=== PATIENT | female | born 1955 | race Caucasian/White ===

== ENCOUNTER → 2018-01-17 10:33 | Outpatient (POV) | payer MEDICARE, OTHER, SELFPAY | PROVIDERS: Visit Provider Dermatology | DX: Z00.00 Encounter for general adult medical examination without abnormal findings (principal) ==

== ENCOUNTER → 2018-05-02 11:05 | Outpatient (POV) | payer MEDICARE, SELFPAY | PROVIDERS: Visit Provider Dermatology | DX: Z00.00 Encounter for general adult medical examination without abnormal findings (principal) ==

== ENCOUNTER → 2018-09-05 10:43 | Outpatient (POV) | payer MEDICARE, OTHER, SELFPAY ==
[2018-09-05 12:13] LABS: Microscopic, Urine URINE MICROSCOPIC (MICROSCOPIC)
[2018-09-05 12:27] LABS: Appearance,Urine CLEAR (Clear); Bilirubin,Urine Negative (Negative); Blood, Urine 1+ (Negative); Color,Urine YELLOW (Yellow); Glucose,Urine (UA) Negative (Negative); Ketones,Urine Negative (Negative); Leukocyte Esterase,Urine Negative (Negative); Nitrate,Urine Negative (Negative); PH,Urine 6.5 (5.0-8.5); Protein,Urine 3+ (Negative); Specific Gravity, Urine 1.025 (1.005-1.030); Urobilinogen,Urine 0.2 EU/dl (0.2)
[2018-09-05 13:16] LABS: Bacteria,Urine Trace /lpf; RBC,Urine Occasional #/hpf (0-3); Squamous Epithelial Cell,Urine Occasional #/hpf (0-5); WBC,Urine Occasional #/hpf (0-3)
[2018-09-05 14:24] LABS: Alanine Aminotransferase 23 U/L (12-78); Albumin Level 3.1 gm/dL (3.4-5.0); Albumin/Globulin Ratio 0.9 (1.1-1.8); Alkaline Phosphatase 98 U/L (46-116); Anion Gap 15.2 mEq/L (5-15); Aspartate Amino Transferase 29 U/L (15-37); Bilirubin,Total 0.4 mg/dL (0.2-1.0); Blood Urea Nitrogen 17 mg/dL (7-18); Calcium 9.1 mg/dL (8.5-10.1); Carbon Dioxide 27 mmol/L (21.0-32.0); Chloride 103 mmol/L (98-107); Estimated Glomerular Filt Rate 63 ml/min (>60); GFR (African American) 76 ML/MIN (>60); Globulin 3.5 gm/dl (1.3-3.2); Glucose 89 mg/dL (74-106); Potassium 4.2 mmoL/L (3.5-5.1); Sodium 141 mmol/L (136-145); Total Protein,Serum 6.6 gm/dL (6.4-8.2)
== END ==
PROVIDERS: Nurse Practitioner Family; Visit Provider Internal Medicine
DX: J43.9 Emphysema, unspecified (principal); I10 Essential (primary) hypertension
CPT/HCPCS: 36415; 80053; 81001

== ENCOUNTER → 2018-09-05 12:47 | Outpatient (POV) | payer MEDICARE, SELFPAY | PROVIDERS: Visit Provider Dermatology | DX: Z00.00 Encounter for general adult medical examination without abnormal findings (principal) ==

== ENCOUNTER → 2018-09-08 10:45 | Outpatient (CLI) | payer MEDICARE, OTHER, SELFPAY ==
--- NOTE | 2018-09-08 10:59 | US_ITS ---
US Kidney COMPARISON: None HISTORY: Hypertension TECHNIQUE: Targeted ultrasound of each kidney FINDINGS: The right kidney measures 9.4 x 3.7 x 3.4 cm. The cortical width is 1.1 cm. There is no hydronephrosis and is no cystic or solid mass. There is normal vascularity. There are graft the spleen appears normal. The left kidney measures 9.6 x 4.8 x 4.4 cm. The cortical thickness is 1.67 m. There are subtle hypoechoic lesions in the calyceal distribution suggesting mild generalized calyectasis. There is normal vascularity. IMPRESSION: Grossly normal-appearing right kidney, possible mild generalized calyectasis in the left kidney
== END ==
PROVIDERS: PCP Internal Medicine; Visit Provider Internal Medicine
DX: I10 Essential (primary) hypertension (principal)
CPT/HCPCS: 76770

== ENCOUNTER → 2018-11-14 10:40 | Outpatient (POV) | payer MEDICARE, OTHER, SELFPAY | PROVIDERS: Visit Provider Dermatology | DX: Z00.00 Encounter for general adult medical examination without abnormal findings (principal) ==

== ENCOUNTER → 2019-01-19 10:23 | Outpatient (CLI) | payer MEDICARE, OTHER, SELFPAY ==
--- NOTE | 2019-01-19 10:27 | MM_ITS ---
PROCEDURE: MM DIG SCREENING MAMM BI W/CAD Patient Age:63Y CLINICAL INDICATION: SCREENING 63-year-old. No hormones. No new complaints. Noncontributory family history Patient has reports of melanoma on her arm 1 year ago COMPARISON: The prior films have finally become available. These are from [facility] including studies from 2015, 2010, 2009, along with and is spot views of right breast from June 2015 DIG MAMMO BILAT SCREENING from 06/26/2009 DIG MAMMO BILAT SCREENING from 12/29/2010 DIG MAMMO BILAT SCREENING from 06/25/2015 DIG MAMMO DIAG UNI RIGHT from 07/04/2015 US BREAST LTD RT from 07/04/2015 TECHNIQUE: Standard CC and MLO images were obtained. R2 CAD reviewed. FINDINGS: The prior films have finally become available. These are from [facility] including studies from 2015, 2010, 2009, along with and is spot views of right breast from June 2015 a moderately dense breast bilaterally. Per today's study seemed extension right the fibroglandular elements and I suspect the patient may have lost some weight when compared back to studies from 2009 Left mammogram: CC view is most helpful in supporting that the area of density immediate the left retroareolar region is stable. On today's CC image this area appears unchanged since 2016. It may be slightly enhance due to overlapping shadows on the MLO view but appears overall similar since 2016 on this view as well. Right breast but today's studies accentuate fibroglandular elements but overall similar pattern in distribution but again note stable appearing slight generous density immediate right retroareolar region. A similar to since 2016 as well IMPRESSION: No new findings of significant concern. No definitive change since prior studies from prior studies which have finally arrive from [facility] Overall reasonably stable mammogram Left breast. Generous density near left retroareolar region appears similar to studies when differences in positioning and technique considered. Right breast: Stable fibroglandular pattern and stable density immediate retroareolar region . Bilateral follow-up in 1 year would be recommended-and should be emphasized/encouraged BI-RAD Category: 2 Benign Finding(s) FOLLOW-UP: 1YR 1 Year Follow-up (A letter has been sent to the patient regarding results of the study.) Dictated by: Khoa Tavarez MD 02/02/2019 15:44 Electronically signed by Khoa Tavarez MD in [place] 02/02/2019 15:44
== END ==
PROVIDERS: PCP Internal Medicine; Visit Provider Internal Medicine
DX: Z12.31 Encounter for screening mammogram for malignant neoplasm of breast (principal)
CPT/HCPCS: 77067

== ENCOUNTER 2019-02-02 08:03 | Observation (INO) ==
--- NOTE | 2019-02-02 08:34 | Emergency Department Note ---
ED Disposition Clinical Impression: Atrial fibrillation Qualifiers: Atrial fibrillation type: paroxysmal Qualified Code(s): I48.0 - Paroxysmal atrial fibrillation Atrial flutter Qualifiers: Atrial flutter type: typical Qualified Code(s): I48.3 - Typical atrial flutter COPD (chronic obstructive pulmonary disease) Qualifiers: COPD type: unspecified COPD Qualified Code(s): J44.9 - Chronic obstructive pulmonary disease, unspecified Disposition: Admitted As Inpatient Condition on Discharge: Fair Time of Disposition: 20:02 - Critical Care Critical Care Time: No Attestation: On 02/02/19, the high probability of a clinically significant, sudden or life threatening deterioration of the following system(s) required my full and direct attention, intervention and personal management. The time I documented below is in addition to time spent performing reported procedures but includes the following listed in this critical care notation. Total Critical Care Time: 35 Vital system(s) involved:: Circulatory Failure Medical Decision Making - Medical Records Medical records reviewed: Yes: I reviewed the patient's medical records. - Isidoro Inquiry Pt receiving controlled substance: No Isidoro was queried for this patient: No Vital Signs: 02/02/19 08:16 02/02/19 09:55 02/02/19 09:57 Temperature 98.5 F Temperature Source Oral Pulse Rate [Left Radial] 140 H 99 H 94 H Respiratory Rate 18 Blood Pressure [Right Arm] 138/100 H 148/85 H 129/90 Blood Pressure Mean [Right Arm] 112 106 103 Blood Pressure Position [Right Arm] Sitting Sitting 02 Sat by Pulse Oximetry 98 97 Oxygen Delivery Method Room Air 02/02/19 10:15 02/02/19 10:25 02/02/19 10:30 Temperature Temperature Source Pulse Rate [Left Radial] 90 85 70 Respiratory Rate Blood Pressure [Right Arm] 134/90 129/92 H 159/94 H Blood Pressure Mean [Right Arm] 104 104 115 Blood Pressure Position [Right Arm] Sitting 02 Sat by Pulse Oximetry Oxygen Delivery Method 02/02/19 13:00 Temperature Temperature Source Pulse Rate [Left Radial] 68 Respiratory Rate Blood Pressure [Right Arm] 164/88 H Blood Pressure Mean [Right Arm] 113 Blood Pressure Position [Right Arm] 02 Sat by Pulse Oximetry 96 Oxygen Delivery Method - Lab Data Lab results reviewed: Yes: I reviewed the patient's lab results. Lab Results 02/02/19 08:25: WBC 6.4, RBC 4.26, Hgb 13.1, Hct 40.4, MCV 94.8, MCH 30.8, MCHC 32.5, RDW 14.0, Plt Count 192, MPV 8.4, Neut % (Auto) 61.8, Lymph % (Auto) 25.2, [place] % (Auto) 6.9, Eos % (Auto) 5.6, Baso % (Auto) 0.6, Neut # (Auto) 4.0, Lymph # (Auto) 1.6, [place] # (Auto) 0.4, Eos # (Auto) 0.4, Baso # (Auto) 0.0 02/02/19 08:25: Sodium 137, Potassium 3.7, Chloride 101, Carbon Dioxide 28, Anion Gap 11.7, BUN 11, Creatinine 1.05 H, Estimated Creat Clear 43, Estimated GFR 53 L, Est GFR ( Amer) 64, Glucose 112 H, Calcium 8.3 L, Troponin I < 0.02 02/02/19 08:25: PT 10.8, INR 1.04, APTT 33.1 02/02/19 11:30: Troponin I < 0.02 Result diagrams: 02/02/19 08:25 02/02/19 08:25 Orders (Tests/Meds): ED MEDICATIONS Generic Name Dose Route Start Last Admin Trade Name Freq PRN Reason Stop Dose Admin Acetaminophen 650 mg 02/02/19 18:05 Acetaminophen 325mg Tab PO 03/04/19 18:04 Q4HP PRN Mild Pain Albuterol/Ipratropium 3 ml 02/02/19 13:55 02/02/19 19:16 Duoneb 3ml Neb IH 03/04/19 13:54 3 ml Q6HP PRN Administration Wheezing Apixaban 5 mg 02/02/19 21:00 Eliquis 5mg Tablet PO 03/04/19 20:59 BID MELISSA Diltiazem HCl 60 mg 02/03/19 00:00 Cardizem 30mg Tablet PO 02/03/19 00:01 ONCE ONE Famotidine 20 mg 02/02/19 21:00 Pepcid 20mg Tablet PO 03/04/19 20:59 HS MELISSA Fluticasone Propionate 2 spr 02/03/19 09:00 Flonase 50mcg Nasal [place] 16gm NS 03/05/19 08:59 DAILY [facility] Lisinopril 10 mg 02/03/19 09:00 Zestril 20mg Tab PO 03/05/19 08:59 DAILY MELISSA Nitroglycerin 0.4 mg 02/02/19 13:55 Nitrostat 0.4mg Sl Tablet SL 03/04/19 12:13 NEEDED PRN chest pain Non-Formulary Medication 1 puff 02/02/19 13:55 Fluticasone/Umeclidin/Vilanter [Trelegy Ellipta 100-62.5-25] IN NEEDED PRN asthma Non-Formulary Medication 600 mg 02/02/19 21:00 Guaifenesin [Mucinex 600mg Tablet] PO 03/04/19 20:59 BID MELISSA Non-Formulary Medication 15 ml 02/03/19 09:00 Mineral Oil, Light/Mineral Oil [Soothe Xp Eye Drops] OP 03/05/19 08:59 DAILY MELISSA Non-Formulary Medication 10 mg pe 02/03/19 09:00 Rosuvastatin Calcium PO 03/05/19 08:59 DAILY MELISSA Non-Formulary Medication 500 mg 02/03/19 09:00 Valacyclovir Hcl [Valacyclovir] PO 03/05/19 08:59 DAILY [facility] Ondansetron HCl 4 mg 02/02/19 19:46 Zofran 4mg/2ml Vial IV 03/04/19 19:45 Q8HP PRN Nausea Sodium Chloride 3 ml 02/02/19 13:55 Sodium Chloride 3% 15ml [facility] 03/04/19 10:38 ONCE PRN INDUCE SPUTUM COLLECTION Discontinued Medications Generic Name Dose Route Start Last Admin Trade Name Freq PRN Reason Stop Dose Admin Albuterol/Ipratropium 3 ml 02/02/19 12:14 Duoneb 3ml [facility] 03/04/19 12:13 Q6HP PRN asthma Apixaban 5 mg 02/02/19 21:00 Eliquis 5mg Tablet PO 03/04/19 20:59 BID [facility] Diltiazem HCl 20 mg 02/02/19 08:35 02/02/19 08:44 Cardizem 25mg/5ml Vial IV 02/02/19 08:36 20 mg ONCE ONE Administration Diltiazem HCl 60 mg 02/02/19 12:10 02/02/19 12:18 Cardizem 60mg Tablet PO 02/02/19 12:11 60 mg ONCE ONE Administration Diltiazem HCl 60 mg 02/02/19 18:30 02/02/19 18:40 Cardizem 30mg Tablet PO 02/02/19 18:31 60 mg ONCE ONE Administration Diltiazem HCl 100 mg/ Sodium 100 mls @ 5 mls/hr 02/02/19 10:15 02/02/19 10:15 Chloride IV 03/04/19 10:14 5 mls/hr .Q20H MELISSA Administration Protocol Diltiazem HCl 100 mg/ Sodium 100 mls @ 5 mls/hr 02/02/19 13:55 02/02/19 16:52 Chloride IV 03/04/19 10:14 Not Given .Q20H MELISSA Protocol Lisinopril 10 mg 02/03/19 09:00 Zestril 20mg Tab PO 03/05/19 08:59 DAILY MELISSA Nitroglycerin 0.4 mg 02/02/19 12:14 Nitrostat 0.4mg Sl Tablet SL 03/04/19 12:13 NEEDED PRN chest pain Non-Formulary Medication 600 mg 02/02/19 21:00 Guaifenesin [Mucinex 600mg Tablet] PO 03/04/19 20:59 BID MELISSA Non-Formulary Medication 15 ml 02/03/19 09:00 Mineral Oil, Light/Mineral Oil [Soothe Xp Eye Drops] OP 03/05/19 08:59 DAILY MELISSA Non-Formulary Medication 10 mg pe 02/03/19 09:00 Rosuvastatin Calcium PO 03/05/19 08:59 DAILY MELISSA Non-Formulary Medication 1 puff 02/02/19 12:14 Fluticasone/Umeclidin/Vilanter [Trelegy Ellipta 100-62.5-25] IN NEEDED PRN asthma Non-Formulary Medication 500 mg 02/03/19 09:00 Valacyclovir Hcl [Valacyclovir] PO 03/05/19 08:59 DAILY MELISSA Rivaroxaban 20 mg 02/02/19 17:30 Xarelto 15mg Tablet PO 03/04/19 17:29 QPMWM MELISSA Sodium Chloride 3 ml 02/02/19 10:39 Sodium Chloride 3% 15ml Neb IH 03/04/19 10:38 ONCE PRN INDUCE SPUTUM COLLECTION ORDERS Category Date Time Status Consult to Cardiology [CONS] Routine Cons 02/02/19 12:11 Active Sputum Culture & Gram Stain Stat Micro 02/02/19 10:44 Ordered - Radiology Data #1 Image(s): Chest Image Reviewed: Yes I reviewed the patient's radiology results, Yes I reviewed the patient's radiology image Preliminary Findings: Normal/NAD Changes of COPD but no acute infiltrates are seen #2 Image(s): Other (Sinuses) Image Reviewed: Yes I reviewed the patient's radiology results, Yes I reviewed the patient's radiology image, Yes I have reviewed radiologist's interpretation Preliminary Findings: Normal/NAD - ECG Data Tracing #1 I reviewed this ECG and interpreted as documented below: Atrial fibrillation with rapid ventricular atrial fibrillation with rapid ventricular response ECG initial impression date: 02/02/19 ECG initial impression time: 08:15 Arrhythmias present: afib Tracing #2 I reviewed this ECG and interpreted as documented below: Atrial flutter with variable AV block nonspecific ST-T changes ECG initial impression date: 02/02/19 ECG initial impression time: 08:55 Normal Sinus Rhythm: No Tracing #3 I reviewed this ECG and interpreted as documented below: Normal sinus rhythm with premature atrial complexes otherwise normal EKG ECG initial impression date: 02/02/19 ECG initial impression time: 09:00 Normal Sinus Rhythm: Yes General Adult HPI - General Chief complaint: Arrhythmia/Palpitations Stated complaint: heart rate out of rymthem Time Seen by Provider: 02/02/19 08:23 Mode of Arrival: Ambulatory Limitations: No Limitations Description of Symptoms (Recalled from ER Triage Doc. by RN): to ed per pvt car with c/o "heart fluttering" pt states she has had a sinus infection x several days today felt like her heart was fluttering. pt denies any chest pain, sob, nausea, vomiting, fever, chills. denies any new otc medications. pt states she has had episodes of irreg HR in past but it resolves and has never seen a doctor for it. 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 [place] she noticed today that her heart started fluttering about 630 this morning she took a 325 mg aspirin but she denies any chest pain associated with this Onset (ago): hour(s) Location: head, chest - Related Data Home Medications Medication Instructions Recorded Confirmed Aspirin [Aspir 81] 81 mg PO DAILY 12/24/18 02/02/19 Etanercept [Enbrel] 50 mg SQ WEEKLY 12/24/18 02/02/19 Fluticasone/Umeclidin/Vilanter 1 puff IN NEEDED PRN 12/24/18 02/02/19 [Trelegy Ellipta 100-62.5-25] Ipratropium/Albuterol Sulfate 0.5 mg IN NEEDED PRN 12/24/18 02/02/19 [Iprat-Albut 0.5-3(2.5) mg/3 ml] Nitroglycerin [Nitrostat 0.4mg SL 0.4 mg SL NEEDED PRN 12/24/18 02/02/19 Tablet] Rosuvastatin Calcium 10 mg pe PO DAILY 12/24/18 02/02/19 Valacyclovir HCl [Valacyclovir] 500 mg PO DAILY 12/24/18 02/02/19 lisinopriL [Lisinopril 20mg Tab] 10 mg PO DAILY 12/24/18 02/02/19 Allergies Allergy/AdvReac Type Severity Reaction Status Date / Time amlodipine Allergy Verified 12/24/18 07:08 amoxicillin Allergy Verified 12/24/18 07:08 budesonide Allergy Verified 12/24/18 07:08 ciprofloxacin [From Cipro] Allergy Verified 12/24/18 07:08 clindamycin Allergy Verified 12/24/18 07:08 linezolid [From Zyvox] Allergy Verified 12/24/18 07:08 metoprolol Allergy Verified 12/24/18 07:08 morphine Allergy Verified 12/24/18 07:08 Penicillins Allergy Verified 12/24/18 07:08 sulfamethoxazole Allergy Verified 12/24/18 07:08 [From Bactrim] tobramycin Allergy Verified 12/24/18 07:08 trimethoprim [From Bactrim] Allergy Verified 12/24/18 07:08 [facility] History - Hepatitis A Screen Drug use history?: No High risk sexual behaviors?: No History of sexually transmitted infection?: No Currently employed?: No Childcare worker?: No Do you have indoor plumbing?: Yes Do you have electricity?: Yes Attestation statement:: This patient has been screened for Hepatitis A risk factors. I have reviewed the patient's past medical history: Yes Medical History: Reports:: Coronary Artery Disease (Has had 1 stent placed in the heart) - Social History Educational Level: Completed High School Alcohol Intake: never Occupational Status: retired ROS Obtained: Yes All systems reviewed & no additional complaints - Constitutional Constitutional: Reports system reviewed and no additional complaints, except as docu, Reports as per HPI - Eyes Eyes: Reports system reviewed and no additional complaints, except as docu, Reports as per HPI - ENT Ears, Nose, Mouth, and Throat: Reports system reviewed and no additional complaints, except as docu, Reports as per HPI, Reports sinus pressure - Cardiovascular Cardiovascular: Reports system reviewed and no additional complaints, except as docu, Reports as per HPI, Reports other (Rapid irregular heartbeat) - Respiratory Respiratory: Yes system reviewed and no additional complaints, except as docu, Yes as per HPI, Yes chest congestion, Yes cough - Gastrointestinal Gastrointestingal: Reports: system reviewed and no additional complaints, except as docu, as per HPI - Neurologic Neurologic: Reports system reviewed and no additional complaints, except as docu, Reports as per HPI Physical Exam - General General appearance: alert, in no apparent distress - Head Head exam: atraumatic - Eye Eye exam: Present: normal appearance - ENT ENT exam: Present: other (Nose red with some purulent postnasal drainage) - Neck Neck exam: Present: normal inspection - Chest Chest inspection: Present: normal inspection - Respiratory Respiratory exam: Present: normal lung sounds bilaterally, other (Rhonchi bilaterally) - Cardiovascular Cardiovascular exam: Present: tachycardia, irregular rhythm - Abdominal Exam Abdominal exam: Present: soft - Neurological Exam Neurological exam: Present: alert, oriented X3 - Psychiatric Psychiatric exam: Present: normal affect, normal mood
[2019-02-02 08:54] LABS: Basophils % 0.6 % (0.1-2.0); Eosinophils # 0.4 K/mm3 (0.0-0.4); Eosinophils % 5.6 % (0.1-12.0); Hematocrit 40.4 % (37.0-47.0); Hemoglobin 13.1 g/dL (12.2-16.2); Lymphocytes # 1.6 K/mm3 (0.7-4.5); Lymphocytes % 25.2 % (10-50); Mean Corpuscular HGB Conc 32.5 g/dL (31.8-35.4); Mean Corpuscular Volume 94.8 fl (81-99); Mean Platelet Volume 8.4 fl (7.4-10.4); Monocytes # 0.4 K/mm3 (0.1-1.0); Monocytes % 6.9 % (1.7-9.3); Neutrophils % 61.8 % (37.0-80.0); Platelet Count 192 K/mm3 (142-424); Red Blood Count 4.26 M/mm3 (4.20-5.40); White Blood Count 6.4 K/mm3 (4.8-10.8)
[2019-02-02 08:59] LABS: Activated Partial Thrombo Time 33.1 seconds (23.6-34.0); INR 1.04 (0.9-1.1); Prothrombin Time 10.8 seconds (9.4-11.8)
[2019-02-02 09:04] LABS: Anion Gap 11.7 mEq/L (5-15); Blood Urea Nitrogen 11 mg/dL (7-18); Calcium 8.3 mg/dL (8.5-10.1); Carbon Dioxide 28 mmol/L (21.0-32.0); Chloride 101 mmol/L (98-107); Glucose 112 mg/dL (74-106); Sodium 137 mmol/L (136-145)
--- NOTE | 2019-02-02 13:42 | Consult Report ---
History of Present Illness Consult date: 02/02/19 Requesting physician: Nehemiah Manning Consult reason: atrial fibrillation Chief complaint: palpitations Additional Medical History:: 1. CAD s/p stent in 2014 2. HLD 3. COPD History of present illness: This is a 63-year-old white female who presented to the emergency department this morning with complaints of her heart fluttering. The patient states that she has had a sinus infection for about a week and has not felt well. She states she woke up around 630 this morning with her heart racing. She has had episodes of her heart racing in the past but it only lasted for a few seconds and then resolved. This morning it was more severe, more intense and persisted. She states that her heart just felt like it was taking off. She denies any chest pain or pressure. She denies any nausea or vomiting. She states that she has been somewhat short of breath at times with her sinus infection and she does have a productive cough. She states that she had a cardiac stent placed in 2014 and had repeat left cardiac catheterization last year and needed no further stenting. She does see Dr. Page at [facility] in [place]. Upon arrival to the emergency department, the patient was found to be in atrial fibrillation with RVR. Her initial troponin was negative. The patient was started on a diltiazem drip and has since converted to sinus rhythm. She has been started on oral diltiazem and she states that the racing sensation has resolved. Her only complaint now is her sinus infection and her cough. She denies any fever, chills, nausea, vomiting, diarrhea, PND or orthopnea. [facility] History I have reviewed the patient's past medical history: Yes Medical History: Reports:: Coronary Artery Disease (Has had 1 stent placed in the heart), Hyperlipidemia *Have you ever received a pneumonia vaccine?: Yes *Have you received a flu vaccine this season?: Yes - *Social History Educational Level: Completed High School Alcohol Intake: never *Occupational Status:: retired *Travel in the last 8 weeks: None Family Hx:: Hypertension Meds Home Medications Medication Instructions Recorded Confirmed Type Aspirin [Aspir 81] 81 mg PO DAILY 12/24/18 02/02/19 History Etanercept [Enbrel] 50 mg SQ WEEKLY 12/24/18 02/02/19 History Fluticasone/Umeclidin/Vilanter 1 puff IN NEEDED PRN 12/24/18 02/02/19 History [Trelegy Ellipta 100-62.5-25] Ipratropium/Albuterol Sulfate 0.5 mg IN NEEDED PRN 12/24/18 02/02/19 History [Iprat-Albut 0.5-3(2.5) mg/3 ml] Mineral Oil, Light/Mineral Oil 15 ml OP DAILY 12/24/18 02/02/19 History [Soothe Xp Eye Drops] Nitroglycerin [Nitrostat 0.4mg SL 0.4 mg SL NEEDED PRN 12/24/18 02/02/19 Hist ory Tablet] Rosuvastatin Calcium 10 mg pe PO DAILY 12/24/18 02/02/19 History Valacyclovir HCl [Valacyclovir] 500 mg PO DAILY 12/24/18 02/02/19 History lisinopriL [Lisinopril 20mg Tab] 10 mg PO DAILY 12/24/18 02/02/19 History guaiFENesin [Mucinex 600mg tablet] 600 mg PO BID 02/02/19 02/02/19 History Allergies Allergy/AdvReac Type Severity Reaction Status Date / Time amlodipine Allergy Verified 12/24/18 07:08 amoxicillin Allergy Verified 12/24/18 07:08 budesonide Allergy Verified 12/24/18 07:08 ciprofloxacin [From Cipro] Allergy Verified 12/24/18 07:08 clindamycin Allergy Verified 12/24/18 07:08 linezolid [From Zyvox] Allergy Verified 12/24/18 07:08 metoprolol Allergy Verified 12/24/18 07:08 morphine Allergy Verified 12/24/18 07:08 Penicillins Allergy Verified 12/24/18 07:08 sulfamethoxazole Allergy Verified 12/24/18 07:08 [From Bactrim] tobramycin Allergy Verified 12/24/18 07:08 trimethoprim [From Bactrim] Allergy Verified 12/24/18 07:08 Review of Systems - Review of Systems Review of systems:: pertinent systems reviewed and negative unless documented below - *Cardiovascular Reports shortness of breath, Reports shortness of breath with activity, Reports rapid, pounding, or irregular heartbeat, Reports fast heart rate - *Respiratory Reports cough, Reports shortness of breath, Reports shortness of breath with activity, Reports excessive phlegm production Exam Vital signs and Labs for Last 24 Hours: Temp Pulse Resp BP Pulse Ox 98.5 F 68 18 164/88 H 96 02/02/19 08:16 02/02/19 13:00 02/02/19 08:16 02/02/19 13:00 02/02/19 13:00 Laboratory Results - last 24 hr 02/02/19 08:25: WBC 6.4, RBC 4.26, Hgb 13.1, Hct 40.4, MCV 94.8, MCH 30.8, MCHC 32.5, RDW 14.0, Plt Count 192, MPV 8.4, Neut % (Auto) 61.8, Lymph % (Auto) 25.2, [place] % (Auto) 6.9, Eos % (Auto) 5.6, Baso % (Auto) 0.6, Neut # (Auto) 4.0, Lymph # (Auto) 1.6, [place] # (Auto) 0.4, Eos # (Auto) 0.4, Baso # (Auto) 0.0 02/02/19 08:25: Sodium 137, Potassium 3.7, Chloride 101, Carbon Dioxide 28, Anion Gap 11.7, BUN 11, Creatinine 1.05 H, Estimated Creat Clear 43, Estimated GFR 53 L, Est GFR ( Amer) 64, Glucose 112 H, Calcium 8.3 L, Troponin I < 0.02 02/02/19 08:25: PT 10.8, INR 1.04, APTT 33.1 02/02/19 11:30: Troponin I < 0.02 I & O for Last 24 hours: Intake & Output 01/30/19 01/31/19 02/01/19 02/02/19 23:59 23:59 23:59 23:59 Weight 110 lb Narrative: EKG is atrial fibrillation with RVR. Rate is [address] and T wave abnormalities. Most recent EKG shows atrial flutter with a rate of 73 and nonspecific T wave abnormalities. - Constitutional no acute distress, average body habitus - *Routine HEENT Exam Head: Present: normocephalic, atraumatic Eye: Present: EOMI, PERRL ENT: Present: mucous membranes moist - *Routine Neck Exam Present: supple, full ROM, normal carotid upstroke. Absent: JVD, carotid bruit, lymphadenopathy - *Routine Respiratory Exam Present: decreased breath sounds, wheezes (Expiratory wheezing) - *Routine Cardiovascular Exam Present: RRR, Normal S1, Normal S2. Absent: murmur - *Routine Abdominal Exam Present: soft, normoactive bowel sounds. Absent: tenderness, distended - *Routine Extremities Exam Present: full ROM, pulses intact, normal capillary refill. Absent: cyanosis, clubbing, edema - *Routine Skin Exam Present: intact, warm. Absent: erythema, rash - *Routine Neurological Exam Present: alert, oriented X3, CN II-XII intact. Absent: sensory deficit, motor deficit - Routine Psychiatric Exam Present: normal affect, normal thought process - Detailed Eye Exam Eyelids: Left normal inspection Assessment and Plan (1) Atrial fibrillation Current visit: Yes Status: Acute Qualifiers: Atrial fibrillation type: paroxysmal Qualified Code(s): I48.0 - Paroxysmal atrial fibrillation Category: Medical Code(s): I48.91 - Unspecified atrial fibrillation (2) Cough Current visit: Yes Status: Acute Category: Medical Code(s): R05 - Cough (3) Atrial flutter Current visit: Yes Status: Acute Qualifiers: Atrial flutter type: typical Qualified Code(s): I48.3 - Typical atrial flutter Category: Medical Code(s): I48.92 - Unspecified atrial flutter (4) Hyperlipidemia Current visit: Yes Status: Chronic Category: Medical Code(s): E78.5 - Hyperlipidemia, unspecified (5) COPD (chronic obstructive pulmonary disease) Current visit: Yes Status: Chronic Qualifiers: COPD type: unspecified COPD Qualified Code(s): J44.9 - Chronic obstructive pulmonary disease, unspecified Category: Medical Code(s): J44.9 - Chronic obstructive pulmonary disease, uns pecified (6) Coronary artery disease Current visit: Yes Status: Chronic Category: Medical Code(s): I25.10 - Atherosclerotic heart disease of [place] coronary artery without angina pectoris - Assessment and plan all Dx Assessment and Plan for all problems:: Plan: 1. The patient was admitted to the hospital after being found to be in atrial fibrillation with RVR. The patient was started on a diltiazem drip and did rate control. Her most recent EKG shows atrial flutter with a rate in the 70s. While in her room the patient appears to be in sinus rhythm with a rate in the 60s. Her diltiazem drip has been stopped and she has been converted to oral diltiazem. She is tolerated this well. 2. Recommend Cardizem CD 240 mg p.o. daily for rate control. 3. Recommend Xarelto 20 mg p.o. with supper. Have had a long discussion with the patient about oral anticoagulation. The risks and benefits. The patient is verbalized understanding is agreeable in taking the medication. 4. The patient does have a history of coronary artery disease with stenting in 2014. She had a recent heart cath last year that required no stenting. Her troponin is negative. She denies any chest pain or pressure. No plans for invasive cardiac testing at this time. 5 her blood pressure is elevated. The oral Cardizem should help to improve her blood pressure. 6. Her LDL goal is less than 55. 7. The patient does have COPD. This will be managed by her primary care provider. 8. The patient does complain of a sinus infection with a productive cough. She is coughing a lot while I am in the room. Her lungs do not sound wet. Will defer management of this to her primary care provider as well. 9. Preliminary EF on echocardiogram is 50 to 55% with no significant valvular disease. Awaiting official read. 10. Further recommendations were made pending the patient's response to treatment. Thank you for the opportunity to help dissipate in the care of this patient.
--- NOTE | 2019-02-02 14:08 | Pharmacy Consult Notes ---
[facility] Pharmacy VTE Monitoring - Patient Demographics Admission date: 02/02/19 Report Date: 02/02/19 Time: 14:08 Allergies/Adverse Reactions: Patient Allergies amlodipine Allergy (Verified 12/24/18 07:08) amoxicillin Allergy (Verified 12/24/18 07:08) budesonide Allergy (Verified 12/24/18 07:08) ciprofloxacin [From Cipro] Allergy (Verified 12/24/18 07:08) clindamycin Allergy (Verified 12/24/18 07:08) linezolid [From Zyvox] Allergy (Verified 12/24/18 07:08) metoprolol Allergy (Verified 12/24/18 07:08) morphine Allergy (Verified 12/24/18 07:08) Penicillins Allergy (Verified 12/24/18 07:08) sulfamethoxazole [From Bactrim] Allergy (Verified 12/24/18 07:08) tobramycin Allergy (Verified 12/24/18 07:08) trimethoprim [From Bactrim] Allergy (Verified 12/24/18 07:08) Height: 1.63 m Weight: 49.895 kg Patient Problems: Current Active Problems Atrial fibrillation (Acute) Atrial flutter (Acute) COPD (chronic obstructive pulmonary disease) (Chronic) Hyperlipidemia (Chronic) Cough (Acute) Coronary artery disease (Chronic) - VTE Risk Labs: VTE Related Lab Results Hgb 13.1 g/dL (12.2-16.2) 02/02/19 08:25 Hct 40.4 % (37.0-47.0) 02/02/19 08:25 Plt Count 192 K/mm3 (142-424) 02/02/19 08:25 PT 10.8 seconds (9.4-11.8) 02/02/19 08:25 INR 1.04 (0.9-1.1) 02/02/19 08:25 APTT 33.1 seconds (23.6-34.0) 02/02/19 08:25 BUN 11 mg/dL (7-18) 02/02/19 08:25 Creatinine 1.05 mg/dL (0.55-1.02) H 02/02/19 08:25 Estimated Creat Clear 43 mL/min (50-200) 02/02/19 08:25 - Prophylaxis VTE Prophylaxis Ordered?: Yes Types of VTE Prophylaxis: Pharmacological Pharmacologic Type: Other (ELIQUIS) - VTE Diagnosis Confirmed Treatment or plan recommended: Continue Current Treatment
--- NOTE | 2019-02-02 18:23 | Electrocardiograph Report ---
APPROVED REPORT Exam: Resting ECG HR:64 bpm ECG Measurements Heart Rate 64 AXES NM 150 P 76 QRSd 78 QRS 72 QT 404 T83 QTc 416 <Conclusion> Sinus rhythm with premature atrial complexes Otherwise normal ECG Electronically signed by : Domingo Robert, 02/02/2019 18:22:54
--- NOTE | 2019-02-02 18:24 | Electrocardiograph Report ---
APPROVED REPORT Exam: Resting ECG HR:73 bpm ECG Measurements Heart Rate 73 AXES [place] P 85 QRSd 86 QRS 73 QT 404 T81 QTc 445 <Conclusion> Atrial flutter with variable AV block Nonspecific ST abnormality Abnormal ECG Electronically signed by : Domingo Robert, 02/02/2019 18:23:40
--- NOTE | 2019-02-02 18:28 | History & Physical Report ---
*Admission Date: 02/02/19 *Chief complaint: Heart palpitations *History of present illness: History of present illness: This is a 63-year-old white female who presented to the emergency department this morning with complaints of her heart fluttering. The patient states that she has had a sinus infection for about a week and has not felt well. She states she woke up around 630 this morning with her heart racing. She has had episodes of her heart racing in the past but it only lasted for a few seconds and then resolved. This morning it was more severe, more intense and persisted. She states that her heart just felt like it was taking off. She denies any chest pain or pressure. She denies any nausea or vomiting. She states that she has been somewhat short of breath at times with her sinus infection and she does have a productive cough. She states that she had a cardiac stent placed in 2014 and had repeat left cardiac catheterization last year and needed no further stenting. She does see Dr. Tello at [facility] in [place]. Upon arrival to the emergency department, the patient was found to be in atrial fibrillation with RVR. Her initial troponin was negative. The patient was started on a diltiazem drip and has since converted to sinus rhythm. She has been started on oral diltiazem and she states that the racing sensation has resolved. Her only complaint now is her sinus infection and her cough. She denies any fever, chills, nausea, vomiting, diarrhea, PND or orthopnea. Above note per cardiology. On examination of the floor patient feels much better. Of note patient has palpitations almost nightly but they go away with deep br eathing. [facility] History I have reviewed the patient's past medical history: Yes Medical History: Reports:: Cancer, Coronary Artery Disease (Has had 1 stent placed in the heart), Hyperlipidemia, MRSA Denies:: Diabetes Mellitus Type 1, Diabetes Mellitus Type 2 *Have you ever received a pneumonia vaccine?: Yes *Have you received a flu vaccine this season?: Yes Other Medical History: Reports: Anemia, Arthritis, Cataracts, Glaucoma, Sinus Problems Other Surgeries: Yes: Hysterectomy-Total Amputation: No - *Social History Educational Level: Attended College Smoking Status: Never smoker Alcohol Intake: never *Occupational Status:: retired Housing: house *Travel in the last 8 weeks: None Family Hx:: Cancer, Coronary Artery Disease, Heart Attack, Hyperlipidemia, Hypertension Review of Systems - Review of Systems Review of systems:: pertinent systems reviewed and negative unless documented below See HPI for review of systems. Meds Home Medications Medication Instructions Recorded Confirmed Type Aspirin [Aspir 81] 81 mg PO DAILY 12/24/18 02/02/19 History Etanercept [Enbrel] 50 mg SQ WEEKLY 12/24/18 02/02/19 History Fluticasone/Umeclidin/Vilanter 1 puff IN NEEDED PRN 12/24/18 02/02/19 History [Trelegy Ellipta 100-62.5-25] Ipratropium/Albuterol Sulfate 0.5 mg IN NEEDED PRN 12/24/18 02/02/19 History [Iprat-Albut 0.5-3(2.5) mg/3 ml] Nitroglycerin [Nitrostat 0.4mg SL 0.4 mg SL NEEDED PRN 12/24/18 02/02/19 History Tablet] Rosuvastatin Calcium 10 mg pe PO DAILY 12/24/18 02/02/19 History Valacyclovir HCl [Valacyclovir] 500 mg PO DAILY 12/24/18 02/02/19 History lisinopriL [Lisinopril 20mg Tab] 10 mg PO DAILY 12/24/18 02/02/19 History Allergies Allergy/AdvReac Type Severity Reaction Status Date / Time amlodipine Allergy Verified 12/24/18 07:08 amoxicillin Allergy Verified 12/24/18 07:08 budesonide Allergy Verified 12/24/18 07:08 ciprofloxacin [From Cipro] Allergy Verified 12/24/18 07:08 clindamycin Allergy Verified 12/24/18 07:08 linezolid [From Zyvox] Allergy Verified 12/24/18 07:08 metoprolol Allergy Verified 12/24/18 07:08 morphine Allergy Verified 12/24/18 07:08 Penicillins Allergy Verified 12/24/18 07:08 sulfamethoxazole Allergy Verified 12/24/18 07:08 [From Bactrim] tobramycin Allergy Verified 12/24/18 07:08 trimethoprim [From Bactrim] Allergy Verified 12/24/18 07:08 Exam Vital signs and Labs for Last 24 Hours: Temp Pulse Resp BP Pulse Ox 97.7 F 73 20 157/80 H 93 L 02/02/19 16:00 02/02/19 16:00 02/02/19 16:00 02/02/19 16:00 02/02/19 16:52 Laboratory Results - last 24 hr 02/02/19 08:25: WBC 6.4, RBC 4.26, Hgb 13.1, Hct 40.4, MCV 94.8, MCH 30.8, MCHC 32.5, RDW 14.0, Plt Count 192, MPV 8.4, Neut % (Auto) 61.8, Lymph % (Auto) 25.2, [place] % (Auto) 6.9, Eos % (Auto) 5.6, Baso % (Auto) 0.6, Neut # (Auto) 4.0, Lymph # (Auto) 1.6, [place] # (Auto) 0.4, Eos # (Auto) 0.4, Baso # (Auto) 0.0 02/02/19 08:25: Sodium 137, Potassium 3.7, Chloride 101, Carbon Dioxide 28, Anion Gap 11.7, BUN 11, Creatinine 1.05 H, Estimated Creat Clear 43, Estimated GFR 53 L, Est GFR ( Amer) 64, Glucose 112 H, Calcium 8.3 L, Troponin I < 0.02 02/02/19 08:25: PT 10.8, INR 1.04, APTT 33.1 02/02/19 11:30: Troponin I < 0.02 02/02/19 15:00: Troponin I < 0.02 I & O for Last 24 hours: Intake & Output 01/31/19 02/01/19 02/02/19 02/03/19 11:59 11:59 11:59 11:59 Weight 110 lb 110 lb 5 oz Narrative: Alert, oriented x3. Pleasant. Talkative. Lungs have rhonchi bilaterally. Oropharynx clear. No JVD. Heart rate regular. Abdomen soft and nontender. No edema or clubbing. Neurologic exam intact. ENT exam clear. Assessment and Plan (1) Atrial fibrillation Current visit: Yes Status: Acute Qualifiers: Atrial fibrillation type: paroxysmal Qualified Code(s): I48.0 - Paroxysmal atrial fibrillation Category: Medical Code(s): I48.91 - Unspecified atrial fibrillation (2) Cough Current visit: Yes Status: Acute Category: Medical Code(s): R05 - Cough (3) Atrial flutter Current visit: Yes Status: Acute Qualifiers: Atrial flutter type: typical Qualified Code(s): I48.3 - Typical atrial flutter Category: Medical Code(s): I48.92 - Unspecified atrial flutter (4) Hyperlipidemia Current visit: Yes Status: Chronic Category: Medical Code(s): E78.5 - Hyperlipidemia, unspecified (5) COPD (chronic obstructive pulmonary disease) Current visit: Yes Status: Chronic Qualifiers: COPD type: unspecified COPD Qualified Code(s): J44.9 - Chronic obstructive pulmonary disease, unspecified Category: Medical Code(s): J44.9 - Chronic obstructive pulmonary disease, unspecified (6) Coronary artery disease Current visit: Yes Status: Chronic Category: Medical Code(s): I25.10 - Atherosclerotic heart disease of [place] coronary artery without angina pectoris - Assessment and plan all Dx Assessment and Plan for all problems:: I initiated oral Cardizem therapy on admission as well as Eliquis therapy. Appreciate cardiology consult. Agree with recommendations. Plan will be to discharge tomorrow on Cardizem and Eliquis if stays in sinus rhythm through the night.
--- NOTE | 2019-02-02 18:30 | Electrocardiograph Report ---
APPROVED REPORT Exam: Resting ECG HR:119 bpm ECG Measurements Heart Rate 119 AXES QRSd 84 QRS 74 QT 336 T80 QTc 472 <Conclusion> Atrial fibrillation with rapid ventricular response Nonspecific ST abnormality, probably digitalis effect Abnormal ECG Electronically signed by : Domingo Robert, 02/02/2019 18:29:35
--- NOTE | 2019-02-03 08:15 | Progress Note ---
Internal Medicine - PN: Subj *Date: 02/03/19 *Time: 08:14 Interval history: Patient tolerated p.o. Cardizem overnight, blood pressure has remained stable. Remains in normal sinus rhythm. Unfortunately patient's lung disease has gotten worse overnight with coughing and congestion, this was present on admission. Chest x-ray showed evidence of COPD exacerbation, sputum culture has been obtained in the ER. Exam Vital signs and Labs for Last 24 Hours: Temp Pulse Resp BP Pulse Ox 99.5 F 75 18 147/71 H 94 L 02/03/19 08:00 02/03/19 08:00 02/03/19 08:00 02/03/19 08:00 02/03/19 08:00 Laboratory Results - last 24 hr 02/02/19 08:25: WBC 6.4, RBC 4.26, Hgb 13.1, Hct 40.4, MCV 94.8, MCH 30.8, MCHC 32.5, RDW 14.0, Plt Count 192, MPV 8.4, Neut % (Auto) 61.8, Lymph % (Auto) 25.2, [place] % (Auto) 6.9, Eos % (Auto) 5.6, Baso % (Auto) 0.6, Neut # (Auto) 4.0, Lymph # (Auto) 1.6, [place] # (Auto) 0.4, Eos # (Auto) 0.4, Baso # (Auto) 0.0 02/02/19 08:25: Sodium 137, Potassium 3.7, Chloride 101, Carbon Dioxide 28, Anion Gap 11.7, BUN 11, Creatinine 1.05 H, Estimated Creat Clear 43, Estimated GFR 53 L, Est GFR ( Amer) 64, Glucose 112 H, Calcium 8.3 L, Troponin I < 0.02 02/02/19 08:25: PT 10.8, INR 1.04, APTT 33.1 02/02/19 11:30: Troponin I < 0.02 02/02/19 15:00: Troponin I < 0.02 I & O for Last 24 hours: Intake & Output 01/31/19 02/01/19 02/02/19 02/03/19 11:59 11:59 11:59 11:59 Intake Total 360 / 360 Balance 360 / 360 Weight 110 lb 111 lb 4 oz Narrative: Heart rate regular. No murmurs. Abdomen soft. Lungs have rhonchi and crackles bilaterally in her lower lung banks. Coughing up yellow sputum. Oropharynx clear. Neurologically intact. Skin clear. ENT exam otherwise clear. Assessment and Plan (1) Atrial fibrillation Current visit: Yes Status: Acute Qualifiers: Atrial fibrillation type: paroxysmal Qualified Code(s): I48.0 - Paroxysmal atrial fibrillation Category: Medical Code(s): I48.91 - Unspecified atrial fibrillation (2) Cough Current visit: Yes Status: Acute Category: Medical Code(s): R05 - Cough (3) Atrial flutter Current visit: Yes Status: Acute Qualifiers: Atrial flutter type: typical Qualified Code(s): I48.3 - Typical atrial flutter Category: Medical Code(s): I48.92 - Unspecified atrial flutter (4) Hyperlipidemia Current visit: Yes Status: Chronic Category: Medical Code(s): E78.5 - Hyperlipidemia, unspecified (5) COPD (chronic obstructive pulmonary disease) Current visit: Yes Status: Chronic Qualifiers: COPD type: unspecified COPD Qualified Code(s): J44.9 - Chronic obstructive pulmonary disease, unspecified Category: Medical Code(s): J44.9 - Chronic obstructive pulmonary disease, unspecified (6) Coronary artery disease Current visit: Yes Status: Chronic Category: Medical Code(s): I25.10 - Atherosclerotic heart disease of [place] coronary artery without angina pectoris - Assessment and plan all Dx Assessment and Plan for all problems:: Atrial fibrillation currently in sinus rhythm. Continue anticoagulation therapy, changed to long-acting Cardizem. COPD with exacerbation. Begin IV antibiotic and steroid therapy. Probable transition to p.o. tomorrow on discharge.
[2019-02-04 06:23] LABS: Basophils % 0.3 % (0.1-2.0); Eosinophils % 0.4 % (0.1-12.0); Hematocrit 35.7 % (37.0-47.0); Lymphocytes # 0.8 K/mm3 (0.7-4.5); Lymphocytes % 14.5 % (10-50); Mean Corpuscular HGB Conc 33.7 g/dL (31.8-35.4); Mean Corpuscular Volume 91.6 fl (81-99); Mean Platelet Volume 8.6 fl (7.4-10.4); Monocytes # 0.1 K/mm3 (0.1-1.0); Monocytes % 1.5 % (1.7-9.3); Neutrophils # 4.4 K/mm3 (1.8-7.8); Neutrophils % 83.4 % (37.0-80.0); Platelet Count 164 K/mm3 (142-424); Red Blood Count 3.89 M/mm3 (4.20-5.40); Red Cell Distribution Width 13.7 % (11.5-17.5); White Blood Count 5.3 K/mm3 (4.8-10.8)
[2019-02-04 06:59] LABS: Anion Gap 12.7 mEq/L (5-15); Calcium 7.5 mg/dL (8.5-10.1)
--- NOTE | 2019-02-04 08:59 | Discharge Summary ---
General - General Admission date:: 02/02/19 Discharge date: 02/04/19 HPI HPI: History of present illness: This is a 63-year-old white female who presented to the emergency department this morning with complaints of her heart fluttering. The patient states that she has had a sinus infection for about a week and has not felt well. She states she woke up around 630 this morning with her heart racing. She has had episodes of her heart racing in the past but it only lasted for a few seconds and then resolved. This morning it was more severe, more intense and persisted. She states that her heart just felt like it was taking off. She denies any chest pain or pressure. She denies any nausea or vomiting. She states that she has been somewhat short of breath at times with her sinus infection and she does have a productive cough. She states that she had a cardiac stent placed in 2014 and had repeat left cardiac catheterization last year and needed no further stenting. She does see Dr. Tello at [facility] in [place]. Upon arrival to the emergency department, the patient was found to be in atrial fibrillation with RVR. Her initial troponin was negative. The patient was started on a diltiazem drip and has since converted to sinus rhythm. She has been started on oral diltiazem and she states that the racing sensation has resolved. Her only complaint now is her sinus infection and her cough. She denies any fever, chills, nausea, vomiting, diarrhea, PND or orthopnea. Above note per cardiology. On examination of the floor patient feels much better. Of note patient has palpitations almost nightly but they go away with deep breathing. Hospital Course Hospital Course: Patient was admitted, atrial fibrillation was converted with Cardizem, and she was changed over to p.o. Cardizem. She also suffered a COPD exacerbation, treated with ceftriaxone, Solu-Medrol and azithromycin and overnight is felt much better. She is been maintained in sinus rhythm over the last 36 hours with p.o. Cardizem. Plan will be to discharge her home today with p.o. Cardizem, treatment for COPD exacerbation-which certainly could have contributed to MAT/A. fib, and I will see her in my office on Tuesday morning with an EKG at that time. Objective Vital signs: Temp Pulse Resp BP Pulse Ox 97.6 F 72 17 165/84 H 91 L 02/04/19 08:00 02/04/19 08:00 02/04/19 08:00 02/04/19 08:00 02/04/19 08:00 Narrative: Pleasant, talkative, alert, oriented x3. Lungs have much better air movement than yesterday. Sinus rhythm noted on monitor. Heart rate regular without murmurs. No edema or clubbing or cyanosis. Results Labs on day of discharge: Labs from last 24 hours 02/04/19 02/04/19 05:45 05:45 WBC 5.3 RBC 3.89 L Hgb 12.0 L Hct 35.7 L MCV 91.6 MCH 30.9 MCHC 33.7 RDW 13.7 Plt Count 164 MPV 8.6 Neut % (Auto) 83.4 H Lymph % (Auto) 14.5 [place] % (Auto) 1.5 L Eos % (Auto) 0.4 Baso % (Auto) 0.3 Neut # (Auto) 4.4 Lymph # (Auto) 0.8 [place] # (Auto) 0.1 Eos # (Auto) 0.0 Baso # (Auto) 0.0 Sodium 131 L Potassium 3.7 Chloride 95 L Carbon Dioxide 27 Anion Gap 12.7 BUN 14 D Creatinine 0.92 Estimated Creat Clear 45 Estimated GFR 61 Est GFR ( Amer) 74 Glucose 171 H Calcium 7.5 L Preliminary micro results at discharge 02/02/19 11:45 Sputum Culture - Preliminary Sputum - Expectorated Sputum DS: Diagnosis - Discharge Diagnosis (1) Atrial fibrillation Status: Resolved (2) Cough Status: Chronic (3) Atrial flutter Status: Resolved (4) Hyperlipidemia Status: Chronic (5) COPD (chronic obstructive pulmonary disease) Status: Chronic (6) Coronary artery disease Status: Chronic Discharge Plan - Patient Discharge Instructions ACTIVITY: Continue current activity DIET: continue same diet - Follow up Plan Follow up with: Nehemiah Manning MD [Staff Physician] - 02/09/19 8:00 am Disposition: Home, Self-Nursing Home Medications: Home Medications Medication Instructions Recorded Confirmed Type Aspirin [Aspir 81] 81 mg PO DAILY 12/24/18 02/02/19 History Etanercept [Enbrel] 50 mg SQ WEEKLY 12/24/18 02/02/19 History Fluticasone/Umeclidin/Vilanter 1 puff IN NEEDED PRN 12/24/18 02/02/19 History [Trelegy Ellipta 100-62.5-25] Ipratropium/Albuterol Sulfate 0.5 mg IN NEEDED PRN 12/24/18 02/02/19 History [Iprat-Albut 0.5-3(2.5) mg/3 ml] Nitroglycerin [Nitrostat 0.4mg SL 0.4 mg SL NEEDED PRN 12/24/18 02/02/19 History Tablet] Rosuvastatin Calcium 10 mg PO HS 12/24/18 02/03/19 History Valacyclovir HCl [Valacyclovir] 500 mg PO DAILY 12/24/18 02/02/19 History lisinopriL [Lisinopril 20mg Tab] 10 mg PO DAILY 12/24/18 02/02/19 History Dorzolamide HCl/Timolol Maleat 1 drp EYE-BOTH BID 02/03/19 02/03/19 History [Cosopt Ophth Soln 10mL Bottle] Latanoprost [Xalatan 0.005% Ophth 1 drp EYE-BOTH HS 02/03/19 02/03/19 History Soln 2.5mL] carvediloL [Carvedilol 3.125mg Tab] 3.125 mg PO BID 02/03/19 02/03/19 History Apixaban [Eliquis 5mg tab] 5 mg PO BID #60 tab 02/04/19 Rx Azithromycin [Zithromax 250mg 250 mg PO DIRECTED #6 tab 02/04/19 Rx tab] Cefdinir [Omnicef 300mg Capsule] 300 mg PO BID #14 cap 02/04/19 Rx dilTIAZem HCL [Cardizem ER 240mg 240 mg PO DAILY #30 cap.er.24h 02/04/19 Rx Capsule] predniSONE [Deltasone 20mg 20 mg PO BID 7 Days #14 tab 02/04/19 Rx tablet] Prescriptions/Medication Reconciliation: New predniSONE [Deltasone 20mg tablet] 20 mg PO BID 7 Days #14 tab Apixaban [Eliquis 5mg tab] 5 mg PO BID #60 tab Cefdinir [Omnicef 300mg Capsule] 300 mg PO BID #14 cap dilTIAZem HCL [Cardizem ER 240mg Capsule] 240 mg PO DAILY #30 cap.er.24h Azithromycin [Zithromax 250mg tab] 250 mg PO DIRECTED #6 tab Continued Rosuvastatin Calcium 10 mg PO HS Nitroglycerin [Nitrostat 0.4mg SL Tablet] 0.4 mg SL NEEDED PRN PRN Reason: chest pain lisinopriL [Lisinopril 20mg Tab] 10 mg PO DAILY Ipratropium/Albuterol Sulfate [Iprat-Albut 0.5-3(2.5) mg/3 ml] 0.5 mg IN NEEDED PRN PRN Reason: asthma Fluticasone/Umeclidin/Vilanter [Trelegy Ellipta 100-62.5-25] 1 puff IN NEEDED PRN PRN Reason: asthma Etanercept [Enbrel] 50 mg SQ WEEKLY Aspirin [Aspir 81] 81 mg PO DAILY carvediloL [Carvedilol 3.125mg Tab] 3.125 mg PO BID Dorzolamide HCl/Timolol Maleat [Cosopt Ophth Soln 10mL Bottle] 1 drp EYE-BOTH BID Latanoprost [Xalatan 0.005% Ophth Soln 2.5mL] 1 drp EYE-BOTH HS Valacyclovir HCl [Valacyclovir] 500 mg PO DAILY - Problem Reconciliation Problems Reviewed?: Yes
--- NOTE | 2019-02-05 06:26 | Cardiology Report ---
APPROVED REPORT EXAM: Comprehensive 2D, Doppler, and color-flow Echocardiogram Silver Steward: Nenita Alejandra RT(R) Ht: 5 ft 4 in Wt: 110lbs BSA: 1.52 BP: 129/90 mmHg Indications: COPD, Palpitations, HTN, SOB, hyperlipidemia, stent 2D Dimensions Aortic Root 2.20 cm F: 2.7 - 3.3 Left Atrium 2.90 cm F: 2.7 - 3.8 LVOT 1.71 cm (M/F) 1.5-2.5 M-Mode Dimensions RVDd 2.01 cm (0.9-2.6)LVDd 4.10 cm (3.5-5.7) LVDs 3.23 cm (3.5-5.7)IVSd 0.96 cm (0.6-1.1) PWd 0.90 cm (0.6-1.1)EF (Teich) 43.50% FS 21.20% EDV (Teich) 74.20 mL ESV (Teich) 41.90 mL LV Diastology E/A Ratio 0.97 Mitral Valve MV A Velocity 54.00 (40-130 cm/s) Left Ventricle Left atrium is mildly enlarged, left ventricle is normal size, mild concentric left ventricular hypertrophy, visually estimated ejection fraction approximately 45%, there is marked hypokinesis involving the inferior basal and posterior lateral wall. Grade 1 diastolic dysfunction seen without tissue Doppler evidence of raise left atrial pressure. Right Ventricle Right atrium and right ventricular normal size and contractility. Aortic Valve Aortic valve is thickened and calcified leaflet continue to display good mobility, there is no aortic stenosis or aortic insufficiency. Mitral Valve Mitral valve is grossly normal, there is mild mitral regurgitation. Tricuspid Valve Tricuspid valve is grossly normal, there is mild tricuspid regurgitation. Pulmonic Valve Pulmonic valve is poorly visualized. Great Vessels Aortic root is normal size. Pericardium No significant pericardial effusion noted. Conclusion 1. Mildly enlarged left atrium, normal left ventricular size, mild concentric left ventricular hypertrophy, visually estimated ejection fraction 45% with segmental wall motion abnormality described above, grade 1 diastolic dysfunction seen without tissue Doppler evidence of raise left atrial pressure. 2. Thickened and calcified aortic valve without aortic stenosis or aortic insufficiency. 3. Mild mitral and tricuspid regurgitation. 4. No significant pericardial effusion noted. Electronically signed by : Abhinav Weber, 02/05/2019 05:48:35
== END 2019-02-04 10:15 | disposition home or self-care (01) ==
LOC: 2ND 08:03 → ER 08:03 → 2ND 14:00
PROVIDERS: ADMIT Internal Medicine Adolescent Medicine; ATTEND Internal Medicine Adolescent Medicine
CPT/HCPCS: 36415; 70220; 71020; 71046; 80048; 84484; 85025; 85610; 85730; 87070; 87077; 87186; 87205; 93005; 93306; 94640; 94761; 96365; 96375; 99283; G0378; J0456; J2405

== ENCOUNTER → 2019-02-09 15:32 | Outpatient (CLI) | payer MEDICARE, OTHER, SELFPAY ==
--- NOTE | 2019-02-09 | ECG_ITS ---
APPROVED REPORT Exam: Resting ECG HR:57 bpm ECG Measurements Heart Rate 57 AXES ND 152 P 78 QRSd 84 QRS 84 QT 420 T 71 QTc 408 <Conclusion> Sinus bradycardia Minimal voltage criteria for LVH, may be normal variant ST abnormality, possible digitalis effect Abnormal ECG Electronically signed by : Nehemiah Manning, 02/10/2019 11:15:37
== END ==
PROVIDERS: PCP Internal Medicine Adolescent Medicine; Visit Provider Internal Medicine Adolescent Medicine
DX: I48.91 Unspecified atrial fibrillation (principal)
CPT/HCPCS: 93005

== ENCOUNTER → 2019-11-06 10:29 | Outpatient (POV) | payer MEDICARE, OTHER, SELFPAY | PROVIDERS: Visit Provider Dermatology | DX: Z00.00 Encounter for general adult medical examination without abnormal findings (principal) ==

== ENCOUNTER → 2019-12-31 12:06 | Outpatient (CLI) | payer MEDICARE, SELFPAY ==
[2019-12-31 13:25] LABS: Alanine Aminotransferase 13 U/L (12-78); Albumin Level 3.6 g/dl (3.5-5.0); Albumin/Globulin Ratio 1.2 (1.1-1.8); Alkaline Phosphatase 90 U/L (38-126); Anion Gap 10.4 mEq/L (5-15); Aspartate Amino Transferase 35 U/L (14-36); Bilirubin,Total 0.5 mg/dl (0.2-1.3); Blood Urea Nitrogen 19 mg/dl (7-17); Calcium 9.2 mg/dl (8.4-10.2); Carbon Dioxide 30 mmol/L (22.0-30.0); Chloride 104 mmol/L (98-107); Chol/HDL Ratio 3.1 (1-3.5); Cholesterol 138 mg/dl (140-200); Estimated Glomerular Filt Rate 56 ml/min (>60); GFR (African American) 67 ML/MIN (>60); Globulin 3.1 g/dL (1.3-3.2); Glucose 90 mg/dl (74-100); HDL Cholesterol 44 mg/dl (40-60); Potassium 4.4 mmoL/L (3.5-5.1); Sodium 140 mmol/L (136-145); Total Protein,Serum 6.7 g/dl (6.3-8.2); Triglycerides 98 mg/dl (30-150); VLDL Cholesterol 20 mg/dL (0-40)
[2019-12-31 13:43] LABS: Basophils % 0.3 % (0.1-2.0); Eosinophils % 0.1 % (0.1-12.0); Hematocrit 40.4 % (37.0-47.0); Lymphocytes # 1.6 K/mm3 (0.7-4.5); Lymphocytes % 21.9 % (10-50); Mean Corpuscular HGB Conc 32.2 g/dL (31.8-35.4); Mean Corpuscular Hemoglobin 31.2 pg (27.0-31.2); Mean Corpuscular Volume 96.7 fl (81-99); Mean Platelet Volume 8.2 fl (7.4-10.4); Monocytes # 0.4 K/mm3 (0.1-1.0); Monocytes % 4.7 % (1.7-9.3); Neutrophils # 5.3 K/mm3 (1.8-7.8); Platelet Count 220 K/mm3 (142-424); Red Blood Count 4.18 M/mm3 (4.20-5.40); White Blood Count 7.3 K/mm3 (4.8-10.8)
[2019-12-31 13:57] LABS: Thyroid Stimulating Hormone 3.08 uIU/mL (0.465-4.68)
== END ==
PROVIDERS: Visit Provider Internal Medicine Adolescent Medicine
DX: E78.00 Pure hypercholesterolemia, unspecified (principal); I48.91 Unspecified atrial fibrillation
CPT/HCPCS: 36415; 80053; 80061; 84443; 85025

== ENCOUNTER → 2020-04-23 12:47 | Outpatient (CLI) | payer MEDICARE, SELFPAY ==
[2020-04-23 13:40] VITALS: PULSE 63; PULSE 66
--- NOTE | 2020-04-23 14:34 | CT_ITS ---
PROCEDURE: CT CHEST WO CON CLINICAL INDICATION: ILD Copd Bronchiectasis COMPARISON: No exams were available for comparison TECHNIQUE: Axial images obtained with sagittal and coronal reformats. All CT scans at the facility use one or more dose reduction, viz: automated exposure control, ma/kV adjustment per patient size (including targeted exams where dose is matched to indication, i.e. head), or iterative reconstruction technique. FINDINGS: No mediastinal or hilar mass or adenopathy. There are coronary artery calcifications and/or stents noted. COPD changes with mild bronchial thickening. There is a 5 mm noncalcified nodule in the right upper lobe posteriorly. Calcified granuloma is present in the central aspect of the left upper lobe. There are atelectatic changes in the left lung base and a 3 mm noncalcified nodule in the left lower lobe medially and posteriorly. No effusions or infiltrates. High-resolution images are obtained in inspiration and expiration and prone. No interlobular septal thickening. No bronchiectasis. No acute bony findings. IMPRESSION: COPD with mild bronchial thickening and minimal left basilar atelectasis. 5 mm noncalcified nodule right upper lobe. Consider 6-12 month follow-up. No evidence of interstitial lung disease Dictated by: Phillip William MD 04/28/2020 09:33 Phillip William MD in [place] 04/28/2020 09:33
== END ==
PROVIDERS: PCP Internal Medicine Adolescent Medicine; Visit Provider Internal Medicine Pulmonary Disease
DX: R91.8 Other nonspecific abnormal finding of lung field; R06.00 Dyspnea, unspecified
CPT/HCPCS: 71250; 94060; 94618; 94640; 94727; 94729

== ENCOUNTER → 2020-12-22 11:13 | Outpatient (CLI) | payer MEDICARE, SELFPAY ==
[2020-12-22 12:11] LABS: Basophils % 0.5 % (0.1-2.0); Hematocrit 35.8 % (37.0-47.0); Hemoglobin 11.5 g/dL (12.2-16.2); Lymphocytes # 1.3 K/mm3 (0.7-4.5); Lymphocytes % 24.7 % (10-50); Mean Corpuscular Hemoglobin 32.1 pg (27.0-31.2); Mean Corpuscular Volume 100.2 fl (81-99); Mean Platelet Volume 8.8 fl (7.4-10.4); Monocytes # 0.2 K/mm3 (0.1-1.0); Monocytes % 4.7 % (1.7-9.3); Neutrophils # 3.6 K/mm3 (1.8-7.8); Platelet Count 265 K/mm3 (142-424); Red Blood Count 3.58 M/mm3 (4.20-5.40); Red Cell Distribution Width 14.3 % (11.5-17.5); White Blood Count 5.1 K/mm3 (4.8-10.8)
[2020-12-22 12:33] LABS: Hemoglobin A1C 5.5 % (4.0-6.0)
[2020-12-22 12:56] LABS: Alanine Aminotransferase 19 U/L (12-78); Albumin Level 3.2 g/dl (3.5-5.0); Albumin/Globulin Ratio 0.9 (1.1-1.8); Alkaline Phosphatase 85 U/L (38-126); Anion Gap 9.3 mEq/L (5-15); Aspartate Amino Transferase 45 U/L (14-36); Bilirubin,Total 0.4 mg/dl (0.2-1.3); Blood Urea Nitrogen 15 mg/dl (7-17); Carbon Dioxide 30 mmol/L (22.0-30.0); Chloride 101 mmol/L (98-107); Chol/HDL Ratio 3.4 (1-3.5); Cholesterol 130 mg/dl (140-200); Estimated Glomerular Filt Rate 63 ml/min (>60); GFR (African American) 76 ML/MIN (>60); Globulin 3.5 g/dL (1.3-3.2); Glucose 96 mg/dl (74-100); HDL Cholesterol 38 mg/dl (40-60); Potassium 4.3 mmoL/L (3.5-5.1); Sodium 136 mmol/L (136-145); Total Protein,Serum 6.7 g/dl (6.3-8.2); Triglycerides 123 mg/dl (30-150); VLDL Cholesterol 25 mg/dL (0-40)
== END ==
PROVIDERS: PCP Internal Medicine Adolescent Medicine; Visit Provider Internal Medicine Adolescent Medicine
DX: I25.10 Atherosclerotic heart disease of native coronary artery without angina pectoris (principal); Z79.899 Other long term (current) drug therapy
CPT/HCPCS: 36415; 80053; 80061; 83036; 85025

== ENCOUNTER → 2021-01-02 09:23 | Outpatient (CLI) | payer MEDICARE, SELFPAY ==
--- NOTE | 2021-01-02 09:27 | XR_ITS ---
PROCEDURE: XR DEXA AXIAL SKELETON CLINICAL HISTORY: POST MENOPAUSAL COMPARISON: No exams were available for comparison FINDINGS: The right hip BMD is 0.527 with a T-score of -2.9. The left hip BMD is 0.562 with a T-score of -2.6. The lumbar spine BMD is 0.777 with a T-score of -2.5. IMPRESSION: This patient is considered osteoporotic according to the World Health Organization criteria. Fracture risk is high. Treatment is advised. Based on these results a follow-up exam is recommended in 1 year. Dictated by: Phillip William MD 01/03/2021 07:45 Phillip William MD in [place] 01/03/2021 07:45
--- NOTE | 2021-01-02 09:27 | MM_ITS ---
PROCEDURE INFORMATION: Exam: MG Bilateral Screening 3D Mammography Exam date and time: 01/02/2021 9:27 AM Age: 65 years old Clinical indication: Screening exam; No personal or family HX of malignancy TECHNIQUE: Imaging protocol: Bilateral screening tomosynthesis and 2D mammography including computer-aided detection (CAD) when performed. COMPARISON: 1. MG MM DIG SCREENING MAMM BI W/CAD 01/19/2019 10:48 AM 2. MG DIG MAMMO DIAG UNI RIGHT 07/04/2015 9:33 AM FINDINGS: MAMMOGRAPHY: Breast composition: The breasts are heterogeneously dense, which may obscure small masses. Mass: No suspicious masses. Architectural distortion: No suspicious distortion. Calcifications: No suspicious calcifications. Asymmetric density: None. Skin thickening: None. Axillary adenopathy: None. IMPRESSION: No mammographic evidence of malignancy. Annual screening is recommended unless otherwise clinically indicated. ASSESSMENT: BI-RADS Category 1: Negative
== END ==
PROVIDERS: PCP Internal Medicine Adolescent Medicine; Visit Provider Internal Medicine Adolescent Medicine
DX: Z12.31 Encounter for screening mammogram for malignant neoplasm of breast (principal); Z13.820 Encounter for screening for osteoporosis; Z78.0 Asymptomatic menopausal state
CPT/HCPCS: 77063; 77067; 77080

== ENCOUNTER 2021-02-14 11:15 | Emergency (ER) | payer MEDICARE, SELFPAY ==
[2021-02-14] VITALS (7 sets, daily range): BP systolic 140–181; BP diastolic 86–95; PULSE 72–83; RESP 16–18; TEMP 37.1–37.2; O2SAT 93–98; BMI 20.2
--- NOTE | 2021-02-14 11:27 | ECG_ITS ---
APPROVED REPORT Exam: Resting ECG HR:106 bpm ECG Measurements Heart Rate 106 AXES QRSd 74 QRS 71 QT 322 T 73 QTc 427 Conclusion Atrial fibrillation with rapid ventricular response Nonspecific ST abnormality, probably digitalis effect Abnormal ECG Electronically signed by : Nehemiah Manning MD 02/15/2021 09:07:21
--- NOTE | 2021-02-14 11:47 | XR_ITS ---
PROCEDURE INFORMATION: Exam: XR Chest Exam date and time: 02/14/2021 11:47 AM Age: 66 years old Clinical indication: Other: Rapid heart beat TECHNIQUE: Imaging protocol: XR of the chest. Views: 1 view. Upright AP portable exam 12:18 p.m. COMPARISON: CT CHEST WO CON 04/23/2020 2:47 PM FINDINGS: Lungs: Pulmonary hyperinflation, no consolidation. Calcified left apical pulmonary granuloma. A 5 mm noncalcified nodule reported in the right upper lobe on previous CT is not well visualized on this portable x-ray. Pulmonary vessels do not appear congested. Pleural spaces: Unremarkable. No significant pleural effusion. No pneumothorax. Heart/Mediastinum: The cardiac silhouette is normal size. Coronary calcifications. Tiny calcified left hilar and mediastinal lymph nodes. Overlying cafeteria monitor electrodes. Vasculature: Calcified plaques in the aortic arch. Bones/joints: Osteopenia.No acute findings. IMPRESSION: 1. No acute findings. 2. Coronary artery disease. 3. Chronic granulomatous changes. 4. Chronic pulmonary hyperinflation, correlate for history of obstructive lung disease. No consolidation. 5. No significant pulmonary vascular congestion.
[2021-02-14 11:57] LABS: Basophils % 0.8 % (0.1-2.0); Eosinophils % 0.6 % (0.1-12.0); Hematocrit 39.6 % (37.0-47.0); Hemoglobin 12.5 g/dL (12.2-16.2); Lymphocytes # 1.4 K/mm3 (0.7-4.5); Lymphocytes % 31.1 % (10-50); Mean Corpuscular HGB Conc 31.5 g/dL (31.8-35.4); Mean Corpuscular Hemoglobin 32.9 pg (27.0-31.2); Mean Corpuscular Volume 104.4 fl (81-99); Mean Platelet Volume 8.5 fl (7.4-10.4); Monocytes # 0.3 K/mm3 (0.1-1.0); Monocytes % 7.7 % (1.7-9.3); Neutrophils # 2.6 K/mm3 (1.8-7.8); Neutrophils % 59.7 % (37.0-80.0); Platelet Count 238 K/mm3 (142-424); Red Blood Count 3.79 M/mm3 (4.20-5.40); Red Cell Distribution Width 14.6 % (11.5-17.5); White Blood Count 4.4 K/mm3 (4.8-10.8)
[2021-02-14 12:03] LABS: Chloride 101 mmol/L (98-107); Potassium 3.8 mmoL/L (3.5-5.1); Sodium 136 mmol/L (136-145)
[2021-02-14 12:06] LABS: Blood Urea Nitrogen 15 mg/dl (7-17); Creatinine Clearance Estimated 46 mL/min (50-200); Estimated Glomerular Filt Rate 62 ml/min (>60); GFR (African American) 76 ML/MIN (>60)
[2021-02-14 12:07] LABS: Anion Gap 10.8 mEq/L (5-15); Calcium 8.8 mg/dl (8.4-10.2); Carbon Dioxide 28 mmol/L (22.0-30.0); Glucose 158 mg/dl (74-100)
[2021-02-14 12:20] LABS: Troponin I < 0.01 ng/ml (0.00-0.034)
[2021-02-14 13:10] LABS: Thyroid Stimulating Hormone 2.79 uIU/mL (0.465-4.68)
--- NOTE | 2021-02-14 14:37 | HMH.EDGENADL ---
ED Disposition Clinical Impression: Paroxysmal atrial fibrillation Disposition: Home, Self-Care Condition on Discharge: Good Instructions: DI for Atrial Fibrillation Additional Instructions: Follow-up with your financial investigator for paroxysmal atrial fibrillation. Call Tuesday to make appointment. Return to the emergency department if prolonged atrial fibrillation returns. Referrals: Nehemiah Manning MD [Primary Care Provider] - - Critical Care Critical Care Time: No Attestation: On 02/14/21, the high probability of a clinically significant, sudden or life threatening deterioration of the following system(s) required my full and direct attention, intervention and personal management. The time I documented below is in addition to time spent performing reported procedures but includes the following listed in this critical care notation. Medical Decision Making - Isidoro Inquiry Pt receiving controlled substance: No Vital Signs: 02/14/21 11:15 Temperature 99 F Temperature Source Oral Pulse Rate [Radial] 78 Respiratory Rate 16 Blood Pressure [Right Arm] 166/89 H Blood Pressure Mean [Right Arm] 114 Blood Pressure Position [Right Arm] Sitting 02 Sat by Pulse Oximetry 98 Oxygen Delivery Method Room Air - Lab Data Lab Results 02/14/21 11:35: WBC 4.4 L, RBC 3.79 L, Hgb 12.5, Hct 39.6, MCV 104.4 H, MCH 32.9 H, MCHC 31.5 L, RDW 14.6, Plt Count 238, MPV 8.5, Neut % (Auto) 59.7, Lymph % (Auto) 31.1, [place] % (Auto) 7.7, Eos % (Auto) 0.6, Baso % (Auto) 0.8, Neut # (Auto) 2.6, Lymph # (Auto) 1.4, [place] # (Auto) 0.3, Eos # (Auto) 0.0, Baso # (Auto) 0.0 02/14/21 11:35: Sodium 136, Potassium 3.8, Chloride 101, Carbon Dioxide 28, Anion Gap 10.8, BUN 15, Creatinine 0.90, Estimated Creat Clear 46, Estimated GFR 62, Est GFR ( Amer) 76, Glucose 158 H, Calcium 8.8, Troponin I < 0.01 02/14/21 11:35: TSH 2.79 Result diagrams: 02/14/21 11:35 02/14/21 11:35 Orders (Tests/Meds): ORDERS Category Date Time Status Troponin I Q3H Lab 02/14/21 14:30 Received Troponin I Q3H Lab 02/14/21 18:00 Ordered - Radiology Data #1 Image(s): Chest Image Reviewed: Yes I have reviewed radiologist's interpretation PROCEDURE INFORMATION: Exam: XR Chest Exam date and time: 02/14/2021 11:47 AM Age: 66 years old Clinical indication: Other: Rapid heart beat TECHNIQUE: Imaging protocol: XR of the chest. Views: 1 view. Upright AP portable exam 12:18 p.m. COMPARISON: CT CHEST WO CON 04/23/2020 2:47 PM FINDINGS: Lungs: Pulmonary hyperinflation, no consolidation. Calcified left apical pulmonary granuloma. A 5 mm noncalcified nodule reported in the right upper lobe on previous CT is not well visualized on this portable x-ray. Pulmonary vessels do not appear congested. Pleural spaces: Unremarkable. No significant pleural effusion. No pneumothorax. Heart/Mediastinum: The cardiac silhouette is normal size. Coronary calcifications. Tiny calcified left hilar and mediastinal lymph nodes. Overlying quality assurance monitor electrodes. Vasculature: Calcified plaques in the aortic arch. Bones/joints: Osteopenia.No acute findings. IMPRESSION: 1. No acute findings. 2. Coronary artery disease. 3. Chronic granulomatous changes. 4. Chronic pulmonary hyperinflation, correlate for history of obstructive lung disease. No consolidation. 5. No significant pulmonary vascular congestion. - ECG Data Tracing #1 EKG interpreted by Gavin Way MD: Rhythm: sinus Rate: 106 [place]: normal Ectopy: There is a 10 beat run of what appears to be atrial fibrillation with rapid response which resolves to normal sinus rhythm Conduction: normal ST Segment Changes: none T Wave Changes: none Q Waves: none No evidence of acute ischemia or injury Medical Decision Narrative: monitor and storage bin tender events reviewed, no other episodes of atrial fibrillation seen.
[2021-02-14 15:02] LABS: Troponin I < 0.01 ng/ml (0.00-0.034)
== END 2021-02-14 15:07 | disposition home or self-care (01) ==
PROVIDERS: Emergency Provider Emergency Medicine; PCP Internal Medicine Adolescent Medicine
DX: I25.2 Old myocardial infarction; I10 Essential (primary) hypertension; I25.10 Atherosclerotic heart disease of native coronary artery without angina pectoris; E78.5 Hyperlipidemia, unspecified; Z79.899 Other long term (current) drug therapy; Z88.0 Allergy status to penicillin; Z88.2 Allergy status to sulfonamides; Z88.5 Allergy status to narcotic agent; Z88.8 Allergy status to other drugs, medicaments and biological substances
CPT/HCPCS: 71045; 80048; 84443; 84484; 85025; 93005; 99283

== ENCOUNTER 2021-04-13 08:46 | Emergency (ER) | payer MEDICARE, SELFPAY ==
--- NOTE | 2021-04-13 08:42 | ECG_ITS ---
APPROVED REPORT Exam: Resting ECG HR:80 bpm ECG Measurements Heart Rate 80 AXES AL 157 P 78 QRSd 86 QRS 79 QT 351 T 81 QTc 387 Conclusion SINUS RHYTHM NORMAL ECG UNCONFIRMED REPORT Electronically signed by : Nehemiah Manning MD 04/14/2021 13:50:54
[2021-04-13 08:46] VITALS: BP 184/110; PULSE 92; RESP 22; TEMP 36.9; O2SAT 93; BMI 19.5
--- NOTE | 2021-04-13 08:51 | XR_ITS ---
FINAL REPORT CLINICAL HISTORY: Chronic cough COMPARISON: February 14, 2021 FINDINGS: The heart size is normal. The mediastinum is normal. There are chronic changes in both lungs. There is new, mild increased density in left perihilar region that is ill-defined and favors atelectasis or an inflammatory reaction. There are no pleural effusions. There is no pneumothorax. There is no osseous abnormality. IMPRESSION: New left perihilar density. Recommend follow-up PA and lateral chest x-ray in 1 week. Reviewed, Interpreted and Dictated by Jameel Jay MD Transcribed by Kadeem Woodward Authenticated by Jameel Jay MD on 04/13/2021 09:55:59 AM [facility]
--- NOTE | 2021-04-13 08:51 | HMH.EDGENADL ---
ED Disposition Clinical Impression: Uncontrolled hypertension Atrial fibrillation Qualifiers: Atrial fibrillation type: longstanding persistent Qualified Code(s): I48.11 - Longstanding persistent atrial fibrillation Disposition: Home, Self-Care Condition on Discharge: Good Instructions: Treatments for High Blood Pressure: More Than Just Taking a Pill Prescriptions: lisinopriL [Lisinopril] 20 mg PO BID #16 tab Transmission Status: Pending to [facility] Referrals: Nehemiah Manning MD [Primary Care Provider] - - Critical Care Critical Care Time: No Attestation: On , the high probability of a clinically significant, sudden or life threatening deterioration of the following system(s) required my full and direct attention, intervention and personal management. The time I documented below is in addition to time spent performing reported procedures but includes the following listed in this critical care notation. Medical Decision Making - Medical Records Medical records reviewed: Yes: I reviewed the patient's medical records. - Isidoro Inquiry Pt receiving controlled substance: No Vital Signs: 04/13/21 08:46 04/13/21 09:00 04/13/21 09:30 Temperature 98.5 F Temperature Source Oral Pulse Rate 83 78 Pulse Rate [Radial] 92 H Respiratory Rate 22 18 18 Blood Pressure 192/109 H 207/106 H Blood Pressure [Right Arm] 184/110 H Blood Pressure Mean 136 139 Blood Pressure Mean [Right Arm] 134 Blood Pressure Position [Right Arm] Sitting 02 Sat by Pulse Oximetry 93 L 93 L 94 L Oxygen Delivery Method Room Air 04/13/21 10:00 Temperature Temperature Source Pulse Rate 87 Pulse Rate [Radial] Respiratory Rate 22 Blood Pressure 200/108 H Blood Pressure [Right Arm] Blood Pressure Mean 135 Blood Pressure Mean [Right Arm] Blood Pressure Position [Right Arm] 02 Sat by Pulse Oximetry 95 Oxygen Delivery Method - Lab Data Lab Results 04/13/21 08:45: WBC 4.2 L, RBC 3.96 L, Hgb 12.7, Hct 38.7, MCV 97.9, MCH 32.0 H, MCHC 32.7, RDW 14.4, Plt Count 283, MPV 7.4, Neut % (Auto) 45.2, Lymph % (Auto) 45.0, [place] % (Auto) 7.9, Eos % (Auto) 1.5, Baso % (Auto) 0.3, Neut # (Auto) 1.9, Lymph # (Auto) 1.9, [place] # (Auto) 0.3, Eos # (Auto) 0.1, Baso # (Auto) 0.0 04/13/21 08:45: Sodium 130 L, Potassium 3.4 L, Chloride 96 L, Carbon Dioxide 31 H, Anion Gap 6.4, BUN 14, Creatinine 0.80, Estimated Creat Clear 45, Estimated GFR 72, Est GFR ( Amer) 87, Glucose 95, Calcium 8.3 L, Total Bilirubin 0.3, AST 40 H, ALT 23, Alkaline Phosphatase 90, Troponin I < 0.01, Total Protein 6.7, Albumin 3.6, Globulin 3.1, Albumin/Globulin Ratio 1.2, TSH 5.61 H 04/13/21 08:45: NT-Pro-B Natriuret Pep 303 H 04/13/21 09:55: Urine Color Yellow, Urine Appearance Clear, Urine pH 7.5, Ur Specific [place] 1.020, Urine Protein 3+, Urine Glucose (UA) Negative, Urine Ketones Negative, Urine Blood 1+, Urine Nitrate Negative, Urine Bilirubin Negative, Urine Urobilinogen 0.2, Ur Leukocyte Esterase Negative, Urine RBC 3-5, Urine WBC Occasional, Ur Squamous Epith Cells 3-5, Urine Bacteria 1+ Result diagrams: 04/13/21 08:45 04/13/21 08:45 Orders (Tests/Meds): ED MEDICATIONS Generic Name Dose Route Start Last Admin Trade Name Freq PRN Reason Stop Dose Admin Lisinopril 10 mg 04/13/21 09:45 04/13/21 09:47 Lisinopril 10mg Tablet PO 05/13/21 09:44 10 mg DAILY MELISSA Administration Discontinued Medications Generic Name Dose Route Start Last Admin Trade Name Freq PRN Reason Stop Dose Admin Carvedilol 3.125 mg 04/13/21 09:41 04/13/21 09:47 Carvedilol 3.125mg Tablet PO 04/13/21 09:42 3.125 mg ONCE ONE Administration Potassium Chloride 40 meq 04/13/21 11:25 Potassium Chloride 20meq Tab PO 04/13/21 11:26 ONCE ONE ORDERS Category Date Time Status Troponin I Q3H Lab 04/13/21 12:00 Ordered Troponin I Q3H Lab 04/13/21 15:00 Ordered - Radiology Data #1 Image(s): Chest Image Reviewed: Yes I
[2021-04-13 09:00] VITALS: BP 192/109; PULSE 83; RESP 18; O2SAT 93
[2021-04-13 09:07] LABS: Basophils % 0.3 % (0.1-2.0); Chloride 96 mmol/L (98-107); Eosinophils # 0.1 K/mm3 (0.0-0.4); Eosinophils % 1.5 % (0.1-12.0); Hematocrit 38.7 % (37.0-47.0); Hemoglobin 12.7 g/dL (12.2-16.2); Lymphocytes # 1.9 K/mm3 (0.7-4.5); Mean Corpuscular HGB Conc 32.7 g/dL (31.8-35.4); Mean Corpuscular Volume 97.9 fl (81-99); Mean Platelet Volume 7.4 fl (7.4-10.4); Monocytes # 0.3 K/mm3 (0.1-1.0); Monocytes % 7.9 % (1.7-9.3); Neutrophils # 1.9 K/mm3 (1.8-7.8); Neutrophils % 45.2 % (37.0-80.0); Platelet Count 283 K/mm3 (142-424); Potassium 3.4 mmoL/L (3.5-5.1); Red Blood Count 3.96 M/mm3 (4.20-5.40); Red Cell Distribution Width 14.4 % (11.5-17.5); Sodium 130 mmol/L (136-145); White Blood Count 4.2 K/mm3 (4.8-10.8)
[2021-04-13 09:10] LABS: Alanine Aminotransferase 23 U/L (12-78); Alkaline Phosphatase 90 U/L (38-126); Anion Gap 6.4 mEq/L (5-15); Aspartate Amino Transferase 40 U/L (14-36); Bilirubin,Total 0.3 mg/dl (0.2-1.3); Blood Urea Nitrogen 14 mg/dl (7-17); Calcium 8.3 mg/dl (8.4-10.2); Carbon Dioxide 31 mmol/L (22.0-30.0); Creatinine Clearance Estimated 45 mL/min (50-200); Estimated Glomerular Filt Rate 72 ml/min (>60); GFR (African American) 87 ML/MIN (>60); Glucose 95 mg/dl (74-100)
[2021-04-13 09:11] LABS: Albumin Level 3.6 g/dl (3.5-5.0); Albumin/Globulin Ratio 1.2 (1.1-1.8); Globulin 3.1 g/dL (1.3-3.2); Total Protein,Serum 6.7 g/dl (6.3-8.2)
[2021-04-13 09:19] LABS: NT Pro Brain Natriuretic Pep. 303 pg/mL (0-125)
[2021-04-13 09:22] LABS: Troponin I < 0.01 ng/ml (0.00-0.034)
[2021-04-13 09:30] VITALS: BP 207/106; PULSE 78; RESP 18; O2SAT 94
[2021-04-13 09:40] LABS: Thyroid Stimulating Hormone 5.61 uIU/mL (0.465-4.68)
[2021-04-13 10:00] VITALS: BP 200/108; PULSE 87; RESP 22; O2SAT 95
--- NOTE | 2021-04-13 10:01 | CA_ITS ---
APPROVED REPORT EXAM: Comprehensive 2D, Doppler, and color-flow Echocardiogram Italian Lecturer: Era Arredondo RVT Ht: 5 ft 4 in Wt: 115lbs BSA: 1.55 BP: 166/89 mmHg Indications: CHF,A-FIB,CAD,PALPS,SOA,COPD,HTN,HLD,DIZZINESS 2D Dimensions LVOT 2.17 cm (M/F) 1.5-2.5 LA Volume 17.40 mL LA Volume Index 11.29 mL/m2 (M/F) 16-34 M-Mode Dimensions RVDd 1.28 cm (0.9-2.6) LA Diam 2.85 cm (1.9-4.0) LVDd 4.92 cm (3.5-5.7) Ao Diam 2.80 cm (2.0-3.7) LVDs 3.60 cm (3.5-5.7) IVSd 0.68 cm (0.6-1.1) PWd 0.43 cm (0.6-1.1) EF (Teich) 52.20% FS 26.80% EDV (Teich) 113.90 mL TAPSE 2.01 (<1.7) ESV (Teich) 54.40 mL LV Diastology E Decel Time 207.00 (160-240 msec) E/A Ratio 1.3 MED E' 7.60 (< 7 cm/sec) E'/MED E' Ratio 9.03 (>14) LAT E' 8.40 (<10 cm/sec) E/LAT E' Ratio 8.17 (>14) Aortic Valve AI PHT 736.00 ms AO Peak GR. 5.50 mmHg Mitral Valve MV E Max Javan. 69.00 (40-130 cm/s) MV A Velocity 52.00 (40-130 cm/s) E/A Ratio 1.31 MV Decel. Time 207.00 (160-240 ms) MV PHT 61.00 ms Pulmonary Valve PV Peak Velocity 81.00 (50-150 cm/s) Tricuspid Valve TR P. Velocity 306.00 cm/s RAP Estimate 10.00 mmHg RVSP 47.50 mmHg Left Ventricle Left atrium is mildly enlarged, left ventricle is normal size, mild concentric left ventricular hypertrophy, visually estimated ejection fraction 55%, there is abnormal septal motion, grade 1 diastolic dysfunction seen without tissue Doppler evidence of raise left atrial pressure. Right Ventricle Right atrium and right ventricle are mildly enlarged with normal contractility. Aortic Valve Aortic valve is minimally thickened and fibrosed, there is no aortic stenosis, there is trace aortic insufficiency. Mitral Valve Mitral valve grossly normal, there is trace mitral regurgitation. Tricuspid Valve Tricuspid valve grossly normal, there is trace tricuspid regurgitation, calculated right ventricular systolic pressure is 48 mmHg. Pulmonic Valve Pulmonic valve is grossly normal. Great Vessels Aortic root is normal size. Inferior vena cava normal size with normal inspiratory collapse. Pericardium No significant pericardial effusion. Conclusion 1. Mild biatrial enlargement, normal left ventricular size, mild concentric left ventricular hypertrophy, visually estimated ejection fraction 55%, there is abnormal septal motion. Grade 1 diastolic dysfunction seen without tissue Doppler evidence of raise left atrial pressure. 2. Mildly enlarged right ventricle with normal contractility. 3. Trace mitral and tricuspid regurgitation. Calculated right ventricular systolic pressure is 48 mmHg. 4. No significant pericardial effusion noted. 5. Inferior vena cava is normal size with normal inspiratory collapse. Electronically signed by : Abhinav Weber MD 04/13/2021 13:08:16
[2021-04-13 10:08] LABS: Microscopic, Urine URINE MICROSCOPIC (MICROSCOPIC)
[2021-04-13 10:10] LABS: Appearance,Urine CLEAR (Clear); Bilirubin,Urine Negative (Negative); Blood, Urine 1+ (Negative); Color,Urine YELLOW (Yellow); Glucose,Urine (UA) Negative (Negative); Ketones,Urine Negative (Negative); Leukocyte Esterase,Urine Negative (Negative); Nitrate,Urine Negative (Negative); PH,Urine 7.5 (5.0-8.5); Protein,Urine 3+ (Negative); Urobilinogen,Urine 0.2 EU/dl (0.2)
[2021-04-13 10:23] LABS: Bacteria,Urine 1+ /lpf; WBC,Urine Occasional #/hpf (0-3)
[2021-04-13 12:22] VITALS: BP 181/106; PULSE 78; RESP 18; TEMP 36.6; O2SAT 98
== END 2021-04-13 12:23 | disposition home or self-care (01) ==
PROVIDERS: Emergency Provider Emergency Medicine; PCP Internal Medicine Adolescent Medicine
DX: I48.11 Longstanding persistent atrial fibrillation (principal); R42 Dizziness and giddiness; I10 Essential (primary) hypertension; I25.10 Atherosclerotic heart disease of native coronary artery without angina pectoris; E78.5 Hyperlipidemia, unspecified; Z88.0 Allergy status to penicillin; Z88.2 Allergy status to sulfonamides; Z88.8 Allergy status to other drugs, medicaments and biological substances; R06.02 Shortness of breath
CPT/HCPCS: 71045; 80053; 81001; 83880; 84443; 84484; 85025; 93005; 93306; 99284

== ENCOUNTER → 2021-05-18 11:51 | Outpatient (CLI) | payer MEDICARE, SELFPAY ==
[2021-05-18 13:59] LABS: Chloride 103 mmol/L (98-107); Sodium 133 mmol/L (136-145)
[2021-05-18 14:00] LABS: Potassium 4.5 mmoL/L (3.5-5.1)
[2021-05-18 14:02] LABS: Blood Urea Nitrogen 14 mg/dl (7-17); Estimated Glomerular Filt Rate 55 ml/min (>60); GFR (African American) 67 ML/MIN (>60)
[2021-05-18 14:03] LABS: Anion Gap 6.5 mEq/L (5-15); Calcium 8.1 mg/dl (8.4-10.2); Carbon Dioxide 28 mmol/L (22.0-30.0); Glucose 117 mg/dl (74-100)
== END ==
PROVIDERS: Visit Provider Internal Medicine Pulmonary Disease
DX: R06.00 Dyspnea, unspecified (principal)
CPT/HCPCS: 36415; 80048

== ENCOUNTER → 2021-05-29 11:16 | Outpatient (CLI) | payer MEDICARE, SELFPAY ==
--- NOTE | 2021-05-29 11:21 | XR_ITS ---
FINAL REPORT CLINICAL HISTORY: Pneumonia COMPARISON: 04/13/2021 FINDINGS: 2 views of the chest were obtained . The heart is normal in size. The mediastinum is within normal limits. The lungs are hyperexpanded consistent with COPD but otherwise clear. There is no pneumothorax. Osseous structures are unremarkable. IMPRESSION: COPD without acute cardiopulmonary process. Reviewed, Interpreted and Dictated by Gabriele Simmons III, MD Transcribed by Summer Layne Authenticated by Gabriele Simmons III, MD on 05/29/2021 12:24:19 PM [facility]
== END ==
PROVIDERS: PCP Internal Medicine Adolescent Medicine; Visit Provider Internal Medicine Pulmonary Disease
DX: R06.02 Shortness of breath (principal)
CPT/HCPCS: 71046

== ENCOUNTER → 2021-06-02 11:21 | Outpatient (POV) | payer MEDICARE, SELFPAY | PROVIDERS: Visit Provider Dermatology | DX: Z00.00 Encounter for general adult medical examination without abnormal findings (principal) ==

== ENCOUNTER → 2021-07-06 13:35 | Outpatient (CLI) | payer MEDICARE, SELFPAY ==
[2021-07-06 14:05] LABS: Basophils # 0.1 K/mm3 (0-0.2); Basophils % 1.1 % (0.1-2.0); Eosinophils # 0.1 K/mm3 (0.0-0.4); Eosinophils % 0.9 % (0.1-12.0); Hematocrit 35.9 % (37.0-47.0); Hemoglobin 11.5 g/dL (12.2-16.2); Lymphocytes # 1.5 K/mm3 (0.7-4.5); Mean Corpuscular HGB Conc 31.9 g/dL (31.8-35.4); Mean Corpuscular Hemoglobin 30.8 pg (27.0-31.2); Mean Corpuscular Volume 96.6 fl (81-99); Mean Platelet Volume 7.8 fl (7.4-10.4); Monocytes # 0.2 K/mm3 (0.1-1.0); Monocytes % 3.7 % (1.7-9.3); Neutrophils # 3.2 K/mm3 (1.8-7.8); Neutrophils % 64.2 % (37.0-80.0); Platelet Count 342 K/mm3 (142-424); Red Blood Count 3.72 M/mm3 (4.20-5.40); Red Cell Distribution Width 15.6 % (11.5-17.5)
[2021-07-06 14:49] LABS: Erythrocyte Sedimentation Rate 108 mm/hr (0-30)
[2021-07-06 14:50] LABS: Alanine Aminotransferase 28 U/L (12-78); Albumin Level 3.2 g/dl (3.5-5.0); Alkaline Phosphatase 79 U/L (38-126); Anion Gap 7.9 mEq/L (5-15); Aspartate Amino Transferase 51 U/L (14-36); Bilirubin,Total < 0.1 mg/dl (0.2-1.3); Blood Urea Nitrogen 19 mg/dl (7-17); Calcium 9.1 mg/dl (8.4-10.2); Carbon Dioxide 30 mmol/L (22.0-30.0); Chloride 100 mmol/L (98-107); Estimated Glomerular Filt Rate 62 ml/min (>60); GFR (African American) 76 ML/MIN (>60); Globulin 3.2 g/dL (1.3-3.2); Glucose 107 mg/dl (74-100); Potassium 3.9 mmoL/L (3.5-5.1); Sodium 134 mmol/L (136-145); Total Protein,Serum 6.4 g/dl (6.3-8.2)
[2021-07-06 14:54] LABS: C-Reactive Protein 59.5 mg/L (0-4)
[2021-07-06 14:57] LABS: NT Pro Brain Natriuretic Pep. 831 pg/mL (0-125)
[2021-07-06 15:19] LABS: Thyroid Stimulating Hormone 4.15 uIU/mL (0.465-4.68)
== END ==
PROVIDERS: Visit Provider Nurse Practitioner Family
DX: R06.02 Shortness of breath (principal); M25.50 Pain in unspecified joint; M25.40 Effusion, unspecified joint; Z79.899 Other long term (current) drug therapy
CPT/HCPCS: 36415; 80053; 83880; 84443; 84550; 85025; 85651; 86140

== ENCOUNTER → 2021-08-17 09:45 | Outpatient (CLI) | payer MEDICARE, SELFPAY ==
[2021-08-17 10:35] VITALS: PULSE 58; PULSE 59
== END ==
PROVIDERS: PCP Internal Medicine Adolescent Medicine; Visit Provider Internal Medicine Pulmonary Disease
DX: R06.02 Shortness of breath (principal)
CPT/HCPCS: 94060; 94640; 94727; 94729

== ENCOUNTER → 2021-12-09 13:00 | Outpatient (CLI) | payer MEDICARE, SELFPAY ==
[2021-12-09 15:19] LABS: Blood Urea Nitrogen 20 mg/dl (7-17); Estimated Glomerular Filt Rate 55 ml/min (>60); GFR (African American) 67 ML/MIN (>60)
== END ==
PROVIDERS: PCP Internal Medicine Adolescent Medicine; Visit Provider Internal Medicine Pulmonary Disease
DX: Z01.812 Encounter for preprocedural laboratory examination (principal)
CPT/HCPCS: 36415; 82565; 84520

== ENCOUNTER → 2021-12-11 13:46 | Outpatient (CLI) | payer MEDICARE, SELFPAY ==
--- NOTE | 2021-12-11 13:47 | CT_ITS ---
FINAL REPORT TECHNIQUE: Pre and postcontrast axial imaging of the sinuses was obtained. Low-dose technique was utilized. CLINICAL HISTORY: Chronic recurrent sinusitis COMPARISON: 12/24/2018 FINDINGS: There is mucosal thickening in the sphenoid sinuses, left maxillary sinus and several ethmoid air cells, slightly worse from prior exam. No air-fluid levels are identified. There is a retention cyst or polyp in the floor the left maxillary sinus. The ostiomeatal units are patent. There is mild rightward nasal septal deviation. IMPRESSION: Slight worsening mucosal thickening of the sphenoid sinuses, left maxillary sinus and several ethmoid air cells. No air-fluid levels identified. Reviewed, Interpreted and Dictated by Gabriele Simmons III, MD Transcribed by Summer Layne Authenticated and [facility]
== END ==
PROVIDERS: PCP Internal Medicine Adolescent Medicine; Visit Provider Internal Medicine Pulmonary Disease
DX: J32.9 Chronic sinusitis, unspecified (principal); J34.2 Deviated nasal septum
CPT/HCPCS: 70488; Q9967

== ENCOUNTER 2022-01-11 16:08 | Emergency (ER) | payer MEDICARE, SELFPAY ==
[2022-01-11] VITALS (8 sets, daily range): BP systolic 191–236; BP diastolic 104–118; PULSE 65–77; RESP 20; TEMP 36.7; O2SAT 93–97; BMI 20.2
--- NOTE | 2022-01-11 16:33 | ECG_ITS ---
APPROVED REPORT Exam: Resting ECG HR:77 bpm ECG Measurements Heart Rate 77 AXES MN 144 P 80 QRSd 85 QRS 69 QT 375 T 62 QTc 407 Conclusion SINUS RHYTHM LEFT VENTRICULAR HYPERTROPHY AND ST-T CHANGE [VOLTAGE CRITERIA PLUS ST/T ABNORMALITY] ABNORMAL ECG UNCONFIRMED REPORT Electronically signed by : Nehemiah Manning MD 01/11/2022 19:42:23
--- NOTE | 2022-01-11 16:35 | CT_ITS ---
PROCEDURE INFORMATION: Exam: CT Head Without Contrast Exam date and time: 01/11/2022 4:47 PM Age: 66 years old Clinical indication: Pain; Headache; Additional info: Headache, ich suspected TECHNIQUE: Imaging protocol: Computed tomography of the head without contrast. Radiation optimization: All CT scans at this facility use at least one of these dose optimization techniques: automated exposure control; mA and/or kV adjustment per patient size (includes targeted exams where dose is matched to clinical indication); or iterative reconstruction. COMPARISON: CT HEAD/BRAIN WO CON 12/24/2018 7:35 AM FINDINGS: Brain: There is no evidence of acute intracranial hemorrhage, extra-axial collection or locoregional mass effect. There are scattered hypodensities in the periventricular and subcortical white matter. The appearance is nonspecific, but most likely represents chronic small vessel disease in a person of this age Cerebral ventricles: The ventricles, sulci and cisterns are normal in size and configuration for patient's age. No hydrocephalus or midline structure shift Pituitary gland and sella: Sellar/parasellar structures, craniocervical junction and orbits are unremarkable Paranasal sinuses: Visualized sinuses are unremarkable. No fluid levels. Mastoid air cells: Visualized mastoid air cells are well aerated. Orbital cavities: Bilateral lens implants Bones/joints: No calvarial fracture Soft tissues: Unremarkable. IMPRESSION: No acute intracranial abnormality. No calvarial fracture.
--- NOTE | 2022-01-11 16:35 | HMH.EDGENADL ---
Discharge Plan Disposition Patient Disposition: Home, Self-Care Condition: Fair Prescriptions Prescriptions: No Action cetirizine [Zyrtec] 10 mg tablet 10 mg PO DAILY PRN (Reason: allergy symptoms) Qty: 30 2RF sulfamethoxazole-trimethoprim [Bactrim DS] 800-160 mg tablet 1 tab PO BID 14 Days Qty: 28 0RF Rx Instructions: Stop taking Lisonopril while taking this drug albuterol sulfate 90 mcg/actuation HFA aerosol inhaler 1 inh INHALATION QID PRN (Reason: shortness of breath or wheezing) 90 Days Qty: 8.5 1RF Trelegy Ellipta 100-62.5-25 mcg blister with device 1 inh INHALATION DAILY 90 Days Qty: 90 3RF ipratropium-albuterol 0.5 mg-3 mg(2.5 mg base)/3 mL solution for nebulization 3 ml INHALATION Q6H PRN (Reason: shortness of breath or wheezing) Qty: 180 3RF Humira(CF) Pen 40 mg/0.4 mL pen injector kit See Rx Instructions SQ .COMPLEX Rx Instructions: inject one - 40 mg/0.4 mL pen every 2 weeks SQ Hyper-Jersey 3.5 % solution for nebulization 4 ml IH BID 90 Days Qty: 270 3RF Rx Instructions: 4 mL of 3% hypertonic saline nebulization every 12 hours every day to use with chest percussion therapy. This nebulization should be preceded by albuterol nebulization to avoid any bronchospasm. azelastine 205.5 mcg (0.15 %) spray,non-aerosol 2 spray INTRANASAL BID 90 Days Qty: 30 2RF Rx Instructions: administer into each nostril doxycycline hyclate 100 mg capsule 100 mg PO BID 7 Days Qty: 14 0RF lisinopril 20 MG tablet 20 mg PO BID Qty: 16 0RF lisinopril 20 MG tablet 10 mg PO DAILY valacyclovir 500 MG tablet 500 mg PO DAILY aspirin 81 MG tablet,delayed release (DR/EC) 81 mg PO DAILY nitroglycerin 0.4 MG tablet, sublingual 0.4 mg SL NEEDED PRN (Reason: chest pain ) rosuvastatin 10 MG tablet 10 mg PO HS latanoprost 0.005 % bottle 1 drp Eye-Both HS carvedilol 3.125 M tablet 3.125 mg PO BID dorzolamide-timolol 22.3-6. bottle 1 drp Eye-Both BID diltiazem HCl 240 MG capsule,extended release 24hr 240 mg PO DAILY Qty: 30 2RF apixaban 5 MG tablets,dose pack 5 mg PO BID Qty: 60 2RF Referrals Follow up/Referrals: Nehemiah Manning MD [Primary Care Provider] - See instructions Activity Restrictions/Add. Instructions Additional Instructions/Restrictions: You have been evaluated for elevated blood pressure. It is very important that you take medications as prescribed. Take a double dose, 20 mg, of your lisinopril tonight. Take nitroglycerin as needed. Follow-up with your primary care doctor tomorrow. You will need repeat blood pressure check as well as repeat laboratory results. Return to the emergency department at once for any new or worsening symptoms, headache, chest pain, other concerns. Clinical Impressions Clinical Impression: Elevated blood pressure reading, Uncontrolled hypertension, GIULIANA (acute kidney injury) Instructions Patient Instructions: DI for High Blood Pressure Discharge ED Provider: Nano Calvert Adult HPI General Chief complaint: Headache Stated complaint: elevated bp Time Seen by Provider: 01/11/22 16:10 History of Present Illness HPI narrative: 66-year-old female presenting to the emergency department with elevated blood pressure and headache. Her blood pressure has been elevated for the last 3 to 4 days, greater than 200 systolic. Normal for her is about 170. She also has had a sinus infection. Now has a headache that is described as throbbing, located on both of her temples. Her blood pressure being up makes it worse. Nothing seems to make it better. She does not suffer from migraines or tension headache. Completed doxycycline for sinus infection. Denies vision changes, spots or blurred vision. No chest pain, shortness of breath, leg swelling. She takes lisinopril and carvedilol. Denies any changes in her medications. Related Data Home Medications Medi
[2022-01-11 16:54] LABS: Basophils # 0.1 K/mm3 (0-0.2); Basophils % 0.8 % (0.1-2.0); Eosinophils # 0.4 K/mm3 (0.0-0.4); Eosinophils % 3.3 % (0.1-12.0); Hemoglobin 12.1 g/dL (12.2-16.2); Lymphocytes # 2.4 K/mm3 (0.7-4.5); Lymphocytes % 22.6 % (10-50); Mean Corpuscular HGB Conc 32.6 g/dL (31.8-35.4); Mean Corpuscular Hemoglobin 31.7 pg (27.0-31.2); Mean Corpuscular Volume 97.3 fl (81-99); Mean Platelet Volume 8.8 fl (7.4-10.4); Monocytes # 0.6 K/mm3 (0.1-1.0); Monocytes % 5.4 % (1.7-9.3); Neutrophils # 7.2 K/mm3 (1.8-7.8); Neutrophils % 67.9 % (37.0-80.0); Platelet Count 248 K/mm3 (142-424); Red Cell Distribution Width 14.5 % (11.5-17.5); White Blood Count 10.6 K/mm3 (4.8-10.8)
[2022-01-11 16:57] LABS: Chloride 100 mmol/L (98-107); Potassium 3.9 mmoL/L (3.5-5.1); Sodium 133 mmol/L (136-145)
[2022-01-11 17:00] LABS: Alanine Aminotransferase 16 U/L (12-78); Albumin/Globulin Ratio 0.9 (1.1-1.8); Alkaline Phosphatase 70 U/L (38-126); Anion Gap 6.9 mEq/L (5-15); Aspartate Amino Transferase 40 U/L (14-36); Bilirubin,Total 0.2 mg/dl (0.2-1.3); Blood Urea Nitrogen 26 mg/dl (7-17); Carbon Dioxide 30 mmol/L (22.0-30.0); Creatinine Clearance Estimated 29 mL/min (50-200); Estimated Glomerular Filt Rate 32 ml/min (>60); GFR (African American) 39 ML/MIN (>60); Globulin 3.2 g/dL (1.3-3.2); Total Protein,Serum 6.2 g/dl (6.3-8.2)
[2022-01-11 17:01] LABS: Calcium 8.9 mg/dl (8.4-10.2); Glucose 100 mg/dl (74-100)
[2022-01-11 17:10] LABS: NT Pro Brain Natriuretic Pep. 1960 pg/mL (0-125)
[2022-01-11 17:18] LABS: Troponin I < 0.01 ng/ml (0.00-0.034)
--- NOTE | 2022-01-11 20:04 | XR_ITS ---
PROCEDURE INFORMATION: Exam: XR Chest Exam date and time: 01/11/2022 8:29 PM Age: 66 years old Clinical indication: Other: Elevated blood pressure TECHNIQUE: Imaging protocol: Radiologic exam of the chest. Views: 1 view. COMPARISON: CR XR CHEST 2V 05/29/2021 11:23 AM FINDINGS: Lungs: No evidence of pneumonia or interstitial edema. Unchanged left upper lobe granuloma Pleural spaces: Unremarkable. No pleural effusion. No pneumothorax. Heart/Mediastinum: Unremarkable. No cardiomegaly. Bones/joints: Unremarkable. IMPRESSION: No evidence of pneumonia or interstitial edema.
[2022-01-11 20:26] LABS: Troponin I < 0.01 ng/ml (0.00-0.034)
--- NOTE | 2022-01-11 21:29 | PC.NURSE ---
WENT IN TO D/C PT , B/P STILL VERY ELEVATED PT HAVING CONCERNS ABOUT B/P AND HER H/A , WENT AND SPOKE WITH DR COVARRUBIAS NEW MED ORDERS GIVEN
== END 2022-01-11 22:31 | disposition home or self-care (01) ==
PROVIDERS: Emergency Provider Emergency Medicine; PCP Internal Medicine Adolescent Medicine
DX: N17.9 Acute kidney failure, unspecified (principal); I10 Essential (primary) hypertension; Z79.82 Long term (current) use of aspirin; Z79.899 Other long term (current) drug therapy; H40.9 Unspecified glaucoma; Z88.0 Allergy status to penicillin; Z88.1 Allergy status to other antibiotic agents; Z88.5 Allergy status to narcotic agent; Z88.8 Allergy status to other drugs, medicaments and biological substances; I48.91 Unspecified atrial fibrillation; I25.10 Atherosclerotic heart disease of native coronary artery without angina pectoris; E78.5 Hyperlipidemia, unspecified
CPT/HCPCS: 36415; 70450; 71045; 80053; 83880; 84484; 85025; 93005; 96374; 99285

== ENCOUNTER → 2022-01-16 11:19 | Outpatient (CLI) | payer MEDICARE, SELFPAY ==
[2022-01-16 13:47] LABS: Chloride 104 mmol/L (98-107); Potassium 4.6 mmoL/L (3.5-5.1); Sodium 134 mmol/L (136-145)
[2022-01-16 13:50] LABS: Blood Urea Nitrogen 31 mg/dl (7-17); Estimated Glomerular Filt Rate 32 ml/min (>60); GFR (African American) 39 ML/MIN (>60)
[2022-01-16 13:51] LABS: Anion Gap 8.6 mEq/L (5-15); Calcium 8.6 mg/dl (8.4-10.2); Carbon Dioxide 26 mmol/L (22.0-30.0); Glucose 73 mg/dl (74-100)
== END ==
PROVIDERS: PCP Internal Medicine Adolescent Medicine; Visit Provider Nurse Practitioner Family
DX: I10 Essential (primary) hypertension (principal)
CPT/HCPCS: 36415; 80048

== ENCOUNTER → 2022-01-28 10:44 | Outpatient (CLI) | payer MEDICARE, SELFPAY ==
[2022-01-28 12:21] LABS: Anion Gap 9.5 mEq/L (5-15); Blood Urea Nitrogen 34 mg/dl (7-17); Calcium 9.2 mg/dl (8.4-10.2); Carbon Dioxide 28 mmol/L (22.0-30.0); Chloride 103 mmol/L (98-107); Estimated Glomerular Filt Rate 26 ml/min (>60); GFR (African American) 32 ML/MIN (>60); Glucose 102 mg/dl (74-100); Potassium 4.5 mmoL/L (3.5-5.1); Sodium 136 mmol/L (136-145)
== END ==
PROVIDERS: PCP Internal Medicine Adolescent Medicine; Visit Provider Nurse Practitioner
DX: E78.5 Hyperlipidemia, unspecified (principal); I25.10 Atherosclerotic heart disease of native coronary artery without angina pectoris; I48.0 Paroxysmal atrial fibrillation; J44.9 Chronic obstructive pulmonary disease, unspecified; N17.9 Acute kidney failure, unspecified; R06.09 Other forms of dyspnea; R60.9 Edema, unspecified
CPT/HCPCS: 36415; 80048

== ENCOUNTER 2022-02-22 10:57 | Inpatient (IN) | payer MEDICARE, SELFPAY ==
[2022-02-22] VITALS (14 sets, daily range): BP systolic 128–221; BP diastolic 77–110; PULSE 69–85; RESP 16–22; TEMP 36.6–36.9; O2SAT 93–98; BMI 21.1; BMI 21.2
--- NOTE | 2022-02-22 11:00 | CA_ITS ---
FINAL REPORT CLINICAL HISTORY: HTN, GIULIANA severe FINDINGS: Aorta velocity: 132 cm/sec Right kidney: 10.0 cm. No evidence of hydronephrosis or mass. Right intrarenal RI: 0.67 Right renal artery velocity: 171 cm/sec. Right RAR (Renal artery-Aortic Ratio): 1.29 Left Kidney: 9.5 cm. No evidence of hydronephrosis or mass. Left intrarenal RI: 0.57 Left renal artery velocity: 202 cm/sec. Left RAR (Renal Artery-Aortic Ratio): 1.52 IMPRESSION: No evidence of significant right renal artery stenosis. Less than 60% left renal artery stenosis. CT angiogram or postcontrast MR angiogram would be more sensitive for evaluation of possible renal artery stenosis. Reviewed, Interpreted and Dictated by Bernardo Dutton MD Transcribed by Kadeem Woodward Authenticated and [facility]
--- NOTE | 2022-02-22 11:01 | XR_ITS ---
PROCEDURE INFORMATION: Exam: XR Chest Exam date and time: 02/22/2022 12:01 PM Age: 67 years old Clinical indication: Other: Hypertensive; Additional info: Hypertensive emergency workup TECHNIQUE: Imaging protocol: Radiologic exam of the chest. Views: 1 view. COMPARISON: CR XR CHEST PORTABLE 01/11/2022 8:29 PM FINDINGS: Lungs: COPD, chronic granulomatous disease, and interstitial prominence. Pleural spaces: No pleural effusion. Heart/Mediastinum: No cardiomegaly. Bones/joints: Mild degenerative change. Other findings: When correlating with the previous study, no significant interval changes are present. IMPRESSION: COPD, chronic granulomatous disease, and interstitial prominence.
--- NOTE | 2022-02-22 11:02 | CT_ITS ---
PROCEDURE INFORMATION: Exam: CT Head Without Contrast Exam date and time: 02/22/2022 12:04 PM Age: 67 years old Clinical indication: Pain; Patient HX: Severe headache, hypertensive; Additional info: Headache, hypertensive workup TECHNIQUE: Imaging protocol: Computed tomography of the head without contrast. Radiation optimization: All CT scans at this facility use at least one of these dose optimization techniques: automated exposure control; mA and/or kV adjustment per patient size (includes targeted exams where dose is matched to clinical indication); or iterative reconstruction. COMPARISON: CT HEAD/BRAIN WO CON 01/11/2022 4:47 PM FINDINGS: Brain: Symmetric prominence of the cortical sulci. Mild small vessel ischemic change. No acute cortical infarct, mass effect, or intracranial hemorrhage. Cerebral ventricles: Normal configuration of the ventricles. Paranasal sinuses: Incompletely visualized 1.2 cm polypoid lesion in the left maxillary sinus and trace left sphenoid sinus fluid. Mastoid air cells: Partial opacification of the right mastoid air cells. Bones/joints: No acute calvarial pathology. Soft tissues: Unremarkable. Vasculature: Vascular calcification. When correlating with the previous study, no significant interval changes are present. IMPRESSION: Stable appearance of the brain, not significantly changed from 01/11/22.
--- NOTE | 2022-02-22 11:03 | PC.NURSE ---
LAUREN BUENROSTRO AT BEDSIDE.
--- NOTE | 2022-02-22 11:06 | HMH.EDGENADL ---
Discharge Plan Disposition Patient Disposition: Admitted As Inpatient Condition: Good Clinical Impressions Clinical Impression: Hypertensive emergency, GIULIANA (acute kidney injury) Discharge ED Provider: Vanda Badillo Adult HPI General Chief complaint: Headache Stated complaint: hypertensive emergency Time Seen by Provider: 02/22/22 11:06 Mode of Arrival: Ambulatory Source of Information: Patient Limitations: No Limitations History of Present Illness HPI narrative: Miss Pan is a 67 yo female w/ PMH for HTN, COPD, CAD, Afib presenting ot the ED from Dr. Delgado office for uncontrolled HTN, headache and GIULIANA. Patient reports she was recently taken off Lisinopril and placed on HCTZ. When at Dr. Damon office patient was found to have BP of 220 systolic, severe headache and Cr 4, baseline 1.08. Patient reports no focal neurological deficits on exam. No visual changes. No speech abnormalities. Patient denies any chest pain, dyspnea, abdominal pain, N/V, fevers or other concerns at this time. MD complaint: HTN, headache, GIULIANA Related Data Home Medications Medication Instructions Recorded Confirmed aspirin 81 mg tablet,delayed 81 mg PO DAILY HEART HEALTH 12/24/18 02/22/22 release rosuvastatin 10 mg tablet 10 mg PO HS Cholesterol 12/24/18 02/22/22 valacyclovir 500 mg tablet 500 mg PO DAILY ANTIVIRAL 12/24/18 02/22/22 latanoprost 0.005 % eye drops 1 drp Eye-Both HS Glaucoma 02/03/19 02/22/22 nifedipine 30 mg tablet,extended 30 mg PO DAILY Hypertension 01/28/22 02/22/22 release albuterol sulfate 90 mcg/actuation 1 inh inhalation QIDP PRN 02/22/22 02/22/22 aerosol inhaler shortness of breath or wheezing carvedilol 25 mg tablet 25 mg PO BID Hypertension 02/22/22 02/22/22 cetirizine 10 mg tablet (Zyrtec) 10 mg PO DAILY Allergy symptoms 02/22/22 02/22/22 fluticasone fur. 100 mcg-umeclid 1 inh inhalation DAILY COPD 02/22/22 02/22/22 62.5 mcg-vilant 25 mcg inhalat.powder (Trelegy Ellipta) hydralazine 50 mg tablet 50 mg PO BID Hypertension 02/22/22 02/22/22 ipratropium 0.5 mg-albuterol 3 mg 3 ml inhalation Q6HP PRN shortness 02/22/22 02/22/22 (2.5 mg base)/3 mL nebulization of breath or wheezing soln sodium chloride 3.5 % for 4 ml inhalation BID CHEST 02/22/22 02/22/22 nebulization (Hyper-Jersey) PERCUSSION Allergies Allergy/AdvReac Type Severity Reaction Status Date / Time amlodipine Allergy Verified 02/22/22 11:41 amoxicillin Allergy Verified 02/22/22 11:41 budesonide Allergy Verified 02/22/22 11:41 ciprofloxacin [From Cipro] Allergy Verified 02/22/22 11:41 clindamycin Allergy Verified 02/22/22 11:41 linezolid [From Zyvox] Allergy Verified 02/22/22 11:41 metoprolol Allergy Verified 02/22/22 11:41 morphine Allergy Verified 02/22/22 11:41 Penicillins Allergy Verified 02/22/22 11:41 sulfamethoxazole Allergy Verified 02/22/22 11:41 [From Bactrim] tobramycin Allergy Verified 02/22/22 11:41 trimethoprim [From Bactrim] Allergy Verified 02/22/22 11:41 PFSH PFSH Disclaimer: The information contained in this section may have been updated after the patient was seen, as this information can be updated by other users. Medical History Acute bacterial sinusitis Allergic rhinitis, unspecified Bronchiectasis Bronchiolitis obliterans Chronic recurrent sinusitis DNS (deviated nasal septum) Dyspnea on exertion Rheumatoid arthritis Sicca syndrome Surgical History History of hysterectomy Family History Other Cancer Coronary artery disease Heart attack Hyperlipidemia Hypertension Social History Smoking Status: Never smoker alcohol intake: never current occupational status: retired Travel in the last 8 weeks: None housing: house caffeine: Yes ROS Obtain
--- NOTE | 2022-02-22 11:09 | PC.NURSE ---
Dr. Damon brought pt over from his office and advised pt had abnormal lab work showing GIULIANA and was having hypertensive emergency. Dr. Damon advised he wanted a renal duplex US and pt started on nitroprusside drip. Called pharmacy and spoke with Travis about drip.
[2022-02-22 11:26] LABS: Troponin I < 0.01 ng/ml (0.00-0.034)
--- NOTE | 2022-02-22 12:27 | PC.NURSE ---
rounded on pt at this time, updated pt and daughter on POC and that pt will be admitted. Called dietary for lunch tray
--- NOTE | 2022-02-22 13:06 | PC.NURSE ---
Called report to Beena Ramirez Updated daughter and pt
--- NOTE | 2022-02-22 13:16 | HMH.PHAINT1 ---
Pharmacy Intervention Comments: MEDICATION RECONCILIATION COMPLETED ON PATIENT USING EXTERNAL FILL HISTORY FROM PHARMACY AND LIST FROM CARDIOLOGY/PULMONOLOGY OFFICES. -BIBI PANCHAL, LISYD
[2022-02-22 13:29] LABS: Coronavirus 19, PCR Not Detected (NotDetected); Influenza A, PCR Not Detected (NotDetected); Influenza B, PCR Not Detected (NotDetected)
[2022-02-22 13:41] LABS: Troponin I < 0.01 ng/ml (0.00-0.034)
--- NOTE | 2022-02-22 14:32 | EXP.HP ---
History of Present Illness *Admission Date: 02/22/22 *Reason for visit:: Headache, nosebleed *History of present illness: Ms. Pan is a pleasant 67-year-old female with longstanding hypertension that is poorly controlled. States she feels tired and fatigued if her blood pressure is controlled less than 130. History obtained from patient and daughter. Daughter states patient does not feel good and less her blood pressure is greater than 160 systolic. She has a past medical history of rheumatoid arthritis, chronic bronchiectasis, paroxysmal A. fib, hyperlipidemia, COPD, and coronary artery disease. She presented to the ER after being referred from cardiology office because of persistent headache and nosebleeds. Blood pressure severely elevated with systolic greater than 200. Patient recently admitted 1 month ago at [facility] in [place] with the same complaints. Was found to have an GIULIANA during that hospitalization and severely elevated blood pressure. Her lisinopril was discontinued. She was started on nifedipine and her carvedilol was increased. They achieved good blood pressure control however she did not feel like she had much energy and was very tired. She stopped the nifedipine on her own and started taking her lisinopril again approximately 2 weeks ago. Followed with cardiology last at which point the lisinopril was stopped and hydralazine was initiated. Presented today to cardiology because of persistent headache but given severity of blood pressure was sent to the ER. On evaluation, found to have worsening GIULIANA. Creatinine of 4. Does report that she is having urine output a few times a day. Was initiated on nitroprusside drip and medicine was contacted for admission. My interview after she arrived to the floor, patient needed to pee again. Urine is light yellow and clear. She reports taking her hydralazine and her carvedilol. Denies any chest pain, nausea, vomiting. Does complain of headache. No shortness of breath. No confusion at this time. Denies any change in vision. Of note, review of records from [facility] shows: Echocardiogram from 01/18/2022 showed an EF of 66, grade 1 diastolic dysfunction and moderate aortic valve regurg.? A limited renal ultrasound 01/21/2022 showed mildly echogenic renal parenchyma bilaterally, consistent with medical renal disease.? No hydronephrosis or other acute findings. Renal artery duplex 01/19/2022 showed normal right and left renal arteries CT of head and [facility] ER was negative for acute findings, Chest xray shows COPD, no acute findings. [facility] Disclaimer: The information contained in this section may have been updated after the patient was seen, as this information can be updated by other users. Medical History Acute bacterial sinusitis Allergic rhinitis, unspecified Bronchiectasis Bronchiolitis obliterans Chronic recurrent sinusitis DNS (deviated nasal septum) Dyspnea on exertion Rheumatoid arthritis Sicca syndrome Surgical History History of hysterectomy Family History Coronary artery disease Hyperlipidemia Heart attack Cancer Hypertension Social History Smoking Status: Never smoker alcohol intake: never current occupational status: retired Travel in the last 8 weeks: None housing: house caffeine: Yes Review of Systems Review of Systems Review of systems (narrative): 14 point review of systems performed, pertinent positives and negatives as per HPI Meds Home Medications and Allergies Home Medications Medication Instructions Recorded Confirmed Type aspirin 81 mg tablet,delayed 81 mg PO DAILY HEART HEALTH 12/24/18 02/22/22 History release rosuvastatin 10 mg tablet 10 mg PO HS Cholesterol 12/24/18 02/22/22 History v
--- NOTE | 2022-02-22 14:49 | CA_ITS ---
APPROVED REPORT EXAM: Comprehensive 2D, Doppler, and color-flow Echocardiogram Orbitread Operator: Richa Perkins, CHRIS, RVS Ht: 5 ft 4 in Wt: 123lbs BSA: 1.59 BP: 159/96 mmHg Indications: Hypertensive emergency, CAD, COPD, Afib, HTN, Hx-CHF 2D Dimensions IVSd 1.03 cm LVEF (Visual) 78.50 % PWd 0.90 cm LA Volume 48.50 mL LVDd 4.30 cm LA Volume Index 30.230677 mL/m2 (M/F) 16-34 LVDs 2.29 cm Aortic Root 2.18 cm Left Atrium 2.41 cm LVOT 1.80 cm (M/F) 1.5-2.5 M-Mode Dimensions LA Diam 1.61 cm (1.9-4.0) Ao Diam 2.91 cm (2.0-3.7) EPSs 1.43 cm LV Diastology E Decel Time 177.00 (160-240 msec) E/A Ratio 0.81 MED E' 5.60 (< 7 cm/sec) MED A' 11.80 cm/s E'/MED E' Ratio 10.32 (>14) LAT E' 4.70 (<10 cm/sec) LAT A' 10.50 cm/s E/LAT E' Ratio 12.30 (>14) Aortic Valve LVOT Max 95.00 (70-110 cm/s) LVOT VTI 20.84 cm AoV Peak Javan. 154.00 (50-130 cm/s) AI PHT 412.00 ms AO Peak GR. 9.50 mmHg AO Mean GR. 4.70 (<5 mmHg) AO VTI 31.01 (18-25 cm) KAMARI (VTI) 1.71 (2.5-4.5 cm2) Mitral Valve MV A Velocity 72.00 (40-130 cm/s) E/A Ratio 0.81 MV Decel. Time 177.00 (160-240 ms) MV PHT 53.00 ms Pulmonary Valve PV Peak Velocity 66.00 (50-150 cm/s) Tricuspid Valve TR P. Velocity 290.00 cm/s RAP Estimate 10.00 mmHg RVSP 43.60 mmHg Left Ventricle Left atrium is mildly enlarged, left ventricle is normal size mild concentric left ventricular hypertrophy, estimated ejection fraction 55% with no regional wall motion abnormality, grade 1 diastolic dysfunction seen without tissue Doppler evidence of raise left atrial pressure. Right Ventricle Right atrium and right ventricle are normal size and contractility. Aortic Valve Aortic valve is minimally thickened and calcified without aortic stenosis, there is mild aortic insufficiency. Mitral Valve Mitral valve is grossly normal, there is mild mitral regurgitation. Tricuspid Valve Tricuspid valve grossly normal, there is mild tricuspid regurgitation, calculated right ventricular systolic pressure is 42 mmHg. Pulmonic Valve Pulmonic valve is poorly visualized. Great Vessels Aortic root is normal size. Inferior vena cava is poorly visualized. Pericardium No significant pericardial effusion noted. Conclusion 1. Mildly enlarged left atrium, normal left ventricular size, mild concentric left ventricular hypertrophy, estimated ejection fraction 55% with no regional wall motion abnormality, grade 1 diastolic dysfunction seen without tissue Doppler evidence of raise left atrial pressure. 2. Mild aortic, mild mitral and tricuspid regurgitation, calculated right ventricular systolic pressure is 42 mmHg. 3. No significant pericardial effusion noted. 4. Inferior vena cava is poorly visualized. Electronically signed by : Abhinav Weber MD 02/23/2022 06:36:40
--- NOTE | 2022-02-22 14:52 | EXP.CARD.CON ---
History of Present Illness History of Present Illness Consult date: 02/22/22 Requesting physician: Shakeel Berry Chief complaint: Hypertension, headache, GIULIANA Additional Medical History:: Significant past medical history Coronary artery disease Hypertension GIULIANA Proximal A. fib Moderate aortic valve regurgitation History of present illness: 67-year-old white female with above past medical history presented to emergency department from cardiology office with complaints of elevated blood pressure readings and headache. Patient was recently inpatient at [facility] with same complaints. Patient was found to have an GIULIANA during that admission. Patient's lisinopril was DC'd and patient was started on nifedipine for hypertension. Patient reports that the nifedipine made her lower extremity swell so she had stopped taking it and started herself back on her lisinopril. At cardiology office visit last patient was advised to stop taking lisinopril and was started on hydralazine. Patient has scheduled follow-up with nephrology later this month. An echo from [facility] on 01/18/2022 showed an EF of 66, grade 1 diastolic dysfunction and moderate aortic valve regurg. A limited renal ultrasound from [facility] on 01/21/2022 showed mildly echogenic renal parenchyma bilaterally, consistent with medical renal disease. No hydronephrosis or other acute findings. Renal artery duplex from [facility] 02/18/2022 showed normal right and left renal arteries. Patient reports has had no lisinopril since last . Reports ongoing headache and elevated BP. ER findings as follows: CT of head was negative for acute findings, Chest xray shows COPD, no acute findings. Labs as follow; hemoglobin 11.4, hematocrit 35.5, MCV 99.2, sodium 129, BUN 42, creatinine 4. EKG was negative for acute ischemic changes, patient was started on Nipride drip and admitted. Renal artery ultrasound is pending. [facility] Disclaimer: The information contained in this section may have been updated after the patient was seen, as this information can be updated by other users. Medical History Acute bacterial sinusitis Allergic rhinitis, unspecified Bronchiectasis Bronchiolitis obliterans Chronic recurrent sinusitis DNS (deviated nasal septum) Dyspnea on exertion Rheumatoid arthritis Sicca syndrome Surgical History History of hysterectomy Family History Coronary artery disease Hyperlipidemia Heart attack Cancer Hypertension Social History Smoking Status: Never smoker alcohol intake: never current occupational status: retired Travel in the last 8 weeks: None housing: house caffeine: Yes Review of Systems Review of Systems Review of systems:: pertinent systems reviewed and negative unless documented below Constitutional Comments: Headache Exam Data for Last 24 hours Vital signs and Labs for Last 24 Hours: Temp Pulse Resp BP Pulse Ox 97.9 F 85 16 180/88 H 97 02/22/22 13:35 02/22/22 13:35 02/22/22 13:35 02/22/22 13:35 02/22/22 13:02 Laboratory Results - last 24 hr 02/22/22 09:36: Troponin I < 0.01 02/22/22 12:52: Troponin I < 0.01 I & O for Last 24 hours: Intake & Output 02/19/22 02/20/22 02/21/22 02/22/22 23:59 23:59 23:59 23:59 Output Total 0 / 0 Balance 0 / 0 Weight 123 lb 7.342 oz Constitutional Constitutional: no acute distress *Routine Respiratory Exam Respiratory: Present CTA bilaterally and symmetric chest movement *Routine Cardiovascular Exam Cardiovascular: Present RRR, Normal S1 and Normal S2 *Routine Abdominal Exam Abdominal: Present soft and normoactive bowel sounds; Absent tenderness *Routine Extremities Exam Extremities: Present full ROM and normal capillary refill; Absent edema *Routine Skin Exam Ski
--- NOTE | 2022-02-22 16:07 | PC.NURSE ---
[address] Berry that pt is requesting her duonebs be reordered.
[2022-02-22 16:17] LABS: Troponin I < 0.01 ng/ml (0.00-0.034)
--- NOTE | 2022-02-22 17:06 | PC.NURSE ---
late entry: upon arrival to floor pt nitroprusside drip infusing at 0.3mcg increased to 0.5mcg at 1345
[2022-02-22 18:36] LABS: Chloride 100 mmol/L (98-107); Potassium 3.6 mmoL/L (3.5-5.1); Sodium 127 mmol/L (136-145)
[2022-02-22 18:39] LABS: Anion Gap 9.6 mEq/L (5-15); Blood Urea Nitrogen 45 mg/dl (7-17); Carbon Dioxide 21 mmol/L (22.0-30.0); Creatinine Clearance Estimated 12 mL/min (50-200); Estimated Glomerular Filt Rate 11 ml/min (>60); GFR (African American) 13 ML/MIN (>60)
[2022-02-22 18:40] LABS: Calcium 7.6 mg/dl (8.4-10.2); Glucose 138 mg/dl (74-100)
--- NOTE | 2022-02-22 18:42 | PC.NURSE ---
critical lab value received from lat at 184. cre 4.0 value verified and repeated back. verified pt and name. dr ferreira notified of lab value at 1841. nno
[2022-02-22 21:17] LABS: Microscopic, Urine URINE MICROSCOPIC (MICROSCOPIC)
[2022-02-22 21:35] LABS: Appearance,Urine CLEAR (Clear); Bilirubin,Urine Negative (Negative); Blood, Urine 2+ (Negative); Color,Urine YELLOW (Yellow); Glucose,Urine (UA) Negative (Negative); Ketones,Urine Negative (Negative); Leukocyte Esterase,Urine Negative (Negative); Nitrate,Urine Negative (Negative); Protein,Urine 3+ (Negative); Urobilinogen,Urine 0.2 EU/dl (0.2)
--- NOTE | 2022-02-22 21:41 | PC.NURSE ---
She is A&Ox4. She reports having a headache and rates it 3/10; states it is improving. She reports her last BM was on 02/20/22. She ambulates to the bathroom independently with steady gait. She continues on RA and on nipride gtt.
[2022-02-22 21:49] LABS: WBC,Urine Occasional #/hpf (0-3)
[2022-02-23] VITALS (19 sets, daily range): BP systolic 130–189; BP diastolic 70–99; PULSE 59–74; RESP 16–20; TEMP 36.4–36.7; O2SAT 90–96; BMI 20.9
--- NOTE | 2022-02-23 05:23 | PC.NURSE ---
Pt A&O x3. Has denied any discomfort. C/O of nausea x1 this shift. Has ambulated to BR with assist x1. Nipride currently is infusing @ 0.3 mcg/kg/min. VS currently stable at this time. Pt is NSR on telemetry. Call light within reach.
[2022-02-23 06:38] LABS: Basophils % 0.5 % (0.1-2.0); Eosinophils # 0.2 K/mm3 (0.0-0.4); Eosinophils % 3.2 % (0.1-12.0); Hematocrit 27.7 % (37.0-47.0); Lymphocytes % 25.7 % (10-50); Mean Corpuscular HGB Conc 34.3 g/dL (31.8-35.4); Mean Corpuscular Hemoglobin 32.6 pg (27.0-31.2); Mean Corpuscular Volume 94.9 fl (81-99); Mean Platelet Volume 8.3 fl (7.4-10.4); Monocytes # 0.5 K/mm3 (0.1-1.0); Neutrophils % 64.7 % (37.0-80.0); Platelet Count 227 K/mm3 (142-424); Red Blood Count 2.91 M/mm3 (4.20-5.40); Red Cell Distribution Width 15.9 % (11.5-17.5); White Blood Count 7.7 K/mm3 (4.8-10.8)
[2022-02-23 06:40] LABS: Hemoglobin 9.5 g/dL (12.2-16.2)
[2022-02-23 06:44] LABS: Alanine Aminotransferase 9 U/L (12-78); Albumin Level 2.2 g/dl (3.5-5.0); Albumin/Globulin Ratio 0.8 (1.1-1.8); Alkaline Phosphatase 61 U/L (38-126); Aspartate Amino Transferase 23 U/L (14-36); Bilirubin,Total 0.2 mg/dl (0.2-1.3); Blood Urea Nitrogen 47 mg/dl (7-17); Calcium 7.5 mg/dl (8.4-10.2); Carbon Dioxide 22 mmol/L (22.0-30.0); Chloride 100 mmol/L (98-107); Creatinine Clearance Estimated 12 mL/min (50-200); Estimated Glomerular Filt Rate 11 ml/min (>60); GFR (African American) 14 ML/MIN (>60); Globulin 2.6 g/dL (1.3-3.2); Glucose 87 mg/dl (74-100); Magnesium 1.7 mg/dl (1.6-2.3); Sodium 125 mmol/L (136-145); Total Protein,Serum 4.8 g/dl (6.3-8.2)
[2022-02-23 06:59] LABS: Anion Gap 6.6 mEq/L (5-15); Potassium 3.6 mmoL/L (3.5-5.1)
[2022-02-23 08:52] LABS: Iron 62 ug/dL (37-170)
[2022-02-23 09:02] LABS: Total Iron Binding Capacity 202 ug/dL (265-497)
[2022-02-23 09:28] LABS: Ferritin 20.4 ng/ml (11.1-264)
--- NOTE | 2022-02-23 10:02 | PC.NURSE ---
Addendum entered by Beena Brothers RN 02/23/22 17:08: 1630 drip had to be increased to 0.5mcg r/t bp 200/92 Addendum entered by Beena Brothers RN 02/23/22 12:05: drip decreased to 0.3mcg Original Note: at start of shift pt nitroprusside drip was infusing at 0.3mcg drip increased to 0.5mcg 0830 (bp 185/97)
--- NOTE | 2022-02-23 10:55 | EXP.CARD.PN ---
Subjective Subjective Date: 02/23/22 Time: 08:00 Principal diagnosis: Hypertensive emergency Interval history: Patient remains on Nipride drip at low dose, BP stable. A.m. labs reviewed: Sodium 125, BUN 47, creatinine 3.9 improved from 4.0, hemoglobin 9.5, TIBC 202. Exam Data for Last 24 hours Vital signs and Labs for Last 24 Hours: Temp Pulse Resp BP Pulse Ox 97.7 F 59 L 20 135/75 94 L 02/23/22 08:00 02/23/22 10:00 02/23/22 10:00 02/23/22 10:00 02/23/22 10:00 Laboratory Results - last 24 hr 02/22/22 09:36: Troponin I < 0.01 02/22/22 11:00: SARS-CoV-2 (PCR) Not detected, Influenza A Untype (PCR) Not detected, Influenza Type B (PCR) Not detected 02/22/22 12:52: Troponin I < 0.01 02/22/22 15:40: Troponin I < 0.01 02/22/22 18:04: Sodium 127 L, Potassium 3.6, Chloride 100, Carbon Dioxide 21 L, Anion Gap 9.6, BUN 45 H, Creatinine 4.00 H, Estimated Creat Clear 12, Estimated GFR 11 L*, Est GFR ( Amer) 13 L*, Glucose 138 H D, Calcium 7.6 L 02/22/22 21:15: Urine Color Yellow, Urine Appearance Clear, Urine pH 6.0, Ur Specific [place] 1.020, Urine Protein 3+, Urine Glucose (UA) Negative, Urine Ketones Negative, Urine Blood 2+, Urine Nitrate Negative, Urine Bilirubin Negative, Urine Urobilinogen 0.2, Ur Leukocyte Esterase Negative, Urine RBC 5-10, Urine WBC Occasional, Ur Squamous Epith Cells 3-5, Urine Bacteria None 02/23/22 06:03: WBC 7.7, RBC 2.91 L, Hgb 9.5 L D, Hct 27.7 L, MCV 94.9, MCH 32.6 H, MCHC 34.3, RDW 15.9, Plt Count 227, MPV 8.3, Neut % (Auto) 64.7, Lymph % (Auto) 25.7, [place] % (Auto) 6.0, Eos % (Auto) 3.2, Baso % (Auto) 0.5, Neut # (Auto) 5.0, Lymph # (Auto) 2.0, [place] # (Auto) 0.5, Eos # (Auto) 0.2, Baso # (Auto) 0.0 02/23/22 06:03: Sodium 125 L, Potassium 3.6, Chloride 100, Carbon Dioxide 22, Anion Gap 6.6, BUN 47 H, Creatinine 3.90 H, Estimated Creat Clear 12, Estimated GFR 11 L*, Est GFR ( Amer) 14 L*, Glucose 87 D, Calcium 7.5 L, Magnesium 1.7, Total Bilirubin 0.2, AST 23 D, ALT 9 L D, Alkaline Phosphatase 61, Total Protein 4.8 L, Albumin 2.2 L D, Globulin 2.6, Albumin/Globulin Ratio 0.8 L 02/23/22 06:05: Iron 62, TIBC 202 L, Iron Saturation 30.49871, Ferritin 20.4 I & O for Last 24 hours: Intake & Output 02/20/22 02/21/22 02/22/22 02/23/22 23:59 23:59 23:59 23:59 Intake Total 417 / 417 0 / 0 Output Total 400 / 400 600 / 600 Balance -600 / -600 Weight 123 lb 7.342 oz 123 lb 0.287 oz Microbiology Reports for the Last 24 Hours: Microbiology 02/22/22 21:17 Sputum - Expectorated Sputum Gram Stain - Final Constitutional Constitutional: no acute distress *Routine Respiratory Exam Respiratory: Present CTA bilaterally and symmetric chest movement *Routine Cardiovascular Exam Cardiovascular: Present RRR, Normal S1 and Normal S2 *Routine Abdominal Exam Abdominal: Present soft and normoactive bowel sounds; Absent tenderness *Routine Extremities Exam Extremities: Present full ROM and normal capillary refill; Absent edema *Routine Skin Exam Skin: Present intact, dry and warm Detailed Neck Exam: Thyroids Thyroid: Absent bruit Progress Note: A&P Assessment and plan (1) Hypertensive emergency: Status: Acute (2) GIULIANA (acute kidney injury): Status: Acute (3) Headache: Status: Acute (4) Edema: Status: Acute (5) Rheumatoid arthritis: Status: Chronic (6) COPD (chronic obstructive pulmonary disease): Status: Chronic (7) Hyperlipidemia: Status: Chronic (8) Coronary artery disease: Status: Chronic (9) Paroxysmal atrial fibrillation: Status: Acute Assessment and Plan Assessment and Plan for All Diagnoses:: Hypertensive emergency -Continue nipride drip and carvedilol 25 mg p.o. twice daily -Echo pending.? Renal artery ultrasound pending.? Normal renal arteries noted on ultrasound from [facility] 12/2021. 02/23/2022?remains on low-dose Nipride drip. BP stable. Echo shows an estimated ejection fraction 55% with no regional wal
--- NOTE | 2022-02-23 11:18 | PC.NURSE ---
1020 notified pt of medication ordered, acyclovir bid. pt was previously ordered her home valtrex daily, pt/family was asked to bring in home medication. pt was informed of the change at this time, pt requests to take her own home medication instead r/t home med being once a day. called and spoke with jace in pharmacy.
--- NOTE | 2022-02-23 12:37 | PC.NURSE ---
[address] Cici Damon that pt is c/o nausea/vomiting and has a head ache still. bp is 139/74. new orders. ubrelvy 100mg po now, may repeat in 2 hrs. also give 1 times dose of iv zofran now
--- NOTE | 2022-02-23 18:43 | EXP.ACUTE.PN ---
Subjective *Date: 02/23/22 *Time: 18:43 Interval history: Remains on night pride drip. Having a headache states its been there for weeks. Also having nausea. No other complaints at this time Medical Exam Vital signs and Labs for Last 24 Hours: Vital Signs Temp Pulse Pulse Pulse Resp BP Pulse Ox 02/23/22 16:00 72 94 L 02/23/22 16:00 72 20 189/99 H 95 02/23/22 16:00 65 02/23/22 12:00 60 02/23/22 08:00 70 02/23/22 15:34 97.5 F L 02/23/22 14:00 66 20 155/79 H 93 L 02/23/22 12:00 67 20 139/71 95 02/23/22 12:35 69 02/23/22 12:35 66 02/23/22 11:54 97.6 F 02/23/22 07:40 61 94 L 02/23/22 10:00 59 L 20 135/75 94 L 02/23/22 08:00 61 20 186/88 H 93 L 02/23/22 08:00 97.7 F 02/23/22 07:43 70 02/23/22 06:00 68 20 149/74 H 90 L 02/23/22 06:16 95 02/23/22 04:00 97.7 F 73 20 144/90 H 92 L 02/23/22 02:00 68 18 144/70 H 92 L 02/23/22 00:00 98.1 F 73 17 130/71 94 L 02/23/22 00:00 65 02/22/22 20:00 98.4 F 75 22 128/90 93 L 02/22/22 20:00 80 02/22/22 21:54 69 139/77 94 L 02/22/22 21:37 94 L Intake and Output 02/23/22 02/23/22 02/23/22 07:59 15:59 23:59 Intake Total 125.235 / 501.235 376 / 501.235 Output Total 600 / 1100 500 / 1100 0 / 1100 Balance -600 / -598.765 -374.765 / -598.765 376 / -598.765 Intake: Intake, Oral Amount 0 / 240 240 / 240 Intake, Total IV Amount 125.235 / 261.235 136 / 261.235 Nitroprusside Sodium 50 mg In 136 / 136 Dextrose 5 % in Water 250 ml @ 0.3 MCG/KG/MIN 5.061 mls/hr IV .Q24H [facility] Rx#:[id number] Output: Output, Urine Amount 600 / 1100 500 / 1100 0 / 1100 Other: Number of Unmeasured Voids 1 0 5 Weight 55.8 kg 55.8 kg Patient Weight 02/23/22 23:59 Weight 55.8 kg Laboratory Results - last 24 hr 02/22/22 21:15: Urine Color Yellow, Urine Appearance Clear, Urine pH 6.0, Ur Specific [place] 1.020, Urine Protein 3+, Urine Glucose (UA) Negative, Urine Ketones Negative, Urine Blood 2+, Urine Nitrate Negative, Urine Bilirubin Negative, Urine Urobilinogen 0.2, Ur Leukocyte Esterase Negative, Urine RBC 5-10, Urine WBC Occasional, Ur Squamous Epith Cells 3-5, Urine Bacteria None 02/23/22 06:03: WBC 7.7, RBC 2.91 L, Hgb 9.5 L D, Hct 27.7 L, MCV 94.9, MCH 32.6 H, MCHC 34.3, RDW 15.9, Plt Count 227, MPV 8.3, Neut % (Auto) 64.7, Lymph % (Auto) 25.7, [place] % (Auto) 6.0, Eos % (Auto) 3.2, Baso % (Auto) 0.5, Neut # (Auto) 5.0, Lymph # (Auto) 2.0, [place] # (Auto) 0.5, Eos # (Auto) 0.2, Baso # (Auto) 0.0 02/23/22 06:03: Sodium 125 L, Potassium 3.6, Chloride 100, Carbon Dioxide 22, Anion Gap 6.6, BUN 47 H, Creatinine 3.90 H, Estimated Creat Clear 12, Estimated GFR 11 L*, Est GFR ( Amer) 14 L*, Glucose 87 D, Calcium 7.5 L, Magnesium 1.7, Total Bilirubin 0.2, AST 23 D, ALT 9 L D, Alkaline Phosphatase 61, Total Protein 4.8 L, Albumin 2.2 L D, Globulin 2.6, Albumin/Globulin Ratio 0.8 L 02/23/22 06:05: Iron 62, TIBC 202 L, Iron Saturation 30.41293, Ferritin 20.4 I & O for Labs for Last 24 Hours: Intake & Output 02/20/22 02/21/22 02/22/22 02/23/22 23:59 23:59 23:59 23:59 Intake Total 417 / 417 501.235 / 501.235 Output Total 400 / 400 1100 / 1100 Balance -598.765 / -598.765 Weight 56 kg 55.8 kg Microbiology Reports for the Last 24 Hours: Microbiology 02/22/22 21:17 Sputum - Expectorated Sputum Gram Stain - Final Constitutional: Present no acute distress Head: Present atraumatic and normocephalic Respiratory: Present normal respiratory effort Cardiac: Present Reg Rate and Rhythm GI: Present normal bowel sounds; Absent tenderness Extremities: Present normal inspection and full ROM Skin: Present intact; Absent erythema Neuro: Present Grossly Intact and moves all extremities Assessment and Plan *Assessment and plan (1) Hypertensive emergency:
[2022-02-23 19:59] LABS: Blood Urea Nitrogen 48 mg/dl (7-17); Calcium 7.6 mg/dl (8.4-10.2); Carbon Dioxide 22 mmol/L (22.0-30.0); Chloride 96 mmol/L (98-107); Creatinine Clearance Estimated 13 mL/min (50-200); Estimated Glomerular Filt Rate 12 ml/min (>60); GFR (African American) 15 ML/MIN (>60); Glucose 105 mg/dl (74-100); Potassium 3.9 mmoL/L (3.5-5.1)
[2022-02-23 20:09] LABS: Anion Gap 8.9 mEq/L (5-15); Sodium 123 mmol/L (136-145)
--- NOTE | 2022-02-23 20:39 | PC.NURSE ---
bp 192/93 (126), increased nipride drip to 0.8mcg/kg/min
[2022-02-24] VITALS (13 sets, daily range): BP systolic 120–159; BP diastolic 59–78; PULSE 58–110; RESP 13–20; TEMP 36.6–37.1; O2SAT 92–97; BMI 20.5
[2022-02-24 01:37] LABS: Chloride 98 mmol/L (98-107); Potassium 3.7 mmoL/L (3.5-5.1); Sodium 124 mmol/L (136-145)
[2022-02-24 01:40] LABS: Anion Gap 9.7 mEq/L (5-15); Blood Urea Nitrogen 39 mg/dl (7-17); Calcium 7.2 mg/dl (8.4-10.2); Carbon Dioxide 20 mmol/L (22.0-30.0); Creatinine Clearance Estimated 13 mL/min (50-200); Estimated Glomerular Filt Rate 13 ml/min (>60); GFR (African American) 15 ML/MIN (>60); Glucose 90 mg/dl (74-100)
[2022-02-24 06:53] LABS: Chloride 99 mmol/L (98-107); Potassium 3.7 mmoL/L (3.5-5.1); Sodium 123 mmol/L (136-145)
[2022-02-24 06:56] LABS: Anion Gap 7.7 mEq/L (5-15); Blood Urea Nitrogen 40 mg/dl (7-17); Carbon Dioxide 20 mmol/L (22.0-30.0); Creatinine Clearance Estimated 14 mL/min (50-200); Estimated Glomerular Filt Rate 13 ml/min (>60); GFR (African American) 16 ML/MIN (>60)
[2022-02-24 06:57] LABS: Calcium 6.9 mg/dl (8.4-10.2); Glucose 92 mg/dl (74-100)
--- NOTE | 2022-02-24 08:56 | DIET.NUTRFU ---
Provider ordered fluid restriction secondary to low sodium of 123L. IVF was discontinued. Provider spoke to patient about her water intake, she reports she has been increasing her fluid intake over past couple weeks since last hospital stay for GIULIANA. She c/o dry mouth, secondary to PMH. He educated her about drinking less. Urine output 1/3 was noted at 1300ml. She reported some improvement with oral intake at dinner, consumed small salad, mashed potatoes and peas, did not like the chicken. She is now receiving ensure with breakfast. Will continue to monitor labs and po intake
--- NOTE | 2022-02-24 09:46 | EXP.ACUTE.PN ---
Subjective *Date: 02/24/22 *Time: 09:46 Interval history: No acute events overnight. Patient still having a headache. Still requiring high drip. States that she is drinking continuously due to dry mouth and thirst, also trying to flush her kidneys out Medical Exam Vital signs and Labs for Last 24 Hours: Vital Signs Temp Pulse Pulse Pulse Resp BP Pulse Ox 02/24/22 08:00 98.1 F 02/24/22 08:00 66 16 120/59 L 93 L 02/24/22 06:00 70 19 129/69 93 L 02/24/22 06:08 70 02/24/22 06:08 71 02/24/22 04:00 70 02/24/22 00:00 79 02/23/22 20:00 64 02/24/22 04:00 69 14 128/68 94 L 02/24/22 02:00 72 18 149/71 H 92 L 02/24/22 00:00 73 16 133/72 93 L 02/24/22 02:29 72 02/24/22 02:29 74 02/24/22 00:00 98.2 F 02/23/22 22:00 67 17 164/84 H 92 L 02/23/22 21:45 74 16 140/72 93 L 02/23/22 20:00 67 16 161/89 H 94 L 02/23/22 20:00 97.6 F 02/23/22 18:30 68 20 169/85 H 96 02/23/22 16:00 72 94 L 02/23/22 16:00 72 20 189/99 H 95 02/23/22 16:00 65 02/23/22 12:00 60 02/23/22 15:34 97.5 F L 02/23/22 14:00 66 20 155/79 H 93 L 02/23/22 12:00 67 20 139/71 95 02/23/22 12:35 69 02/23/22 12:35 66 02/23/22 11:54 97.6 F 02/23/22 10:00 59 L 20 135/75 94 L Intake and Output 02/23/22 02/24/22 02/24/22 23:59 07:59 15:59 Intake Total 376 / 621.235 212.008 / 572.008 360 / 572.008 Output Total 250 / 1350 600 / 800 200 / 800 Balance 126 / -728.765 -387.992 / -227.992 160 / -227.992 Intake: Intake, Oral Amount 240 / 360 120 / 480 360 / 480 Intake, Total IV Amount 136 / 261.235 92.008 / 92.008 Nitroprusside Sodium 50 mg In 136 / 136 Dextrose 5 % in Water 250 ml @ 0.3 MCG/KG/MIN 5.061 mls/hr IV .Q24H [facility] Rx#:[id number] Output: Output, Urine Amount 250 / 1350 600 / 800 200 / 800 Other: Number of Unmeasured Voids 1 0 Weight 54.7 kg Patient Weight 02/24/22 23:59 Weight 54.7 kg Laboratory Results - last 24 hr 02/23/22 19:34: Sodium 123 L, Potassium 3.9, Chloride 96 L, Carbon Dioxide 22, Anion Gap 8.9, BUN 48 H, Creatinine 3.70 H, Estimated Creat Clear 13, Estimated GFR 12 L*, Est GFR ( Amer) 15 L*, Glucose 105 H D, Calcium 7.6 L 02/24/22 01:15: Sodium 124 L, Potassium 3.7, Chloride 98, Carbon Dioxide 20 L, Anion Gap 9.7, BUN 39 H, Creatinine 3.60 H, Estimated Creat Clear 13, Estimated GFR 13 L*, Est GFR ( Amer) 15 L*, Glucose 90, Calcium 7.2 L 02/24/22 05:48: Sodium 123 L, Potassium 3.7, Chloride 99, Carbon Dioxide 20 L, Anion Gap 7.7, BUN 40 H, Creatinine 3.40 H, Estimated Creat Clear 14, Estimated GFR 13 L*, Est GFR ( Amer) 16 L*, Glucose 92, Calcium 6.9 L I & O for Labs for Last 24 Hours: Intake & Output 02/21/22 02/22/22 02/23/22 02/24/22 23:59 23:59 23:59 23:59 Intake Total 417 / 417 501.235 / 621.235 572.008 / 572.008 Output Total 400 / 400 1350 / 1350 800 / 800 Balance -848.765 / -728.765 -227.992 / -227.992 Weight 56 kg 55.8 kg 54.7 kg Microbiology Reports for the Last 24 Hours: Microbiology 02/22/22 21:17 Sputum - Expectorated Sputum Gram Stain - Final 02/22/22 21:17 Sputum - Expectorated Sputum Sputum Culture - Preliminary Constitutional: Present no acute distress Head: Present atraumatic and normocephalic ENT: Present mucous membranes dry Neck: Present normal inspection and full ROM Respiratory: Present CTA bilaterally; Absent accessory muscle use Cardiac: Present Reg Rate and Rhythm GI: Present soft; Absent tenderness Rectal (female): Present deferred (female): Present deferred Extremities: Present normal inspection; Absent edema Skin: Present intact, dry and warm Neuro: Present Cranial Nerve 2-12 Intact, alert, awake and oriented x 3; Absent Numbness Assessment and Plan *Assessment and plan (1) Hypertensi
--- NOTE | 2022-02-24 09:47 | EXP.CARD.PN ---
Subjective Subjective Date: 02/24/22 Time: 08:00 Principal diagnosis: Hypertensive emergency Interval history: Patient remains on Nipride drip. BP elevates when drip decreased. Labs as follow: Sodium 123, potassium 3.7, creatinine 3.4. Patient denies chest pain or shortness of breath complaining of ongoing headache. Exam Data for Last 24 hours Vital signs and Labs for Last 24 Hours: Temp Pulse Resp BP Pulse Ox 98.1 F 66 16 120/59 L 93 L 02/24/22 08:00 02/24/22 08:00 02/24/22 08:00 02/24/22 08:00 02/24/22 08:00 Laboratory Results - last 24 hr 02/23/22 19:34: Sodium 123 L, Potassium 3.9, Chloride 96 L, Carbon Dioxide 22, Anion Gap 8.9, BUN 48 H, Creatinine 3.70 H, Estimated Creat Clear 13, Estimated GFR 12 L*, Est GFR ( Amer) 15 L*, Glucose 105 H D, Calcium 7.6 L 02/24/22 01:15: Sodium 124 L, Potassium 3.7, Chloride 98, Carbon Dioxide 20 L, Anion Gap 9.7, BUN 39 H, Creatinine 3.60 H, Estimated Creat Clear 13, Estimated GFR 13 L*, Est GFR ( Amer) 15 L*, Glucose 90, Calcium 7.2 L 02/24/22 05:48: Sodium 123 L, Potassium 3.7, Chloride 99, Carbon Dioxide 20 L, Anion Gap 7.7, BUN 40 H, Creatinine 3.40 H, Estimated Creat Clear 14, Estimated GFR 13 L*, Est GFR ( Amer) 16 L*, Glucose 92, Calcium 6.9 L I & O for Last 24 hours: Intake & Output 02/21/22 02/22/22 02/23/22 02/24/22 23:59 23:59 23:59 23:59 Intake Total 417 / 417 501.235 / 621.235 572.008 / 572.008 Output Total 400 / 400 1350 / 1350 800 / 800 Balance -848.765 / -728.765 -227.992 / -227.992 Weight 123 lb 7.342 oz 123 lb 0.287 oz 120 lb 9.486 oz Microbiology Reports for the Last 24 Hours: Microbiology 02/22/22 21:17 Sputum - Expectorated Sputum Gram Stain - Final 02/22/22 21:17 Sputum - Expectorated Sputum Sputum Culture - Preliminary Constitutional Constitutional: no acute distress *Routine Respiratory Exam Respiratory: Present CTA bilaterally and symmetric chest movement *Routine Cardiovascular Exam Cardiovascular: Present RRR, Normal S1 and Normal S2 *Routine Abdominal Exam Abdominal: Present soft and normoactive bowel sounds; Absent tenderness *Routine Extremities Exam Extremities: Present full ROM and normal capillary refill; Absent edema *Routine Skin Exam Skin: Present intact, dry and warm Detailed Neck Exam: Thyroids Thyroid: Absent bruit Progress Note: A&P Assessment and plan (1) Hypertensive emergency: Status: Acute (2) GIULIANA (acute kidney injury): Status: Acute (3) Headache: Status: Acute (4) Edema: Status: Acute (5) Rheumatoid arthritis: Status: Chronic (6) COPD (chronic obstructive pulmonary disease): Status: Chronic (7) Hyperlipidemia: Status: Chronic (8) Coronary artery disease: Status: Chronic (9) Paroxysmal atrial fibrillation: Status: Acute Assessment and Plan Assessment and Plan for All Diagnoses:: Hypertensive emergency -Continue nipride drip and carvedilol 25 mg p.o. twice daily -Echo pending.? Renal artery ultrasound pending.? Normal renal arteries noted on ultrasound from [facility] 12/2021. 02/23/2022?remains on low-dose Nipride drip. BP stable.? Echo shows an estimated ejection fraction 55% with no regional wall motion abnormality, grade 1 diastolic dysfunction, mild aortic mitral and tricuspid regurg, RVSP 42 mmHg.? Goal is to wean from Nipride drip continue carvedilol 25 mg p.o. twice daily. 02/24/2022-remains on Nipride drip. Continue carvedilol 25 mg p.o. twice daily, add hydralazine 50 mg every 6 hours, wean from drip Acute kidney injury -Creatinine 4 -Avoid nephrotoxic agents -limited renal ultrasound from [facility] on 01/21/2022 showed mildly echogenic renal parenchyma bilaterally, consistent with medical renal disease.? No hydronephrosis or other acute findings. 02/23/2022-creatinine improving today 3.9.? Renal artery ultrasound from 02/22/2022-no evidence of significant right renal artery stenosis less than 60% left renal
--- NOTE | 2022-02-24 09:51 | EXP.PULM.CON ---
History of Present Illness History of present illness: Ms. Pan is a 67-year-old female history of rheumatoid arthritis, bronchiolitis obliterans, bronchiectasis, MSSA colonization presented to the hospital with uncontrolled blood pressure headache and nasal bleeds and pulmonary was called for further evaluation. Patient denies any worsening cough or any productive phlegm. Admits respiratory status at baseline [facility] Disclaimer: The information contained in this section may have been updated after the patient was seen, as this information can be updated by other users. Medical History (Updated 02/24/22 @ 09:55 by Jt Sapp MD) Acute bacterial sinusitis Allergic rhinitis, unspecified Bronchiectasis Bronchiectasis without complication Bronchiolitis obliterans Chronic recurrent sinusitis Cornea transplant recipient Cornea transplant recipient DNS (deviated nasal septum) Dyspnea on exertion Emphysema lung MRSA (methicillin resistant Staphylococcus aureus) Myocardial infarct Rheumatoid arthritis Sicca syndrome Surgical History H/O heart artery stent History of hysterectomy Hx of cardiac cath Family History Coronary artery disease Hyperlipidemia Heart attack Cancer Hypertension Social History (Updated 02/22/22 @ 20:06 by Beena Brothers, YOSVANY) Smoking Status: Never smoker alcohol intake: never current occupational status: retired Travel in the last 8 weeks: None housing: house service: No longterm: No caffeine: Yes Review of Systems Constitutional Constitutional: Reports fatigue Eyes Eyes: Denies eye discharge, Denies dry eyes, Denies irritation and Denies itchy eyes ENT Ears, Nose, Mouth, and Throat: Denies epistaxis, Denies facial pain, Denies lip swelling, Reports nasal discharge, Reports nasal obstruction and Denies throat swelling *Cardiovascular Cardiovascular: Reports dyspnea, Reports dyspnea on exertion and Reports leg edema *Respiratory Respiratory: Reports chest congestion, Reports cough, Reports dyspnea, Reports dyspnea on exertion, Denies excessive phlegm production, Denies hemoptysis and Denies wheezing *Gastrointestinal Gastrointestinal: Denies abdominal pain, Denies belching and Denies cramping *Musculoskeletal Musculoskeletal: Reports back pain, Reports myalgias and Reports other (No small joint swelling or Pain) *Neurologic Comments: Headaches Psychiatric Psychiatric: Denies homicidal ideation and Denies suicidal ideation Endocrine Endocrine: Reports fatigue and Denies heat intolerance Hematologic/Lymphatic Hematologic/Lymphatic: Denies easy bleeding and Denies lymphadenopathy Allergic/Immunologic Allergic/Immunologic: Denies itchy eyes, Denies lip swelling, Denies throat swelling and Denies wheezing Pulmonology Exam Inpatient Vital signs and Labs for Last 24 Hours: Temp Pulse Resp BP Pulse Ox 98.1 F 66 16 120/59 L 93 L 02/24/22 08:00 02/24/22 08:00 02/24/22 08:00 02/24/22 08:00 02/24/22 08:00 Laboratory Results - last 24 hr 02/23/22 19:34: Sodium 123 L, Potassium 3.9, Chloride 96 L, Carbon Dioxide 22, Anion Gap 8.9, BUN 48 H, Creatinine 3.70 H, Estimated Creat Clear 13, Estimated GFR 12 L*, Est GFR ( Amer) 15 L*, Glucose 105 H D, Calcium 7.6 L 02/24/22 01:15: Sodium 124 L, Potassium 3.7, Chloride 98, Carbon Dioxide 20 L, Anion Gap 9.7, BUN 39 H, Creatinine 3.60 H, Estimated Creat Clear 13, Estimated GFR 13 L*, Est GFR ( Amer) 15 L*, Glucose 90, Calcium 7.2 L 02/24/22 05:48: Sodium 123 L, Potassium 3.7, Chloride 99, Carbon Dioxide 20 L, Anion Gap 7.7, BUN 40 H, Creatinine 3.40 H, Estimated Creat Clear 14, Estimated GFR 13 L*, Est GFR ( Amer) 16 L*, Glucose 92, Calcium 6.9 L I & O for Labs for Last 24 Hours: Intake & Output 02/21/22 02/22/22 02/23/22 02/24/22 23:59 23:59 23:59 23:59 Intake Total 417 / 417 501
[2022-02-24 10:29] LABS: Erythrocyte Sedimentation Rate 125 mm/hr (0-30); NT Pro Brain Natriuretic Pep. 2520 pg/mL (0-125)
[2022-02-24 10:29] LABS: Folate > 20.00 ng/mL
[2022-02-24 11:29] LABS: Vitamin B12 > 1000 pg/mL (239-931)
--- NOTE | 2022-02-24 13:38 | ECG_ITS ---
APPROVED REPORT Exam: Resting ECG HR:122 bpm ECG Measurements Heart Rate 122 AXES QRSd 86 QRS 72 QT 299 T 31 QTc 372 Conclusion ATRIAL FIBRILLATION WITH RAPID VENTRICULAR RESPONSE NONSPECIFIC ST & T-WAVE ABNORMALITY ABNORMAL RHYTHM ECG UNCONFIRMED REPORT Electronically signed by : Nehemiah Manning MD 02/25/2022 08:11:21
--- NOTE | 2022-02-24 18:06 | PC.NURSE ---
narendra called form [facility] no bed for patient. she will call back before seven tomorrow to update again
--- NOTE | 2022-02-24 18:48 | PC.NURSE ---
pt taken off nipride drip this morning, SBP 120-159 t/o shift, pt did complain of headache at 1320, PRN imitrex given, shortly after medication was given pt's HR increased to 130-140, EKG obtained and pt was in afib with RVR, Dr. Primo Damon came to bedside and gave new orders, new orders carried out, pt returned to a SR at 1630, pt has complained of tightness in legs which she attributes to fluid, has also complained of nausea and was treated per APR, did refuse her 1700 dose of hydralazine due to nausea, educated pt on when next PRN nausea medication was due
[2022-02-24 20:22] LABS: Chloride 98 mmol/L (98-107); Potassium 3.9 mmoL/L (3.5-5.1); Sodium 122 mmol/L (136-145)
[2022-02-24 20:25] LABS: Blood Urea Nitrogen 37 mg/dl (7-17); Creatinine Clearance Estimated 14 mL/min (50-200); Estimated Glomerular Filt Rate 13 ml/min (>60); GFR (African American) 16 ML/MIN (>60)
[2022-02-24 20:26] LABS: Anion Gap 10.9 mEq/L (5-15); Calcium 7.5 mg/dl (8.4-10.2); Carbon Dioxide 17 mmol/L (22.0-30.0); Glucose 116 mg/dl (74-100)
[2022-02-25] VITALS (9 sets, daily range): BP systolic 102–130; BP diastolic 49–93; PULSE 53–75; RESP 14–18; TEMP 36.3–36.9; O2SAT 93–98; BMI 21.5
--- NOTE | 2022-02-25 09:44 | EXP.PULM.PN ---
Subjective *Date: 02/25/22 *Time: 12:57 Interval history: No acute respiratory events overnight. Continues to remain on room air. Pulmonology Exam Inpatient Vital signs and Labs for Last 24 Hours: Temp Pulse Resp BP Pulse Ox 98.4 F 64 16 129/93 H 94 L 02/25/22 08:00 02/25/22 08:00 02/25/22 08:00 02/25/22 08:00 02/25/22 08:00 Laboratory Results - last 24 hr 02/24/22 05:48: Vitamin B12 > 1000 H, Folate > 20.00 02/24/22 09:46: NT-Pro-B Natriuret Pep 2520 H 02/24/22 09:46: ESR 125 H 02/24/22 19:30: Sodium 122 L, Potassium 3.9, Chloride 98, Carbon Dioxide 17 L, Anion Gap 10.9, BUN 37 H, Creatinine 3.40 H, Estimated Creat Clear 14, Estimated GFR 13 L*, Est GFR ( Amer) 16 L*, Glucose 116 H D, Calcium 7.5 L I & O for Labs for Last 24 Hours: Intake & Output 02/22/22 02/23/22 02/24/22 02/25/22 23:59 23:59 23:59 23:59 Intake Total 417 / 417 501.235 / 621.235 812.008 / 932.008 120 / 120 Output Total 400 / 400 1350 / 1350 1900 / 1900 300 / 300 Balance -848.765 / -728.765 -1087.992 / -967.992 -180 / -180 Weight 123 lb 7.342 oz 123 lb 0.287 oz 120 lb 9.486 oz 126 lb 3 oz Microbiology Reports for the Last 24 Hours: Microbiology 02/22/22 21:17 Sputum - Expectorated Sputum Gram Stain - Final 02/22/22 21:17 Sputum - Expectorated Sputum Sputum Culture - Preliminary Constitutional: Present mild distress Head: Present normocephalic and atraumatic ENT: Present normal exam, normal oropharynx and mucous membranes moist Neck: Present normal inspection and full ROM Respiratory: Present rhonchi, diminished air movement and able to speak in complete sentences; Absent respiratory distress, wheezes or crackles Cardiac: Present S1/S2, Tachycardia and radial pulses present GI: Present soft and distention; Absent tenderness or guarding Rectal (female): Present deferred (female): Present deferred Skin: Present intact; Absent cyanosis or jaundice Neuro: Present alert, awake and oriented x 3 Extremities: Present normal inspection and edema; Absent clubbing or cyanosis Psychiatric: Present normal affect and cooperative Assessment and Plan *Assessment and plan (1) COPD (chronic obstructive pulmonary disease): Status: Chronic Qualifiers: COPD type: unspecified COPD Qualified Code(s): J44.9 - Chronic obstructive pulmonary disease, unspecified Category: Medical Code(s): J44.9 - Chronic obstructive pulmonary disease, unspecified (2) Bronchiectasis without complication: Status: Acute Category: Medical Code(s): J47.9 - Bronchiectasis, uncomplicated Plan Ms. Pan is a 67-year-old female history of rheumatoid arthritis and bronchiolitis obliterans, interstitial lung disease, bronchiectasis, MRSA colonization on Daily CPT. She also had a longstanding history of uncontrolled blood pressure, presented to the cardiology clinic with headache nosebleeds on uncontrolled hypertension eventually needing hospital admission. No evidence of leukocytosis. Chest x-ray admission hyperinflated lungs stable with no dense consolidation. Patient denies any worsening respiratory distress but denies any cough or productive phlegm. Chest no wheezing. Physical examination on consultation bilateral 3+ lower extremity edema, GIULIANA along with hyponatremia. Echo showed diastolic dysfunction. Interval update: Afebrile. Continued to remain on room air. Denies any new respiratory complaints. Requesting early nephrology appointment post discharge. Plan: -Continue home inhaler therapy include Trelegy 100 inhaler -DuoNebs Q 12 scheduled along with hypertonic saline and flutter valve -Monitor clinically Rest of he medical management as per primary team #Thank you for involving pulmonary in this patient care. We will follow the patient in pulmonary clinic as previously scheduled.
[2022-02-25 12:23] LABS: Chloride 98 mmol/L (98-107); Sodium 122 mmol/L (136-145)
[2022-02-25 12:24] LABS: Potassium 4.2 mmoL/L (3.5-5.1)
[2022-02-25 12:27] LABS: Anion Gap 9.2 mEq/L (5-15); Blood Urea Nitrogen 40 mg/dl (7-17); Calcium 7.5 mg/dl (8.4-10.2); Carbon Dioxide 19 mmol/L (22.0-30.0); Creatinine Clearance Estimated 13 mL/min (50-200); Estimated Glomerular Filt Rate 12 ml/min (>60); GFR (African American) 14 ML/MIN (>60); Glucose 115 mg/dl (74-100)
--- NOTE | 2022-02-25 15:16 | EXP.CARD.PN ---
Subjective Subjective Date: 02/25/22 Time: 08:00 Principal diagnosis: Hypertensive emergency Interval history: Patient doing well, off of all drips, systolic blood pressure 102. Labs as follow: Sodium 122, potassium 4.2, creatinine 3.8. Exam Data for Last 24 hours Vital signs and Labs for Last 24 Hours: Temp Pulse Resp BP Pulse Ox 97.4 F L 58 L 16 102/52 L 96 02/25/22 12:00 02/25/22 12:00 02/25/22 12:00 02/25/22 12:00 02/25/22 12:00 Laboratory Results - last 24 hr 02/24/22 19:30: Sodium 122 L, Potassium 3.9, Chloride 98, Carbon Dioxide 17 L, Anion Gap 10.9, BUN 37 H, Creatinine 3.40 H, Estimated Creat Clear 14, Estimated GFR 13 L*, Est GFR ( Amer) 16 L*, Glucose 116 H D, Calcium 7.5 L 02/25/22 12:10: Sodium 122 L, Potassium 4.2, Chloride 98, Carbon Dioxide 19 L, Anion Gap 9.2, BUN 40 H, Creatinine 3.80 H, Estimated Creat Clear 13, Estimated GFR 12 L*, Est GFR ( Amer) 14 L*, Glucose 115 H, Calcium 7.5 L I & O for Last 24 hours: Intake & Output 02/22/22 02/23/22 02/24/22 02/25/22 23:59 23:59 23:59 23:59 Intake Total 417 / 417 501.235 / 621.235 812.008 / 109.563 3471 / 1080 Output Total 400 / 400 1350 / 1350 1900 / 1900 500 / 500 Balance -848.765 / -728.765 -1087.992 / -967.992 580 / 580 Weight 123 lb 7.342 oz 123 lb 0.287 oz 120 lb 9.486 oz 126 lb 3 oz Microbiology Reports for the Last 24 Hours: Microbiology 02/22/22 21:17 Sputum - Expectorated Sputum Gram Stain - Final 02/22/22 21:17 Sputum - Expectorated Sputum Sputum Culture - Preliminary Constitutional Constitutional: no acute distress *Routine Respiratory Exam Respiratory: Present CTA bilaterally and symmetric chest movement *Routine Cardiovascular Exam Cardiovascular: Present RRR, Normal S1 and Normal S2 *Routine Abdominal Exam Abdominal: Present soft and normoactive bowel sounds; Absent tenderness *Routine Extremities Exam Extremities: Present full ROM and normal capillary refill; Absent edema *Routine Skin Exam Skin: Present intact, dry and warm Detailed Neck Exam: Thyroids Thyroid: Absent bruit Progress Note: A&P Assessment and plan (1) COPD (chronic obstructive pulmonary disease): Status: Chronic (2) Bronchiectasis without complication: Status: Acute Assessment and Plan Assessment and Plan for All Diagnoses:: Hypertensive emergency -Continue nipride drip and carvedilol 25 mg p.o. twice daily -Echo pending.? Renal artery ultrasound pending.? Normal renal arteries noted on ultrasound from [facility] 12/2021. 02/23/2022?remains on low-dose Nipride drip. BP stable.? Echo shows an estimated ejection fraction 55% with no regional wall motion abnormality, grade 1 diastolic dysfunction, mild aortic mitral and tricuspid regurg, RVSP 42 mmHg.? Goal is to wean from Nipride drip continue carvedilol 25 mg p.o. twice daily. 02/24/2022-remains on Nipride drip.? Continue carvedilol 25 mg p.o. twice daily, add hydralazine 50 mg every 6 hours, wean from drip 02/25/2022: Off drip. Blood pressure doing well systolic low 100s noted. Continue carvedilol 25 mg twice daily, hydralazine 50 mg every 6 hours, developed 60 every 6 hours. Acute kidney injury -Creatinine 4 -Avoid nephrotoxic agents -limited renal ultrasound from [facility] on 01/21/2022 showed mildly echogenic renal parenchyma bilaterally, consistent with medical renal disease.? No hydronephrosis or other acute findings. 02/23/2022-creatinine improving today 3.9.? Renal artery ultrasound from 02/22/2022-no evidence of significant right renal artery stenosis less than 60% left renal artery stenosis. 02/24/2022: Creatinine improved to 3.4.? Sodium 123 potassium 3.7 02/25/2022: Creatinine 3.8, sodium 131, potassium 4.5. Proximal A. fib Carlos Vasc Score 2 -Continue carvedilol 25 mg p.o. 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 fib with aspirin 81 mg p.o. daily.? Reports tried Eliquis months prior but cannot remember why it was st
--- NOTE | 2022-02-25 17:44 | PC.NURSE ---
PT IS SITTING UP IN THE BED WITH FAMILY AT BEDSIDE. ALERT AND ORIENTED X4. PT AMBULATES TO THE BATHROOM AND IN THE ROOM. PT REQUESTED MIRALAX THIS AFTERNOON FOR CONSTIPATION. EATING AND DRINKING WELL. 1000 ML FLUID RESTRICTION. WILL CONTINUE TO MONITOR.
--- NOTE | 2022-02-25 18:32 | EXP.ACUTE.PN ---
Subjective *Date: 02/25/22 *Time: 18:32 Interval history: No issues feeling. Improved Medical Exam Vital signs and Labs for Last 24 Hours: Vital Signs Temp Pulse Pulse Resp BP Pulse Ox 02/25/22 16:00 70 02/25/22 16:00 98.2 F 59 L 16 125/59 L 97 02/25/22 12:00 68 02/25/22 12:00 97.4 F L 58 L 16 102/52 L 96 02/25/22 08:00 98.4 F 64 14 129/93 H 95 02/25/22 08:00 94 L 02/25/22 08:00 98.4 F 64 16 129/93 H 94 L 02/25/22 06:00 65 02/25/22 06:00 63 02/25/22 06:00 95 02/25/22 04:00 98.5 F 59 L 17 113/59 L 95 02/25/22 03:55 53 L 02/25/22 00:00 57 L 02/24/22 20:00 68 02/25/22 00:00 98.5 F 57 L 18 102/49 L 93 L 02/24/22 20:00 98.8 F 60 17 97 02/24/22 20:00 60 13 122/62 Intake and Output 02/25/22 02/25/22 02/25/22 07:59 15:59 23:59 Intake Total 120 / 1320 960 / 1320 240 / 1320 Output Total 300 / 700 200 / 700 200 / 700 Balance -180 / 620 760 / 620 40 / 620 Intake: Intake, Oral Amount 120 / 1320 960 / 1320 240 / 1320 Output: Output, Urine Amount 300 / 700 200 / 700 200 / 700 Other: Weight 57.238 kg Patient Weight 02/25/22 23:59 Weight 57.238 kg Laboratory Results - last 24 hr 02/24/22 19:30: Sodium 122 L, Potassium 3.9, Chloride 98, Carbon Dioxide 17 L, Anion Gap 10.9, BUN 37 H, Creatinine 3.40 H, Estimated Creat Clear 14, Estimated GFR 13 L*, Est GFR ( Amer) 16 L*, Glucose 116 H D, Calcium 7.5 L 02/25/22 12:10: Sodium 122 L, Potassium 4.2, Chloride 98, Carbon Dioxide 19 L, Anion Gap 9.2, BUN 40 H, Creatinine 3.80 H, Estimated Creat Clear 13, Estimated GFR 12 L*, Est GFR ( Amer) 14 L*, Glucose 115 H, Calcium 7.5 L I & O for Labs for Last 24 Hours: Intake & Output 02/22/22 02/23/22 02/24/22 02/25/22 23:59 23:59 23:59 23:59 Intake Total 417 / 417 501.235 / 621.235 812.008 / 585.936 5263 / 1320 Output Total 400 / 400 1350 / 1350 1900 / 1900 700 / 700 Balance -848.765 / -728.765 -1087.992 / -967.992 620 / 620 Weight 56 kg 55.8 kg 54.7 kg 57.238 kg Microbiology Reports for the Last 24 Hours: Microbiology 02/22/22 21:17 Sputum - Expectorated Sputum Gram Stain - Final 02/22/22 21:17 Sputum - Expectorated Sputum Sputum Culture - Preliminary Constitutional: Present no acute distress Head: Present atraumatic and normocephalic ENT: Present mucous membranes dry Neck: Present normal inspection and full ROM Respiratory: Present CTA bilaterally; Absent accessory muscle use Cardiac: Present Reg Rate and Rhythm GI: Present soft; Absent tenderness Rectal (female): Present deferred (female): Present deferred Extremities: Present normal inspection and edema Skin: Present intact, dry and warm Neuro: Present Cranial Nerve 2-12 Intact, alert, awake and oriented x 3; Absent Numbness Assessment and Plan *Assessment and plan (1) Hypertensive emergency: Status: Acute Category: Medical Code(s): I16.1 - Hypertensive emergency (2) GIULIANA (acute kidney injury): Status: Acute Category: Medical Code(s): N17.9 - Acute kidney failure, unspecified (3) Headache: Status: Acute Category: Medical Code(s): R51.9 - Headache, unspecified (4) Edema: Status: Acute Qualifiers: Edema type: unspecified Qualified Code(s): R60.9 - Edema, unspecified Category: Medical Code(s): R60.9 - Edema, unspecified (5) Rheumatoid arthritis: Status: Chronic Category: Medical Code(s): M06.9 - Rheumatoid arthritis, unspecified (6) COPD (chronic obstructive pulmonary disease): Status: Chronic Qualifiers: COPD type: unspecified COPD Qualified Code(s): J44.9 - Chronic obstructive pulmonary disease, unspecified Category: Medical Code(s): J44.9 - Chronic obstructive pulmonary disease, unspecified (7) Hyperlipidemia: Status: Chronic Category:
[2022-02-26] VITALS (7 sets, daily range): BP systolic 95–139; BP diastolic 46–65; PULSE 60–80; RESP 14–18; TEMP 36.6–36.8; O2SAT 93–98; BMI 23.0
[2022-02-26 00:06] LABS: Osmolality, Urine 183 mOsmol/kg (.)
[2022-02-26 01:23] LABS: Chloride 97 mmol/L (98-107); Sodium 123 mmol/L (136-145)
[2022-02-26 01:24] LABS: Potassium 4.2 mmoL/L (3.5-5.1)
[2022-02-26 01:26] LABS: Blood Urea Nitrogen 43 mg/dl (7-17); Creatinine Clearance Estimated 13 mL/min (50-200); Estimated Glomerular Filt Rate 12 ml/min (>60); GFR (African American) 14 ML/MIN (>60)
[2022-02-26 01:27] LABS: Anion Gap 10.2 mEq/L (5-15); Calcium 7.6 mg/dl (8.4-10.2); Carbon Dioxide 20 mmol/L (22.0-30.0); Glucose 106 mg/dl (74-100)
[2022-02-26 01:58] LABS: Uric Acid 6.9 mg/dl (2.5-6.2)
[2022-02-26 03:18] LABS: Chloride 98 mmol/L (98-107); Potassium 4.3 mmoL/L (3.5-5.1); Sodium 122 mmol/L (136-145)
[2022-02-26 03:21] LABS: Anion Gap 9.3 mEq/L (5-15); Blood Urea Nitrogen 43 mg/dl (7-17); Calcium 7.6 mg/dl (8.4-10.2); Carbon Dioxide 19 mmol/L (22.0-30.0); Creatinine Clearance Estimated 13 mL/min (50-200); Estimated Glomerular Filt Rate 12 ml/min (>60); GFR (African American) 14 ML/MIN (>60); Glucose 104 mg/dl (74-100)
--- NOTE | 2022-02-26 04:48 | PC.NURSE ---
Shanthi from [facility] called to update, no bed available at this time.
--- NOTE | 2022-02-26 05:36 | PC.NURSE ---
REPORT RECEIVED FROM ALEX MARTINEZ RN AT 0100. NO ACUTE CHANGES SINCE TAKING REPORT. PT HAS BEEN NAUSEATED SINCE TAKING REPAORT AND STATED SHE HAD SOME RELIEF AFTER IV COMPAZINE. RESTING INTERMITTENTLY. ALANA CONTACTED OVER PT REFUSING HER CARDIZEM, HEPARIN AND HER HYDRALAZINE. 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 VSS. PT IS A X1 ASSIST TO THE BATHROOM. NO OTHER COMPLAINTS AT THIS TIME. [facility] CALL FOR APT UPDATE. NO BED AVAILABLE. REMAINS ON THE WAIT LIST.
[2022-02-26 05:55] LABS: Chloride 98 mmol/L (98-107); Potassium 4.5 mmoL/L (3.5-5.1); Sodium 123 mmol/L (136-145)
[2022-02-26 05:58] LABS: Blood Urea Nitrogen 43 mg/dl (7-17); Creatinine Clearance Estimated 14 mL/min (50-200); Estimated Glomerular Filt Rate 12 ml/min (>60); GFR (African American) 15 ML/MIN (>60)
[2022-02-26 05:59] LABS: Anion Gap 10.5 mEq/L (5-15); Calcium 7.8 mg/dl (8.4-10.2); Carbon Dioxide 19 mmol/L (22.0-30.0); Glucose 101 mg/dl (74-100)
[2022-02-26 08:26] LABS: Thyroid Stimulating Hormone 5.52 uIU/mL (0.465-4.68)
--- NOTE | 2022-02-26 08:53 | EXP.CARD.PN ---
Subjective Subjective Date: 02/26/22 Time: 08:00 Principal diagnosis: Hypertensive emergency Interval history: Patient resting this a.m. reports chilling throughout the evening, remains afebrile. Off of all drips blood pressure stable. Patient reports she refused a.m. blood pressure medications due to feeling bad when blood pressure is too low. Labs reviewed and are as follow: Creatinine 3.7, potassium 4.5, sodium 123. Patient requesting transfer to any facility that will take her with nephrology coverage. Exam Data for Last 24 hours Vital signs and Labs for Last 24 Hours: Temp Pulse Resp BP Pulse Ox 97.8 F 65 18 117/58 L 95 02/26/22 04:00 02/26/22 04:00 02/26/22 04:00 02/26/22 04:00 02/26/22 04:00 Laboratory Results - last 24 hr 02/24/22 09:08: Urine Osmolality 183 02/25/22 12:10: Sodium 122 L, Potassium 4.2, Chloride 98, Carbon Dioxide 19 L, Anion Gap 9.2, BUN 40 H, Creatinine 3.80 H, Estimated Creat Clear 13, Estimated GFR 12 L*, Est GFR ( Amer) 14 L*, Glucose 115 H, Calcium 7.5 L 02/26/22 01:10: Sodium 123 L, Potassium 4.2, Chloride 97 L, Carbon Dioxide 20 L, Anion Gap 10.2, BUN 43 H, Creatinine 3.80 H, Estimated Creat Clear 13, Estimated GFR 12 L*, Est GFR ( Amer) 14 L*, Glucose 106 H, Calcium 7.6 L 02/26/22 01:10: Uric Acid 6.9 H 02/26/22 03:05: Sodium 122 L, Potassium 4.3, Chloride 98, Carbon Dioxide 19 L, Anion Gap 9.3, BUN 43 H, Creatinine 3.80 H, Estimated Creat Clear 13, Estimated GFR 12 L*, Est GFR ( Amer) 14 L*, Glucose 104 H, Calcium 7.6 L 02/26/22 05:30: Sodium 123 L, Potassium 4.5, Chloride 98, Carbon Dioxide 19 L, Anion Gap 10.5, BUN 43 H, Creatinine 3.70 H, Estimated Creat Clear 14, Estimated GFR 12 L*, Est GFR ( Amer) 15 L*, Glucose 101 H, Calcium 7.8 L 02/26/22 05:30: TSH 5.52 H I & O for Last 24 hours: Intake & Output 02/23/22 02/24/22 02/25/22 02/26/22 23:59 23:59 23:59 23:59 Intake Total 501.235 / 621.235 812.008 / 647.969 7769 / 1320 42 / 42 Output Total 1350 / 1350 1900 / 1900 700 / 1100 600 / 600 Balance -848.765 / -728.765 -1087.992 / -967.992 620 / 220 -558 / -558 Weight 123 lb 0.287 oz 120 lb 9.486 oz 126 lb 3 oz 134 lb 14.4 oz Microbiology Reports for the Last 24 Hours: Microbiology 02/22/22 21:17 Sputum - Expectorated Sputum Gram Stain - Final 02/22/22 21:17 Sputum - Expectorated Sputum Sputum Culture - Preliminary Constitutional Constitutional: no acute distress *Routine Respiratory Exam Respiratory: Present CTA bilaterally and symmetric chest movement *Routine Cardiovascular Exam Cardiovascular: Present RRR, Normal S1 and Normal S2 *Routine Abdominal Exam Abdominal: Present soft and normoactive bowel sounds; Absent tenderness *Routine Extremities Exam Extremities: Present full ROM and normal capillary refill; Absent edema *Routine Skin Exam Skin: Present intact, dry and warm Detailed Neck Exam: Thyroids Thyroid: Absent bruit Progress Note: A&P Assessment and plan (1) Hypertensive emergency: Status: Acute (2) GIULIANA (acute kidney injury): Status: Acute (3) Headache: Status: Acute (4) Edema: Status: Acute (5) Rheumatoid arthritis: Status: Chronic (6) COPD (chronic obstructive pulmonary disease): Status: Chronic (7) Hyperlipidemia: Status: Chronic (8) Coronary artery disease: Status: Chronic (9) Paroxysmal atrial fibrillation: Status: Acute Assessment and Plan Assessment and Plan for All Diagnoses:: Hypertensive emergency -Continue nipride drip and carvedilol 25 mg p.o. twice daily -Echo pending.? Renal artery ultrasound pending.? Normal renal arteries noted on ultrasound from [facility] 12/2021. 02/23/2022?remains on low-dose Nipride drip. BP stable.? Echo shows an estimated ejection fraction 55% with no regional wall motion abnormality, grade 1 diastolic dysfunction, mild aortic mitral and tricuspid regurg, RVSP 42 mmHg.? Goal is to wean from Nipride drip continue carvedilol 2
[2022-02-26 09:09] LABS: Sodium 125 mmol/L (136-145)
[2022-02-26 12:17] LABS: Sodium 126 mmol/L (136-145)
--- NOTE | 2022-02-26 12:29 | CARE MANAGER ---
Per Dr. Gregorio Damon called [phone], [email or web address] transfer portal spoke with Kira about a possible transfer to either [facility] or [facility] for dialysis. Kira took patient information and states she will call back. 10:00 am - Kira did call back and states [facility] will not accept without access, [facility] does not have an ICU bed and [facility] is in an IDT meeting so she will call me back 12:30- No [place] back from Kira thus I called [phone] back and was told it would be about 10 more minutes before they would know if they could take patient or not.
--- NOTE | 2022-02-26 13:40 | EXP.PULM.PN ---
Subjective *Date: 02/26/22 *Time: 13:40 Interval history: No acute respiratory events. Pulmonology Exam Inpatient Vital signs and Labs for Last 24 Hours: Temp Pulse Resp BP Pulse Ox 98.1 F 67 14 133/65 95 02/26/22 08:00 02/26/22 08:00 02/26/22 08:00 02/26/22 08:00 02/26/22 08:00 Laboratory Results - last 24 hr 02/24/22 09:08: Urine Osmolality 183 02/26/22 01:10: Sodium 123 L, Potassium 4.2, Chloride 97 L, Carbon Dioxide 20 L, Anion Gap 10.2, BUN 43 H, Creatinine 3.80 H, Estimated Creat Clear 13, Estimated GFR 12 L*, Est GFR ( Amer) 14 L*, Glucose 106 H, Calcium 7.6 L 02/26/22 01:10: Uric Acid 6.9 H 02/26/22 03:05: Sodium 122 L, Potassium 4.3, Chloride 98, Carbon Dioxide 19 L, Anion Gap 9.3, BUN 43 H, Creatinine 3.80 H, Estimated Creat Clear 13, Estimated GFR 12 L*, Est GFR ( Amer) 14 L*, Glucose 104 H, Calcium 7.6 L 02/26/22 05:30: Sodium 123 L, Potassium 4.5, Chloride 98, Carbon Dioxide 19 L, Anion Gap 10.5, BUN 43 H, Creatinine 3.70 H, Estimated Creat Clear 14, Estimated GFR 12 L*, Est GFR ( Amer) 15 L*, Glucose 101 H, Calcium 7.8 L 02/26/22 05:30: TSH 5.52 H 02/26/22 08:48: Sodium 125 L 02/26/22 12:00: Sodium 126 L I & O for Labs for Last 24 Hours: Intake & Output 02/23/22 02/24/22 02/25/22 02/26/22 23:59 23:59 23:59 23:59 Intake Total 501.235 / 621.235 812.008 / 903.094 5653 / 1320 42 / 42 Output Total 1350 / 1350 1900 / 1900 700 / 1100 1150 / 1150 Balance -848.765 / -728.765 -1087.992 / -967.992 620 / 220 -1108 / -1108 Weight 123 lb 0.287 oz 120 lb 9.486 oz 126 lb 3 oz 134 lb 14.4 oz Microbiology Reports for the Last 24 Hours: Microbiology 02/22/22 21:17 Sputum - Expectorated Sputum Gram Stain - Final 02/22/22 21:17 Sputum - Expectorated Sputum Sputum Culture - Preliminary Constitutional: Present moderate distress Head: Present normocephalic and atraumatic ENT: Present normal exam, normal oropharynx and mucous membranes moist Neck: Present normal inspection and full ROM Respiratory: Present rhonchi and able to speak in complete sentences; Absent respiratory distress, wheezes, crackles or diminished air movement Cardiac: Present S1/S2, Tachycardia and radial pulses present GI: Present soft and distention; Absent tenderness or guarding Rectal (female): Present deferred (female): Present deferred Skin: Present intact; Absent cyanosis or jaundice Neuro: Present alert, awake and oriented x 3 Extremities: Present normal inspection and edema; Absent clubbing or cyanosis Psychiatric: Present normal affect, cooperative and anxious Assessment and Plan *Assessment and plan (1) COPD (chronic obstructive pulmonary disease): Status: Chronic Qualifiers: COPD type: unspecified COPD Qualified Code(s): J44.9 - Chronic obstructive pulmonary disease, unspecified Category: Medical Code(s): J44.9 - Chronic obstructive pulmonary disease, unspecified (2) Bronchiectasis without complication: Status: Acute Category: Medical Code(s): J47.9 - Bronchiectasis, uncomplicated Plan Ms. Pan is a 67-year-old female history of rheumatoid arthritis and bronchiolitis obliterans, interstitial lung disease, bronchiectasis, MRSA colonization on Daily CPT. She also had a longstanding history of uncontrolled blood pressure, presented to the cardiology clinic with headache nosebleeds on uncontrolled hypertension eventually needing hospital admission. No evidence of leukocytosis. Chest x-ray admission hyperinflated lungs stable with no dense consolidation. Patient denies any worsening respiratory distress but denies any cough or productive phlegm. Chest no wheezing. Physical examination on consultation bilateral 3+ lower extremity edema, GIULIANA along with hyponatremia. Echo showed diastolic dysfunction. Interval update: Afebrile. Continued to remain on room air. Denies any new respiratory complaints. Oliguric GIULIANA. Relatively stable. Closely monitoring. Pl
--- NOTE | 2022-02-26 15:15 | DIET.NUTRFU ---
Patient's sodium is still depleted at 123L, was started on NaCL 3% 500ml bag with close monitoring. Meal intake today has been poor, she still continues on FR 1000ml/day, this includes all fluids. Verified with provider this includes Gatorade also. She has consumed some Gatorade today. Her renal labs are BUN 43/Cr 3.7, plan is to transfer to facility with HD for further treatment.
--- NOTE | 2022-02-26 16:13 | EXP.DC.SUM ---
General Admission date:: 02/22/22 HPI HPI HPI: Ms. Pan is a pleasant 67-year-old female with longstanding hypertension that is poorly controlled.? States she feels tired and fatigued if her blood pressure is controlled less than 130.? History obtained from patient and daughter.? Daughter states patient does not feel good and less her blood pressure is greater than 160 systolic.? She has a past medical history of rheumatoid arthritis, chronic bronchiectasis, paroxysmal A. fib, hyperlipidemia, COPD, and coronary artery disease.? She presented to the ER after being referred from cardiology office? because of persistent headache and nosebleeds.? Blood pressure severely elevated with systolic greater than 200.? Patient recently admitted 1 month ago at [facility] in [place] with the same complaints.? Was found to have an GIULIANA during that hospitalization and severely elevated blood pressure.? Her lisinopril was discontinued.? She was started on nifedipine and her carvedilol was increased.? They achieved good blood pressure control however she did not feel like she had much energy and was very tired.? She stopped the nifedipine on her own and started taking her lisinopril again approximately 2 weeks ago.? Followed with cardiology last at which point the lisinopril was stopped and hydralazine was initiated.? Presented today to cardiology because of persistent headache but given severity of blood pressure was sent to the ER.? On evaluation, found to have worsening GIULIANA.? Creatinine of 4.? Does report that she is having urine output a few times a day.? Was initiated on nitroprusside drip and medicine was contacted for admission. My interview after she arrived to the floor, patient needed to pee again.? Urine is light yellow and clear.? She reports taking her hydralazine and her carvedilol.? Denies any chest pain, nausea, vomiting.? Does complain of headache.? No shortness of breath.? No confusion at this time.? Denies any change in vision. Of note, review of records from [facility] shows: Echocardiogram from 01/18/2022 showed an EF of 66, grade 1 diastolic dysfunction and moderate aortic valve regurg.? A limited renal ultrasound 01/21/2022 showed mildly echogenic renal parenchyma bilaterally, consistent with medical renal disease.? No hydronephrosis or other acute findings. Renal artery duplex 01/19/2022 showed normal right and left renal arteries CT of head and [facility] ER was negative for acute findings, Chest xray shows COPD, no acute findings. Hospital Course Hospital Course Hospital Course: Patient was admitted for hypertensive emergency secondary to medication noncompliance and GIULIANA on CKD. Patient was started on nitroprusside drip which slowly reduce her blood pressure and was able to be titrated to p.o. medications. Patient had an episode of atrial fibrillation with RVR and was started on Cardizem PO. Current blood pressure regimen is carvedilol 25 mg p.o. twice daily, hydralazine 50 mg p.o. 4 times a day, diltiazem 60 mg p.o. every 6 hours. Blood pressure 139/65 on discharge. GIULIANA on CKD with creatinine of 3.8 on admission. Patient was given IV fluids given prerenal/intrarenal etiology of GIULIANA. Unfortunately patient became increasingly hyponatremic, holly of 122 without improvement of kidney function. She has complicating medical conditions such as srogrens and hypoalbuminemia (2.2) resulting in anasarca and dry mouth which complicates her fluid status assessment. Our facility does not have urine solute quantification in-house, and unfortunately to calculate serum OSMs, urine OSMs or urine solutes it is a send out study that takes 3 to 4 days. These limitations made it difficult to accurately diagnose etiology of her hyponatremia. 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 On 02/25 patient started to become confused and sluggish, she was
[2022-02-26 16:55] LABS: Sodium 128 mmol/L (136-145)
--- NOTE | 2022-02-26 17:03 | PC.NURSE ---
PT IS RESTING IN BED. ALERT AND ORIENTED X3. PT STATES SHE DOES NOT FEEL SICK HOWEVER DOES FEEL VERY TIRED. PT HAS BEEN AMBULATING TO THE BATHROOM. SODIUM HAS IMPROVED. LUNG SOUNDS DIMINISHED WITH LEFT SIDED FINE CRACKLES. ABDOMEN SOFT/NON TENDER WITH ACTIVE BOWEL SOUNDS. 3+ PITTING EDEMA NOTED TO BLE. NEW IV ACCESS NOTED TO LAC. PT REFUSED HEPARIN INJECTIONS AND MIRALAX THIS SHIFT. NOTIFIED [facility] WHERE PT WAS EXCEPTED FOR TRANSFER AND THEY STATED THEY WOULD CALL BACK FOR BED ASSIGNMENT AND NUMBER TO CALL REPORT WHEN PT'S ROOM IS READY. WILL CONTINUE TO MONITOR.
--- NOTE | 2022-02-26 17:23 | PC.NURSE ---
linus from [facility] said still no bed available
[2022-02-26 17:34] LABS: Coronavirus 19, PCR Not Detected (NotDetected); Influenza A, PCR Not Detected (NotDetected); Influenza B, PCR Not Detected (NotDetected)
--- NOTE | 2022-02-26 20:01 | PC.NURSE ---
Pt left the floor via [facility] @ 1949.
== END 2022-02-26 19:53 | disposition short-term general hospital (02) | DRG 305 ==
LOC: ER 11:57 → 2ND 12:49 → ICU 02-25 08:33 → 2ND 02-25 18:21
PROVIDERS: Internal Medicine; Nurse Practitioner Family; Student in an Organized Health Care Education/Training Program; Admitting Provider Internal Medicine Adolescent Medicine; Emergency Provider Student in an Organized Health Care Education/Training Program; PCP Internal Medicine Adolescent Medicine; Visit Provider Internal Medicine Adolescent Medicine
DX: I16.1 Hypertensive emergency (principal); N17.9 Acute kidney failure, unspecified; E22.2 Syndrome of inappropriate secretion of antidiuretic hormone; I25.10 Atherosclerotic heart disease of native coronary artery without angina pectoris; M06.9 Rheumatoid arthritis, unspecified; I34.0 Nonrheumatic mitral (valve) insufficiency; I48.0 Paroxysmal atrial fibrillation; I12.9 Hypertensive chronic kidney disease with stage 1 through stage 4 chronic kidney disease, or unspecified chronic kidney disease; N18.9 Chronic kidney disease, unspecified; J43.9 Emphysema, unspecified; I25.2 Old myocardial infarction; Z95.5 Presence of coronary angioplasty implant and graft; J47.9 Bronchiectasis, uncomplicated
CPT/HCPCS: 36415; 70450; 71045; 80048; 80053; 81001; 82607; 82728; 82746; 83540; 83550; 83735; 83880; 83935; 84295; 84443; 84484; 84550; 85025; 85651; 87070; 87205; 93005; 93306; 93976; 94640; 94668; 99291; C9803; J2405; U0003; U0005

== ENCOUNTER → 2022-02-22 11:07 | Outpatient (CLI) | payer MEDICARE, SELFPAY ==
[2022-02-22 10:02] LABS: MANUAL DIFFERENTIAL MANUAL DIFFERENTIAL (MANUAL DIFF)
[2022-02-22 10:09] LABS: Basophils # 0.1 K/mm3 (0-0.2); Basophils % 1.5 % (0.1-2.0); Eosinophils # 0.3 K/mm3 (0.0-0.4); Eosinophils % 3.5 % (0.1-12.0); Hematocrit 35.5 % (37.0-47.0); Hemoglobin 11.4 g/dL (12.2-16.2); Mean Corpuscular HGB Conc 32.2 g/dL (31.8-35.4); Mean Corpuscular Hemoglobin 31.9 pg (27.0-31.2); Mean Corpuscular Volume 99.2 fl (81-99); Mean Platelet Volume 9.1 fl (7.4-10.4); Monocytes # 0.5 K/mm3 (0.1-1.0); Neutrophils # 6.5 K/mm3 (1.8-7.8); Neutrophils % 69.1 % (37.0-80.0); Platelet Count 297 K/mm3 (142-424); Red Blood Count 3.58 M/mm3 (4.20-5.40); Red Cell Distribution Width 16.1 % (11.5-17.5); White Blood Count 9.3 K/mm3 (4.8-10.8)
[2022-02-22 10:13] LABS: Chloride 101 mmol/L (98-107)
[2022-02-22 10:14] LABS: Potassium 3.8 mmoL/L (3.5-5.1); Sodium 129 mmol/L (136-145)
[2022-02-22 10:16] LABS: Alanine Aminotransferase 14 U/L (12-78); Albumin Level 2.8 g/dl (3.5-5.0); Albumin/Globulin Ratio 0.9 (1.1-1.8); Alkaline Phosphatase 87 U/L (38-126); Aspartate Amino Transferase 31 U/L (14-36); Bilirubin,Total 0.4 mg/dl (0.2-1.3); Blood Urea Nitrogen 42 mg/dl (7-17); Estimated Glomerular Filt Rate 11 ml/min (>60); GFR (African American) 13 ML/MIN (>60); Globulin 3.1 g/dL (1.3-3.2); Total Protein,Serum 5.9 g/dl (6.3-8.2)
[2022-02-22 10:17] LABS: Anion Gap 10.8 mEq/L (5-15); Calcium 8.2 mg/dl (8.4-10.2); Carbon Dioxide 21 mmol/L (22.0-30.0); Glucose 100 mg/dl (74-100)
[2022-02-22 11:10] LABS: Anisocytosis 1+; Eosinophils % 2 % (0-3); Lymphocytes % 23 % (10-50); Macrocytosis 1+; Monocytes % 4 % (2-9); Neutrophils % 71 % (42-76); Platelet Estimate Normal; Total Cells Counted 100
== END ==
PROVIDERS: Visit Provider Internal Medicine
DX: R06.09 Other forms of dyspnea (principal)
CPT/HCPCS: 80053; 85007; 85014; 85018; 85048; 85049

== ENCOUNTER → 2022-06-29 09:08 | Outpatient (POV) | payer MEDICARE, SELFPAY | PROVIDERS: Visit Provider Dermatology | DX: Z00.00 Encounter for general adult medical examination without abnormal findings (principal) ==

== ENCOUNTER 2023-09-20 11:59 | Outpatient (POV) | payer MEDICARE, SELFPAY | END 2023-09-20 23:59 | disposition home or self-care (01) | LOC: SC 12:00 | PROVIDERS: PCP Internal Medicine Adolescent Medicine; Visit Provider Dermatology | DX: Z00.00 Encounter for general adult medical examination without abnormal findings (principal) ==

== ENCOUNTER 2024-02-07 07:21 | Emergency (ER) | payer MEDICARE, SELFPAY ==
[2024-02-07] VITALS (9 sets, daily range): BP systolic 146–178; BP diastolic 77–90; PULSE 61–85; RESP 12–24; TEMP 36.5–36.7; O2SAT 86–98; BMI 18.3
--- NOTE | 2024-02-07 07:28 | ECG_ITS ---
APPROVED REPORT Exam: Resting ECG HR:65 bpm ECG Measurements Heart Rate 65 AXES ME 158 P 89 QRSd 110 QRS 85 QT 400 T 87 QTc 412 Conclusion SINUS RHYTHM Motion artifact degrades study but no obvious acute STEMI. Electronically signed by : LEONID MYERS, 02/07/2024 15:32:18
[2024-02-07 07:47] LABS: Basophils # 0.1 K/mm3 (0-0.2); Eosinophils # 0.3 K/mm3 (0.0-0.4); Eosinophils % 2.5 % (0.1-12.0); Hematocrit 40.9 % (37.0-47.0); Hemoglobin 13.7 g/dL (12.2-16.2); Lymphocytes # 1.5 K/mm3 (0.7-4.5); Lymphocytes % 15.1 % (10-50); Mean Corpuscular HGB Conc 33.6 g/dL (31.8-35.4); Mean Corpuscular Hemoglobin 30.2 pg (27.0-31.2); Mean Corpuscular Volume 90.1 fl (81-99); Mean Platelet Volume 7.5 fl (7.4-10.4); Monocytes # 0.5 K/mm3 (0.1-1.0); Monocytes % 5.4 % (1.7-9.3); Neutrophils # 7.6 K/mm3 (1.8-7.8); Platelet Count 328 K/mm3 (142-424); Red Blood Count 4.54 M/mm3 (4.20-5.40); Red Cell Distribution Width 16.3 % (11.5-17.5)
[2024-02-07 07:50] LABS: Albumin Level 3.6 g/dl (3.5-5.0); Chloride 98 mmol/L (98-107); Potassium 3.9 mmoL/L (3.5-5.1); Sodium 125 mmol/L (136-145)
[2024-02-07] MEDS: IPRATROPIUM/ALBUTEROL 3 ML NEB 9 ML IH (07:50)
--- NOTE | 2024-02-07 07:50 | [facility].EDCP ---
Discharge Plan Disposition Patient Disposition: Home, Self-Care Condition: Good Prescriptions Prescriptions: New prednisone 20 mg tablet 40 mg PO DAILY 4 Days Qty: 8 0RF Rx Instructions: Start on 02/08/2024 doxycycline hyclate 100 mg tablet 100 mg PO BID 14 Days Qty: 28 0RF ondansetron 4 mg tablet,disintegrating 4 mg PO Q8H PRN (Reason: nausea and vomiting) 4 Days Qty: 12 0RF No Action bumetanide 2 mg tablet 2 mg PO BID amlodipine 10 mg tablet 10 mg PO DAILY Multaq 400 mg tablet 400 mg PO BID Rx Instructions: must administer with a meal/food Eliquis 2.5 mg tablet 2.5 mg PO ONCE Humira(CF) 20 mg/0.2 mL syringe kit 50 mg SQ Q14D Trelegy Ellipta 100-62.5-25 mcg blister with device 1 ea inhalation DAILY Qty: 90 3RF ipratropium-albuterol 0.5 mg-3 mg(2.5 mg base)/3 mL solution for nebulization 3 ml INHALATION Q6H PRN (Reason: shortness of breath or wheezing) Qty: 180 3RF Hyper-Jersey 3.5 % solution for nebulization 4 ml IH BID 90 Days Qty: 270 3RF Rx Instructions: 4 mL of 3% hypertonic saline nebulization every 12 hours every day to use with chest percussion therapy. This nebulization should be preceded by albuterol nebulization to avoid any bronchospasm. azelastine 205.5 mcg (0.15 %) spray,non-aerosol 2 spray INTRANASAL HS 90 Days Qty: 30 2RF Rx Instructions: administer into each nostril valacyclovir 500 MG tablet 500 mg PO DAILY carvedilol 25 mg tablet 25 mg PO BID ipratropium-albuterol 0.5 mg-3 mg(2.5 mg base)/3 mL solution for nebulization 3 ml INHALATION Q6HP PRN (Reason: shortness of breath or wheezing) Trelegy Ellipta 100-62.5-25 mcg blister with device 1 inh INHALATION DAILY albuterol sulfate 90 mcg/actuation HFA aerosol inhaler 1 inh INHALATION QIDP PRN (Reason: shortness of breath or wheezing) prednisolone acetate 1 % drops,suspension 1 drp Eye-Left BID Referrals Follow up/Referrals: Nehemiah Manning MD [Primary Care Provider] - See instructions Activity Restrictions/Add. Instructions Additional Instructions/Restrictions: You were evaluated in the emergency department today. records supervisor the prescription for medications at the pharmacy and take the full courses as prescribed. Follow-up closely with your primary care doctor as well as with your specialist field engineer. Return to the emergency department right away for new or worsening symptoms. We sent cultures which are pending, and we will call you if anything results abnormal. Clinical Impressions Clinical Impression: Chronic hyponatremia, Bronchiectasis, CKD (chronic kidney disease), Acute exacerbation of chronic obstructive pulmonary disease Instructions Patient Instructions: DI for Chronic Bronchitis, DI for Chronic Obstructive Pulmonary Disease Print Language Print Language: Italian Discharge ED Provider: Melanie Cramer HPI General Chief Complaint: Shortness of Breath/Dyspnea Stated Complaint: soa, nausea, diarrhea Time Seen by Provider: 02/07/24 07:26 Mode of Arrival: Ambulatory Source of Information: Patient Limitations: No Limitations Description of Symptoms (Recalled from ER Triage Doc. by RN): pt to ED with c/o SOA X 1 week. Pt also c/o productive cough with yellow sputum, and fatigue. History of Present Illness HPI narrative: This patient is a 68-year-old female with a history of bronchiectasis, rheumatoid arthritis on immune modulator, CKD, CAD status post stenting, atrial flutter, chronic lower extremity swelling on Bumex presenting to the emergency department for evaluation with concern for 1 week of generalized weakness, fatigue, cough with increased sputum production, shortness of breath, nausea, poor appetite, and now diarrhea. She notes that she always has cough and shortness of breath at baseline, but it seems to be little bit worse with more sputum production than normal over the last week. She does not wear home oxygen. She typically follows with [facility]. She denies any other concerns or issues. Diarrhea is nonbloody. No abdominal pain associated. She states she wonders if she has COVID or flu potentially. Related Data Home Medications ?Medication ?Instructions ?Recorded ?Confirmed valacyclovir 500 mg tablet 500 mg PO DAILY ANTIVIRAL 12/24/18 08/05/22 albuterol sulfate 90 mcg/actuation 1 inh inhalation QIDP PRN 02/22/22 08/05/22 aerosol inhaler shortness of breath or wheezing carvedilol 25 mg tablet 25 mg PO BID Hypertension 02/22/22 08/05/22 fluticasone fur. 100 mcg-umeclid 1 inh inhalation DAILY COPD 02/22/22 08/05/22 62.5 mcg-vilant 25 mcg inhalat.powder (Trelegy Ellipta) ipratropium 0.5 mg-albuterol 3 mg 3 ml inhalation Q6HP PRN shortness 02/22/22 08/05/22 (2.5 mg base)/3 mL nebulization of breath or wheezing soln prednisolone acetate 1 % eye 1 drp Eye-Left BID glaucoma 02/22/22 08/05/22 drops,suspension adalimumab 20 mg/0.2 mL 50 mg SQ Q14D 04/29/22 08/05/22 subcutaneous syringe kit (Humira(CF)) amlodipine 10 mg tablet 10 mg PO DAILY 04/29/22 08/05/22 apixaban 2.5 mg tablet (Eliquis) 2.5 mg PO ONCE 04/29/22 08/05/22 bumetanide 2 mg tablet 2 mg PO BID 04/29/22 08/05/22 dronedarone 400 mg tablet (Multaq) 400 mg PO BID 04/29/22 08/05/22 Previous Rx's ?Medication ?Instructions ?Recorded azelastine 205.5 mcg (0.15 %) 2 spray intranasal HS 90 days #30 08/05/22 nasal spray mL fluticasone fur. 100 mcg-umeclid 1 ea inhalation DAILY #90 ea 08/05/22 62.5 mcg-vilant 25 mcg inhalat.powder (Trelegy Ellipta) ipratropium 0.5 mg-albuterol 3 mg 3 ml inhalation Q6H PRN shortness 08/05/22 (2.5 mg base)/3 mL nebulization of breath or wheezing #180 mL soln sodium chloride 3.5 % for 4 ml inhalation BID 90 days #270 mL 08/05/22 nebulization (Hyper-Jersey) doxycycline hyclate 100 mg tablet 100 mg PO BID 14 days #28 tabs 02/07/24 ondansetron 4 mg disintegrating 4 mg PO Q8H PRN nausea and 02/07/24 tablet vomiting 4 days #12 tabs prednisone 20 mg tablet 40 mg (2 x 20 mg) PO DAILY 4 days 02/07/24 #8 tabs Allergies Allergy/AdvReac Type Severity Reaction Status Date / Time amlodipine Allergy Verified 08/05/22 10:18 amoxicillin Allergy Verified 08/05/22 10:18 budesonide Allergy Verified 08/05/22 10:18 ciprofloxacin (From Cipro) Allergy Verified 08/05/22 10:18 clindamycin Allergy Verified 08/05/22 10:18 linezolid (From Zyvox) Allergy Verified 08/05/22 10:18 metoprolol Allergy Verified 08/05/22 10:18 morphine Allergy Verified 08/05/22 10:18 Penicillins Allergy Verified 08/05/22 10:18 sulfamethoxazole (From Allergy Verified 08/05/22 10:18 Bactrim) tobramycin Allergy Verified 08/05/22 10:18 trimethoprim (From Bactrim) Allergy Verified 08/05/22 10:18 PFSH PFSH Disclaimer: The information contained in this section may have been updated after the patient was seen, as this information can be updated by other users. Medical History Allergic rhinitis Deviated nasal septum Bronchiectasis without complication Myocardial infarct MRSA (methicillin resistant Staphylococcus aureus) Cornea transplant recipient Cornea transplant recipient Bronchiectasis Emphysema lung Acute bacterial sinusitis DNS (deviated nasal septum) Chronic recurrent sinusitis Sicca syndrome Rheumatoid arthritis Bronchiolitis obliterans Dyspnea on exertion Allergic rhinitis, unspecified Bronchiectasis Atrial flutter COPD (chronic obstructive pulmonary disease) Sinusitis Surgical History H/O heart artery stent Hx of cardiac cath History of hysterectomy Family History Other Cancer Coronary artery disease Heart attack Hyperlipidemia Hypertension Social History Smoking Status: Never smoker alcohol intake: never current occupational status: retired Travel in the last 8 weeks: None housing: house service: No long-term: No caffeine: Yes Have you lived/traveled outside [place] in past 30 days?: No Contact w/someone who lives/traveled outside [place] past 30 days?: No Exposure to someone with infectious disease in past 14 days?: No Do you have a fever (greater than 100.4 F or 38 C)?: No Have you tested positive for COVID-19: No Exposed to someone with COVID-19 in past 14 days?: No Do you have a sore throat?: No Do you have a cough?: No Do you have any weakness?: Yes Do you have any diarrhea?: Yes Are you experiencing any unusual bleeding?: No Do you have any muscle aches/pain?: No Do you have any abdominal pain?: No Are you experiencing loss of taste or smell?: No Other Medical History Have you received the Flu Vaccine for this season: No Have you received the Pneumonia Vaccine: Yes ROS Obtained: Yes All systems reviewed & no additional complaints except as documented Physical Exam General General appearance: alert Comment: In mild respiratory distress Head Head exam: atraumatic and normocephalic Eye Eye exam: Present normal appearance, PERRL and EOMI ENT ENT exam: Present normal exam, normal oropharynx, mucous membranes moist and normal external ear exam Neck Neck exam: Present normal inspection, full ROM and trachea midline; Absent tenderness Chest Chest inspection: Present normal inspection and symmetric chest wall rise; Absent tenderness Respiratory Respiratory exam: Present respiratory distress, wheezes, accessory muscle use, prolonged expiratory phase and other (Wheezes and rhonchi noted); Absent stridor Cardiovascular Cardiovascular exam: Present regular rate and normal rhythm Abdominal Exam Abdominal exam: Present soft; Absent distention, tenderness or guarding Extremities Exam Extremities exam: Present normal inspection, full ROM and normal capillary refill; Absent tenderness or edema Back Exam Back exam: Present normal inspection and full ROM; Absent tenderness Neurological Exam Neurological exam: Present alert, oriented X3, CN II-XII intact and normal gait; Absent motor sensory deficit Psychiatric Psychiatric exam: Present normal affect and normal mood Skin Skin exam: Present warm and dry HEART Score HEART Score HEART Score assessment performed?: Yes History (anamnesis): Slightly suspicious ECG: Normal Age: >65 years Risk factors: Atherosclerosis history Troponin: </= normal limit HEART Score: 4 Critical Care Critical Care Time Critical Care Time: No Medical Decision Making Isidoro Inquiry Pt receiving controlled substance: No Vital Signs Vital Signs: 02/07/24 07:22 02/07/24 07:30 02/07/24 08:00 Temperature 97.7 F Temperature Source Oral Pulse Rate 70 61 Pulse Rate [Apical] 68 Respiratory Rate 24 20 18 Blood Pressure 178/87 H 172/90 H Blood Pressure [Left Arm] 178/87 H Blood Pressure Mean [Left Arm] 117 Blood Pressure Source Blood Pressure Source [Left Arm] Automatic Cuff 02 Sat by Pulse Oximetry 86 L 96 98 Oxygen Delivery Method Room Air Nasal Cannula Nasal Cannula 02/07/24 08:30 02/07/24 09:00 02/07/24 09:15 Temperature Temperature Source Pulse Rate 62 64 64 Pulse Rate [Apical] Respiratory Rate 12 23 24 Blood Pressure 164/87 H 146/78 H Blood Pressure [Left Arm] Blood Pressure Mean [Left Arm] Blood Pressure Source Blood Pressure Source [Left Arm] 02 Sat by Pulse Oximetry 96 97 97 Oxygen Delivery Method Nasal Cannula 02/07/24 09:30 02/07/24 10:00 02/07/24 11:46 Temperature 98.0 F Temperature Source Oral Pulse Rate 68 66 85 Pulse Rate [Apical] Respiratory Rate 18 17 22 Blood Pressure 149/77 H 152/79 H 157/83 H Blood Pressure [Left Arm] Blood Pressure Mean [Left Arm] Blood Pressure Source Automatic Cuff Blood Pressure Source [Left Arm] 02 Sat by Pulse Oximetry 95 93 L Oxygen Delivery Method Nasal Cannula Nasal Cannula Room Air Lab Data Labs: Lab Results 02/07/24 07:35: WBC 10.0, RBC 4.54, Hgb 13.7, Hct 40.9, MCV 90.1, MCH 30.2, MCHC 33.6, RDW 16.3, Plt Count 328, MPV 7.5, Neut % (Auto) 76.0, Lymph % (Auto) 15.1, [place] % (Auto) 5.4, Eos % (Auto) 2.5, Baso % (Auto) 1.0, Neut # (Auto) 7.6, Lymph # (Auto) 1.5, [place] # (Auto) 0.5, Eos # (Auto) 0.3, Baso # (Auto) 0.1, PT 10.0 L, INR 0.88 L, APTT 31.5 H, Sodium 125 L, Potassium 3.9, Chloride 98, Carbon Dioxide 26, Anion Gap 4.9 L, BUN 37 H, Creatinine 2.10 H, Estimated Creat Clear 19, Estimated GFR 23 L, Est GFR ( Amer) 28 L, Glucose 95, Calcium 8.8, Phosphorus 3.6, Magnesium 1.8, Total Bilirubin 0.7, AST 38 H, ALT 15, Alkaline Phosphatase 88, Troponin I < 0.01, C-Reactive Protein 63.3 H, NT-Pro-B Natriuret Pep 2060 H, Total Protein 7.1 D, Albumin 3.6, Globulin 3.5 H, Albumin/Globulin Ratio 1.0 L, Lipase 145, Procalcitonin 0.113, TSH 5.72 H, Thyroxine (T4) 9.0, Chlamy pneumoniae PCR Not detected, Adenovirus (PCR) Not detected, B. pertussis DNA (PCR) Not detected, Coronavirus OC43 (PCR) Detected A, Coronavirus HKU1 (PCR) Not detected, Coronavirus 229E (PCR) Not detected, SARS-CoV-2 (PCR) Not detected 02/07/24 07:35: SARS-CoV-2 (PCR) Not detected, Coronavirus NL63 (PCR) Not detected, HIV Ag/Ab Combo Qual Negative, Human Metapneumovir PCR Not detected, Influenza A (H1) PCR Not detected, Influ A (H1N1/09) PCR Not detected, Influenza A (H3) PCR Not detected, Influenza Type A (PCR) Not detected, Influenza A Untype (PCR) Not detected, Influenza Type B (PCR) Not detected 02/07/24 07:35: Influenza Type B (PCR) Not detected, M. pneumoniae (PCR) Not detected, Parainfluenza 1 (PCR) Not detected, Parainfluenza 2 (PCR) Not detected, Parainfluenza 3 (PCR) Not detected, Parainfluenza 4 (PCR) Not detected, RSV (PCR) Not detected, Entero/Rhino (PCR) Not detected 02/07/24 07:47: VBG pH 7.39, VBG pCO2 41.8, VBG pO2 54.3 H, VBG HCO3 24.8, VBG Total CO2 26.1, VBG O2 Saturation 91.5 H, VBG Base Excess -0.1, VBG Lactic Acid 1.4 02/07/24 11:12: Troponin I < 0.01 02/07/24 07:35 02/07/24 07:35 Response Orders (Tests/Meds): ED MEDICATIONS Discontinued Medications Generic Name Dose Route Start Last Admin Trade Name Freq PRN Reason Stop Dose Admin Albuterol/Ipratropium 9 ml 02/07/24 07:40 02/07/24 07:50 Ipratropium/Albuterol 3 Ml [facility] 02/07/24 07:41 9 ml ONCE ONE Administration Doxycycline Hyclate 100 mg/ 250 mls @ 166.667 mls/hr 02/07/24 09:31 02/07/24 09:52 Sodium Chloride IV 02/07/24 09:32 166.667 mls/hr ONCE ONE Administration Methylprednisolone Sodium Succinate 125 mg 02/07/24 09:31 02/07/24 09:52 Methylprednisolone Sod Succ 125mg Vial IV 02/07/24 09:32 125 mg ONCE ONE Administration Ondansetron HCl 4 mg 02/07/24 07:56 02/07/24 08:02 Ondansetron 4mg/2ml Vial IV 02/07/24 07:57 4 mg ONCE ONE Administration Sodium Chloride 3 ml 02/07/24 07:40 Sodium Chloride 3% 15ml [facility] 03/08/24 07:39 ONCE PRN INDUCE SPUTUM COLLECTION ORDERS Category Date Time Status CXR --portable [XR chest portable] Stat Exams 02/07/24 07:58 Completed BNP [NT Pro Brain Natriuretic Pep.] Stat Lab 02/07/24 07:35 Completed CRP [C-Reactive Protein] Stat Lab 02/07/24 07:35 Completed Complete Blood Count Auto Diff Stat Lab 02/07/24 07:35 Completed Comprehensive Metabolic Panel Stat Lab 02/07/24 07:35 Completed Full Resp Panel w/COVID ([facility]) Routine Lab 02/07/24 07:35 Completed HIV Combo Stat Lab 02/07/24 07:35 Completed Hep C Ab with Reflex to RNA Stat Lab 02/07/24 07:35 Received Lipase Stat Lab 02/07/24 07:35 Completed MAG [Magnesium] Stat Lab 02/07/24 07:35 Completed PHOS [Phosphorous] Stat Lab 02/07/24 07:35 Completed PT INR [Prothrombin Time INR] Stat Lab 02/07/24 07:35 Completed PTT [Activated Partial Thrombo Time] Stat Lab 02/07/24 07:35 Completed Procalcitonin Stat Lab 02/07/24 07:35 Completed Rapid PCR Covid and Flu A/B Routine Lab 02/07/24 07:35 Completed T4 (Thyroxine) Stat Lab 02/07/24 07:35 Completed TSH [Thyroid Stimulating Hormone] Stat Lab 02/07/24 07:35 Completed Trop I [Troponin I] Stat Lab 02/07/24 07:35 Completed Troponin I Q3H Lab 02/07/24 11:12 Completed Blood Culture Stat Micro 02/07/24 08:18 Received Sputum Culture & Gram Stain Stat Micro 02/07/24 08:47 Results VBG [Venous Blood Gas] Stat RT 02/07/24 07:47 Completed ECG Data Tracing #1: Attestation: I reviewed this ECG and interpreted as documented below: ECG Narrative: Normal sinus rhythm. Motion refer to grade study. No obvious STEMI. Normal intervals ECG initial impression date: 02/07/24 ECG initial impression time: 07:29 MDM Narrative Medical Decision Narrative: In summary, this patient is a 68-year-old female presenting to the Emergency Department for evaluation of 1 week of nausea, fatigue, poor appetite, cough with increased sputum production, and nonbloody diarrhea. Differential diagnoses considered include but are not limited to viral syndrome, pneumonia, dehydration, colitis, electrolyte derangements, GIULIANA, respiratory failure, COPD exacerbation. Ruling out the most morbid conditions drove assessment. It should be noted patient's history includes bronchiectasis, rheumatoid arthritis on immune modulators, CAD status post stenting which may or may not be at goal therapy. This complicates all aspects of care by increasing patient's risk for morbidity. I reviewed patient's past medical records and noted previous evaluations in our healthcare system over a year ago. Patient now follows at [facility]. On exam, the patient is sitting upright. She is in mild respiratory distress with accessory muscle use, prolonged expiratory phase, and conversational dyspnea, but she states that her breathing is always pretty bad with her bronchiectasis. She was hypoxic on room air with an O2 saturation of 86%, so she was put on 2 L nasal cannula. She does not typically wear oxygen at home. Abdominal exam is benign with no focal tenderness. No significant swelling noted. Workup included lab evaluation to evaluate for infectious, metabolic, cardiac causes as well as chest x-ray and EKG. Patient was given DuoNebs x 3 as well as IV Zofran to assess for symptomatic improvement as well as improvement in respiratory status. I independently interpreted chest x-ray prior to the radiologist read and noted emphysematous changes without acute large focal consolidation concerning for pneumonia. Please see their read for final interpretation. Labs were obtained that demonstrated no significant leukocytosis. Creatinine is around the patient's baseline. She does have chronic hyponatremia that is not acutely decompensated. BNP is mildly elevated without recent baseline for comparison. On reassessment, patient had great improvement after administration of DuoNeb's. She is breathing a lot better and was able to be weaned to room air. O2 saturation maintained greater than 92% on room air while in the emergency department. Overall, work was very reassuring. I feel she has a flareup of her COPD given her increased sputum production, cough, shortness of breath, and constitutional symptoms. I considered admission, however given that she is on room air with reassuring labs and imaging, I feel that she is appropriate for discharge home. Decision was made to treat with doxycycline given patient's multiple antibiotic allergies/intolerances and history of prior MRSA. Sputum and blood cultures were sent and are pending. Patient was discharged with very strict return precautions and instructions for close outpatient follow-up. She was given prescriptions for doxycycline, prednisone, and Zofran at time of discharge.
[2024-02-07 07:52] LABS: Lactate Venous 1.4 mmol/L (0.4-2.0); VBG Base Excess -0.1 mmol/L (-2.4-2.3); VBG HCO3 24.8 mmol/L (23-30); VBG Oxygen Saturation 91.5 % (50-70); VBG PCO2 41.8 mmol/L (35-51); VBG PH 7.39 mmol/L (7.31-7.41); VBG PO2 54.3 mmol/L (28-40); VBG Total CO2 26.1 mmol/L (23-27)
[2024-02-07 07:53] LABS: Alanine Aminotransferase 15 U/L (12-78); Alkaline Phosphatase 88 U/L (38-126); Anion Gap 4.9 mEq/L (5-15); Aspartate Amino Transferase 38 U/L (14-36); Bilirubin,Total 0.7 mg/dl (0.2-1.3); Blood Urea Nitrogen 37 mg/dl (7-17); Calcium 8.8 mg/dl (8.4-10.2); Carbon Dioxide 26 mmol/L (22.0-30.0); Creatinine Clearance Estimated 19 mL/min (50-200); Estimated Glomerular Filt Rate 23 ml/min (>60); GFR (African American) 28 ML/MIN (>60); Globulin 3.5 g/dL (1.3-3.2); Glucose 95 mg/dl (74-100); Lipase 145 U/L (23-300); Magnesium 1.8 mg/dl (1.6-2.3); Phosphorous 3.6 mg/dl (2.5-4.5); Total Protein,Serum 7.1 g/dl (6.3-8.2)
[2024-02-07 07:58] LABS: C-Reactive Protein 63.3 mg/L (0-4)
--- NOTE | 2024-02-07 07:58 | XR_ITS ---
FINAL REPORT CLINICAL HISTORY: Cough, shortness of breath COMPARISON: None FINDINGS: There are changes of emphysema. No acute pulmonary opacity is present. There is no evidence of effusion or pneumothorax. Mediastinum is unremarkable. Heart size is normal. IMPRESSION: Emphysema. Reviewed, Interpreted and Dictated by Bernardo Dutton MD Transcribed by Shae Cotton Authenticated and [facility]
[2024-02-07 07:59] LABS: Activated Partial Thrombo Time 31.5 seconds (22.8-30.6); INR 0.88 (0.9-1.1)
[2024-02-07] MEDS: ONDANSETRON 4MG/2ML VIAL 4 MG IV (08:02)
[2024-02-07 08:05] LABS: NT Pro Brain Natriuretic Pep. 2060 pg/mL (0-125)
[2024-02-07 08:19] LABS: Troponin I < 0.01 ng/ml (0.00-0.034)
[2024-02-07 08:23] LABS: Procalcitonin 0.113 ng/mL (0.0-2.0)
[2024-02-07 08:26] LABS: Thyroid Stimulating Hormone 5.72 uIU/mL (0.465-4.68)
[2024-02-07 09:19] LABS: Coronavirus 19, PCR Not Detected (NotDetected); Influenza A, PCR Not Detected (NotDetected); Influenza B, PCR Not Detected (NotDetected)
[2024-02-07] MEDS: DOXYCYCLINE HYCLATE 100 MG in 0.9 % SODIUM CHLORIDE 250 ML 166.667 MG IV (09:52)
[2024-02-07] MEDS: METHYLPREDNISOLONE SOD SUCC 125MG VIAL 125 MG IV (09:52)
[2024-02-07 10:12] LABS: Adenovirus,PCR Not Detected (NotDetected); Bordetella Pertussis Not Detected (NotDetected); Chlamydophila Pneumoniae, PCR Not Detected (NotDetected); Coronavirus 19, PCR Not Detected (NotDetected); Coronavirus 229E Not Detected (NotDetected); Coronavirus NL63 Not Detected (NotDetected); Coronovirus HKU1,PCR Not Detected (NotDetected); Human Metapneumovirus Not Detected (NotDetected); Influenza A, PCR Not Detected (NotDetected); Influenza AH1, 2009 Not Detected (NotDetected); Influenza AH1, PCR Not Detected (NotDetected); Influenza AH3,PCR Not Detected (NotDetected); Influenza B, PCR Not Detected (NotDetected); Mycoplasma Pneumoniae, PCR Not Detected (NotDetected); Parainfluenza 1, PCR Not Detected (NotDetected); Parainfluenza 2, PCR Not Detected (NotDetected); Parainfluenza 3, PCR Not Detected (NotDetected); Parainfluenza 4, PCR Not Detected (NotDetected); Respiratory Syncytial Virus Not Detected (NotDetected); Rhinovirus/Enterovirus Not Detected (NotDetected)
[2024-02-07 10:58] LABS: HIV Combo NEGATIVE (Negative)
[2024-02-07 11:42] LABS: Coronavirus OC43 Detected (NotDetected)
[2024-02-07 12:15] LABS: Troponin I < 0.01 ng/ml (0.00-0.034)
[2024-02-08 11:40] LABS: HCV Ab Non Reactive (Non Reactive)
== END 2024-02-07 11:48 | disposition home or self-care (01) ==
PROVIDERS: Emergency Provider Emergency Medicine; PCP Internal Medicine Adolescent Medicine
DX: J44.1 Chronic obstructive pulmonary disease with (acute) exacerbation (principal); J47.9 Bronchiectasis, uncomplicated; E87.1 Hypo-osmolality and hyponatremia; N18.9 Chronic kidney disease, unspecified; R06.02 Shortness of breath; R05.8 Other specified cough; R53.83 Other fatigue; R11.0 Nausea; R19.7 Diarrhea, unspecified; R63.8 Other symptoms and signs concerning food and fluid intake
CPT/HCPCS: 71045; 80053; 82803; 83690; 83735; 83880; 84100; 84145; 84436; 84443; 84484; 85025; 85610; 85730; 86140; 86803; 87040; 87070; 87205; 87389; 87633; 87636; 93005; 96374; 96375; 99284; J2405; J2919; J7620

== ENCOUNTER 2024-04-10 05:15 | Emergency (ER) | payer MEDICARE, SELFPAY ==
[2024-04-10] VITALS (12 sets, daily range): BP systolic 94–140; BP diastolic 51–82; PULSE 47–105; RESP 14–28; TEMP 36.7; O2SAT 92–95; BMI 19.3
--- NOTE | 2024-04-10 05:26 | ECG_ITS ---
APPROVED REPORT Exam: Resting ECG HR:71 bpm ECG Measurements Heart Rate 71 AXES QRSd 89 QRS 64 QT 381 T 88 QTc 403 Conclusion ATRIAL FIBRILLATION NONSPECIFIC ST & T-WAVE ABNORMALITY ABNORMAL RHYTHM ECG UNCONFIRMED REPORT Electronically signed by : RENETTA TANNER, 04/11/2024 06:53:25
[2024-04-10] MEDS: dilTIAZem 25MG/5ML VIAL 12.5 MG IV (05:44)
--- NOTE | 2024-04-10 05:47 | ED_ITS ---
Discharge Plan Disposition Patient Disposition: Home, Self-Care Condition: Good Prescriptions Prescriptions: No Action bumetanide 2 mg tablet 2 mg PO BID amlodipine 10 mg tablet 10 mg PO DAILY Multaq 400 mg tablet 400 mg PO BID Rx Instructions: must administer with a meal/food Eliquis 2.5 mg tablet 2.5 mg PO ONCE Humira(CF) 20 mg/0.2 mL syringe kit 50 mg SQ Q14D Trelegy Ellipta 100-62.5-25 mcg blister with device 1 ea inhalation DAILY Qty: 90 3RF ipratropium-albuterol 0.5 mg-3 mg(2.5 mg base)/3 mL solution for nebulization 3 ml INHALATION Q6H PRN (Reason: shortness of breath or wheezing) Qty: 180 3RF Hyper-[place] 3.5 % solution for nebulization 4 ml IH BID 90 Days Qty: 270 3RF Rx Instructions: 4 mL of 3% hypertonic saline nebulization every 12 hours every day to use with chest percussion therapy. This nebulization should be preceded by albuterol nebulization to avoid any bronchospasm. azelastine 205.5 mcg (0.15 %) spray,non-aerosol 2 spray INTRANASAL HS 90 Days Qty: 30 2RF Rx Instructions: administer into each nostril valacyclovir 500 MG tablet 500 mg PO DAILY carvedilol 25 mg tablet 25 mg PO BID ipratropium-albuterol 0.5 mg-3 mg(2.5 mg base)/3 mL solution for nebulization 3 ml INHALATION Q6HP PRN (Reason: shortness of breath or wheezing) Trelegy Ellipta 100-62.5-25 mcg blister with device 1 inh INHALATION DAILY albuterol sulfate 90 mcg/actuation HFA aerosol inhaler 1 inh INHALATION QIDP PRN (Reason: shortness of breath or wheezing) prednisolone acetate 1 % drops,suspension 1 drp Eye-Left BID prednisone 20 mg tablet 40 mg PO DAILY 4 Days Qty: 8 0RF Rx Instructions: Start on 02/08/2024 doxycycline hyclate 100 mg tablet 100 mg PO BID 14 Days Qty: 28 0RF ondansetron 4 mg tablet,disintegrating 4 mg PO Q8H PRN (Reason: nausea and vomiting) 4 Days Qty: 12 0RF Referrals Follow up/Referrals: Nehemiah Manning MD [Primary Care Provider] - See instructions Activity Restrictions/Add. Instructions Additional Instructions/Restrictions: You were evaluated in the emergency department today. Please follow-up very closely with your primary care provider as well as with your cath laboratory technician. I recommend contacting them over the next 48 hours to see if they would like to implement any medication changes. Return to the emergency department for new or worsening symptoms. Continue taking your Bumex and other medications at home as prescribed. Clinical Impressions Clinical Impression: Bilateral lower extremity edema Atrial fibrillation Qualifiers: Atrial fibrillation type: paroxysmal Qualified Code(s): I48.0 - Paroxysmal atrial fibrillation Instructions Patient Instructions: DI for Atrial Fibrillation, DI for Peripheral Edema -- Bilateral Print Language Print Language: Andorran Discharge ED Provider: dAam Arriola General Adult HPI <Adam Arriola MD - Last Filed: 04/10/24 07:00> General Chief complaint: Chest Pain Stated complaint: irregular heartbeat, swelling legs Time Seen by Provider: 04/10/24 05:20 Mode of Arrival: Ambulatory Source of Information: Patient Limitations: No Limitations Description of Symptoms (Recalled from ER Triage Doc. by RN): pt presents for eval of irregular heart rhythm that woke her up out of her sleep approx 0100 this AM. Pt reports HX of a-fib that has been controlled with medication as well as taking a blood thinner. Pt reports associated swelling to BLE as well as an increase in SOA. History of Present Illness HPI narrative: 69-year-old female with history of proximal A-fib, usually in sinus rhythm, chronic kidney disease, rheumatoid arthritis, bronchiectasis, hypertension presents for irregular heart rhythm. She reports that she noticed that 1 AM when it woke up from sleep. She also ports that she has had some increase in her bilateral lower extremity edema. She normally wears compression stockings and does have some swelling, but the swelling the last 2 to 3 days has been worse than normal. She is on dronedarone and apixaban for her A-fib. She is also on multiple medications for blood pressure. She takes 2 mg Bumex twice daily for diuresis. She denies any recent fever or illness. Reports shortness of breath but denies that it is any worse than normal. Related Data Home Medications ?Medication ?Instructions ?Recorded ?Confirmed valacyclovir 500 mg tablet 500 mg PO DAILY ANTIVIRAL 12/24/18 08/05/22 albuterol sulfate 90 mcg/actuation 1 inh inhalation QIDP PRN 02/22/22 08/05/22 aerosol inhaler shortness of breath or wheezing carvedilol 25 mg tablet 25 mg PO BID Hypertension 02/22/22 08/05/22 fluticasone fur. 100 mcg-umeclid 1 inh inhalation DAILY COPD 02/22/22 08/05/22 62.5 mcg-vilant 25 mcg inhalat.powder (Trelegy Ellipta) ipratropium 0.5 mg-albuterol 3 mg 3 ml inhalation Q6HP PRN shortness 02/22/22 08/05/22 (2.5 mg base)/3 mL nebulization of breath or wheezing soln prednisolone acetate 1 % eye 1 drp Eye-Left BID glaucoma 02/22/22 08/05/22 drops,suspension adalimumab 20 mg/0.2 mL 50 mg SQ Q14D 04/29/22 08/05/22 subcutaneous syringe kit (Marissa(CF)) amlodipine 10 mg tablet 10 mg PO DAILY 04/29/22 08/05/22 apixaban 2.5 mg tablet (Eliquis) 2.5 mg PO ONCE 04/29/22 08/05/22 bumetanide 2 mg tablet 2 mg PO BID 04/29/22 08/05/22 dronedarone 400 mg tablet (Multaq) 400 mg PO BID 04/29/22 08/05/22 Previous Rx's ?Medication ?Instructions ?Recorded azelastine 205.5 mcg (0.15 %) 2 spray intranasal HS 90 days #30 08/05/22 nasal spray mL fluticasone fur. 100 mcg-umeclid 1 ea inhalation DAILY #90 ea 08/05/22 62.5 mcg-vilant 25 mcg inhalat.powder (Trelegy Ellipta) ipratropium 0.5 mg-albuterol 3 mg 3 ml inhalation Q6H PRN shortness 08/05/22 (2.5 mg base)/3 mL nebulization of breath or wheezing #180 mL soln sodium chloride 3.5 % for 4 ml inhalation BID 90 days #270 mL 08/05/22 nebulization (Hyper-[place]) doxycycline hyclate 100 mg tablet 100 mg PO BID 14 days #28 tabs 02/07/24 ondansetron 4 mg disintegrating 4 mg PO Q8H PRN nausea and 02/07/24 tablet vomiting 4 days #12 tabs prednisone 20 mg tablet 40 mg (2 x 20 mg) PO DAILY 4 days 02/07/24 #8 tabs Allergies Allergy/AdvReac Type Severity Reaction Status Date / Time amlodipine Allergy Verified 08/05/22 10:18 amoxicillin Allergy Verified 08/05/22 10:18 budesonide Allergy Verified 08/05/22 10:18 ciprofloxacin (From Cipro) Allergy Verified 08/05/22 10:18 clindamycin Allergy Verified 08/05/22 10:18 linezolid (From Zyvox) Allergy Verified 08/05/22 10:18 metoprolol Allergy Verified 08/05/22 10:18 morphine Allergy Verified 08/05/22 10:18 Penicillins Allergy Verified 08/05/22 10:18 sulfamethoxazole (From Allergy Verified 08/05/22 10:18 Bactrim) tobramycin Allergy Verified 08/05/22 10:18 trimethoprim (From Bactrim) Allergy Verified 08/05/22 10:18 PFSH <Adam Arriola MD - Last Filed: 04/10/24 07:00> FORMERLY [facility] Disclaimer: The information contained in this section may have been updated after the patient was seen, as this information can be updated by other users. Medical History Allergic rhinitis Deviated nasal septum Bronchiectasis without complication Myocardial infarct MRSA (methicillin resistant Staphylococcus aureus) Cornea transplant recipient Cornea transplant recipient Bronchiectasis Emphysema lung Acute bacterial sinusitis DNS (deviated nasal septum) Chronic recurrent sinusitis Sicca syndrome Rheumatoid arthritis Bronchiolitis obliterans Dyspnea on exertion Allergic rhinitis, unspecified Bronchiectasis Atrial flutter COPD (chronic obstructive pulmonary disease) Sinusitis Surgical History H/O heart artery stent Hx of cardiac cath History of hysterectomy Family History Other Cancer Coronary artery disease Heart attack Hyperlipidemia Hypertension Social History Smoking Status: Never smoker alcohol intake: never current occupational status: retired Travel in the last 8 weeks: None housing: house service: No long-term: No caffeine: Yes Have you lived/traveled outside [place] in past 30 days?: No Contact w/someone who lives/traveled outside [place] past 30 days?: No Exposure to someone with infectious disease in past 14 days?: No Do you have a fever (greater than 100.4 F or 38 C)?: No Have you tested positive for COVID-19: No Exposed to someone with COVID-19 in past 14 days?: No Do you have a sore throat?: No Do you have a cough?: No Do you have any weakness?: No Do you have any diarrhea?: No Are you experiencing any unusual bleeding?: No Do you have any muscle aches/pain?: No Do you have any abdominal pain?: No Are you experiencing loss of taste or smell?: No Other Medical History Have you received the Flu Vaccine for this season: No Have you received the Pneumonia Vaccine: Yes <Adam Arriola MD - Last Filed: 04/10/24 07:00> ROS Obtained: Yes All systems reviewed & no additional complaints except as documented Physical Exam <Adam Arriola MD - Last Filed: 04/10/24 07:00> General General appearance: alert and in no apparent distress Head Head exam: atraumatic and normocephalic Eye Eye exam: Present normal appearance, PERRL and EOMI ENT ENT exam: Present normal oropharynx and normal external ear exam Neck Neck exam: Present normal inspection and full ROM Chest Chest inspection: Present normal inspection and symmetric chest wall rise; Absent tenderness Respiratory Respiratory exam: Present normal lung sounds bilaterally; Absent respiratory distress Cardiovascular Cardiovascular exam: Present normal rhythm and irregular rhythm Abdominal Exam Abdominal exam: Present soft; Absent distention, tenderness or guarding Extremities Exam Extremities exam: Present edema (Bilateral lower extremity pitting edema to the knee); Absent joint swelling Back Exam Back exam: Present normal inspection; Absent tenderness Neurological Exam Neurological exam: Present alert and oriented X3; Absent motor sensory deficit Psychiatric Psychiatric exam: Present normal affect and normal mood Skin Skin exam: Present warm, dry and normal color Lymphatic Lymphatic Findings: no adenopathy Medical Decision Making <Adam Arriola MD - Last Filed: 04/10/24 07:00> Medical Records Medical records reviewed: Yes I reviewed the patient's medical records. Screening: Per USPSTF and CDC recommendations, given the prevalence of disease in our region, it is our hospital?s policy to screen for HIV and viral Hepatitis for all patients aged 18 and over and those with ongoing risk factors. Isidoro Inquiry Pt receiving controlled substance: No Isidoro was queried for this patient: No Vital Signs: 04/10/24 05:16 04/10/24 05:22 04/10/24 05:30 Temperature 98.1 F Temperature Source Oral Pulse Rate 105 H 68 Pulse Rate [Radial] 98 H Respiratory Rate 14 15 19 Blood Pressure 128/82 130/81 Blood Pressure [Right Arm] 128/82 Blood Pressure Mean [Right Arm] 97 Blood Pressure Position Blood Pressure Position [Right Arm] Sitting 02 Sat by Pulse Oximetry 92 L 93 L 95 Oxygen Delivery Method Room Air Room Air Room Air 04/10/24 05:39 04/10/24 05:45 04/10/24 05:51 Temperature Temperature Source Pulse Rate 69 67 51 L Pulse Rate [Radial] Respiratory Rate 21 19 14 Blood Pressure 107/66 L 108/72 L 94/51 L Blood Pressure [Right Arm] Blood Pressure Mean [Right Arm] Blood Pressure Position Sitting Blood Pressure Position [Right Arm] 02 Sat by Pulse Oximetry 95 95 94 L Oxygen Delivery Method Room Air Room Air Room Air 04/10/24 06:01 04/10/24 06:15 04/10/24 06:15 Temperature Temperature Source Pulse Rate 51 L 64 Pulse Rate [Radial] Respiratory Rate 27 H 14 24 Blood Pressure 108/62 L 109/61 L 109/61 L Blood Pressure [Right Arm] Blood Pressure Mean [Right Arm] Blood Pressure Position Sitting Blood Pressure Position [Right Arm] 02 Sat by Pulse Oximetry 93 L 93 L Oxygen Delivery Method Room Air Room Air Room Air 04/10/24 06:30 04/10/24 06:45 04/10/24 07:00 Temperature Temperature Source Pulse Rate 47 L 69 62 Pulse Rate [Radial] Respiratory Rate 28 H 20 18 Blood Pressure 116/67 114/66 109/64 L Blood Pressure [Right Arm] Blood Pressure Mean [Right Arm] Blood Pressure Position Blood Pressure Position [Right Arm] 02 Sat by Pulse Oximetry 93 L 94 L 93 L Oxygen Delivery Method Room Air Room Air Room Air Lab Data Lab results reviewed: Yes I reviewed the patient's lab results. Lab Results 04/10/24 05:39: WBC 5.4, RBC 3.50 L, Hgb 10.5 L, Hct 31.6 L, MCV 90.3, MCH 30.0, MCHC 33.2, RDW 14.4, Plt Count 232, MPV 9.2, Neut % (Auto) 66.8, Lymph % (Auto) 19.5, Rice % (Auto) 8.4, Eos % (Auto) 4.3, Baso % (Auto) 0.6, Neut # (Auto) 3.6, Lymph # (Auto) 1.1, Rice # (Auto) 0.5, Eos # (Auto) 0.2, Baso # (Auto) 0.0, S odium 134 L, Potassium 4.0, Chloride 99, Carbon Dioxide 29, Anion Gap 10.0, BUN 49 H, Creatinine 2.30 H, Estimated Creat Clear 18, Estimated GFR 21 L, Est GFR ( Amer) 25 L, Glucose 115 H, Calcium 8.2 L, Phosphorus 4.1, Magnesium 1.6, Total Bilirubin 0.4, AST 27, ALT 17, Alkaline Phosphatase 79, Troponin I < 0.01, NT-Pro-B Natriuret Pep 2410 H, Total Protein 6.0 L, Albumin 3.1 L, Globulin 2.9, Albumin/Globulin Ratio 1.1 04/10/24 08:00: Troponin I < 0.01 04/10/24 05:39 04/10/24 05:39 Orders (Tests/Meds): ED MEDICATIONS Discontinued Medications Generic Name Dose Route Start Last Admin Trade Name Freq PRN Reason Stop Dose Admin Diltiazem HCl 12.5 mg 04/10/24 05:29 04/10/24 05:44 Diltiazem 25mg/5ml Vial IV 04/10/24 05:30 12.5 mg ONCE ONE Administration ORDERS Category Date Time Status BNP [NT Pro Brain Natriuretic Pep.] Stat Lab 04/10/24 05:39 Completed CBC w/Auto Diff [Complete Blood Count Auto Diff] Stat Lab 04/10/24 05:39 Completed CMP [Comprehensive Metabolic Panel] Stat Lab 04/10/24 05:39 Completed MAG [Magnesium] Stat Lab 04/10/24 05:39 Completed PHOS [Phosphorous] Stat Lab 04/10/24 05:39 Completed Trop I [Troponin I] Stat Lab 04/10/24 05:39 Completed Troponin I Q3H Lab 04/10/24 08:00 Completed Troponin I Q3H Lab 04/10/24 11:30 Ordered EKG Request [ECG Request] Stat Y 04/10/24 05:29 Ordered HEART Score History (anamnesis): Slightly suspicious ECG: Non-specific disturbance Age: >65 years Risk factors: Atherosclerosis history Troponin: </= normal limit HEART Score: 5 Medical Decision Narrative: 69-year-old female with history of proximal A-fib, usually in sinus rhythm, chronic kidney disease, rheumatoid arthritis, bronchiectasis, hypertension presents for irregular heart rhythm. History was obtained via interactive discussion with patient and family chart review. On arrival, patient is [afebrile, hemodynamically stable, satting appropriately, alert, oriented x4, GCS 15], moving all extremities spontaneously. Full physical exam performed and significant for bilateral lower extremity edema to the knee Differential includes but is not limited to recurrent A-fib, heart failure, electrolyte derangement, ACS. Patient was given 25 mg/kg of diltiazem without conversion to sinus rhythm. Workup initiated including CBC CMP mag Phos EKG troponin. On re-evaluation, patient [remains afebrile, HD stable.] Continues to be in A- fib, now with rates in the 50s and 60s. Laboratory workup independently interpreted by me and significant for stable renal function, no significant electrolyte derangement, initial troponin negative. EKG independently interpreted by me and significant for atrial fibrillation with rate of 71, no significant ST changes. Interpreted at 0527. Given patient history, exam and workup, patient's presentation most likely represents recurrence of patient's paroxysmal A-fib in conjunction with worsening lower extremity for the last few days. A-fib may be secondary to patient's increased volume status. She denies any significant worsening of shortness of breath. She is not hypoxic and is still functional at home. I discussed with patient the options including ED cardioversion, admission for heart failure evaluation and management, and possible discharge home. Patient would prefer to go home if possible. <Melanie Cramer, DO - Last Filed: 04/10/24 09:12> Vital Signs: 04/10/24 05:16 04/10/24 05:22 04/10/24 05:30 Temperature 98.1 F Temperature Source Oral Pulse Rate 105 H 68 Pulse Rate [Radial] 98 H Respiratory Rate 14 15 19 Blood Pressure 128/82 130/81 Blood Pressure [Right Arm] 128/82 Blood Pressure Mean [Right Arm] 97 Blood Pressure Position Blood Pressure Position [Right Arm] Sitting 02 Sat by Pulse Oximetry 92 L 93 L 95 Oxygen Delivery Method Room Air Room Air Room Air 04/10/24 05:39 04/10/24 05:45 04/10/24 05:51 Temperature Temperature Source Pulse Rate 69 67 51 L Pulse Rate [Radial] Respiratory Rate 21 19 14 Blood Pressure 107/66 L 108/72 L 94/51 L Blood Pressure [Right Arm] Blood Pressure Mean [Right Arm] Blood Pressure Position Sitting Blood Pressure Position [Right Arm] 02 Sat by Pulse Oximetry 95 95 94 L Oxygen Delivery Method Room Air Room Air Room Air 04/10/24 06:01 04/10/24 06:15 04/10/24 06:15 Temperature Temperature Source Pulse Rate 51 L 64 Pulse Rate [Radial] Respiratory Rate 27 H 14 24 Blood Pressure 108/62 L 109/61 L 109/61 L Blood Pressure [Right Arm] Blood Pressure Mean [Right Arm] Blood Pressure Position Sitting Blood Pressure Position [Right Arm] 02 Sat by Pulse Oximetry 93 L 93 L Oxygen Delivery Method Room Air Room Air Room Air 04/10/24 06:30 04/10/24 06:45 04/10/24 07:00 Temperature Temperature Source Pulse Rate 47 L 69 62 Pulse Rate [Radial] Respiratory Rate 28 H 20 18 Blood Pressure 116/67 114/66 109/64 L Blood Pressure [Right Arm] Blood Pressure Mean [Right Arm] Blood Pressure Position Blood Pressure Position [Right Arm] 02 Sat by Pulse Oximetry 93 L 94 L 93 L Oxygen Delivery Method Room Air Room Air Room Air Lab Data Lab Results 04/10/24 05:39: WBC 5.4, RBC 3.50 L, Hgb 10.5 L, Hct 31.6 L, MCV 90.3, MCH 30.0, MCHC 33.2, RDW 14.4, Plt Count 232, MPV 9.2, Neut % (Auto) 66.8, Lymph % (Auto) 19.5, Rice % (Auto) 8.4, Eos % (Auto) 4.3, Baso % (Auto) 0.6, Neut # (Auto) 3.6, Lymph # (Auto) 1.1, Rice # (Auto) 0.5, Eos # (Auto) 0.2, Baso # (Auto) 0.0, S odium 134 L, Potassium 4.0, Chloride 99, Carbon Dioxide 29, Anion Gap 10.0, BUN 49 H, Creatinine 2.30 H, Estimated Creat Clear 18, Estimated GFR 21 L, Est GFR ( Amer) 25 L, Glucose 115 H, Calcium 8.2 L, Phosphorus 4.1, Magnesium 1.6, Total Bilirubin 0.4, AST 27, ALT 17, Alkaline Phosphatase 79, Troponin I < 0.01, NT-Pro-B Natriuret Pep 2410 H, Total Protein 6.0 L, Albumin 3.1 L, Globulin 2.9, Albumin/Globulin Ratio 1.1 04/10/24 08:00: Troponin I < 0.01 Orders (Tests/Meds): ED MEDICATIONS Discontinued Medications Generic Name Dose Route Start Last Admin Trade Name Freq PRN Reason Stop Dose Admin Diltiazem HCl 12.5 mg 04/10/24 05:29 04/10/24 05:44 Diltiazem 25mg/5ml Vial IV 04/10/24 05:30 12.5 mg ONCE ONE Administration ORDERS Category Date Time Status BNP [NT Pro Brain Natriuretic Pep.] Stat Lab 04/10/24 05:39 Completed CBC w/Auto Diff [Complete Blood Count Auto Diff] Stat Lab 04/10/24 05:39 Completed CMP [Comprehensive Metabolic Panel] Stat Lab 04/10/24 05:39 Completed MAG [Magnesium] Stat Lab 04/10/24 05:39 Completed PHOS [Phosphorous] Stat Lab 04/10/24 05:39 Completed Trop I [Troponin I] Stat Lab 04/10/24 05:39 Completed Troponin I Q3H Lab 04/10/24 08:00 Completed Troponin I Q3H Lab 04/10/24 11:30 Ordered EKG Request [ECG Request] Stat Y 04/10/24 05:29 Ordered ECG Data Tracing #1: I reviewed this ECG and interpreted as documented below: Atrial fibrillation with a ventricular of 63 bpm. No acute STEMI. Motion artifact ECG initial impression date: 04/10/24 ECG initial impression time: 07:42 Tracing #2: I reviewed this ECG and interpreted as documented below: Sinus bradycardia ventricular to 58 bpm. Some motion artifact. No STEMI. Normal intervals ECG initial impression date: 04/10/24 ECG initial impression time: 09:07 HEART Score HEART Score: 5 Medical Decision Narrative: 69-year-old female with history of proximal A-fib, usually in sinus rhythm, chronic kidney disease, rheumatoid arthritis, bronchiectasis, hypertension presents for irregular heart rhythm. History was obtained via interactive discussion with patient and family chart review. On arrival, patient is [afebrile, hemodynamically stable, satting appropriately, alert, oriented x4, GCS 15], moving all extremities spontaneously. Full physical exam performed and significant for bilateral lower extremity edema to the knee Differential includes but is not limited to recurrent A-fib, heart failure, electrolyte derangement, ACS. Patient was given 25 mg/kg of diltiazem without conversion to sinus rhythm. Workup initiated including CBC CMP mag Phos EKG troponin. On re-evaluation, patient [remains afebrile, HD stable.] Continues to be in A- fib, now with rates in the 50s and 60s. Laboratory workup independently interpreted by me and significant for stable renal function, no significant electrolyte derangement, initial troponin negative. EKG independently interpreted by me and significant for atrial fibrillation with rate of 71, no significant ST changes. Interpreted at 0527. Given patient history, exam and workup, patient's presentation most likely represents recurrence of patient's paroxysmal A-fib in conjunction with worsening lower extremity for the last few days. A-fib may be secondary to patient's increased volume status. She denies any significant worsening of shortness of breath. She is not hypoxic and is still functional at home. I discussed with patient the options including ED cardioversion, admission for heart failure evaluation and management, and possible discharge home. Patient would prefer to go home if possible. DO Shoaib: Patient was observed on cardiac telemetry with reassuring vital signs maintained. She remains in atrial fibrillation but heart rate maintained in the 50s to 60s. Blood pressure stable. Repeat EKG obtained at 7:27 AM which was also reassuring. I reviewed prior labs which shows mild anemia, and it does look like she has a history of anemia. She has mild hyponatremia, creatinine is around her baseline. BNP is not sniffily changed from prior lab evaluation On multiple subsequent reassessments, she is resting comfortable without concern or complaint. She looks great and is feeling fine. She states she feels a lot better. She looks and she is in normal sinus on cardiac telemetry, so repeat EKG was obtained which did confirm sinus bradycardia. No acute ST changes. Second troponin resulted and is negative. Admission considered, however she has known paroxysmal atrial fibrillation and has now converted to a normal sinus rhythm. She has cath laboratory technician and primary care provider she can follow-up very closely with. At this time, I feel patient is appropriate for discharge home with plan to continue her current medication regimen unless changes are made by PCP/cardiology. She was given strict return precautions and was discharged after all questions were answered. Procedures <Adam Arriola MD - Last Filed: 04/10/24 07:00> Risk/Benefits of Procedure(s) Were Explained: Yes Critical Care <Adam Arriola MD - Last Filed: 04/10/24 07:00> Critical Care Time Critical Care Time: No <Melanie Cramer DO - Last Filed: 04/10/24 09:12> Critical Care Time Critical Care Time: Yes Attestation: On 04/10/24, the high probability of a clinically significant, sudden or life threatening deterioration of the following system(s) required my full and direct attention, intervention and personal management. The time I documented below is in addition to time spent performing reported procedures but includes the following listed in this critical care notation. Total Time Total Critical Care Time: 35
[2024-04-10 05:51] LABS: Basophils % 0.6 % (0.1-2.0); Eosinophils # 0.2 K/mm3 (0.0-0.4); Eosinophils % 4.3 % (0.1-12.0); Hematocrit 31.6 % (37.0-47.0); Hemoglobin 10.5 g/dL (12.2-16.2); Lymphocytes # 1.1 K/mm3 (0.7-4.5); Lymphocytes % 19.5 % (10-50); Mean Corpuscular HGB Conc 33.2 g/dL (31.8-35.4); Mean Corpuscular Volume 90.3 fl (81-99); Mean Platelet Volume 9.2 fl (7.4-10.4); Monocytes # 0.5 K/mm3 (0.1-1.0); Monocytes % 8.4 % (1.7-9.3); Neutrophils # 3.6 K/mm3 (1.8-7.8); Neutrophils % 66.8 % (37.0-80.0); Platelet Count 232 K/mm3 (142-424); Red Cell Distribution Width 14.4 % (11.5-17.5); White Blood Count 5.4 K/mm3 (4.8-10.8)
[2024-04-10 05:59] LABS: Albumin Level 3.1 g/dl (3.5-5.0); Chloride 99 mmol/L (98-107); Sodium 134 mmol/L (136-145)
[2024-04-10 06:01] LABS: Blood Urea Nitrogen 49 mg/dl (7-17); Creatinine Clearance Estimated 18 mL/min (50-200); Estimated Glomerular Filt Rate 21 ml/min (>60); GFR (African American) 25 ML/MIN (>60)
[2024-04-10 06:02] LABS: Alanine Aminotransferase 17 U/L (12-78); Albumin/Globulin Ratio 1.1 (1.1-1.8); Alkaline Phosphatase 79 U/L (38-126); Aspartate Amino Transferase 27 U/L (14-36); Bilirubin,Total 0.4 mg/dl (0.2-1.3); Calcium 8.2 mg/dl (8.4-10.2); Carbon Dioxide 29 mmol/L (22.0-30.0); Globulin 2.9 g/dL (1.3-3.2); Glucose 115 mg/dl (74-100); Magnesium 1.6 mg/dl (1.6-2.3); Phosphorous 4.1 mg/dl (2.5-4.5)
[2024-04-10 06:17] LABS: Troponin I < 0.01 ng/ml (0.00-0.034)
--- NOTE | 2024-04-10 06:26 | PC.NURSE ---
provider at the bedside updating pt on POC
[2024-04-10 06:27] LABS: NT Pro Brain Natriuretic Pep. 2410 pg/mL (0-125)
--- NOTE | 2024-04-10 07:27 | ECG_ITS ---
APPROVED REPORT Exam: Resting ECG HR:63 bpm ECG Measurements Heart Rate 63 AXES QRSd 81 QRS 79 QT 430 T 98 QTc 437 Conclusion ATRIAL FIBRILLATION MODERATE ST DEPRESSION [0.05+ mV ST DEPRESSION] ABNORMAL ECG UNCONFIRMED REPORT Electronically signed by : RENETTA TANNER, 04/11/2024 06:53:42
[2024-04-10 09:01] LABS: Troponin I < 0.01 ng/ml (0.00-0.034)
--- NOTE | 2024-04-10 09:06 | ECG_ITS ---
APPROVED REPORT Exam: Resting ECG HR:58 bpm ECG Measurements Heart Rate 58 AXES LA 169 P 80 QRSd 86 QRS 68 QT 443 T 96 QTc 439 Conclusion SINUS BRADYCARDIA MODERATE ST DEPRESSION [0.05+ mV ST DEPRESSION] ABNORMAL ECG UNCONFIRMED REPORT Electronically signed by : RENETTA TANNER, 04/11/2024 06:53:34
== END 2024-04-10 09:22 | disposition home or self-care (01) ==
PROVIDERS: Emergency Provider Emergency Medicine; PCP Internal Medicine Adolescent Medicine
DX: I48.0 Paroxysmal atrial fibrillation (principal); R60.0 Localized edema; R00.9 Unspecified abnormalities of heart beat; R06.02 Shortness of breath
CPT/HCPCS: 80053; 83735; 83880; 84100; 84484; 85025; 93005; 96374; 99291

== ENCOUNTER 2024-06-07 11:37 | Outpatient (CLI) | payer MEDICARE, SELFPAY ==
--- OUTSIDE RECORDS SUMMARY | 2024-06-07 11:40 | XMS_ITS | Data Portability ---
Author Organization [facility] [place] AD[place] Address [address] [place] [address] Assessment No assessment recorded. Plan of Treatment Reminders Order Date Submit Date Provider Last Modified By Organization Details Last Modified Time Details Appointments None recorded. Lab P-ANCA + C-ANCA, serum 2021 [facility] (Registration ), [address], [place], [address], 15:31:34 Referral None recorded. Procedures None recorded. Surgeries None recorded. Imaging None recorded. Medication Orders budesonide 1 mg/2 mL suspension for nebulizatio n 2021 [email or web address] [facility], [address] [place] [address], [facility], [place], [address], 09:35:03 Patient TargetsNo targets recorded. Patient Instructions Encounter Date Encounter Id Patient Instructions Last Modified By Organization Details Last Modified Time 02/08/2022 [id number] Patient's symptoms appear most consistent with LPR and reflux. I am remiss to place her on any additional medication given her sensitivities. We have reviewed lifestyle precautions including not eating for 2 hours before, sleeping with the head of bed elevated, limiting caffeine, dairy and alcohol. [email or web address] Not available 02/16/2022 14:27:22 09/06/2022 [id number] Discussed with patient that her post nasal drip is likely related to LPR and given her current kidney function, I would not recommend adding a PPI. This may be something that has to be tolerated. Advised nasal saline rinses that she has used in the past, and these will help with her nasal dryness and cursting. Also recommended Vaseline to the nasal vestibule BID. [email or web address] Not available 09/06/2022 14:48:41 Reason for Referral None Reported. Results Created Date Observation Date Name Description Value Unit Range Abnormal Flag Note LastModifiedBy Organization Detail LastModifiedTime 01/01/20 22 01/01/2022 ANCA PANEL (PANC A cytoplasmic (C-anca) <1:20 titer neg:<1 :20 Not Available [facility] ([facility]) [address], [place], [address], 01/01/2022 15:10:42 01/01/20 22 01/01/2022 ANCA PANEL (PANC A perinuclear (P-anca) <1:20 titer neg:<1 :20 The prese nce of posit sang fluor escen ce exhib iting P-ANC A or C-ANC A patte rns alone is not speci fic for the diagn osis of Wegen er's Granu lomat osis (WG) or micro scopi c polya ngiit is. Decis ions about treat ment shoul d not be based solel y on ANCA IFA resul ts. The Inter natio nal ANCA [employer] Conse nsus recom mends follo w up testi ng of posit sang sera with both VA- 3 and MPO-A NCA enzym e immun oassa ys. As many as 5% serum sampl es are posit sang only by EIA. Ref. AM J Clin Patho l 1999; 111:5 07-51 3. Not Available [facility] ([facility]) [address], [place], [address], 01/01/2022 15:10:42 01/01/20 22 01/01/2022 ANCA PANEL (PANC A atypical panca <1:20 titer neg:<1 :20 The atypi [place] pANCA patte rn has been obser panda in a signi fican t perce ntage of patie nts with ulcer ative colit is, prima ry scler osing chola ngiti s and autoi mmune hepat itis. Perfo rmed at: [facility] [address] [place] [address] 803 Lab Direc tor: David shaw PhD, Phone : [phone] Not Available [facility] ([facility]) [address], [place], [address], 01/01/2022 15:10:42 12/31/19 22 12/11/2021 CT, sinus es, w/o contr ast No observ ation record ed. [email or web address] [facility] [address], [place], [address], 12/31/2021 09:53:39 03/02/19 23 03/02/2022 trans -thor acic echoc ardio gram (TTE) (PROC ) No observ ation record ed. [email or web address] [facility] (Registration ) [address] [place] [address] [place], [address], 04/08/2022 11:16:06 Result Notes None recorded. Problems Name Problem SNOMED Code Status Onset Date Resolution Date Notes Provider Name and Address Organization Details Recorded Time Hypertensive disorder 26664371 Active Not Available [facility] 3 22:37:00 Bronchiectasi s 44984930 Active Not Available [facility] 3 22:37:00 Rheumatoid arthritis 11305165 Active Not Available [facility] 3 22:37:00 Dry eyes 747581068 Active Not Available [facility] 3 22:37:00 History of myocardial infarction 928061499 Active Not Available [facility] 3 22:37:00 Coronary arteriosclero sis 94821559 Active Not Available [facility] 3 22:37:00 Problem Notes None recorded. Procedures Surgical History Date Name Laterality Status Provider Name and Address Organization Details Recorded Time 01/01/20 22 Cerumen removal with microscope completed Anil LEVIN - [facility] - [place] [facility] [place] 12/31/2021 09:35:17 ligation of fallopian tube completed Aundrea LEVIN - [facility] - [place] [facility] [place] 12/31/2021 09:13:47 Hysterectomy completed Aundrea LEVIN - [facility] [place] 12/31/2021 09:13:56 placement of stent in cardiac conduit completed Mary Dunnp [place] - [facility] [place] 01/11/2022 09:41:15 Imaging Results Imaging Date Name Status LastModified by Organization Details LastModified Time 12/11/2021 CT, sinuses, w/o contrast completed [email or web address] [facility] [address], [place], [address], 12/31/2021 09:53:39 03/02/2022 trans-thoracic echocardiogram (TTE) (PROC) completed [address] (Registration) [address] [place] [address] [place], [address], 04/08/2022 11:16:06 Procedure Notes None recorded. Medical Equipment None Reported. Allergies Allergen ID Allergen Name Allergen Category Reaction Reaction Severity Criticality Documentation Date Start Date Code Code System Note Provider Name and Address Organization Details Recorded Time 59138 amoxicill in medicatio n Not available Not available Not available 12/31/2021 723 RxNorm Not Available [facility] 3 22:36:59 86571 morphine medicatio n Not available Not available Not available 12/31/2021 7052 RxNorm Not Available [facility] 3 22:36:59 34838 Product containin g penicilli n (product) medicatio n Not available Not available Not available 12/31/2021 59548 8001 SNOMED Aundrea Laws null, [place] - [facility] [place] 09:02:09 28330 metoprolo l Not available Not available Not available Not available 12/31/2021 6918 RxNorm Not Available [facility] 3 22:36:59 64375 clindamyc in Not available Not available Not available Not available 12/31/2021 2582 RxNorm Not Available [facility] 3 22:36:59 74338 Zyvox medicatio n Not available Not available Not available 12/31/2021 64897 0 RxNorm Not Available [facility] 3 22:36:59 58213 Cipro medicatio n Not available Not available Not available 12/31/202139404 3 RxNorm Not Available [facility] 3 22:36:59 32367 amlodipin e medicatio n Not available Not available Not available 12/31/2021 55556 RxNorm Not Available [facility] 3 22:36:59 91030 budesonid e medicatio n Not available Not available Not available 12/31/2021 35526 RxNorm Not Available [facility] 3 22:36:59 82754 tobramyci n medicatio n Not available Not available Not available 12/31/2021 48761 RxNorm Not Available [facility] 3 22:36:59 85725 dexametha sone medicatio n Not available Not available Not available 12/31/2021 3264 RxNorm Not Available [facility] 3 22:36:59 37663 levofloxa olegario medicatio n Not available Not available Not available 12/31/2021 53566 RxNorm Not Available [facility] 3 22:36:59 Medications Name Sig Start Date Stop Date Status Note LastModified by Organization Details LastModified Time nifedipine ER 30 mg tablet,exte nded release 24 hr 02/08 completed Not Available Not Available Not Available latanoprost 0.005 % eye drops ud active Not Available Not Available Not Available promethazin e-DM 6.25 mg-15 mg/5 mL oral syrup 12/31 completed Not Available Not Available Not Available carvedilol 25 mg tablet 1 po qd active Not Available Not Available Not Available prednisone 10 mg tablet active Not Available Not Available Not Available doxycycline hyclate 100 mg capsule 1 po bid 09/06 completed Not Available Not Available Not Available ipratropium 0.5 mg-albutero l 3 mg (2.5 mg base)/3 mL nebulizatio n soln INHALE CONTENTS OF 1 VIAL USING NEBUILIZE R EVERY SIX HOURS NEEDED FOR SHORTNESS OF BREATH OR WHEEZING active Not Available Not Available No t Available bumetanide 2 mg tablet 09/06 completed Not Available Not Available Not Available triamcinolo ne acetonide 0.5 % topical cream active Not Available Not Available Not Available ofloxacin 0.3 % eye drops active Not Available Not Available Not Available spironolact one 25 mg-hydrochl orothiazide 25 mg tablet active Not Available Not Available Not Available lisinopril 20 mg tablet TAKE 1 TABLET BY MOUTH TWICE DAILY 12/31 completed Not Available Not Available Not Available ondansetron HCl 4 mg tablet active Not Available Not Available Not Available prednisone 20 mg tablet active Not Available Not Available Not Available doxycycline hyclate 50 mg capsule 09/06 completed Not Available Not Available Not Available prednisone 5 mg tablet 12/31 completed Not Available Not Available Not Available hydralazine 25 mg tablet 09/06 completed Not Available Not Available Not Available terazosin 1 mg capsule 09/06 completed Not Available Not Available Not Available valacyclovi r 500 mg tablet 1 po qd active Not Available Not Available Not Available sulfamethox azole 800 mg-trimetho prim 160 mg tablet 01/11 completed Not Available Not Available Not Available carvedilol 3.125 mg tablet 1 po qd 02/08 completed Not Available Not Available Not Available prednisolon e acetate 1 % eye drops,suspe nsion as directed active Not Available Not Available No t Available amlodipine 10 mg tablet active Not Available Not Available Not Available doxycycline monohydrate 100 mg capsule 02/08 completed Not Available Not Available Not Available triamcinolo ne acetonide 0.1 % topical ointment active Not Available Not Available Not Available dexamethaso ne 4 mg tablet 12/31 completed Not Available Not Available Not Available lisinopril 10 mg tablet 40mg in the morning and 20 mg at hs active Not Available Not Available No t Available polymyxin B sulfate 10,000 unit-trimet hoprim 1 mg/mL eye drops 01/11 completed Not Available Not Available Not Available nitroglycer in 0.4 mg sublingual tablet ud active Not Available Not Available Not Available diltiazem CD 120 mg capsule,ext ended release 24 hr active Not Available Not Available Not Available hydralazine 50 mg tablet active Not Available Not Available Not Available furosemide 20 mg tablet TAKE 1 TABLET BY MOUTH ONCE DAILY 12/31 completed Not Available Not Available Not Available levofloxaci n 500 mg tablet 12/31 completed Not Available Not Available Not Available albuterol sulfate HFA 90 mcg/actuati on aerosol inhaler active Not Available Not Available Not Available timolol maleate 0.5 % eye drops active Not Available Not Available Not Available colchicine 0.6 mg tablet 12/31 completed Not Available Not Available Not Available ondansetron 4 mg disintegrat ing tablet 02/08 completed Not Available Not Available Not Available cefdinir 300 mg capsule 09/06 completed Not Available Not Available Not Available fluticasone propionate 50 mcg/actuati on nasal spray,suspe nsion 09/06 completed Not Available Not Available Not Available doxycycline hyclate 100 mg tablet 12/31 completed Not Available Not Available Not Available cyclosporin e 0.05 % eye drops in a dropperette 09/06 completed Not Available Not Available Not Available rosuvastati n 10 mg tablet 1 po qd 09/06 completed Not Available Not Available Not Available DILT-XR 240 mg capsule, extended release 12/31 completed Not Available Not Available Not Available aspirin 09/06 completed Not Available Not Available Not Available Humira 1 q 2 ks active Not Available Not Avai lable Not Available sodium chloride 1,000 mg soluble tablet active Not Available Not Available Not Available hydrochloro thiazide 12.5 mg tablet 02/08 completed Not Available Not Available Not Available budesonide 1 mg/2 mL suspension for nebulizatio n Inhale 2 mL twice a day by nebulizat ion route. 01/11 completed Not Available Not Available Not Available Multaq 400 mg tablet active Not Available Not Available No t Available azelastine 205.5 mcg (0.15 %) nasal spray active Not Available Not Available Not Available Hyper-Jersey 3.5 % solution for nebulizatio n active Not Available Not Available Not Available Eliquis 2.5 mg tablet active Not Available Not Available No t Available Trelegy Ellipta 100 mcg-62.5 mcg-25 mcg powder for inhalation 1 puff qd active Not Available Not Available Not Available Trelegy Ellipta 01/11 completed Not Available Not Available Not Available Vitals Date Recorded Body height Oxygen saturation Oxygen saturation in Arterial blood by Pulse oximetry Heart rate Systolic blood pressure Diastolic blood pressure Provider Name and Address Organization Details Last Updated DateTime 3 162.56 cm 90 % 90 % 77 /min 130 mm[Hg] 60 mm[Hg] Nimisha Escalante [facility] & [place] 3 12:07:28 Date Recorded Body height Body mass index (BMI) Body weight Body temperature Systolic blood pressure Diastolic blood pressure Provider Name and Address Organization Details Last Updated DateTime 2 162.56 cm 20.1 kg/m2 15058.3 1 g 96.7 [degF] 180 mm[Hg] 112 mm[Hg] [facility] [place] [facility] 09:39:32 Date Recorded Body height Body mass index (BMI) Body weight Body temperature Systolic blood pressure Diastolic blood pressure Provider Name and Address Organization Details Last Updated DateTime 2 162.56 cm 20.1 kg/m2 91072.3 1 g 96.1 [degF] 180 mm[Hg] 92 mm[Hg] [facility] & [place] 2 10:47:13 Social History None recorded. Functional Status None recorded. Mental Status None recorded. Family History Relationship Description Onset Age of this Age Resolved Age Notes LastModified by Organization Details LastModified Time Mother Hypertensive disorder CHART_MERGE Not available 02/23 22:36:59 Mother Heart disease CHART_MERGE Not available 02/23 22:36:59 Notes:melanoma cancer -mothe r, father kidney cancer Medical History Condition Response Heart Attack (HI) Y Cancer Y Arthritis Y Hypertension Y Gynecological HistoryNo gynecological history recorded. Obstetrics History GPAL:G 0 P 0 0 0 0 Past Encounters Encounter ID Performer Location Encounter Start Date Encounter Closed Date Diagnosis/Indication Diagnosis SNOMED-CT Code Diagnosis ICD10 Code Diagnosis Note [id number] Edie Mercado MD [facility] G -[address] [place] [address] 12/31/2021 08:53:29 12/31/2021 09:44:55 Impacted cerumen in left ear 3954872401 119818 H61.22 Nasal congestion 3486285 0 R09.81 Patient's symptoms are concerning for possible Anna Marie's granulomat osis. I will have P-ANCA and C-ANCA drawn today. I encouraged her to use vaseline in her nostrils nightly and use a humidifier . I want her to continue her doxycyclin e. I would like her to use budesonide in her nasal rinses. I will be in touch with her regarding her labs. I will see her sooner if needed. Granulomat osis with polyangiitis 390789651 M31.30 [id number] Edie Mercado MD [facility] [address] [place] [address] 01/11/2022 08:55:25 01/11/2022 10:07:11 Chronic rhinitis 23731814 J31.0 Mrs. Pan has had improvemen t in her nasal congestion and her nasal crusting was significan tly improved this exam. I have advised continued nasal saline rinses. Hypertensive disorder 38 033481 I10 Blood pressure continues to be significan tly elevated. This morning at home it was 213/110. I suspect this is a large contributo r to her feeling poorly and her headache. We have reached out to Dr. Manning's office to get her an appointmen t in the next day or two. [id number] Edie Mercado MD [facility] [address] [place] [address] 02/08/2022 10:11:05 02/08/2022 12:56:04 Feeling of lump in throat 171810901 F45.8 Laryngopha ryngeal reflux 560381535 K21.9 [id number] Edie Mercado MD [facility] [address] [place] [address] 09/06/2022 11:43:45 09/06/2022 12:31:29 Nasal mucosa dry 27426262 J34.89 Feeling of lump in throat 845429176 F45.8 Health Concerns Section Related Observation LastModified by Organization Detai ls LastModified Time None Recorded Concern Status LastModified by Organization Details LastModified Time None Recorded Advance Directives Directive None Recorded Payers Encounter Date Sequence Insurance Name Policy Number Policy Mcmullen Covered Member ID Mcmullen Member ID Guarantor Name 12/31/2021 1 [facility] (MEDICARE REPLACEMENT/A DVANTAGE - PPO) [id number] Amie Lopezdmore [id number] 01/11/2022 1 [facility] [facility] (MEDICARE REPLACEMENT/A DVANTAGE - PPO) [id number] Amie Lopezdmore [id number] 02/08/2022 1 [employer] (MEDICARE REPLACEMENT/A DVANTAGE - PPO) [id number] Amie Berry Viviane [id number] 09/06/2022 1 [employer] (MEDICARE REPLACEMENT/A DVANTAGE - PPO) Amie Lopezdmore [id number] Notes Date Note Type Note Provider Name and Address Organization Details Recorded Time 12/31/2021 text/html 66yo female retu rns to the office today with sinus trouble. States her trouble usually occurs whenever the weather changes. Her recent trouble started around the first of November. States she has a headache that she cannot get rid of. She has been having some nose bleeds a few times a week. She complains of frequent; thick post nasal drip. She will sometimes get thick; green mucous producation from her nose. She just started doxycycline on Tuesday of this week. She had a CT scan of her sinuses at [facility] the end of November. She was allergy tested a few years ago and that was negative. She has seen us in the past for cerumen removal and feels like her ears need to be cleaned today. Edie Mercado MD [address], [place], [address], [facility] & [place] 01/12/2022 15:12:24 01/11/2022 text/html Patient is here today for follow up of sinusitis- she has no improvement with the headachethe sinus drainage /congestion/pnd is better, she has been using a Neti pot daily but could not use the budesonide in the rinses as it made her ankles swell. Headache is in mosque-bilateralTylen ol for headaches- causing nausea She is still on Doxycycline-lung doctor prescribed Edie Mercado MD [address], [place], [address], [facility] 01/11/2022 12:19:31 02/08/2022 text/html patient is here for follow up of chronic sinusitis-Feels like she has a glob of mucous in her throat that she can't get rid of-mainly at nightShe uses flonasefor about 5 days last week she had hoarsenessStill having drainage off and onShe is asking if she should be allergy tested.She is still having uncontrolled HTN and is working with her PCP on this. Edie Mercado MD [address], [place], [address], [facility] - [facility] [place] 02/16/2022 14:27:42 09/06/2022 text/html Patient is here for sinus symptoms that were recently treated by her PCP with Cefdinir. She also complains of post nasal drainage and a feeling of fullness in her throat. I have seen her for the above complaints previously. Since I saw her last he BP has come under better control with the correct combo of medications. She has also been diagnosed with significant renal compromise thought to be due to hypertension as well as autoimmune disease although at this time she is not dialysis at this time. Edie Mercado MD [address], [place], [address], [facility] & [place] 09/06/2022 14:48:54 OBGyn Episode No OBEpisode recorded.
[2024-06-07 11:44] LABS: Microscopic, Urine URINE MICROSCOPIC (MICROSCOPIC)
[2024-06-07 12:05] LABS: Basophils % 0.5 % (0.1-2.0); Eosinophils # 0.3 K/mm3 (0.0-0.4); Eosinophils % 3.9 % (0.1-12.0); Hematocrit 31.1 % (37.0-47.0); Hemoglobin 10.6 g/dL (12.2-16.2); Lymphocytes # 1.3 K/mm3 (0.7-4.5); Lymphocytes % 17.7 % (10-50); Mean Corpuscular HGB Conc 34.1 g/dL (31.8-35.4); Mean Corpuscular Hemoglobin 30.3 pg (27.0-31.2); Mean Corpuscular Volume 88.9 fl (81-99); Mean Platelet Volume 9.6 fl (7.4-10.4); Monocytes # 0.7 K/mm3 (0.1-1.0); Monocytes % 9.6 % (1.7-9.3); Neutrophils % 68.2 % (37.0-80.0); Nucleated Red Blood Cells # 0 10^3/uL; Nucleated Red Blood Cells % 0 %; Platelet Count 271 K/mm3 (142-424); Red Cell Distribution Width 13.8 % (11.5-17.5); Red Cell Distribution Width-SD 44.7 fL; White Blood Count 7.4 K/mm3 (4.8-10.8)
[2024-06-07 12:09] LABS: Appearance,Urine CLEAR (Clear); Bilirubin,Urine Negative (Negative); Blood, Urine 2+ (Negative); Color,Urine YELLOW (Yellow); Glucose,Urine (UA) Negative (Negative); Ketones,Urine Negative (Negative); Leukocyte Esterase,Urine Negative (Negative); Nitrate,Urine Negative (Negative); Protein,Urine 3+ (Negative); Urobilinogen,Urine 0.2 EU/dl (0.2)
[2024-06-07 12:18] LABS: Creatinine,Urine Random 65 mg/dL (Not Estab.)
[2024-06-07 12:45] LABS: Bacteria,Urine Trace /lpf; Hyaline Casts,Urine OCC #/lpf (0); Squamous Epithelial Cell,Urine Occasional #/hpf (0-5); WBC,Urine Occasional #/hpf (0-3)
[2024-06-07 12:59] LABS: Albumin Level 3.1 g/dl (3.5-5.0); Chloride 94 mmol/L (98-107); Sodium 129 mmol/L (136-145)
[2024-06-07 13:02] LABS: Blood Urea Nitrogen 52 mg/dl (7-17); Calcium 8.1 mg/dl (8.4-10.2); Carbon Dioxide 26 mmol/L (22.0-30.0); Estimated Glomerular Filt Rate 16 ml/min (>60); GFR (African American) 19 ML/MIN (>60); Glucose 135 mg/dl (74-100); Phosphorous 4.8 mg/dl (2.5-4.5)
== END 2024-06-07 23:59 | disposition home or self-care (01) ==
LOC: LAB 11:39
PROVIDERS: PCP Internal Medicine Adolescent Medicine; Visit Provider Internal Medicine Nephrology
DX: N17.9 Acute kidney failure, unspecified (principal); N18.9 Chronic kidney disease, unspecified
CPT/HCPCS: 36415; 80069; 81001; 82570; 84156; 85025

== ENCOUNTER 2024-07-05 18:17 | Inpatient (IN) | payer MEDICARE, SELFPAY ==
[2024-07-05] VITALS (7 sets, daily range): BP systolic 155–197; BP diastolic 71–101; PULSE 72–81; RESP 16–20; TEMP 36.3–36.8; O2SAT 93–99; BMI 17.5; BMI 17.8
--- OUTSIDE RECORDS SUMMARY | 2024-07-05 18:35 | XMS_ITS | Data Portability ---
Author Organization [facility] [place] [facility] Address [address] [place] [address] Assessment No assessment recorded. Plan of Treatment Reminders Order Date Submit Date Provider Last Modified By Organization Details Last Modified Time Details Appointments None recorded. Lab P-ANCA + C-ANCA, serum 2021 [facility] (Registration ), [address], [place], [address], 15:31:34 Referral None recorded. Procedures None recorded. Surgeries None recorded. Imaging None recorded. Medication Orders budesonide 1 mg/2 mL suspension for nebulizatio n 2021 [email or web address] [facility], [address] [place] [address], [facility], [place], [address], 09:35:03 Patient TargetsNo targets recorded. Patient Instructions Encounter Date Encounter Id Patient Instructions Last Modified By Organization Details Last Modified Time 02/08/2022 [id number] Patient's symptoms appear most consistent with LPR and reflux. I am remiss to place her on any additional medication given her sensitivities. We have reviewed lifestyle precautions including not eating for 2 hours before, sleeping with the head of bed elevated, limiting caffeine, dairy and alcohol. [email or web address] Not available 02/16/2022 14:27:22 09/06/2022 [id number] Discussed with patient that her post nasal [...] (C-anca) <1:20 titer neg:<1 :20 Not Available [facility] ([facility]) [address], [place], [address], 01/01/2022 15:10:42 01/01/20 22 01/01/2022 ANCA PANEL [...] ng of posit sang sera with both IN- 3 and MPO-A NCA enzym e immun oassa ys. As many as 5% serum sampl es are posit sang only by EIA. Ref. AM J Clin Patho l 1999; 111:5 07-51 3. Not Available [facility] ([facility]) [address], [place], [address], 01/01/2022 15:10:42 01/01/20 22 01/01/2022 ANCA PANEL (PANC A atypical panca <1:20 titer neg:<1 :20 The at[facility]pi [place] pANCA patte rn has been obser panda in a signi fican t perce ntage of patie nts with ulcer ative colit is, prima ry scler osing chola ngiti s and autoi mmune hepat itis. Perfo rmed at: [facility] [address] [place] [address] Lab Direc tor: David shaw PhD, Phone : [phone] Not Available [facility] ([facility]) [address], [place], [address], 01/01/2022 15:10:42 12/31/19 22 12/11/2021 CT, sinus es, w/o contr ast No observ ation record ed. [email or web address] [facility] [address], [place], [address], 12/31/2021 09:53:39 03/02/19 23 03/02/2022 trans -thor acic echoc ardio gram (TTE) (PROC ) No observ ation record ed. [email or web address] [facility] (Registration ) [address] [place] [address] [place], [address], 04/08/2022 11:16:06 Result Notes None recorded. Problems Name Problem SNOMED Code Status Onset Date Resolution Date Notes Provider Name and Address Organization Details Recorded Time Hypertensive disorder 37686130 Active Not Available [facility] 3 22:37:00 Bronchiectasi s 75369990 Active Not Available [facility] 3 22:37:00 Rheumatoid arthritis 88320849 Active Not Available [facility] 3 22:37:00 Dry eyes 423173752 Active Not Available [facility] 3 22:37:00 History of myocardial infarction 993342473 Active Not Available [facility] 3 22:37:00 Coronary arteriosclero sis 57891242 Active Not Available [facility] 3 22:37:00 Problem Notes None recorded. Procedures Surgical History Date Name Laterality Status Provider Name and Address Organization Details Recorded Time 01/01/20 22 Cerumen removal with microscope completed Anil LEVIN - [facility] [place] [facility] [place] 12/31/2021 09:35:17 ligation of fallopian tube completed Aundrea LEVIN - [facility] [place] [facility] [place] 12/31/2021 09:13:47 Hysterectomy completed Aundrea LEVIN - [facility] [place] 12/31/2021 09:13:56 placement of stent in cardiac conduit completed Mary Dunnp [place] - [facility] [place] 01/11/2022 09:41:15 Imaging Results Imaging Date Name Status LastModified by Organization Details LastModified Time 12/11/2021 CT, sinuses, w/o contrast completed [email or web address] [facility] [address], [place], [address], 12/31/2021 09:53:39 03/02/2022 trans-thoracic echocardiogram (TTE) (PROC) completed [address] (Registration) [address] [place] [address] [place], [address], 04/08/2022 11:16:06 Procedure Notes None recorded. Medical Equipment None Reported. Allergies Allergen ID Allergen Name Allergen Category Reaction Reaction Severity Criticality Documentation Date Start Date Code Code System Note Provider Name and Address Organization Details Recorded Time 00123 amoxicill in medicatio n Not available Not available Not available 12/31/2021 723 RxNorm Not Available [facility] 3 22:36:59 84032 morphine medicatio n Not available Not available Not available 12/31/2021 7052 RxNorm Not Available [facility] 3 22:36:59 85629 Product containin g penicilli n (product) medicatio n Not available Not available Not available 12/31/2021 73646 8001 SNOMED Aundrea Laws null, [place] - [facility] [place] 2 09:02:09 98367 metoprolo l Not available Not available Not available Not available 12/31/2021 6918 RxNorm Not Available [facility] 3 22:36:59 57490 clindamyc in Not available Not available Not available Not available 12/31/2021 2582 RxNorm Not Available [facility] 3 22:36:59 88480 Zyvox medicatio n Not available Not available Not available 12/31/2021 90972 0 RxNorm Not Available [facility] 3 22:36:59 15458 Cipro medicatio n Not available Not available Not available 12/31/202153326 3 RxNorm Not Available [facility] 3 22:36:59 08890 amlodipin e medicatio n Not available Not available Not available 12/31/2021 41955 RxNorm Not Available [facility] 3 22:36:59 76187 budesonid e medicatio n Not available Not available Not available 12/31/2021 59883 RxNorm Not Available [facility] 3 22:36:59 62174 tobramyci n medicatio n Not available Not available Not available 12/31/2021 95881 RxNorm Not Available [facility] 3 22:36:59 47555 dexametha sone medicatio n Not available Not available Not available 12/31/2021 3264 RxNorm Not Available [facility] 3 22:36:59 43020 levofloxa olegario medicatio n Not available Not available Not available 12/31/2021 53540 RxNorm Not Available [facility] 3 22:36:59 Medications Name Sig Start Date [...] /min 130 mm[Hg] 60 mm[Hg] Nimisha Escalante [facility] & [place] 3 12:07:28 Date Recorded Body height Body mass index (BMI) Body weight Body temperature Systolic blood pressure Diastolic blood pressure Provider Name and Address Organization Details Last Updated DateTime 2 162.56 cm 20.1 kg/m2 88972.3 1 g 96.7 [degF] 180 mm[Hg] 112 mm[Hg] [facility] [place] [facility] 09:39:32 Date Recorded Body height Body mass index (BMI) Body weight Body temperature Systolic blood pressure Diastolic blood pressure Provider Name and Address Organization Details Last Updated DateTime 2 162.56 cm 20.1 kg/m2 80435.3 1 g 96.1 [degF] 180 mm[Hg] 92 mm[Hg] [facility] [place] 2 10:47:13 Social History None recorded. Functional Status None recorded. Mental Status None recorded. Family History Relationship Description Onset Age of this Age Resolved Age Notes LastModified by Organization Details LastModified Time Mother Hypertensive disorder CHART_MERGE Not available 02/23 22:36:59 Mother Heart disease CHART_MERGE Not available 02/23 22:36:59 Notes:melanoma cancer -mothe r, father kidney cancer Medical History Condition Response Arthritis Y Cancer Y Heart Attack ([place]) Y Hypertension Y Gynecological HistoryNo gynecological history recorded. Obstetrics History GPAL:G 0 P 0 0 0 0 Past Encounters Encounter ID Performer Location Encounter Start Date Encounter Closed Date Diagnosis/Indication Diagnosis SNOMED-CT Code Diagnosis ICD10 Code Diagnosis Note [id number] Edie Mercado MD [facility] G -[address] [place] [address] 12/31/2021 08:53:29 12/31/2021 09:44:55 Impacted cerumen in left ear 6279026415 670993 H61.22 Nasal congestion 8813731 0 R09.81 Patient's symptoms are concerning for [...] sooner if needed. Granulomat osis with polyangiitis 781450143 M31.30 [id number] Edie Mercado MD [facility] [address] [place] [address] 01/11/2022 08:55:25 01/11/2022 10:07:11 Chronic rhinitis 64196597 J31.0 Mrs. Pan has had improvemen t in her nasal congestion and her nasal crusting was significan tly improved this exam. I have advised continued nasal saline rinses. Hypertensive disorder 38 634726 I10 Blood pressure continues to be significan tly elevated. This morning at home it was 213/110. I suspect this is a large contributo r to her feeling poorly and her headache. We have reached out to Dr. Manning's office to get her an appointmen t in the next day or two. [id number] Edie Mercado MD [facility] [address] [place] [address] 02/08/2022 10:11:05 02/08/2022 12:56:04 Feeling of lump in throat 837814791 F45.8 Laryngopha ryngeal reflux 081211653 K21.9 [id number] Edie Mercado MD [facility] [address] [place] [address] 09/06/2022 11:43:45 09/06/2022 12:31:29 Nasal mucosa dry 16365235 J34.89 Feeling of lump in throat 791272623 F45.8 Health Concerns Section Related Observation LastModified by Organization Detai ls LastModified Time None Recorded Concern Status LastModified by Organization Details LastModified Time None Recorded Advance Directives Directive None Recorded Payers Insurance Date Sequence Insurance Name Policy Number Policy Mcmullen Covered Member ID Mcmullen Member ID Guarantor Name 09/10/2023 1 [employer] (MEDICARE REPLACEMENT/A DVANTAGE - PPO) Amie Pan [id number] 09/06/2022 1 [facility] (MEDICARE REPLACEMENT/A DVANTAGE - PPO) [id number] Amie Pan [id number] Notes Date Note Type Note Provider Name [...] a CT scan of her sinuses at [facility] the end of November. She was allergy tested a few years ago and that was negative. She has seen us in the past for cerumen removal and feels like her ears need to be cleaned today. Edie Mercado MD [address], [place], [address], [facility] [place] 01/12/2022 15:12:24 01/11/2022 text/html Patient is here today for follow up of sinusitis- she has no improvement with the headachethe sinus drainage /congestion/pnd is better, she has been using a Neti pot daily but could not use the budesonide in the rinses as it made her ankles swell. Headache is in roman catholic-bilateralTylen ol for headaches- causing nausea She is still on Doxycycline-lung doctor prescribed Edie Mercado MD [address], [place], [address], [facility] [place] 01/11/2022 12:19:31 02/08/2022 text/html patient is here [...] Edie Mercado MD [address], [place], [address], [facility] [place] 02/16/2022 14:27:42 09/06/2022 text/html Patient is here [...] Edie Mercado MD [address], [place], [address], [facility] [place] 09/06/2022 14:48:54 OBGyn Episode No OBEpisode recorded.
--- NOTE | 2024-07-05 18:40 | ED_ITS ---
<Statement entered by Melanie Cramer DO - 07/06/24 00:45> I was consulted by the SINTIA, and we discussed the complexity of the problems being addressed. I approved the treatment and management plan for this patient's care in the emergency department, thus performing a substantive portion of the medical decision making. Melanie Cramer DO Discharge Plan Disposition Patient Disposition: Admitted Condition: Good Clinical Impressions Clinical Impression: Bronchiectasis, GIULIANA (acute kidney injury), Electrolyte disturbance Discharge ED Provider: Melanie Cramer General Adult HPI <PEDRO Moulton - Last Filed: 07/05/24 21:54> General Chief complaint: Weakness Stated complaint: HBP,no energy Time Seen by Provider: 07/05/24 18:28 Mode of Arrival: Wheelchair Source of Information: Patient Description of Symptoms (Recalled from ER Triage Doc. by RN): Pt presents today for evaluation of high blood pressure. Pt states she took her BP 1 hour ago and it was 174/86. Pt states she has stage 4 kidney disease, and had recent admission at [facility]. Pt states had a staph infection and fluid retention History of Present Illness HPI narrative: 69-year-old female presented to the emergency department with a 1 week history of fatigue malaise, poor p.o. intake/reduced appetite, generalized weakness, bilateral lower extremity swelling, cough. Patient was recently admitted to [facility], discharged on 06/23/2024, for what sounds like acute renal failure with a creatinine of for something , low potassium and low sodium as well as fluid retention and staph in my lungs , patient has PMH consistent with bronchiectasis, rheumatoid arthritis on biologic, IgA nephropathy with stage IV CKD, hypertension, coronary artery disease status post 1 stent placement, atrial fibrillation on anticoagulation therapy with Eliquis, hyperlipidemia, COPD. Patient is a non-smoker denies any alcohol or drug use, triage vitals are unremarkable. Of note, patient was treated with IV antibiotics for pneumonia at [facility], transition to p.o. doxycycline finished prescription antibiotic as prescribed. Onset (ago): week(s) Related Data Home Medications ?Medication ?Instructions ?Recorded ?Confirmed valacyclovir 500 mg tablet 500 mg PO DAILY ANTIVIRAL 12/24/18 07/05/24 albuterol sulfate 90 mcg/actuation 1 inh inhalation QIDP PRN 02/22/22 08/05/22 aerosol inhaler shortness of breath or wheezing carvedilol 25 mg tablet 25 mg PO BID Hypertension 02/22/22 08/05/22 fluticasone fur. 100 mcg-umeclid 1 inh inhalation DAILY COPD 02/22/22 08/05/22 62.5 mcg-vilant 25 mcg inhalat.powder (Trelegy Ellipta) ipratropium 0.5 mg-albuterol 3 mg 3 ml inhalation Q6HP PRN shortness 02/22/22 08/05/22 (2.5 mg base)/3 mL nebulization of breath or wheezing soln prednisolone acetate 1 % eye 1 drp Eye-Left BID glaucoma 02/22/22 08/05/22 drops,suspension adalimumab 20 mg/0.2 mL 50 mg SQ Q14D 04/29/22 08/05/22 subcutaneous syringe kit (Humira(CF)) amlodipine 10 mg tablet 10 mg PO DAILY 04/29/22 08/05/22 apixaban 2.5 mg tablet (Eliquis) 2.5 mg PO ONCE 04/29/22 08/05/22 bumetanide 2 mg tablet 2 mg PO BID 04/29/22 08/05/22 dronedarone 400 mg tablet (Multaq) 400 mg PO BID 04/29/22 08/05/22 Previous Rx's ?Medication ?Instructions ?Recorded azelastine 205.5 mcg (0.15 %) 2 spray intranasal HS 90 days #30 08/05/22 nasal spray mL fluticasone fur. 100 mcg-umeclid 1 ea inhalation DAILY #90 ea 08/05/22 62.5 mcg-vilant 25 mcg inhalat.powder (Trelegy Ellipta) ipratropium 0.5 mg-albuterol 3 mg 3 ml inhalation Q6H PRN shortness 08/05/22 (2.5 mg base)/3 mL nebulization of breath or wheezing #180 mL soln sodium chloride 3.5 % for 4 ml inhalation BID 90 days #270 mL 08/05/22 nebulization (Hyper-[place]) doxycycline hyclate 100 mg tablet 100 mg PO BID 14 days #28 tabs 02/07/24 ondansetron 4 mg disintegrating 4 mg PO Q8H PRN nausea and 02/07/24 tablet vomiting 4 days #12 tabs prednisone 20 mg tablet 40 mg (2 x 20 mg) PO DAILY 4 days 02/07/24 #8 tabs Allergies Allergy/AdvReac Type Severity Reaction Status Date / Time amlodipine Allergy Verified 08/05/22 10:18 amoxicillin Allergy Verified 08/05/22 10:18 budesonide Allergy Verified 08/05/22 10:18 ciprofloxacin (From Cipro) Allergy Verified 08/05/22 10:18 clindamycin Allergy Verified 08/05/22 10:18 linezolid (From Zyvox) Allergy Verified 08/05/22 10:18 metoprolol Allergy Verified 08/05/22 10:18 morphine Allergy Verified 08/05/22 10:18 Penicillins Allergy Verified 08/05/22 10:18 sulfamethoxazole (From Allergy Verified 08/05/22 10:18 Bactrim) tobramycin Allergy Verified 08/05/22 10:18 trimethoprim (From Bactrim) Allergy Verified 08/05/22 10:18 [facility] <PEDRO Moulton - Last Filed: 07/05/24 21:54> [facility] Disclaimer: The information contained in this section may have been updated after the patient was seen, as this information can be updated by other users. Medical History Allergic rhinitis Deviated nasal septum Bronchiectasis without complication Myocardial infarct MRSA (methicillin resistant Staphylococcus aureus) Cornea transplant recipient Cornea transplant recipient Bronchiectasis Emphysema lung Acute bacterial sinusitis DNS (deviated nasal septum) Chronic recurrent sinusitis Sicca syndrome Rheumatoid arthritis Bronchiolitis obliterans Dyspnea on exertion Allergic rhinitis, unspecified Bronchiectasis Atrial flutter COPD (chronic obstructive pulmonary disease) Sinusitis Surgical History H/O heart artery stent Hx of cardiac cath History of hysterectomy Family History Other Cancer Coronary artery disease Heart attack Hyperlipidemia Hypertension Social History Smoking Status: Never smoker alcohol intake: never current occupational status: retired Travel in the last 8 weeks?: None housing: house service: No skilled nursing: No caffeine: Yes Have you lived/traveled outside [place] in past 30 days?: No Contact w/someone who lives/traveled outside US past 30 days?: No Exposure to someone with infectious disease in past 14 days?: No Do you have a fever (greater than 100.4 F or 38 C)?: No Have you tested positive for COVID-19?: No Exposed to someone with COVID-19 in past 14 days?: No Do you have a sore throat?: No Do you have a cough?: No Do you have any weakness?: No Do you have any diarrhea?: No Are you experiencing any unusual bleeding?: No Do you have any muscle aches/pain?: No Do you have any abdominal pain?: No Are you experiencing loss of taste or smell?: No Other Medical History Have you received the Flu Vaccine for this season: No Have you received the Pneumonia Vaccine: Yes <PEDRO Moulton - Last Filed: 07/05/24 21:54> ROS Obtained: Yes All systems reviewed & no additional complaints except as documented Physical Exam <PEDRO Moulton - Last Filed: 07/05/24 21:54> General General appearance: alert and in no apparent distress Head Head exam: atraumatic and normocephalic Eye Eye exam: Present PERRL and EOMI ENT ENT exam: Present mucous membranes moist Neck Neck exam: Present normal inspection Chest Chest inspection: Present normal inspection and symmetric chest wall rise Respiratory Respiratory exam: Present normal lung sounds bilaterally and other (Mild crackles throughout bilateral lung banks, no stridor no rhonchi no wheezing); Absent respiratory distress or wheezes Cardiovascular Cardiovascular exam: Present regular rate and normal rhythm Abdominal Exam Abdominal exam: Present soft; Absent tenderness, guarding, rebound or rigidity Extremities Exam Extremities exam: Present normal inspection, edema and other (There is +2 bilateral pitting edema of the lower extremities) Neurological Exam Neurological exam: Present alert, oriented X3 and other (Generalized weakness noted throughout, no focal neurological deficit, sensation is intact.) Psychiatric Psychiatric exam: Present normal affect Skin Skin exam: Present warm and dry Medical Decision Making <PEDRO Moulton - Last Filed: 07/05/24 21:54> Medical Records Medical records reviewed: Yes I reviewed the patient's medical records. Screening: Per USPSTF and CDC recommendations, given the prevalence of disease in our region, it is our hospital?s policy to screen for HIV and viral Hepatitis for all patients aged 18 and over and those with ongoing risk factors. Isidoro Inquiry Pt receiving controlled substance: No Isidoro was queried for this patient: No Vital Signs: 07/05/24 18:22 07/05/24 18:39 07/05/24 18:40 Temperature 97.3 F L Temperature Source Temporal Artery Scan Pulse Rate 79 81 Pulse Rate [Right] 81 Respiratory Rate 20 Blood Pressure 173/91 H 171/86 H Blood Pressure [Right Arm] 197/101 H Blood Pressure Mean [Right Arm] 133 Blood Pressure Source Blood Pressure Source [Right Arm] Automatic Cuff Blood Pressure Position Blood Pressure Position [Right Arm] Sitting 02 Sat by Pulse Oximetry 99 93 L 93 L Oxygen Delivery Method Room Air Room Air Room Air 07/05/24 20:50 Temperature 98 F Temperature Source Oral Pulse Rate 80 Pulse Rate [Right] Respiratory Rate 18 Blood Pressure 183/91 H Blood Pressure [Right Arm] Blood Pressure Mean [Right Arm] Blood Pressure Source Automatic Cuff Blood Pressure Source [Right Arm] Blood Pressure Position Sitting Blood Pressure Position [Right Arm] 02 Sat by Pulse Oximetry Oxygen Delivery Method Room Air Lab Data Lab Results 07/05/24 18:56: WBC 9.6, RBC 3.04 L, Hgb 9.4 L, Hct 26.6 L, MCV 87.5, MCH 30.9, MCHC 35.3, RDW 14.4, Plt Count 187, MPV 10.2, Neut % (Auto) 89.4 H, Lymph % (Auto) 6.6 L, [place] % (Auto) 3.4, Eos % (Auto) 0.2, Baso % (Auto) 0.2, Neut # (Auto) 8.6 H, Lymph # (Auto) 0.6 L, [place] # (Auto) 0.3, Eos # (Auto) 0.0, Baso # (Auto) 0.0, PT 10.1, INR 0.89 L, Sodium 128 L, Potassium 4.3, Chloride 96 L, Carbon Dioxide 25, Anion Gap 11.3, BUN 86 H, Creatinine 4.40 H, Estimated Creat Clear 9, Estimated GFR 10 L*, Est GFR ( Amer) 12 L*, Glucose 122 H, Lactate 0.7, Calcium 7.9 L, Phosphorus 4.8 H, Magnesium 1.6, Total Bilirubin 0.6, AST 33, ALT 12, Alkaline Phosphatase 83, Troponin I < 0.01, NT-Pro-B Natriuret Pep 98263 H, Total Protein 7.0, Albumin 3.9, Globulin 3.1, Albumin/Globulin Ratio 1.3, Lipase 186 07/05/24 18:56 07/05/24 18:56 Orders (Tests/Meds): ED MEDICATIONS Generic Name Dose Route Start Last Admin Trade Name Freq PRN Reason Stop Dose Admin Acetaminophen 650 mg 07/05/24 20:42 Acetaminophen 325mg Tab PO 08/04/24 20:41 Q4HP PRN Fever or Mild Pain (1-3) Sodium Chloride 1,000 mls @ 50 mls/hr 07/05/24 20:45 07/05/24 21:30 Sod Chlor 0.9% 1000ml Bag IV 08/04/24 20:44 50 mls/hr .Q20H MELISSA Administration Ondansetron HCl 4 mg 07/05/24 20:42 Ondansetron 4mg/2ml Vial IV 08/04/24 20:41 Q8HP PRN Nausea Sodium Chloride 10 ml 07/05/24 20:42 Sodium Chloride 0.9% 10ml Flush Syringe IV 08/04/24 20:41 NEEDED PRN Maintain IV Site ORDERS Category Date Time Status XR chest portable Stat Exams 07/05/24 18:52 Completed Basic Metabolic Panel AMLAB Lab 07/06/24 06:00 Ordered Complete Blood Count Auto Diff AMLAB Lab 07/06/24 06:00 Ordered Complete Blood Count Auto Diff Stat Lab 07/05/24 18:56 Completed Comprehensive Metabolic Panel Stat Lab 07/05/24 18:56 Completed Lactic Acid Stat Lab 07/05/24 18:56 Completed Lipase Stat Lab 07/05/24 18:56 Completed Magnesium AMLAB Lab 07/06/24 06:00 Ordered Magnesium Stat Lab 07/05/24 18:56 Completed NT Pro Brain Natriuretic Pep. Stat Lab 07/05/24 18:56 Completed PHOS [Phosphorous] Stat Lab 07/05/24 18:56 Completed PT INR [Prothrombin Time INR] Stat Lab 07/05/24 18:56 Completed Phosphorous AMLAB Lab 07/06/24 06:00 Ordered Troponin I Q3H Lab 07/05/24 22:00 Ordered Troponin I Q3H Lab 07/06/24 01:00 Ordered Troponin I Stat Lab 07/05/24 18:56 Completed Urinalysis and Microscopic Stat Lab 07/05/24 18:53 Ordered Medical Decision Narrative: 69-year-old female presents to the emergency department with multiple medical complaints, see HPI for detail past medical history differential diagnose include not limited to failure to thrive, cardiac arrhythmia, electrolyte disturbance, acute CHF exacerbation, pneumonia, acute kidney injury, hypovolemia among others. I discussed patient case with attending physician Dr. Cramer Will obtain basic laboratory studies lactic acid level lipase magnesium level phosphorus level proBNP PT/INR troponin urinalysis EKG and chest x-ray. CBC is notable for hemoglobin of 9.4, hematocrit 26.6, could be anemia of chronic disease and corresponding the patient's CKD, this does appear to be in line with patient's baseline anemia. Coags within normal limits CMP is all for hyponatremia at 128, potassium within normal limits, BUN and creatinine are significantly elevated 86/4.4, GFR is 10, no lactic acidosis, hypocalcemia 7.9, and hyperphosphatemia 4.8, magnesium within normal limits, proBNP significantly elevated at 10,700, troponin is within normal limits and lipase within normal limits. I discussed the patient's case with ELLA Reyes the hospitalist on-call in person at approximately 8 PM, she will go see and examined the patient and determined the patient will be transferred or admitted here. I discussed need for admission with the patient. The bedside patient family with current mission plan/treatment plan. Confirm with hospitalist at 8:15 PM, after talking to attending physician patient will be admitted to hospitalist service for acute renal failure, electrolyte derangements and possible undiagnosed CHF. I reviewed the patient's chest x-ray, along with corresponding radiologic report is concerning for left lower lobe infiltrate. <Melanie Cramer, DO - Last Filed: 07/05/24 19:11> Vital Signs: 07/05/24 18:22 07/05/24 18:39 07/05/24 18:40 Temperature 97.3 F L Temperature Source Temporal Artery Scan Pulse Rate 79 81 Pulse Rate [Right] 81 Respiratory Rate 20 Blood Pressure 173/91 H 171/86 H Blood Pressure [Right Arm] 197/101 H Blood Pressure Mean [Right Arm] 133 Blood Pressure Source Blood Pressure Source [Right Arm] Automatic Cuff Blood Pressure Position Blood Pressure Position [Right Arm] Sitting 02 Sat by Pulse Oximetry 99 93 L 93 L Oxygen Delivery Method Room Air Room Air Room Air 07/05/24 20:50 Temperature 98 F Temperature Source Oral Pulse Rate 80 Pulse Rate [Right] Respiratory Rate 18 Blood Pressure 183/91 H Blood Pressure [Right Arm] Blood Pressure Mean [Right Arm] Blood Pressure Source Automatic Cuff Blood Pressure Source [Right Arm] Blood Pressure Position Sitting Blood Pressure Position [Right Arm] 02 Sat by Pulse Oximetry Oxygen Delivery Method Room Air Lab Data Lab Results 07/05/24 18:56: WBC 9.6, RBC 3.04 L, Hgb 9.4 L, Hct 26.6 L, MCV 87.5, MCH 30.9, MCHC 35.3, RDW 14.4, Plt Count 187, MPV 10.2, Neut % (Auto) 89.4 H, Lymph % (Auto) 6.6 L, [place] % (Auto) 3.4, Eos % (Auto) 0.2, Baso % (Auto) 0.2, Neut # (Auto) 8.6 H, Lymph # (Auto) 0.6 L, [place] # (Auto) 0.3, Eos # (Auto) 0.0, Baso # (Auto) 0.0, PT 10.1, INR 0.89 L, Sodium 128 L, Potassium 4.3, Chloride 96 L, Carbon Dioxide 25, Anion Gap 11.3, BUN 86 H, Creatinine 4.40 H, Estimated Creat Clear 9, Estimated GFR 10 L*, Est GFR ( Amer) 12 L*, Glucose 122 H, Lactate 0.7, Calcium 7.9 L, Phosphorus 4.8 H, Magnesium 1.6, Total Bilirubin 0.6, AST 33, ALT 12, Alkaline Phosphatase 83, Troponin I < 0.01, NT-Pro-B Natriuret Pep 95864 H, Total Protein 7.0, Albumin 3.9, Globulin 3.1, Albumin/Globulin Ratio 1.3, Lipase 186 Orders (Tests/Meds): ED MEDICATIONS Generic Name Dose Route Start Last Admin Trade Name Freq PRN Reason Stop Dose Admin Acetaminophen 650 mg 07/05/24 20:42 Acetaminophen 325mg Tab PO 08/04/24 20:41 Q4HP PRN Fever or Mild Pain (1-3) Sodium Chloride 1,000 mls @ 50 mls/hr 07/05/24 20:45 07/05/24 21:30 Sod Chlor 0.9% 1000ml Bag IV 08/04/24 20:44 50 mls/hr .Q20H MELISSA Administration Ondansetron HCl 4 mg 07/05/24 20:42 Ondansetron 4mg/2ml Vial IV 08/04/24 20:41 Q8HP PRN Nausea Sodium Chloride 10 ml 07/05/24 20:42 Sodium Chloride 0.9% 10ml Flush Syringe IV 08/04/24 20:41 NEEDED PRN Maintain IV Site ORDERS Category Date Time Status XR chest portable Stat Exams 07/05/24 18:52 Completed Basic Metabolic Panel AMLAB Lab 07/06/24 06:00 Ordered Complete Blood Count Auto Diff AMLAB Lab 07/06/24 06:00 Ordered Complete Blood Count Auto Diff Stat Lab 07/05/24 18:56 Completed Comprehensive Metabolic Panel Stat Lab 07/05/24 18:56 Completed Lactic Acid Stat Lab 07/05/24 18:56 Completed Lipase Stat Lab 07/05/24 18:56 Completed Magnesium AMLAB Lab 07/06/24 06:00 Ordered Magnesium Stat Lab 07/05/24 18:56 Completed NT Pro Brain Natriuretic Pep. Stat Lab 07/05/24 18:56 Completed PHOS [Phosphorous] Stat Lab 07/05/24 18:56 Completed PT INR [Prothrombin Time INR] Stat Lab 07/05/24 18:56 Completed Phosphorous AMLAB Lab 07/06/24 06:00 Ordered Troponin I Q3H Lab 07/05/24 22:00 Ordered Troponin I Q3H Lab 07/06/24 01:00 Ordered Troponin I Stat Lab 07/05/24 18:56 Completed Urinalysis and Microscopic Stat Lab 07/05/24 18:53 Ordered ECG Data Tracing #1: I reviewed this ECG and interpreted as documented below: Normal sinus rhythm with a ventricular rate of [address] changes concerning for ischemia. Normal intervals ECG initial impression date: 07/05/24 ECG initial impression time: 19:09 Critical Care <PEDRO Moulton - Last Filed: 07/05/24 21:54> Critical Care Time Critical Care Time: No
--- NOTE | 2024-07-05 18:52 | XR_ITS ---
PROCEDURE INFORMATION: Exam: XR Chest Exam date and time: 07/05/2024 7:28 PM Age: 69 years old Clinical indication: Shortness of breath; Additional info: SOA, HX of bronchiectasis TECHNIQUE: Imaging protocol: Radiologic exam of the chest. Views: 1 view. COMPARISON: CR XR CHEST PORTABLE 02/07/2024 7:58 AM FINDINGS: Lungs: There has developed stranding opacity in the left lower chest concerning for active infiltrate. Right lung appears largely clear. A few scattered small calcified granulomas appear stable. Pleural spaces: Unremarkable. No pleural effusion. No pneumothorax. Heart/Mediastinum: Unremarkable. No cardiomegaly. Vasculature: Moderate atherosclerotic calcification of the aortic arch. Bones/joints: Unremarkable. IMPRESSION: Findings concerning for left lower lobe infiltrate
--- NOTE | 2024-07-05 19:08 | ECG_ITS ---
APPROVED REPORT Exam: Resting ECG HR:75 bpm ECG Measurements Heart Rate 75 AXES DC 120 P 81 QRSd 86 QRS 82 QT 393 T 83 QTc 422 Conclusion SINUS RHYTHM NORMAL ECG No STEMI Electronically signed by : LEONID MYERS, 07/06/2024 23:38:24
[2024-07-05 19:10] LABS: Basophils % 0.2 % (0.1-2.0); Eosinophils % 0.2 % (0.1-12.0); Hematocrit 26.6 % (37.0-47.0); Hemoglobin 9.4 g/dL (12.2-16.2); Immature Granulocytes # 0.02 10^3uL; Immature Granulocytes % 0.2 %; Lymphocytes # 0.6 K/mm3 (0.7-4.5); Lymphocytes % 6.6 % (10-50); Mean Corpuscular HGB Conc 35.3 g/dL (31.8-35.4); Mean Corpuscular Hemoglobin 30.9 pg (27.0-31.2); Mean Corpuscular Volume 87.5 fl (81-99); Mean Platelet Volume 10.2 fl (7.4-10.4); Monocytes # 0.3 K/mm3 (0.1-1.0); Monocytes % 3.4 % (1.7-9.3); Neutrophils # 8.6 K/mm3 (1.8-7.8); Neutrophils % 89.4 % (37.0-80.0); Nucleated Red Blood Cells # 0 10^3/uL; Nucleated Red Blood Cells % 0 %; Platelet Count 187 K/mm3 (142-424); Red Blood Count 3.04 M/mm3 (4.20-5.40); Red Cell Distribution Width 14.4 % (11.5-17.5); Red Cell Distribution Width-SD 45.2 fL; White Blood Count 9.6 K/mm3 (4.8-10.8)
[2024-07-05 19:18] LABS: Albumin Level 3.9 g/dl (3.5-5.0); Chloride 96 mmol/L (98-107)
[2024-07-05 19:19] LABS: Lactic Acid 0.7 mmol/L (0.7-2.1); Potassium 4.3 mmoL/L (3.5-5.1); Sodium 128 mmol/L (136-145)
[2024-07-05 19:21] LABS: Alanine Aminotransferase 12 U/L (12-78); Anion Gap 11.3 mEq/L (5-15); Aspartate Amino Transferase 33 U/L (14-36); Bilirubin,Total 0.6 mg/dl (0.2-1.3); Carbon Dioxide 25 mmol/L (22.0-30.0); Creatinine Clearance Estimated 9 mL/min (50-200); Estimated Glomerular Filt Rate 10 ml/min (>60); GFR (African American) 12 ML/MIN (>60); INR 0.89 (0.9-1.1); Prothrombin Time 10.1 seconds (10.1-12.5)
[2024-07-05 19:22] LABS: Albumin/Globulin Ratio 1.3 (1.1-1.8); Alkaline Phosphatase 83 U/L (38-126); Calcium 7.9 mg/dl (8.4-10.2); Globulin 3.1 g/dL (1.3-3.2); Glucose 122 mg/dl (74-100); Lipase 186 U/L (23-300); Magnesium 1.6 mg/dl (1.6-2.3)
[2024-07-05 19:29] LABS: NT Pro Brain Natriuretic Pep. 10700 pg/mL (0-125); Phosphorous 4.8 mg/dl (2.5-4.5)
[2024-07-05 19:42] LABS: Troponin I < 0.01 ng/ml (0.00-0.034)
[2024-07-05 19:44] LABS: Blood Urea Nitrogen 86 mg/dl (7-17)
--- NOTE | 2024-07-05 20:49 | PC.NURSE ---
Report called to Josefa for admission to the floor.
--- NOTE | 2024-07-05 20:55 | PC.NURSE ---
Patient arrived to unit with this RN via WC, patient alert and oriented X 3. Able to walk well but due to periods of dyspnea RN has encouraged patient to not ambulate alone. Patient VU, oriented to room, and call light. Patient put in gown, and nonskid socks, SCUDs applied.
[2024-07-05] MEDS: 0.9 % SODIUM CHLORIDE 1000ML 1,000 ML 50 ML IV (21:30)
--- NOTE | 2024-07-05 21:46 | PC.NURSE ---
Spoke with Amy JARAMILLO, reviewed patient wears oxygen 2l at night and recieved verbal ok to continue oxygen 2l at HS. No further orders at this time
--- NOTE | 2024-07-05 22:01 | P.HP_ITS ---
<Statement entered by Shakeel Berry MD - 07/06/24 09:39> Rounded on patient after nurse practitioner. Personally examined and interviewed patient. Agree with exam findings and care plan as documented. History of Present Illness *Admission Date: 07/05/24 *Reason for visit:: Generalized weakness *History of present illness: This is a 69-year-old female with a past medical history of paroxysmal A-fib on Eliquis, hypertension, chronic obstructive pulmonary disease, lymphedema, rheumatoid arthritis that on biologic medications who presents emergency department today with complaints of generalized weakness. Patient reports being [facility] and discharged on 06/23/2024 for similar presentation. States that she went into the hospital for generalized weakness and shortness of breath. Was found to have acute renal failure, fluid retention and bronchiectasis.. She reports when she was discharged from [facility] she was told to hold off taking her Bumex and metolazone. She reportedly had elevated creatinine levels at the outside hospital of around 4 and discharged home with a creatinine level around 2. She states that between June 29 and today she is lost 16 pounds of fluid. States she has felt weak and generally fatigued over the last several days. She reports restarting her Bumex and metolazone this week. She denies any fever or cough. Denies any diarrhea or vomiting. States that she still has lower extremity edema in her legs and is wearing compression stockings. She reports continuing to make urine. She denies COLE or orthopnea Emergency department workup notable for elevated creatinine level of 4.4, BUN of 86, chloride of 96, sodium of 129. proBNP of 10,700. Vital signs are stable she is oxygenating well on room air. She does not appear short of breath with conversation. Chest imaging notable for stranding opacity in the left lower chest concerning for active infiltrate. [facility] Disclaimer: The information contained in this section may have been updated after the patient was seen, as this information can be updated by other users. Medical History Allergic rhinitis Deviated nasal septum Bronchiectasis without complication Myocardial infarct MRSA (methicillin resistant Staphylococcus aureus) Cornea transplant recipient Cornea transplant recipient Bronchiectasis Emphysema lung Acute bacterial sinusitis DNS (deviated nasal septum) Chronic recurrent sinusitis Sicca syndrome Rheumatoid arthritis Bronchiolitis obliterans Dyspnea on exertion Allergic rhinitis, unspecified Bronchiectasis Atrial flutter COPD (chronic obstructive pulmonary disease) Sinusitis Surgical History H/O heart artery stent Hx of cardiac cath History of hysterectomy Family History Other Cancer Coronary artery disease Heart attack Hyperlipidemia Hypertension Social History (Updated 07/05/24 @ 22:10 by Josefa Paniagua) Smoking Status: Never smoker alcohol intake: never current occupational status: retired Travel in the last 8 weeks?: None housing: house service: No [place] [facility]: No caffeine: Yes Have you lived/traveled outside [place] in past 30 days?: No Contact w/someone who lives/traveled outside US past 30 days?: No Exposure to someone with infectious disease in past 14 days?: No Do you have a fever (greater than 100.4 F or 38 C)?: No Have you tested positive for COVID-19?: No Exposed to someone with COVID-19 in past 14 days?: No Do you have a sore throat?: No Do you have a cough?: No Do you have any weakness?: No Do you have any diarrhea?: No Are you experiencing any unusual bleeding?: No Do you have any muscle aches/pain?: No Do you have any abdominal pain?: No Are you experiencing loss of taste or smell?: No Other Medical History Have you received the Flu Vaccine for this season: No Have you received the Pneumonia Vaccine: Yes (2016) Review of Systems Review of Systems Review of systems:: pertinent systems reviewed and negative unless documented below Review of systems (narrative): Negative except for HPI Meds Home Medications and Allergies Home Medications ?Medication ?Instructions ?Recorded ?Confirmed ?Type valacyclovir 500 mg tablet 500 mg PO DAILY ANTIVIRAL 12/24/18 07/05/24 History albuterol sulfate 90 mcg/actuation 1 inh inhalation QIDP PRN 02/22/22 07/05/24 History aerosol inhaler shortness of breath or wheezing carvedilol 25 mg tablet 25 mg PO BID Hypertension 02/22/22 07/05/24 History fluticasone fur. 100 mcg-umeclid 1 inh inhalation DAILY COPD 02/22/22 07/05/24 History 62.5 mcg-vilant 25 mcg inhalat.powder (Trelegy Ellipta) prednisolone acetate 1 % eye 1 drp Eye-Left BID glaucoma 02/22/22 07/05/24 History drops,suspension adalimumab 20 mg/0.2 mL 50 mg SQ Q14D 04/29/22 07/05/24 History subcutaneous syringe kit (Humira(CF)) amlodipine 10 mg tablet 10 mg PO DAILY 04/29/22 07/05/24 History apixaban 2.5 mg tablet (Eliquis) 2.5 mg PO ONCE 04/29/22 07/05/24 History bumetanide 2 mg tablet 2 mg PO BID 04/29/22 07/05/24 History dronedarone 400 mg tablet (Multaq) 400 mg PO BID 04/29/22 07/05/24 History azelastine 205.5 mcg (0.15 %) 2 spray intranasal HS 90 days #30 08/05/22 07/05/24 Rx nasal spray mL fluticasone fur. 100 mcg-umeclid 1 ea inhalation DAILY #90 ea 08/05/22 07/05/24 Rx 62.5 mcg-vilant 25 mcg inhalat.powder (Trelegy Ellipta) ipratropium 0.5 mg-albuterol 3 mg 3 ml inhalation Q6H PRN shortness 08/05/22 07/05/24 Rx (2.5 mg base)/3 mL nebulization of breath or wheezing #180 mL soln sodium chloride 3.5 % for 4 ml inhalation BID 90 days #270 mL 08/05/22 07/05/24 Rx nebulization (Hyper-[place]sey) ondansetron 4 mg disintegrating 4 mg PO Q8H PRN nausea and 02/07/24 07/05/24 Rx tablet vomiting 4 days #12 tabs New Prescriptions to Start Prescriptions: Allergies Allergy/AdvReac Type Severity Reaction Status Date / Time amoxicillin Allergy Other Verified 07/05/24 22:08 budesonide Allergy Other Verified 07/05/24 22:08 ciprofloxacin (From Cipro) Allergy Other Verified 07/05/24 22:08 clindamycin Allergy Other Verified 07/05/24 22:08 linezolid (From Zyvox) Allergy Other Verified 07/05/24 22:08 metoprolol Allergy Other Verified 07/05/24 22:08 morphine Allergy Other Verified 07/05/24 22:08 Penicillins Allergy Other Verified 07/05/24 22:08 sulfamethoxazole (From Allergy Other Verified 07/05/24 22:08 Bactrim) tobramycin Allergy Other Verified 07/05/24 22:08 trimethoprim (From Bactrim) Allergy Other Verified 07/05/24 22:08 Exam Data for Last 24 hours Vital signs and Labs for Last 24 Hours: Temp Pulse Resp BP Pulse Ox O2 Del Method O2 Flow Rate 98.2 F 72 16 150/76 H 98 Nasal Cannula 2 07/05/24 23:56 07/05/24 23:56 07/05/24 23:56 07/06/24 00:00 07/05/24 23:56 07/05/24 23:56 07/05/24 23:56 Laboratory Results - last 24 hr 07/05/24 18:56: WBC 9.6, RBC 3.04 L, Hgb 9.4 L, Hct 26.6 L, MCV 87.5, MCH 30.9, MCHC 35.3, RDW 14.4, Plt Count 187, MPV 10.2, Neut % (Auto) 89.4 H, Lymph % (Auto) 6.6 L, [place] % (Auto) 3.4, Eos % (Auto) 0.2, Baso % (Auto) 0.2, Neut # (Auto) 8.6 H, Lymph # (Auto) 0.6 L, [place] # (Auto) 0.3, Eos # (Auto) 0.0, Baso # (Auto) 0.0, PT 10.1, INR 0.89 L, Sodium 128 L, Potassium 4.3, Chloride 96 L, Carbon Dioxide 25, Anion Gap 11.3, BUN 86 H, Creatinine 4.40 H, Estimated Creat Clear 9, Estimated GFR 10 L*, Est GFR ( Amer) 12 L*, Glucose 122 H, Lactate 0.7, Calcium 7.9 L, Phosphorus 4.8 H, Magnesium 1.6, Total Bilirubin 0.6, AST 33, ALT 12, Alkaline Phosphatase 83, Troponin I < 0.01, NT-Pro-B Natriuret Pep 19551 H, Total Protein 7.0, Albumin 3.9, Globulin 3.1, Albumin/Globulin Ratio 1.3, Lipase 186 07/05/24 21:00: Urine Color Yellow, Urine Appearance Clear, Urine pH 7.5, Ur Specific Albers 1.015, Urine Protein 3+ A, Urine Glucose (UA) Negative, Urine Ketones Negative, Urine Blood 1+ A, Urine Nitrate Negative, Urine Bilirubin Negative, Urine Urobilinogen 0.2, Ur Leukocyte Esterase Negative, Urine RBC 10- 20, Urine WBC 3-5, Ur Squamous Epith Cells Occasional 07/05/24 22:02: Troponin I < 0.01 I & O for Last 24 hours: Intake & Output 07/03/24 07/04/24 07/05/24 07/06/24 23:59 23:59 23:59 23:59 Output Total 200 / 200 Balance -200 / -200 Weight 47.287 kg Constitutional Constitutional: no acute distress *Routine HEENT Exam Head: Present normocephalic Eye: Present EOMI and PERRL ENT: Present mucous membranes moist *Routine Neck Exam Neck: Present supple; Absent lymphadenopathy *Routine Respiratory Exam Respiratory: Present CTA bilaterally, normal respiratory effort and symmetric chest movement *Routine Cardiovascular Exam Cardiovascular: Present RRR, Normal S1 and Normal S2 *Routine Abdominal Exam Abdominal: Present soft and normoactive bowel sounds; Absent tenderness *Routine Rectal Exam Rectal:: deferred *Routine Genitalia Exam Genitalia:: deferred *Routine Extremities Exam Extremities: Present edema (Nonpitting edema to bilateral lower extremities); Absent cyanosis or clubbing *Routine Skin Exam Skin: Present warm; Absent rash *Routine Neurological Exam Neurological: Present alert and oriented X3 Assessment and Plan *Assessment and plan (1) Acute kidney injury superimposed on stage 3b chronic kidney disease: Status: Acute Category: Medical Code(s): N17.9 - Acute kidney failure, unspecified; N18.32 - Chronic kidney disease, stage 3b (2) Bilateral lower extremity edema: Status: Acute Category: Medical Code(s): R60.0 - Localized edema (3) Pneumonia: Status: Acute Qualifiers: Pneumonia type: due to unspecified organism Category: Medical Code(s): J18.9 - Pneumonia, unspecified organism (4) Paroxysmal A-fib: Status: Acute Category: Medical Code(s): I48.0 - Paroxysmal atrial fibrillation (5) Chronic anticoagulation: Status: Acute Category: Medical Code(s): Z79.01 - penitentiary (current) use of anticoagulants (6) COPD (chronic obstructive pulmonary disease): Status: Chronic Qualifiers: COPD type: unspecified COPD Qualified Code(s): J44.9 - Chronic obstructive pulmonary disease, unspecified Category: Medical Code(s): J44.9 - Chronic obstructive pulmonary disease, unspecified (7) (HFpEF) heart failure with preserved ejection fraction: Status: Acute Qualifiers: Heart failure chronicity: chronic Qualified Code(s): I50.32 - Chronic diastolic (congestive) heart failure Category: Medical Code(s): I50.30 - Unspecified diastolic (congestive) heart failure Plan Admit to medicine #Acute kidney injury superimposed on stage IIIb CKD Sees nephrology in the outpatient setting Patient with 16 pound weight loss in 4 days. GIULIANA likely prerenal in nature. Restarted home diuretics this week. Will hold home diuretic (Bumex and metolazone) Judicious IV fluid administration Strict intake and output Follow-up BMP in a.m. #Chronic diastolic heart failure Prior echocardiogram with grade 1 diastolic dysfunction Does not appear overloaded at this time although patient does have bilateral lower extremity edema. Denies COLE or orthopnea Elevated proBNP of 10,700 although asymptomatic Will repeat echocardiogram in a.m. Diuretics on hold currently given GIULIANA Monitor respiratory status Oxygenating well on room air at this time. 2 L nasal cannula as needed at night. #Pneumonia Stranding opacity of the left lower chest concerning for active infiltrate. Has been treated recently for bronchiectasis. Completed oral antibiotics upon discharge from [facility] Will continue oral antibiotics. Procalcitonin pending. Large allergy list. Has tolerated Doxy in the outpatient setting, will continue. #COPD Not in exacerbation at this time Continue as needed bronchodilators #Atrial fibrillation, paroxysmal #Chronic anticoagulation Stable, continue Eliquis at this time #Hypertension Continue home carvedilol #Hyponatremia Chronic hypo-osmolar given diuretic usage Monitor with IV fluid administration
--- NOTE | 2024-07-05 22:20 | PC.NURSE ---
Pt comfprtable in bed, [facility] call light within reach. respirations even and unlabored
--- NOTE | 2024-07-05 22:30 | PC.NURSE ---
Hospitalist Amy aware that home meds have been verified.
[2024-07-05 22:31] LABS: Microscopic, Urine URINE MICROSCOPIC (MICROSCOPIC)
[2024-07-05 22:33] LABS: Appearance,Urine CLEAR (Clear); Bilirubin,Urine Negative (Negative); Blood, Urine 1+ (Negative); Color,Urine YELLOW (Yellow); Glucose,Urine (UA) Negative (Negative); Ketones,Urine Negative (Negative); Leukocyte Esterase,Urine Negative (Negative); Nitrate,Urine Negative (Negative); PH,Urine 7.5 (5.0-8.5); Protein,Urine 3+ (Negative); Specific Gravity, Urine 1.015 (1.005-1.030); Urobilinogen,Urine 0.2 EU/dl (0.2)
[2024-07-05 22:55] LABS: Troponin I < 0.01 ng/ml (0.00-0.034)
[2024-07-05 23:30] LABS: Squamous Epithelial Cell,Urine Occasional #/hpf (0-5)
[2024-07-06] VITALS (9 sets, daily range): BP systolic 139–176; BP diastolic 62–78; PULSE 66–78; RESP 15–18; TEMP 36.3–36.7; O2SAT 93–98; BMI 18.2
--- NOTE | 2024-07-06 01:59 | PC.NURSE ---
Pt ambulated to the bathroom to void, this RN present for assistance. Pt now back to bed and SCUDs on bilaterally. Pt has nurse call button without reach and denies any current needs.
[2024-07-06 02:25] LABS: Troponin I < 0.01 ng/ml (0.00-0.034)
--- NOTE | 2024-07-06 03:11 | PC.NURSE ---
Patient sleeping on left side, respirations even and unlabored. Nasla canula in place. Call light within reach
[2024-07-06 06:25] LABS: Basophils # 0.1 K/mm3 (0-0.2); Basophils % 0.6 % (0.1-2.0); Eosinophils # 0.1 Kmm3 (0.0-0.4); Eosinophils % 1.1 % (0.1-12.0); Hematocrit 22.4 % (37.0-47.0); Immature Granulocytes # 0.03 10^3uL; Immature Granulocytes % 0.4 %; Lymphocytes # 1.2 K/mm3 (0.7-4.5); Mean Corpuscular HGB Conc 34.4 g/dL (31.8-35.4); Mean Corpuscular Hemoglobin 30.6 pg (27.0-31.2); Mean Corpuscular Volume 88.9 fl (81-99); Mean Platelet Volume 11.1 fl (7.4-10.4); Monocytes # 0.8 K/mm3 (0.1-1.0); Neutrophils # 5.7 K/mm3 (1.8-7.8); Neutrophils % 72.9 % (37.0-80.0); Nucleated Red Blood Cells # 0 10^3/uL; Nucleated Red Blood Cells % 0 %; Platelet Count 157 K/mm3 (142-424); Red Blood Count 2.52 M/mm3 (4.20-5.40); Red Cell Distribution Width 14.5 % (11.5-17.5); Red Cell Distribution Width-SD 46.5 fL; White Blood Count 7.9 K/mm3 (4.8-10.8)
[2024-07-06 06:37] LABS: Anion Gap 5.6 mEq/L (5-15); Calcium 7.4 mg/dl (8.4-10.2); Carbon Dioxide 27 mmol/L (22.0-30.0); Chloride 100 mmol/L (98-107); Creatinine Clearance Estimated 9 mL/min (50-200); Estimated Glomerular Filt Rate 10 ml/min (>60); GFR (African American) 12 ML/MIN (>60); Glucose 75 mg/dl (74-100); Hemoglobin 7.7 g/dL (12.2-16.2); Magnesium 1.8 mg/dl (1.6-2.3); Phosphorous 4.8 mg/dl (2.5-4.5); Potassium 3.6 mmoL/L (3.5-5.1); Sodium 129 mmol/L (136-145)
[2024-07-06 06:54] LABS: Blood Urea Nitrogen 80 mg/dl (7-17)
--- NOTE | 2024-07-06 07:01 | PC.NURSE ---
ECHO being completed at this time per order
--- NOTE | 2024-07-06 07:09 | PC.NURSE ---
Report given to Amanda Wood RN
--- NOTE | 2024-07-06 08:00 | CA_ITS ---
APPROVED REPORT EXAM: Comprehensive 2D, Doppler, and color-flow Echocardiogram Sheet Heater Helper: Pricilla Chavez RDCS Ht: 5 ft 4 in Wt: 104lbs BSA: 1.48 BP: 150/76 mmHg Indications: AF,CAD M-Mode Dimensions RVDd 0.94 cm (0.9-2.6) LA Diam 3.33 cm (1.9-4.0) LVDd 5.96 cm (3.5-5.7) LVDs 4.55 cm (3.5-5.7) IVSd 0.60 cm (0.6-1.1) PWd 0.77 cm (0.6-1.1) EF (Teich) 46.50% FS 23.70% EDV (Teich) 177.30 mL ESV (Teich) 94.90 mL LV Diastology E Decel Time 213 (160-240 msec) E/A Ratio 0.6 Aortic Valve AI PHT 416.00 ms Mitral Valve MV E Max Javan. 51.0 (40-130 cm/s) MV A Velocity 79.0 (40-130 cm/s) E/A Ratio 0.64 MV PHT 62.0 ms Left Ventricle The left ventricle is normal size. The left ventricular systolic function is normal. The left ventricular ejection fraction is within the normal range. There is normal left ventricular wall thickness. There is normal LV segmental wall motion. The left ventricular diastolic function is normal. LVEF is 55%. Right Ventricle The right ventricle is normal size. The right ventricular systolic function is normal. Atria The left atrium size is normal. The right atrium size is normal. There is no Doppler evidence of interatrial shunt. Aortic Valve Aortic valve opens well. There is no aortic valvular stenosis. Mild aortic regurgitation. Mitral Valve The mitral valve is normal in structure. No evidence of mitral valve stenosis. Mild mitral regurgitation. Tricuspid Valve Tricuspid valve is grossly normal in structure and function. Trace tricuspid regurgitation. There is insufficient TR jet to estimate RVSP. Pulmonic Valve The pulmonary valve is normal in structure. Trace pulmonic regurgitation. Great Vessels The aortic root is normal in size. IVC is normal in size and collapses >50% with inspiration. Pericardium There is no pericardial effusion. Other Information Study Quality: Fair Conclusion Normal biventricular systolic function. Mild AI, mild MR. Electronically signed by : Yoko Patterson MD 07/06/2024 22:33:15
[2024-07-06] MEDS: ONDANSETRON 4MG/2ML VIAL 4 MG IV (08:27)
[2024-07-06] MEDS: AMLODIPINE 10MG TABLET 10 MG PO (08:29)
[2024-07-06] MEDS: CARVEDILOL 25MG TABLET 25 MG PO ×2 (08:29→20:34)
[2024-07-06] MEDS: APIXABAN 5MG TABLET 2.5 MG PO ×2 (08:31→20:34)
--- NOTE | 2024-07-06 09:28 | HMH.PHAINT1 ---
Pharmacy Intervention Comments: MEDICATION RECONCILIATION COMPLETED ON PATIENT USING EXTERNAL FILL HISTORY FROM PHARMACY. -BBII PANCHAL, LISYD
[2024-07-06] MEDS: IPRATROPIUM/ALBUTEROL 3 ML NEB IH (10:33)
[2024-07-06] MEDS: SODIUM CHLORIDE 3% 15ML NEB 3 ML IH (10:33)
--- NOTE | 2024-07-06 16:28 | PC.NURSE ---
Patient lung sounds are diminished throughout all lobes, bowel sounds are active. Patient denies any pain. Edema is +1 bilateral lower extremities. Patient is on room air. Patient has had no other episodes of diarrhea. Patient is alert and oriented x4. Patient has ambulated well to and from the bathroom, without assistance. Patient uses walker.
[2024-07-06 17:25] LABS: Chloride 100 mmol/L (98-107); Potassium 3.6 mmoL/L (3.5-5.1); Sodium 127 mmol/L (136-145)
[2024-07-06 17:28] LABS: Anion Gap 7.6 mEq/L (5-15); Blood Urea Nitrogen 77 mg/dl (7-17); Calcium 7.2 mg/dl (8.4-10.2); Carbon Dioxide 23 mmol/L (22.0-30.0); Creatinine Clearance Estimated 9 mL/min (50-200); Estimated Glomerular Filt Rate 10 ml/min (>60); GFR (African American) 12 ML/MIN (>60); Glucose 110 mg/dl (74-100)
--- NOTE | 2024-07-06 17:52 | PC.NURSE ---
Jay Hickey from lab called with a critical creatinine value for the patient of 4.30 Name and verified x2.
--- NOTE | 2024-07-06 19:30 | PC.NURSE ---
patient sitting in bed watching TV, daughter in room with patient. No distress noted. Call light within reach. RN to reviewed careplan and nish
[2024-07-06] MEDS: ACETAMINOPHEN 325MG TAB 650 MG PO (20:33)
--- NOTE | 2024-07-06 21:45 | PC.NURSE ---
Patient sleeping, daughter awake at bedside. Visible chest rise, no distress noted. Call light within reach
--- NOTE | 2024-07-06 22:57 | EXP.ACUTE.PN ---
Subjective *Date: 07/06/24 *Time: 23:11 Interval history: Patient feeling better this morning after gentle hydration. Denies any chest pain or shortness of breath. No nausea or vomiting. Labs show some no change in kidney function. Afebrile and hemodynamically stable. On room air Medical Exam Vital signs and Labs for Last 24 Hours: Vital Signs Temp Pulse Pulse Resp BP Pulse Ox O2 Del Method 07/06/24 22:39 Nasal Cannula 07/06/24 20:40 Room Air 07/06/24 20:05 98 Room Air 07/06/24 20:00 97.4 F L 73 18 151/69 H 93 L Room Air 07/06/24 17:00 Room Air 07/06/24 16:28 97.9 F 66 15 151/71 H 95 Room Air 07/06/24 15:14 Nasal Cannula 07/06/24 13:21 Nasal Cannula 07/06/24 12:00 97.5 F L 72 16 139/62 94 L Room Air 07/06/24 11:00 Nasal Cannula 07/06/24 10:34 68 07/06/24 10:34 68 07/06/24 09:13 Nasal Cannula 07/06/24 09:00 98 Nasal Cannula 07/06/24 08:36 97.8 F 78 15 164/78 H 98 Nasal Cannula 07/06/24 07:50 Nasal Cannula 07/06/24 06:24 Nasal Cannula 07/06/24 05:34 97 Nasal Cannula 07/06/24 05:34 98.0 F 72 16 176/76 H 97 Nasal Cannula 07/06/24 04:31 Nasal Cannula 07/06/24 00:00 150/76 H 07/05/24 23:56 98.2 F 72 16 155/71 H 98 Nasal Cannula 07/05/24 23:55 Nasal Cannula O2 Flow Rate 07/06/24 22:39 2 07/06/24 20:40 07/06/24 20:05 07/06/24 20:00 07/06/24 17:00 07/06/24 16:28 07/06/24 15:14 2 07/06/24 13:21 2 07/06/24 12:00 07/06/24 11:00 2 07/06/24 10:34 07/06/24 10:34 07/06/24 09:13 2 07/06/24 09:00 2 07/06/24 08:36 2 07/06/24 07:50 2 07/06/24 06:24 2 07/06/24 05:34 2 07/06/24 05:34 2 07/06/24 04:31 2 07/06/24 00:00 07/05/24 23:56 2 07/05/24 23:55 2 Intake and Output 07/06/24 07/06/24 07/06/24 07:59 15:59 23:59 Intake Total 350 / 470 120 / 470 Output Total 750 / 1550 400 / 1550 400 / 1550 Balance -400 / -1080 -400 / -1080 -280 / -1080 Intake: Intake, Oral Amount 350 / 470 120 / 470 Output: Output, Urine Amount 750 / 1550 400 / 1550 400 / 1550 Other: Number of Unmeasured Voids 1 1 Number of Bowel Movements 1 Laboratory Results - last 24 hr 07/05/24 21:00: Urine RBC 10-20, Urine WBC 3-5, Ur Squamous Epith Cells Occasional 07/06/24 01:44: Troponin I < 0.01 07/06/24 05:13: WBC 7.9, RBC 2.52 L, Hgb 7.7 L D, Hct 22.4 L, MCV 88.9, MCH 30.6, MCHC 34.4, RDW 14.5, Plt Count 157, MPV 11.1 H, Neut % (Auto) 72.9, Lymph % (Auto) 15.0, [place] % (Auto) 10.0 H, Eos % (Auto) 1.1, Baso % (Auto) 0.6, Neut # (Auto) 5.7, Lymph # (Auto) 1.2, [place] # (Auto) 0.8, Eos # (Auto) 0.1, Baso # (Auto) 0.1, Sodium 129 L, Potassium 3.6, Chloride 100, Carbon Dioxide 27, Anion Gap 5.6, BUN 80 H, Creatinine 4.50 H, Estimated Creat Clear 9, Estimated GFR 10 L*, Est GFR ( Amer) 12 L*, Glucose 75 D, Calcium 7.4 L, Phosphorus 4.8 H, Magnesium 1.8 D 07/06/24 17:03: Sodium 127 L, Potassium 3.6, Chloride 100, Carbon Dioxide 23, Anion Gap 7.6, BUN 77 H, Creatinine 4.30 H, Estimated Creat Clear 9, Estimated GFR 10 L*, Est GFR ( Amer) 12 L*, Glucose 110 H D, Calcium 7.2 L I & O for Labs for Last 24 Hours: Intake & Output 07/03/24 07/04/24 07/05/24 07/06/24 23:59 23:59 23:59 23:59 Intake Total 470 / 470 Output Total 200 / 200 1550 / 1550 Balance -200 / -200 -1080 / -1080 Weight 47.287 kg Microbiology Reports for the Last 24 Hours: Microbiology 07/06/24 10:45 Sputum - Expectorated Sputum Gram Stain - Final Constitutional: Present no acute distress, cachectic, chronically ill appearing and cooperative Head: Present atraumatic and normocephalic Respiratory: Present normal respiratory effort; Absent rhonchi, wheezes or crackles Cardiac: Present Reg Rate and Rhythm GI: Present soft and normal bowel sounds; Absent distention or tenderness Extremities: Present normal inspection, full ROM and edema (Trace at her ankles) Skin: Present intact; Absent erythema Neuro: Present Grossly Intact, alert, awake, oriented x 3 and moves all extremities Assessment and Plan *Assessment and plan (1) Acute kidney injury superimposed on stage 3b chronic kidney disease: Status: Acute Category: Medical Code(s): N17.9 - Acute kidney failure, unspecified; N18.32 - Chronic kidney disease, stage 3b (2) Bilateral lower extremity edema: Status: Acute Category: Medical Code(s): R60.0 - Localized edema (3) Pneumonia: Status: Acute Qualifiers: Pneumonia type: due to unspecified organism Category: Medical Code(s): J18.9 - Pneumonia, unspecified organism (4) Paroxysmal A-fib: Status: Acute Category: Medical Code(s): I48.0 - Paroxysmal atrial fibrillation (5) Chronic anticoagulation: Status: Acute Category: Medical Code(s): Z79.01 - assisted (current) use of anticoagulants (6) COPD (chronic obstructive pulmonary disease): Status: Chronic Qualifiers: COPD type: unspecified COPD Qualified Code(s): J44.9 - Chronic obstructive pulmonary disease, unspecified Category: Medical Code(s): J44.9 - Chronic obstructive pulmonary disease, unspecified (7) (HFpEF) heart failure with preserved ejection fraction: Status: Acute Qualifiers: Heart failure chronicity: chronic Qualified Code(s): I50.32 - Chronic diastolic (congestive) heart failure Category: Medical Code(s): I50.30 - Unspecified diastolic (congestive) heart failure Plan Seeing slow improvement. Continues to require patient management. Problems addressed as follows: #Acute kidney injury superimposed on stage IIIb CKD Sees nephrology in the outpatient setting Patient with 16 pound weight loss in 4 days. GIULIANA likely prerenal in nature. Restarted home diuretics this week. Holding diuretics, responding to fluid resuscitation. Discontinue IV fluids and transition to oral resuscitation. BUN stable 80, creatinine 4.5. Making urine. Potassium 3.6 with magnesium 1.8. Sodium low at 124. Repeat BMP ordered for this evening. Repeat CBC, CMP, magnesium ordered for the morning Strict monitoring of ins and outs # Suspected chronic diastolic heart failure Prior echocardiogram with grade 1 diastolic dysfunction Repeat echo obtained showing normal BiV function. Elevated proBNP of 10,700 although asymptomatic Continue to hold diuretics due to GIULIANA Oxygenating well on room air at this time. 2 L nasal cannula as needed at night. # Resolving pneumonia # COPD Stranding opacity of the left lower chest concerning for active infiltrate. Has been treated recently for bronchiectasis. Completed oral antibiotics upon discharge from [facility] Hold on further antibiotics. White count normal at 7.9. No productive cough or shortness of breath. Continue DuoNebs as needed every 6 hours #Atrial fibrillation, paroxysmal #Chronic anticoagulation Stable, continue Eliquis at this time #Hypertension: Continue home carvedilol #Hyponatremia Chronic hypo-osmolar given diuretic usage Monitor with IV fluid administration DNI
--- NOTE | 2024-07-06 23:20 | PC.NURSE ---
pt resting, no needs voiced, call light within reach, oxygen 2L in place, respiration wnl
[2024-07-07] VITALS (8 sets, daily range): BP systolic 135–165; BP diastolic 58–74; PULSE 65–74; RESP 16–20; TEMP 36.3–36.6; O2SAT 93–98; BMI 18.8
--- NOTE | 2024-07-07 01:29 | PC.NURSE ---
patient sleeping, respirations even and unlabored, Oxygen in place, call light within reach
--- NOTE | 2024-07-07 03:15 | PC.NURSE ---
Patient sleeping, no distress noted, call light within reach.
--- NOTE | 2024-07-07 04:00 | PC.NURSE ---
Pt reassessed, Patient awake, reports she is feeling some better, ambulates well, Lungs noted to be diminshed. Mild expiratory wheeze heard at times on left lower lobe, Sputum sample still pending. Patient is afrebrile. Edema improved, Trace edema noted to BLE. patient denies any further episodes of diarrhea. Vitals WNL. Call light within reach
--- NOTE | 2024-07-07 05:16 | PC.NURSE ---
Patient sleeping. No signs of discomfort or distress. Call light within reach
[2024-07-07] MEDS: ONDANSETRON 4MG/2ML VIAL 4 MG IV ×2 (07:27→22:18)
[2024-07-07 07:33] LABS: Basophils % 0.7 % (0.1-2.0); Eosinophils # 0.3 Kmm3 (0.0-0.4); Eosinophils % 5.4 % (0.1-12.0); Hematocrit 22.7 % (37.0-47.0); Hemoglobin 7.8 g/dL (12.2-16.2); Immature Granulocytes # 0.02 10^3uL; Immature Granulocytes % 0.3 %; Lymphocytes # 1.2 K/mm3 (0.7-4.5); Lymphocytes % 20.8 % (10-50); Mean Corpuscular HGB Conc 34.4 g/dL (31.8-35.4); Mean Corpuscular Hemoglobin 30.7 pg (27.0-31.2); Mean Corpuscular Volume 89.4 fl (81-99); Mean Platelet Volume 10.3 fl (7.4-10.4); Monocytes # 0.7 K/mm3 (0.1-1.0); Monocytes % 12.3 % (1.7-9.3); Neutrophils # 3.5 K/mm3 (1.8-7.8); Neutrophils % 60.5 % (37.0-80.0); Nucleated Red Blood Cells # 0 10^3/uL; Nucleated Red Blood Cells % 0 %; Platelet Count 157 K/mm3 (142-424); Red Blood Count 2.54 M/mm3 (4.20-5.40); Red Cell Distribution Width 14.3 % (11.5-17.5); Red Cell Distribution Width-SD 46.1 fL; White Blood Count 5.8 K/mm3 (4.8-10.8)
[2024-07-07 07:50] LABS: Chloride 99 mmol/L (98-107)
[2024-07-07 07:51] LABS: Albumin Level 2.6 g/dl (3.5-5.0); Potassium 3.7 mmoL/L (3.5-5.1); Sodium 128 mmol/L (136-145)
[2024-07-07 07:53] LABS: Anion Gap 6.7 mEq/L (5-15); Blood Urea Nitrogen 67 mg/dl (7-17); Carbon Dioxide 26 mmol/L (22.0-30.0); Creatinine Clearance Estimated 9 mL/min (50-200); Estimated Glomerular Filt Rate 10 ml/min (>60); GFR (African American) 12 ML/MIN (>60)
[2024-07-07 07:54] LABS: Alanine Aminotransferase 8 U/L (12-78); Albumin/Globulin Ratio 0.9 (1.1-1.8); Alkaline Phosphatase 57 U/L (38-126); Aspartate Amino Transferase 24 U/L (14-36); Bilirubin,Total 0.2 mg/dl (0.2-1.3); Calcium 7.3 mg/dl (8.4-10.2); Globulin 2.8 g/dL (1.3-3.2); Glucose 88 mg/dl (74-100); Magnesium 1.5 mg/dl (1.6-2.3); Total Protein,Serum 5.4 g/dl (6.3-8.2)
[2024-07-07 08:17] LABS: Adenovirus F 40/41, stool Not Detected (NotDetected); Astrovirus Not Detected (NotDetected); Campylobacter Not Detected (NotDetected); Clostridium Difficile A/B, PCR Not Detected (NotDetected); Cryptosporidium Not Detected (NotDetected); Cyclospora Cayetanesis Not Detected (NotDetected); Entamoeba histolytica Not Detected (NotDetected); Enteroaggregative E coli Not Detected (NotDetected); Enteropathogenic E coli Not Detected (NotDetected); Enterotoxigenic E coli Not Detected (NotDetected); Giardia lamblia Not Detected (NotDetected); Norovirus Not Detected (NotDetected); Plesimonas Shigalloides, PCR Not Detected (NotDetected); Rotavirus A Not Detected (NotDetected); Salmonella, PCR Not Detected (NotDetected); Sapovirus Not Detected (NotDetected); Shiga-like toxin E coli Not Detected (NotDetected); Shigella Enterovasive E coli Not Detected (NotDetected); Vibrio Cholerae Not Detected (NotDetected); Vibrio, PCR Not Detected (NotDetected); Yersinia Entercolitica, PCR Not Detected (NotDetected)
[2024-07-07] MEDS: AMLODIPINE 10MG TABLET 10 MG PO (08:37)
[2024-07-07] MEDS: APIXABAN 5MG TABLET 2.5 MG PO (08:37)
[2024-07-07] MEDS: CARVEDILOL 25MG TABLET 25 MG PO ×2 (08:37→22:18)
[2024-07-07] MEDS: IPRATROPIUM/ALBUTEROL 3 ML NEB IH (08:38)
[2024-07-07] MEDS: LACTATED RINGERS 1000ML 500 ML 250 ML IV (13:32)
--- NOTE | 2024-07-07 13:40 | P.PN_ITS ---
Subjective *Date: 07/07/24 *Time: 14:31 Interval history: Denies any shortness of breath or chest pain. Nonproductive intermittent cough, at baseline. Alert and oriented x 4. Family at bedside. Having good urine output. Tolerating p.o. intake. Medical Exam Vital signs and Labs for Last 24 Hours: Vital Signs Temp Pulse Resp BP Pulse Ox O2 Del Method O2 Flow Rate 07/07/24 13:23 Room Air 07/07/24 12:00 97.8 F 68 16 142/72 H 95 Room Air 07/07/24 12:00 Room Air 07/07/24 11:33 Room Air 07/07/24 10:34 Room Air 07/07/24 09:16 Room Air 07/07/24 08:40 Room Air 07/07/24 08:40 97.4 F L 71 16 153/68 H 94 L Room Air 07/07/24 08:40 94 L Room Air 07/07/24 07:35 Room Air 07/07/24 06:02 Nasal Cannula 2 07/07/24 04:00 97.9 F 68 17 152/67 H 98 Room Air 07/07/24 02:00 Nasal Cannula 2 07/07/24 00:14 97.9 F 66 18 135/58 L 97 Nasal Cannula 2 07/07/24 00:12 Nasal Cannula 2 07/06/24 22:39 Nasal Cannula 2 07/06/24 20:40 Room Air 07/06/24 20:05 98 Room Air 07/06/24 20:00 97.4 F L 73 18 151/69 H 93 L Room Air 07/06/24 17:00 Room Air 07/06/24 16:28 97.9 F 66 15 151/71 H 95 Room Air 07/06/24 15:14 Nasal Cannula 2 Intake and Output 07/06/24 07/07/24 07/07/24 23:59 07:59 15:59 Intake Total 120 / 470 355 / 355 Output Total 500 / 1650 950 / 1300 350 / 1300 Balance -380 / -1180 -595 / -945 -350 / -945 Intake: Intake, Oral Amount 120 / 470 355 / 355 Output: Output, Urine Amount 500 / 1650 950 / 1300 350 / 1300 Other: Number of Bowel Movements 1 1 Weight 48.534 kg Laboratory Results - last 24 hr 07/06/24 17:03: Sodium 127 L, Potassium 3.6, Chloride 100, Carbon Dioxide 23, Anion Gap 7.6, BUN 77 H, Creatinine 4.30 H, Estimated Creat Clear 9, Estimated GFR 10 L*, Est GFR ( Amer) 12 L*, Glucose 110 H D, Calcium 7.2 L 07/07/24 07:05: WBC 5.8 D, RBC 2.54 L, Hgb 7.8 L, Hct 22.7 L, MCV 89.4, MCH 30.7, MCHC 34.4, RDW 14.3, Plt Count 157, MPV 10.3, Neut % (Auto) 60.5, Lymph % (Auto) 20.8, [place] % (Auto) 12.3 H, Eos % (Auto) 5.4, Baso % (Auto) 0.7, Neut # (Auto) 3.5, Lymph # (Auto) 1.2, [place] # (Auto) 0.7, Eos # (Auto) 0.3, Baso # (Auto) 0.0, Sodium 128 L, Potassium 3.7, Chloride 99, Carbon Dioxide 26, Anion Gap 6.7, BUN 67 H, Creatinine 4.40 H, Estimated Creat Clear 9, Estimated GFR 10 L*, Est GFR ( Amer) 12 L*, Glucose 88, Calcium 7.3 L, Magnesium 1.5 L D, Total Bilirubin 0.2, AST 24 D, ALT 8 L D, Alkaline Phosphatase 57, Total Protein 5.4 L, Albumin 2.6 L, Globulin 2.8, Albumin/Globulin Ratio 0.9 L 07/07/24 07:35: Stl Aeromonas (PCR) Not detected, Stl C. cayetanensis PCR Not detected, Stool Rotavirus (PCR) Not detected, Stl Adenov F 40/41 PCR Not detected, Stool Astrovirus (PCR) Not detected, Stool Campylobacter PCR Not detected, Stl C.difficile Tox PCR Not detected, Stool Cryptosporidium PCR Not detected, Stl E.coli Shiga Tox PCR Not detected, Stool E coli O157 PCR Not detected, Stl Enterotoxigenic E PCR Not detected, Stool EPEC (PCR) Not detected, Stool EAEC (PCR) Not detected, Stl E. histolytica PCR Not detected, Stool Giardia Lamblia PCR Not detected, Stool Salmonella PCR Not detected, Stool Sapovirus (PCR) Not detected, Stl P. shigelloides PCR Not detected, Stl Shigella/EIEC PCR Not detected, St Y.enterocolitica PCR Not detected, Stool Vibrio (PCR) Not detected, Stl Vibrio cholerae PCR Not detected, Stl Norovirus GI/GII PCR Not detected I & O for Labs for Last 24 Hours: Intake & Output 07/04/24 07/05/24 07/06/24 07/07/24 23:59 23:59 23:59 23:59 Intake Total 470 / 470 355 / 355 Output Total 200 / 200 1650 / 1650 1300 / 1300 Balance -200 / -200 -1180 / -1180 -945 / -945 Weight 47.287 kg 48.534 kg Microbiology Reports for the Last 24 Hours: Microbiology 07/06/24 10:45 Sputum - Expectorated Sputum Gram Stain - Final Constitutional: Present no acute distress, cachectic, chronically ill appearing and cooperative Head: Present atraumatic and normocephalic Respiratory: Present normal respiratory effort; Absent rhonchi, wheezes or crackles Cardiac: Present Reg Rate and Rhythm GI: Present soft and normal bowel sounds; Absent distention or tenderness Extremities: Present normal inspection, full ROM and edema (Trace at her ankles) Skin: Present intact; Absent erythema Neuro: Present Grossly Intact, alert, awake, oriented x 3 and moves all extremities Assessment and Plan *Assessment and plan (1) Acute kidney injury superimposed on stage 3b chronic kidney disease: Status: Acute Category: Medical Code(s): N17.9 - Acute kidney failure, unspecified; N18.32 - Chronic kidney disease, stage 3b (2) Bilateral lower extremity edema: Status: Acute Category: Medical Code(s): R60.0 - Localized edema (3) Pneumonia: Status: Acute Qualifiers: Pneumonia type: due to unspecified organism Category: Medical Code(s): J18.9 - Pneumonia, unspecified organism (4) Paroxysmal A-fib: Status: Acute Category: Medical Code(s): I48.0 - Paroxysmal atrial fibrillation (5) Chronic anticoagulation: Status: Acute Category: Medical Code(s): Z79.01 - USP (current) use of anticoagulants (6) COPD (chronic obstructive pulmonary disease): Status: Chronic Qualifiers: COPD type: unspecified COPD Qualified Code(s): J44.9 - Chronic obstructive pulmonary disease, unspecified Category: Medical Code(s): J44.9 - Chronic obstructive pulmonary disease, unspecified (7) (HFpEF) heart failure with preserved ejection fraction: Status: Acute Qualifiers: Heart failure chronicity: chronic Qualified Code(s): I50.32 - Chronic diastolic (congestive) heart failure Category: Medical Code(s): I50.30 - Unspecified diastolic (congestive) heart failure Plan Seeing slow improvement. Continues to require patient management. Problems addressed as follows: #Acute kidney injury superimposed on stage IIIb CKD Sees nephrology in the outpatient setting Patient with 16 pound weight loss in 4 days. GIULIANA likely prerenal in nature. Restarted home diuretics this week. Holding diuretics, responding to fluid resuscitation - Kidney function remains abnormal today. BUN improved to 67, creatinine still at 4.4. Repeat CBC, CMP, magnesium ordered for the morning and BMP ordered for the evening. Magnesium 1.5, replacing per protocol. Potassium 3.7. - Will administer 500 cc of LR over 2 hours - Strict monitoring of ins and outs # Suspected chronic diastolic heart failure Prior echocardiogram with grade 1 diastolic dysfunction Repeat echo obtained showing normal BiV function. Elevated proBNP of 10,700 although asymptomatic Continue to hold diuretics due to GIULIANA Oxygenating well on room air at this time. 2 L nasal cannula as needed at night. # Resolving pneumonia # COPD Stranding opacity of the left lower chest concerning for active infiltrate. Has been treated recently for bronchiectasis. Completed oral antibiotics upon discharge from [facility] Hold on further antibiotics. White count normal at 7.9. No productive cough or shortness of breath. Continue DuoNebs as needed every 6 hours #Atrial fibrillation, paroxysmal #Chronic anticoagulation Stable, continue Eliquis at this time #Hypertension: Continue home carvedilol #Hyponatremia Chronic hypo-osmolar given diuretic usage Monitor with IV fluid administration DNI
[2024-07-07] MEDS: MAGNESIUM SULFATE IN WATER 2 GM/50 ML PIGGYBACK IV ×2 (13:54→20:56)
[2024-07-07 18:35] LABS: Chloride 97 mmol/L (98-107); Sodium 126 mmol/L (136-145)
[2024-07-07 18:38] LABS: Blood Urea Nitrogen 66 mg/dl (7-17); Creatinine Clearance Estimated 10 mL/min (50-200); Estimated Glomerular Filt Rate 10 ml/min (>60); GFR (African American) 13 ML/MIN (>60)
[2024-07-07 18:39] LABS: Calcium 7.7 mg/dl (8.4-10.2); Carbon Dioxide 25 mmol/L (22.0-30.0); Glucose 124 mg/dl (74-100)
[2024-07-08 04:30] VITALS: BP 160/64; PULSE 66; RESP 17; TEMP 36.4; O2SAT 94
[2024-07-08] MEDS: ACETAMINOPHEN 325MG TAB 650 MG PO (04:33)
[2024-07-08] MEDS: ONDANSETRON 4MG/2ML VIAL 4 MG IV (06:35)
--- NOTE | 2024-07-08 07:00 | EXP.DC.SUM ---
General Admission date:: 07/05/24 Discharge date: 07/08/24 HPI HPI HPI: This is a 69-year-old female with a past medical history of paroxysmal A-fib on Eliquis, hypertension, chronic obstructive pulmonary disease, lymphedema, rheumatoid arthritis that on biologic medications who presents emergency department today with complaints of generalized weakness. Patient reports being admitted to [facility] and discharged on 06/23/2024 for similar presentation. States that she went into the hospital for generalized weakness and shortness of breath. Was found to have acute renal failure, fluid retention and bronchiectasis.. She reports when she was discharged from [facility] she was told to hold off taking her Bumex and metolazone. She reportedly had elevated creatinine levels at the outside hospital of around 4 and discharged home with a creatinine level around 2. She states that between June 29 and today she is lost 16 pounds of fluid. States she has felt weak and generally fatigued over the last several days. She reports restarting her Bumex and metolazone this week. She denies any fever or cough. Denies any diarrhea or vomiting. States that she still has lower extremity edema in her legs and is wearing compression stockings. She reports continuing to make urine. She denies COLE or orthopnea Emergency department workup notable for elevated creatinine level of 4.4, BUN of 86, chloride of 96, sodium of 129. proBNP of 10,700. Vital signs are stable she is oxygenating well on room air. She does not appear short of breath with conversation. Chest imaging notable for stranding opacity in the left lower chest concerning for active infiltrate. Hospital Course Hospital Course Hospital Course: 69-year-old female admitted for acute kidney injury and dehydration. Showing some improvement. Hemodynamically stable. Will discharge home with close outpatient follow-up given improving trending creatinine. Close follow-up with PCP this week. Problems addressed as follows: #Acute kidney injury superimposed on stage IIIb CKD Sees nephrology in the outpatient setting. Patient with 16 pound weight loss in 4 days. GIULIANA likely prerenal in nature. Restarted home diuretics this week. Holding diuretics during admission. Gentle hydration administered. Kidney function showing gradual improvement. Creatinine and BUN elevated at 4.5 and 86 respectively on admission, improved to 4.0 and 62 respectively by day of discharge. Making good urine. Electrolytes stable. Recommend repeat labs in 1 to 2 days to monitor continued improvement with oral hydration. Recommend holding diuretics. Encourage patient to follow-up with her PCP within 1 week and discuss further diuretic use at that time. Follow-up with bilingual elementary school teacher in the next 2 to 4 weeks for further management. Caution with nephrotoxins. # Suspected chronic diastolic heart failure Prior echocardiogram with grade 1 diastolic dysfunction. Repeat echo obtained showing normal BiV function. Elevated proBNP of 10,700 although asymptomatic. Continue to hold diuretics due to GIULIANA. Oxygenating well on room air at this time. 2 L nasal cannula as needed at night per baseline usage. # Resolving pneumonia # COPD Stranding opacity of the left lower chest concerning for active infiltrate. Has been treated recently for bronchiectasis. Completed oral antibiotics upon discharge from [facility]. White count remained normal during admission. No further antibiotics administered. No productive cough or shortness of breath. Continue DuoNebs as needed or inhalers as needed per home regimen. White count normal at 5.5, hemoglobin with chronic anemia at 7.8. #Atrial fibrillation, paroxysmal #Chronic anticoagulation Stable, continue Eliquis at this time #Hypertension: Continue home carvedilol Total time spent on discharge 32 minutes in counseling, documentation, chart review, and direct care with patient. Exam Data for Last 24 hours Vital signs and Labs for Last 24 Hours: Temp Pulse Resp BP Pulse Ox O2 Del Method O2 Flow Rate 97.6 F 66 17 160/64 H 94 L Nasal Cannula 2 07/08/24 04:30 07/08/24 04:30 07/08/24 04:30 07/08/24 04:30 07/08/24 04:30 07/08/24 05:00 07/08/24 05:00 Laboratory Results - last 24 hr 07/07/24 07:05: WBC 5.8 D, RBC 2.54 L, Hgb 7.8 L, Hct 22.7 L, MCV 89.4, MCH 30.7, MCHC 34.4, RDW 14.3, Plt Count 157, MPV 10.3, Neut % (Auto) 60.5, Lymph % (Auto) 20.8, [place] % (Auto) 12.3 H, Eos % (Auto) 5.4, Baso % (Auto) 0.7, Neut # (Auto) 3.5, Lymph # (Auto) 1.2, [place] # (Auto) 0.7, Eos # (Auto) 0.3, Baso # (Auto) 0.0, Sodium 128 L, Potassium 3.7, Chloride 99, Carbon Dioxide 26, Anion Gap 6.7, BUN 67 H, Creatinine 4.40 H, Estimated Creat Clear 9, Estimated GFR 10 L*, Est GFR ( Amer) 12 L*, Glucose 88, Calcium 7.3 L, Magnesium 1.5 L D, Total Bilirubin 0.2, AST 24 D, ALT 8 L D, Alkaline Phosphatase 57, Total Protein 5.4 L, Albumin 2.6 L, Globulin 2.8, Albumin/Globulin Ratio 0.9 L 07/07/24 07:35: Stl Aeromonas (PCR) Not detected, Stl C. cayetanensis PCR Not detected, Stool Rotavirus (PCR) Not detected, Stl Adenov F 40/41 PCR Not detected, Stool Astrovirus (PCR) Not detected, Stool Campylobacter PCR Not detected, Stl C.difficile Tox PCR Not detected, Stool Cryptosporidium PCR Not detected, Stl E.coli Shiga Tox PCR Not detected, Stool E coli O157 PCR Not detected, Stl Enterotoxigenic E PCR Not detected, Stool EPEC (PCR) Not detected, Stool EAEC (PCR) Not detected, Stl E. histolytica PCR Not detected, Stool Giardia Lamblia PCR Not detected, Stool Salmonella PCR Not detected, Stool Sapovirus (PCR) Not detected, Stl P. shigelloides PCR Not detected, Stl Shigella/EIEC PCR Not detected, St Y.enterocolitica PCR Not detected, Stool Vibrio (PCR) Not detected, Stl Vibrio cholerae PCR Not detected, Stl Norovirus GI/GII PCR Not detected 07/07/24 18:15: Sodium 126 L, Potassium 4.0, Chloride 97 L, Carbon Dioxide 25, Anion Gap 8.0, BUN 66 H, Creatinine 4.20 H, Estimated Creat Clear 10, Estimated GFR 10 L*, Est GFR ( Amer) 13 L*, Glucose 124 H D, Calcium 7.7 L I & O for Last 24 hours: Intake & Output 07/05/24 07/06/24 07/07/24 07/08/24 23:59 23:59 23:59 23:59 Intake Total 470 / 470 2185 / 2185 Output Total 200 / 200 1650 / 1650 2024 450 / 450 Balance -200 / -200 -1180 / -1180 160 / 160 -450 / -450 Weight 47.287 kg 48.534 kg 50.077 kg Microbiology Reports for the Last 24 Hours: Microbiology 07/06/24 10:45 Sputum - Expectorated Sputum Gram Stain - Final 07/06/24 10:45 Sputum - Expectorated Sputum Sputum Culture - Preliminary Constitutional Constitutional: no acute distress, thin and cooperative *Routine HEENT Exam Head: Present normocephalic Eye: Present EOMI and PERRL ENT: Present mucous membranes moist *Routine Neck Exam Neck: Present supple; Absent lymphadenopathy *Routine Respiratory Exam Respiratory: Present crackles (Crackles posterior lung banks, suspicious for interstitial lung disease) and normal respiratory effort; Absent accessory muscle use, rhonchi or wheezes *Routine Cardiovascular Exam Cardiovascular: Present RRR *Routine Abdominal Exam Abdominal: Present soft and normoactive bowel sounds; Absent tenderness *Routine Rectal Exam Patient deferred: visual exam *Routine Exam Patient deferred: external exam *Routine Extremities Exam Extremities: Present edema (Ankle edema.); Absent cyanosis or clubbing *Routine Skin Exam Skin: Present warm; Absent rash *Routine Neurological Exam Neurological: Present alert, oriented X3 and moving all extremities; Absent altered mental status Results Data Completed and Pending Labs on day of discharge: Labs from last 24 hours 07/07/24 07/07/24 07/07/24 18:15 07:35 07:05 WBC 5.8 D RBC 2.54 L Hgb 7.8 L Hct 22.7 L MCV 89.4 MCH 30.7 MCHC 34.4 RDW 14.3 Plt Count 157 MPV 10.3 Neut % (Auto) 60.5 Lymph % (Auto) 20.8 [place] % (Auto) 12.3 H Eos % (Auto) 5.4 Baso % (Auto) 0.7 Neut # (Auto) 3.5 Lymph # (Auto) 1.2 [place] # (Auto) 0.7 Eos # (Auto) 0.3 Baso # (Auto) 0.0 Sodium 126 L 128 L Potassium 4.0 3.7 Chloride 97 L 99 Carbon Dioxide 25 26 Anion Gap 8.0 6.7 BUN 66 H 67 H Creatinine 4.20 H 4.40 H Estimated Creat Clear 10 9 Estimated GFR 10 L* 10 L* Est GFR ( Amer) 13 L* 12 L* Glucose 124 H D 88 Calcium 7.7 L 7.3 L Magnesium 1.5 L D Total Bilirubin 0.2 AST 24 D ALT 8 L D Alkaline Phosphatase 57 Total Protein 5.4 L Albumin 2.6 L Globulin 2.8 Albumin/Globulin Ratio 0.9 L Stl Aeromonas (PCR) Not detected Stl C. cayetanensis PCR Not detected Stool Rotavirus (PCR) Not detected Stl Adenov F 40/41 PCR Not detected Stool Astrovirus (PCR) Not detected Stool Campylobacter PCR Not detected Stl C.difficile Tox PCR Not detected Stool Cryptosporidium PCR Not detected Stl E.coli Shiga Tox PCR Not detected Stool E coli O157 PCR Not detected Stl Enterotoxigenic E PCR Not detected Stool EPEC (PCR) Not detected Stool EAEC (PCR) Not detected Stl E. histolytica PCR Not detected Stool Giardia Lamblia PCR Not detected Stool Salmonella PCR Not detected Stool Sapovirus (PCR) Not detected Stl P. shigelloides PCR Not detected Stl Shigella/EIEC PCR Not detected St Y.enterocolitica PCR Not detected Stool Vibrio (PCR) Not detected Stl Vibrio cholerae PCR Not detected Stl Norovirus GI/GII PCR Not detected Preliminary micro results at discharge 07/06/24 10:45 Sputum Culture - Preliminary Sputum - Expectorated Sputum DS: Diagnosis Discharge Diagnosis (1) Acute kidney injury superimposed on stage 3b chronic kidney disease: Status: Acute Code(s): N17.9 - Acute kidney failure, unspecified; N18.32 - Chronic kidney disease, stage 3b (2) Bilateral lower extremity edema: Status: Acute Code(s): R60.0 - Localized edema (3) Pneumonia: Status: Acute Code(s): J18.9 - Pneumonia, unspecified organism Qualifiers: Pneumonia type: due to unspecified organism (4) Paroxysmal A-fib: Status: Acute Code(s): I48.0 - Paroxysmal atrial fibrillation (5) Chronic anticoagulation: Status: Acute Code(s): Z79.01 - snf (current) use of anticoagulants (6) COPD (chronic obstructive pulmonary disease): Status: Chronic Code(s): J44.9 - Chronic obstructive pulmonary disease, unspecified Qualifiers: COPD type: unspecified COPD Qualified Code(s): J44.9 - Chronic obstructive pulmonary disease, unspecified (7) (HFpEF) heart failure with preserved ejection fraction: Status: Acute Code(s): I50.30 - Unspecified diastolic (congestive) heart failure Qualifiers: Heart failure chronicity: chronic Qualified Code(s): I50.32 - Chronic diastolic (congestive) heart failure Meds Home Medications and Allergies Home Medications ?Medication ?Instructions ?Recorded ?Confirmed ?Type valacyclovir 500 mg tablet 500 mg PO DAILY 12/24/18 07/05/24 History albuterol sulfate 90 mcg/actuation 1 inh inhalation QIDP PRN 02/22/22 07/05/24 History aerosol inhaler shortness of breath or wheezing carvedilol 25 mg tablet 25 mg PO BID 02/22/22 07/05/24 History adalimumab 20 mg/0.2 mL 50 mg SQ Q14D 04/29/22 07/05/24 History subcutaneous syringe kit (Humira(CF)) amlodipine 10 mg tablet 10 mg PO DAILY 04/29/22 07/05/24 History bumetanide 2 mg tablet 2 mg PO TID 04/29/22 07/06/24 History fluticasone fur. 100 mcg-umeclid 1 ea inhalation DAILY #90 ea 08/05/22 07/05/24 Rx 62.5 mcg-vilant 25 mcg inhalat.powder (Trelegy Ellipta) ipratropium 0.5 mg-albuterol 3 mg 3 ml inhalation Q6H PRN shortness 08/05/22 07/05/24 Rx (2.5 mg base)/3 mL nebulization of breath or wheezing #180 mL soln apixaban 2.5 mg tablet (Eliquis) 2.5 mg PO BID 07/06/24 07/06/24 History metolazone 2.5 mg tablet 2.5 mg PO DAILY 07/06/24 07/06/24 History ondansetron 4 mg disintegrating 4 mg PO Q8H PRN nausea and 07/08/24 Rx tablet vomiting #20 tabs New Prescriptions to Start Prescriptions: ondansetron Shakeel Berry Allergies Allergy/AdvReac Type Severity Reaction Status Date / Time amoxicillin Allergy Other Verified 07/05/24 22:08 budesonide Allergy Other Verified 07/05/24 22:08 ciprofloxacin (From Cipro) Allergy Other Verified 07/05/24 22:08 clindamycin Allergy Other Verified 07/05/24 22:08 linezolid (From Zyvox) Allergy Other Verified 07/05/24 22:08 metoprolol Allergy Other Verified 07/05/24 22:08 morphine Allergy Other Verified 07/05/24 22:08 Penicillins Allergy Other Verified 07/05/24 22:08 sulfamethoxazole (From Allergy Other Verified 07/05/24 22:08 Bactrim) tobramycin Allergy Other Verified 07/05/24 22:08 trimethoprim (From Bactrim) Allergy Other Verified 07/05/24 22:08 Discharge Plan Disposition Patient Disposition: Home, Self-Care Condition: Fair Discharge Order Discharge Orders: Discharge Order (Routine); Ordered 07/08/24 Ordered By: Shakeel Berry Follow up Plan Follow up with: Nehemiah Manning MD [Primary Care Provider] - Enter time for follow up (Call the office on Tuesday to setup an appointment for 1 week.) Prescriptions/Medication Reconciliation: New ondansetron 4 mg tablet,disintegrating 4 mg PO Q8H PRN (Reason: nausea and vomiting) Qty: 20 0RF Continued amlodipine 10 mg tablet 10 mg PO DAILY Humira(CF) 20 mg/0.2 mL syringe kit 50 mg SQ Q14D Rx Instructions: on tuesday Trelegy Ellipta 100-62.5-25 mcg blister with device 1 ea inhalation DAILY Qty: 90 3RF ipratropium-albuterol 0.5 mg-3 mg(2.5 mg base)/3 mL solution for nebulization 3 ml INHALATION Q6H PRN (Reason: shortness of breath or wheezing) Qty: 180 3RF Eliquis 2.5 mg Tablet 2.5 mg PO BID valacyclovir 500 MG tablet 500 mg PO DAILY carvedilol 25 mg tablet 25 mg PO BID albuterol sulfate 90 mcg/actuation HFA aerosol inhaler 1 inh INHALATION QIDP PRN (Reason: shortness of breath or wheezing) Held bumetanide 2 mg tablet 2 mg PO TID Hold Instructions: pending re-evaluation by PCP and Nephro as outpt metolazone 2.5 mg tablet 2.5 mg PO DAILY Hold Instructions: pending follow-up with PCP and Nephro as outpt Problem Reconciliation Problems Reviewed?: Yes Patient Discharge Instructions ACTIVITY: Continue current activity DIET: continue same diet Patient Instructions: Pneumonia--Adult, DI for Heart Failure, Acute Kidney Injury Print Language: [place] Providers Primary Care Provider: Nehemiah Manning Admit Provider: Shakeel Berry Attending Provider: Shakeel Berry
[2024-07-08 07:21] VITALS: BP 152/69; PULSE 64; RESP 14; TEMP 36.3; O2SAT 99
[2024-07-08 08:50] LABS: Basophils % 0.5 % (0.1-2.0); Eosinophils # 0.3 Kmm3 (0.0-0.4); Eosinophils % 5.5 % (0.1-12.0); Hematocrit 22.7 % (37.0-47.0); Hemoglobin 7.8 g/dL (12.2-16.2); Immature Granulocytes # 0.01 10^3uL; Immature Granulocytes % 0.2 %; Lymphocytes # 0.9 K/mm3 (0.7-4.5); Mean Corpuscular HGB Conc 34.4 g/dL (31.8-35.4); Mean Corpuscular Hemoglobin 30.4 pg (27.0-31.2); Mean Corpuscular Volume 88.3 fl (81-99); Mean Platelet Volume 10.7 fl (7.4-10.4); Monocytes # 0.6 K/mm3 (0.1-1.0); Monocytes % 11.5 % (1.7-9.3); Neutrophils # 3.6 K/mm3 (1.8-7.8); Neutrophils % 65.3 % (37.0-80.0); Nucleated Red Blood Cells # 0 10^3/uL; Nucleated Red Blood Cells % 0 %; Platelet Count 172 K/mm3 (142-424); Red Blood Count 2.57 M/mm3 (4.20-5.40); Red Cell Distribution Width 14.1 % (11.5-17.5); Red Cell Distribution Width-SD 45.1 fL; White Blood Count 5.5 K/mm3 (4.8-10.8)
[2024-07-08 08:55] LABS: Albumin Level 2.7 g/dl (3.5-5.0); Chloride 96 mmol/L (98-107); Potassium 3.6 mmoL/L (3.5-5.1); Sodium 124 mmol/L (136-145)
[2024-07-08 08:58] LABS: Alanine Aminotransferase 8 U/L (12-78); Alkaline Phosphatase 64 U/L (38-126); Anion Gap 8.6 mEq/L (5-15); Aspartate Amino Transferase 22 U/L (14-36); Bilirubin,Total 0.3 mg/dl (0.2-1.3); Blood Urea Nitrogen 62 mg/dl (7-17); Calcium 7.6 mg/dl (8.4-10.2); Carbon Dioxide 23 mmol/L (22.0-30.0); Creatinine Clearance Estimated 10 mL/min (50-200); Estimated Glomerular Filt Rate 11 ml/min (>60); GFR (African American) 13 ML/MIN (>60); Globulin 2.8 g/dL (1.3-3.2); Glucose 96 mg/dl (74-100); Total Protein,Serum 5.5 g/dl (6.3-8.2)
[2024-07-08 09:18] LABS: Magnesium 2.7 mg/dl (1.6-2.3)
--- NOTE | 2024-07-08 10:05 | PC.NURSE ---
Discharge education provided, questions encouraged and answered. Pt. v/u.
--- NOTE | 2024-07-10 11:11 | SW/DCPLANNER ---
Spoke with patient on the phone. Patient stated that she is feeling much better. Patient stated that she is aware of her upcoming appointments. Patient stated that she was able to get her new medicine picked up from [facility] pharmacy. Patient stated that she has no concerns or questions at this time. Jimmy Gallegos
== END 2024-07-08 10:10 | disposition home or self-care (01) | DRG 291 ==
LOC: ER 20:16 → OB 07-06 06:29
PROVIDERS: Nurse Practitioner Acute Care; Physician Assistant; Admitting Provider Internal Medicine Adolescent Medicine; Emergency Provider Emergency Medicine; PCP Internal Medicine Adolescent Medicine; Visit Provider Internal Medicine Adolescent Medicine
DX: I13.0 Hypertensive heart and chronic kidney disease with heart failure and stage 1 through stage 4 chronic kidney disease, or unspecified chronic kidney disease (principal); J18.9 Pneumonia, unspecified organism; N17.9 Acute kidney failure, unspecified; I50.32 Chronic diastolic (congestive) heart failure; E87.1 Hypo-osmolality and hyponatremia; Z68.1 Body mass index [BMI] 19.9 or less, adult; R64 Cachexia; E86.0 Dehydration; N18.32 Chronic kidney disease, stage 3b; R60.0 Localized edema; I48.0 Paroxysmal atrial fibrillation; Z79.01 Long term (current) use of anticoagulants; Z88.2 Allergy status to sulfonamides; Z88.0 Allergy status to penicillin; Z88.5 Allergy status to narcotic agent; Z88.1 Allergy status to other antibiotic agents; Z88.8 Allergy status to other drugs, medicaments and biological substances; Z79.899 Other long term (current) drug therapy; Z79.51 Long term (current) use of inhaled steroids; I89.0 Lymphedema, not elsewhere classified; I25.2 Old myocardial infarction; Z82.49 Family history of ischemic heart disease and other diseases of the circulatory system; Z95.5 Presence of coronary angioplasty implant and graft; M06.9 Rheumatoid arthritis, unspecified; J44.9 Chronic obstructive pulmonary disease, unspecified
CPT/HCPCS: 36415; 71045; 80048; 80053; 81001; 83605; 83690; 83735; 83880; 84100; 84484; 85025; 85610; 87070; 87077; 87186; 87205; 87507; 93005; 93306; 99285; J2405; J3475; J7030; J7120; J7620

== ENCOUNTER 2024-07-09 10:32 | Outpatient (CLI) | payer MEDICARE, SELFPAY ==
--- OUTSIDE RECORDS SUMMARY | 2024-07-09 10:34 | XMS_ITS | Data Portability ---
Author Organization [facility] [place] AD[place] Address [address] [place] [address] Assessment No assessment recorded. Plan of Treatment Reminders Order Date Submit Date Provider Last Modified By Organization Details Last Modified Time Details Appointments None recorded. Lab P-ANCA + C-ANCA, serum 2021 [facility] (Registration ), [address], [place], [address], 15:31:34 Referral None recorded. Procedures None recorded. Surgeries None recorded. Imaging None recorded. Medication Orders budesonide 1 mg/2 mL suspension for nebulizatio n 2021 [email or web address] [facility], [address] [place] [address], [facility], [place], [address], 09:35:03 Patient TargetsNo targets recorded. Patient Instructions Encounter Date Encounter Id Patient Instructions Last Modified By Organization Details Last Modified Time 02/08/2022 [id number] Patient's symptoms appear most consistent with LPR and reflux. I am remiss to place her on any additional medication given her sensitivities. We have reviewed lifestyle precautions including not eating for 2 hours before, sleeping with the head of bed elevated, limiting caffeine, dairy and alcohol. [email or web address] Not available 02/16/2022 14:27:22 09/06/2022 [id number] Discussed with patient that her post nasal [...] (C-anca) <1:20 titer neg:<1 :20 Not Available [facility] ([facility]) [address], [place], [address], 01/01/2022 15:10:42 01/01/20 22 01/01/2022 ANCA PANEL [...] l 1999; 111:5 07-51 3. Not Available [facility] ([facility]) [address], [place], [address], 01/01/2022 15:10:42 01/01/20 22 01/01/2022 ANCA PANEL (PANC A atypical panca <1:20 titer neg:<1 :20 The [facility]pi [place] pANCA patte rn has been obser panda in a signi fican t perce ntage of patie nts with ulcer ative colit is, prima ry scler osing chola ngiti s and autoi mmune hepat itis. Perfo rmed at: [facility] [address] [place] [address] 033 Lab Direc tor: David shaw PhD, Phone : [phone] Not Available [facility] ([facility]) [address], [place], [address], 01/01/2022 15:10:42 12/31/19 22 12/11/2021 CT, sinus es, w/o contr ast No observ ation record ed. [email or web address] [facility] [address], [place], [address], 12/31/2021 09:53:39 03/02/19 23 03/02/2022 trans -thor acic echoc ardio gram (TTE) (PROC ) No observ ation record ed. [email or web address] [facility] (Registration ) [address] [place] [address] [place], [address], 04/08/2022 11:16:06 Result Notes None recorded. Problems Name Problem SNOMED Code Status Onset Date Resolution Date Notes Provider Name and Address Organization Details Recorded Time Hypertensive disorder 44481922 Active Not Available [facility] 3 22:37:00 Bronchiectasi s 03194690 Active Not Available [facility] 3 22:37:00 Rheumatoid arthritis 24699754 Active Not Available [facility] 3 22:37:00 Dry eyes 206972082 Active Not Available [facility] 3 22:37:00 History of myocardial infarction 282596811 Active Not Available [facility] 3 22:37:00 Coronary arteriosclero sis 69088016 Active Not Available [facility] 3 22:37:00 Problem Notes None recorded. Procedures Surgical History Date Name Laterality Status Provider Name and Address Organization Details Recorded Time 01/01/20 22 Cerumen removal with microscope completed Anil LEVIN - [facility] - [place] & [place] 12/31/2021 09:35:17 ligation of fallopian tube completed Aundrea LEVIN - [facility] - [place] [facility] [place] 12/31/2021 09:13:47 Hysterectomy completed Aundrea LEVIN - [facility] [place] 12/31/2021 09:13:56 placement of stent in cardiac conduit completed Mary Dunnp [place] - [facility] & [place] 01/11/2022 09:41:15 Imaging Results Imaging Date Name Status LastModified by Organization Details LastModified Time 12/11/2021 CT, sinuses, w/o contrast completed [email or web address] [facility] [address], [place], [address], 12/31/2021 09:53:39 03/02/2022 trans-thoracic echocardiogram (TTE) (PROC) completed [address] (Registration) [address] [place] [address] [place], [address], 04/08/2022 11:16:06 Procedure Notes None recorded. Medical Equipment None Reported. Allergies Allergen ID Allergen Name Allergen Category Reaction Reaction Severity Criticality Documentation Date Start Date Code Code System Note Provider Name and Address Organization Details Recorded Time 82196 amoxicill in medicatio n Not available Not available Not available 12/31/2021 723 RxNorm Not Available [facility] 3 22:36:59 14375 morphine medicatio n Not available Not available Not available 12/31/2021 7052 RxNorm Not Available [facility] 3 22:36:59 32022 Product containin g penicilli n (product) medicatio n Not available Not available Not available 12/31/2021 49426 8001 SNOMED Aundrea Laws null, [place] - LPNT [facility] & [place] 2 09:02:09 00841 metoprolo l Not available Not available Not available Not available 12/31/2021 6918 RxNorm Not Available [facility] 3 22:36:59 76606 clindamyc in Not available Not available Not available Not available 12/31/2021 2582 RxNorm Not Available [facility] 3 22:36:59 63293 Zyvox medicatio n Not available Not available Not available 12/31/2021 39533 0 RxNorm Not Available [facility] 3 22:36:59 66215 Cipro medicatio n Not available Not available Not available 12/31/202186118 3 RxNorm Not Available [facility] 3 22:36:59 00508 amlodipin e medicatio n Not available Not available Not available 12/31/2021 31901 RxNorm Not Available [facility] 3 22:36:59 80945 budesonid e medicatio n Not available Not available Not available 12/31/2021 29146 RxNorm Not Available [facility] 3 22:36:59 65217 tobramyci n medicatio n Not available Not available Not available 12/31/2021 64159 RxNorm Not Available [facility] 3 22:36:59 75795 dexametha sone medicatio n Not available Not available Not available 12/31/2021 3264 RxNorm Not Available [facility] 3 22:36:59 50378 levofloxa olegario medicatio n Not available Not available Not available 12/31/2021 61961 RxNorm Not Available [facility] 3 22:36:59 Medications Name Sig Start [...] /min 130 mm[Hg] 60 mm[Hg] Nimisha Escalante [facility] & [place] 3 12:07:28 Date Recorded Body height Body mass index (BMI) Body weight Body temperature Systolic blood pressure Diastolic blood pressure Provider Name and Address Organization Details Last Updated DateTime 2 162.56 cm 20.1 kg/m2 10443.3 1 g 96.7 [degF] 180 mm[Hg] 112 mm[Hg] [facility] [place] 2 09:39:32 Date Recorded Body height Body mass index (BMI) Body weight Body temperature Systolic blood pressure Diastolic blood pressure Provider Name and Address Organization Details Last Updated DateTime 2 162.56 cm 20.1 kg/m2 37959.3 1 g 96.1 [degF] 180 mm[Hg] 92 mm[Hg] [facility] & [place] 2 10:47:13 Social History None recorded. Functional Status None recorded. Mental Status None recorded. Family History Relationship Description Onset Age of this Age Resolved Age Notes LastModified by Organization Details LastModified Time Mother Hypertensive disorder CHART_MERGE Not available 02/23 22:36:59 Mother Heart disease CHART_MERGE Not available 02/23 22:36:59 Notes:melanoma cancer -mothe r, father kidney cancer Medical History Condition Response Heart Attack ([place]) Y Cancer Y Arthritis Y Hypertension Y Gynecological HistoryNo gynecological history recorded. Obstetrics History GPAL:G 0 P 0 0 0 0 Past Encounters Encounter ID Performer Location Encounter Start Date Encounter Closed Date Diagnosis/Indication Diagnosis SNOMED-CT Code Diagnosis ICD10 Code Diagnosis Note [id number] Edie Mercado MD [facility] G -[address] [place] [id number] 12/31/2021 08:53:29 12/31/2021 09:44:55 Impacted cerumen in left ear 3117901795 874287 H61.22 Nasal congestion 0554395 0 R09.81 Patient's symptoms are concerning for [...] sooner if needed. Granulomat osis with polyangiitis 462021556 M31.30 [id number] Edie Mercado MD [facility] [address] [place] [address] 01/11/2022 08:55:25 01/11/2022 10:07:11 Chronic rhinitis 36503001 J31.0 Mrs. Pan has had improvemen t in her nasal congestion and her nasal crusting was significan tly improved this exam. I have advised continued nasal saline rinses. Hypertensive disorder 38 968711 I10 Blood pressure continues to be significan tly elevated. This morning at home it was 213/110. I suspect this is a large contributo r to her feeling poorly and her headache. We have reached out to Dr. Manning's office to get her an appointmen t in the next day or two. [id number] Edie Mercado MD [facility] [address] [place] [address] 02/08/2022 10:11:05 02/08/2022 12:56:04 Feeling of lump in throat 422038760 F45.8 Laryngopha ryngeal reflux 665599791 K21.9 [id number] Edie Mercado MD [facility] [address] [place] [address] 09/06/2022 11:43:45 09/06/2022 12:31:29 Nasal mucosa dry 05235786 J34.89 Feeling of lump in throat 377935023 F45.8 Health Concerns Section Related Observation LastModified by Organization Detai ls LastModified Time None Recorded Concern Status LastModified by Organization Details LastModified Time None Recorded Advance Directives Directive None Recorded Payers Insurance Date Sequence Insurance Name Policy Number Policy Mcmullen Covered Member ID Mcmullen Member ID Guarantor Name 09/10/2023 1 [employer] (MEDICARE REPLACEMENT/A DVANTAGE - PPO) Amie Pan [id number] 09/06/2022 1 [facility] (MEDICARE REPLACEMENT/A DVANTAGE - PPO) [id number] Amie Pan [id number] Notes Date Note Type Note Provider Name [...] a CT scan of her sinuses at [facility] the end of November. She was allergy tested a few years ago and that was negative. She has seen us in the past for cerumen removal and feels like her ears need to be cleaned today. Edie Mercado MD [address], [place], [address], [facility] & [place] 01/12/2022 15:12:24 01/11/2022 text/html Patient is here today for follow up of sinusitis- she has no improvement with the headachethe sinus drainage /congestion/pnd is better, she has been using a Neti pot daily but could not use the budesonide in the rinses as it made her ankles swell. Headache is in adventist-bilateralTylen ol for headaches- causing nausea She is still on Doxycycline-lung doctor prescribed Edie Mercado MD [address], [place], [address], [facility] & [place] 01/11/2022 12:19:31 02/08/2022 text/html patient is here [...] Edie Mercado MD [address], [place], [address], [facility] & [place] 02/16/2022 14:27:42 09/06/2022 text/html Patient is here [...] Edie Mercado MD [address], [place], [address], [facility] & [place] 09/06/2022 14:48:54 OBGyn Episode No OBEpisode recorded.
[2024-07-09 11:37] LABS: Chloride 95 mmol/L (98-107); Potassium 4.3 mmoL/L (3.5-5.1); Sodium 123 mmol/L (136-145)
[2024-07-09 11:40] LABS: Blood Urea Nitrogen 58 mg/dl (7-17); Estimated Glomerular Filt Rate 11 ml/min (>60); GFR (African American) 13 ML/MIN (>60)
[2024-07-09 11:41] LABS: Anion Gap 10.3 mEq/L (5-15); Calcium 7.8 mg/dl (8.4-10.2); Carbon Dioxide 22 mmol/L (22.0-30.0); Glucose 117 mg/dl (74-100)
== END 2024-07-09 23:59 | disposition home or self-care (01) ==
LOC: LAB 10:33
PROVIDERS: PCP Internal Medicine Adolescent Medicine; Visit Provider Internal Medicine Adolescent Medicine
DX: N17.9 Acute kidney failure, unspecified (principal)
CPT/HCPCS: 36415; 80048

== ENCOUNTER 2024-07-11 04:25 | Inpatient (IN) | payer MEDICARE, SELFPAY ==
[2024-07-11] VITALS (9 sets, daily range): BP systolic 143–180; BP diastolic 72–82; PULSE 56–77; RESP 14–20; TEMP 36.4–37; O2SAT 2–98; BMI 19.0; BMI 44.8
--- OUTSIDE RECORDS SUMMARY | 2024-07-11 04:32 | XMS_ITS | Data Portability ---
Author Organization [facility] [place] AD[place] Address [address] [place] [address] Assessment No assessment recorded. Plan of Treatment Reminders Order Date Submit Date Provider Last Modified By Organization Details Last Modified Time Details Appointments None recorded. Lab P-ANCA + C-ANCA, serum 2021 [facility] (Registration ), [address], [place], [address], 15:31:34 Referral None recorded. Procedures None recorded. Surgeries None recorded. Imaging None recorded. Medication Orders budesonide 1 mg/2 mL suspension for nebulizatio n 2021 [email or web address] [facility], [address] [place] [address], [facility], [place], [address], 09:35:03 Patient TargetsNo targets recorded. Patient Instructions Encounter Date Encounter Id Patient Instructions Last Modified By Organization Details Last Modified Time 02/08/2022 [id number] Patient's symptoms appear most consistent with LPR and reflux. I am remiss to place her on any additional medication given her sensitivities. We have reviewed lifestyle precautions including not eating for 2 hours before, sleeping with the head of bed elevated, limiting caffeine, dairy and alcohol. [email or web address] Not available 02/16/2022 14:27:22 09/06/2022 [id number] Discussed with patient that her post nasal [...] (C-anca) <1:20 titer neg:<1 :20 Not Available [facility] ([facility]) [address], [place], [address], 01/01/2022 15:10:42 01/01/20 22 01/01/2022 ANCA PANEL [...] ng of posit sang sera with both GA- 3 and MPO-A NCA enzym e immun oassa ys. As many as 5% serum sampl es are posit sang only by EIA. Ref. AM J Clin Patho l 1999; 111:5 07-51 3. Not Available [facility] ([facility]) [address], [place], [address], 01/01/2022 15:10:42 01/01/20 22 01/01/2022 ANCA PANEL (PANC A atypical panca <1:20 titer neg:<1 :20 The at[facility]pi [place] pANCA patte rn has been obser panda in a signi fican t perce ntage of patie nts with ulcer ative colit is, prima ry scler osing chola ngiti s and autoi mmune hepat itis. Perfo rmed at: [facility] [address] [place] [address] 729 Lab Direc tor: David shaw PhD, Phone : [phone] Not Available [facility] ([facility]) [address], [place], [address], 01/01/2022 15:10:42 12/31/19 22 12/11/2021 CT, sinus es, w/o contr ast No observ ation record ed. [email or web address] [facility] [place] [address], [place], [address], 12/31/2021 09:53:39 03/02/19 23 03/02/2022 trans -thor acic echoc ardio gram (TTE) (PROC ) No observ ation record ed. [facility] (Registration ) [address] [place] [address] [place], [address], 04/08/2022 11:16:06 Result Notes None recorded. Problems Name Problem SNOMED Code Status Onset Date Resolution Date Notes Provider Name and Address Organization Details Recorded Time Hypertensive disorder 39497825 Active Not Available [facility] 3 22:37:00 Bronchiectasi s 84208124 Active Not Available [facility] 3 22:37:00 Rheumatoid arthritis 41151913 Active Not Available [facility] 3 22:37:00 Dry eyes 020134515 Active Not Available [facility] 3 22:37:00 History of myocardial infarction 225028026 Active Not Available [facility] 3 22:37:00 Coronary arteriosclero sis 29250164 Active Not Available [facility] 3 22:37:00 Problem Notes None recorded. Procedures Surgical History Date Name Laterality Status Provider Name and Address Organization Details Recorded Time 01/01/20 22 Cerumen removal with microscope completed Anil LEVIN - [facility] - [place] & [place] 12/31/2021 09:35:17 ligation of fallopian tube completed Aundrea LEVIN - [facility] - [place] [facility] [place] 12/31/2021 09:13:47 Hysterectomy completed Aundrea LEVIN - [facility] & [place] 12/31/2021 09:13:56 placement of stent in cardiac conduit completed Mary Dunnp [place] - [facility] & [place] 01/11/2022 09:41:15 Imaging Results Imaging Date Name Status LastModified by Organization Details LastModified Time 12/11/2021 CT, sinuses, w/o contrast completed [email or web address] [facility] [place] [address], [place], [address], 12/31/2021 09:53:39 03/02/2022 trans-thoracic echocardiogram (TTE) (PROC) completed [address] (Registration) [address] [place] [address] [place], [address], 04/08/2022 11:16:06 Procedure Notes None recorded. Medical Equipment None Reported. Allergies Allergen ID Allergen Name Allergen Category Reaction Reaction Severity Criticality Documentation Date Start Date Code Code System Note Provider Name and Address Organization Details Recorded Time 65124 amoxicill in medicatio n Not available Not available Not available 12/31/2021 723 RxNorm Not Available [facility] 3 22:36:59 22533 morphine medicatio n Not available Not available Not available 12/31/2021 7052 RxNorm Not Available [facility] 3 22:36:59 51509 Product containin g penicilli n (product) medicatio n Not available Not available Not available 12/31/2021 75143 8001 SNOMED Aundrea Laws null, [place] - LPNT [facility] & [place] 2 09:02:09 27041 metoprolo l Not available Not available Not available Not available 12/31/2021 6918 RxNorm Not Available [facility] 3 22:36:59 16351 clindamyc in Not available Not available Not available Not available 12/31/2021 2582 RxNorm Not Available [facility] 3 22:36:59 54433 Zyvox medicatio n Not available Not available Not available 12/31/2021 20105 0 RxNorm Not Available [facility] 3 22:36:59 80828 Cipro medicatio n Not available Not available Not available 12/31/202199150 3 RxNorm Not Available [facility] 3 22:36:59 50428 amlodipin e medicatio n Not available Not available Not available 12/31/2021 02027 RxNorm Not Available [facility] 3 22:36:59 62142 budesonid e medicatio n Not available Not available Not available 12/31/2021 00327 RxNorm Not Available [facility] 3 22:36:59 18922 tobramyci n medicatio n Not available Not available Not available 12/31/2021 98395 RxNorm Not Available [facility] 3 22:36:59 38563 dexametha sone medicatio n Not available Not available Not available 12/31/2021 3264 RxNorm Not Available [facility] 3 22:36:59 12862 levofloxa olegario medicatio n Not available Not available Not available 12/31/2021 81882 RxNorm Not Available [facility] 3 22:36:59 Medications Name Sig Start Date [...] /min 130 mm[Hg] 60 mm[Hg] Nimisha Escalante [facility] & [place] 3 12:07:28 Date Recorded Body height Body mass index (BMI) Body weight Body temperature Systolic blood pressure Diastolic blood pressure Provider Name and Address Organization Details Last Updated DateTime 2 162.56 cm 20.1 kg/m2 15361.3 1 g 96.7 [degF] 180 mm[Hg] 112 mm[Hg] [facility] [place] 2 09:39:32 Date Recorded Body height Body mass index (BMI) Body weight Body temperature Systolic blood pressure Diastolic blood pressure Provider Name and Address Organization Details Last Updated DateTime 2 162.56 cm 20.1 kg/m2 05691.3 1 g 96.1 [degF] 180 mm[Hg] 92 mm[Hg] [facility] & [place] 2 10:47:13 Social History None recorded. Functional [...] Response Arthritis Y Cancer Y Heart Attack ([place]) Y Hypertension Y Gynecological HistoryNo gynecological history recorded. Obstetrics History GPAL:G 0 P 0 0 0 0 Past Encounters Encounter ID Performer Location Encounter Start Date Encounter Closed Date Diagnosis/Indication Diagnosis SNOMED-CT Code Diagnosis ICD10 Code Diagnosis Note [id number] Edie Mercado MD [facility] G -[address] [place] [id number] 12/31/2021 08:53:29 12/31/2021 09:44:55 Impacted cerumen in left ear 1769734458 894301 H61.22 Nasal congestion 9615381 0 R09.81 Patient's symptoms are concerning for [...] sooner if needed. Granulomat osis with polyangiitis 238252647 M31.30 [id number] Edie Mercado MD [facility] [address] [place] [address] 01/11/2022 08:55:25 01/11/2022 10:07:11 Chronic rhinitis 22905495 J31.0 Mrs. Pan has had improvemen t in her nasal congestion and her nasal crusting was significan tly improved this exam. I have advised continued nasal saline rinses. Hypertensive disorder 38 150575 I10 Blood pressure continues to be significan tly elevated. This morning at home it was 213/110. I suspect this is a large contributo r to her feeling poorly and her headache. We have reached out to Dr. Manning's office to get her an appointmen t in the next day or two. [id number] Edie Mercado MD [facility] [address] [place] [address] 02/08/2022 10:11:05 02/08/2022 12:56:04 Feeling of lump in throat 849601691 F45.8 Laryngopha ryngeal reflux 992582663 K21.9 [id number] Edie Mercado MD [facility] [address] [place] [address] 09/06/2022 11:43:45 09/06/2022 12:31:29 Nasal mucosa dry 65518225 J34.89 Feeling of lump in throat 942066943 F45.8 Health Concerns Section Related Observation LastModified by Organization Detai ls LastModified Time None Recorded Concern Status LastModified by Organization Details LastModified Time None Recorded Advance Directives Directive None Recorded Payers Insurance Date Sequence Insurance Name Policy Number Policy Mcmullen Covered Member ID Mcmullen Member ID Guarantor Name 09/10/2023 1 [employer] (MEDICARE REPLACEMENT/A DVANTAGE - PPO) Amie Pan [id number] 09/06/2022 1 [facility] (MEDICARE REPLACEMENT/A DVANTAGE - PPO) [id number] Amie Pan [id number] Notes Date Note Type Note Provider Name [...] a CT scan of her sinuses at [facility] the end of November. She was allergy tested a few years ago and that was negative. She has seen us in the past for cerumen removal and feels like her ears need to be cleaned today. Edie Mercado MD [address], [place], [address], [facility] & [place] 01/12/2022 15:12:24 01/11/2022 text/html Patient is here today for follow up of sinusitis- she has no improvement with the headachethe sinus drainage /congestion/pnd is better, she has been using a Neti pot daily but could not use the budesonide in the rinses as it made her ankles swell. Headache is in jewish-bilateralTylen ol for headaches- causing nausea She is still on Doxycycline-lung doctor prescribed Edie Mercado MD [address], [place], [address], [facility] & [place] 01/11/2022 12:19:31 02/08/2022 text/html patient is here [...] Edie Mercado MD [address], [place], [address], [facility] & [place] 02/16/2022 14:27:42 09/06/2022 text/html Patient is here [...] Edie Mercado MD [address], [place], [address], [facility] & [place] 09/06/2022 14:48:54 OBGyn Episode No OBEpisode recorded.
--- NOTE | 2024-07-11 04:42 | HMH.EDGENADL ---
Discharge Plan Disposition Patient Disposition: Admitted Condition: Fair Chief Complaint: Urogenital-Female Prescriptions Prescriptions: No Action bumetanide 2 mg tablet 2 mg PO TID amlodipine 10 mg tablet 10 mg PO DAILY Humira(CF) 20 mg/0.2 mL syringe kit 50 mg SQ Q14D Rx Instructions: on tuesday Chaz Ellipta 100-62.5-25 mcg blister with device 1 ea inhalation DAILY Qty: 90 3RF ipratropium-albuterol 0.5 mg-3 mg(2.5 mg base)/3 mL solution for nebulization 3 ml INHALATION Q6H PRN (Reason: shortness of breath or wheezing) Qty: 180 3RF metolazone 2.5 mg tablet 2.5 mg PO DAILY Eliquis 2.5 mg Tablet 2.5 mg PO BID ondansetron 4 mg tablet,disintegrating 4 mg PO Q8H PRN (Reason: nausea and vomiting) Qty: 20 0RF valacyclovir 500 MG tablet 500 mg PO DAILY carvedilol 25 mg tablet 25 mg PO BID albuterol sulfate 90 mcg/actuation HFA aerosol inhaler 1 inh INHALATION QIDP PRN (Reason: shortness of breath or wheezing) Clinical Impressions Clinical Impression: Hyponatremia, CKD (chronic kidney disease) Print Language Print Language: [place] Discharge ED Provider: Neelam Fine Adult HPI General Chief complaint: Urogenital-Female Stated complaint: migraine, unable to urinate Time Seen by Provider: 07/11/24 04:31 Mode of Arrival: Ambulatory Source of Information: Patient Description of Symptoms (Recalled from ER Triage Doc. by RN): patient states she has kidney problems and was just discharged from here on Tuesday. States that she is not urinating for as much as she is drinking. Has not peed for approximately 2.5 hours. History of Present Illness HPI narrative: 69-year-old female presents to the ER believing she is not having adequate urination compared to the amount that she is drinking. On discussion with the patient, she described taking in the equivalent of 3 16.9 ounce bottles of water +1 boost (8 ounces) in the last 24 hours. She reports she is only urinated 3 times. She is not measuring her urine output but believes it is not adequate. Based on her description of intake in last 24 hours she has taken in less than 60 ounces. She is worried that she has not had any urine output in the last 2 hours. She has no painful urination, no abdominal pain, no back pain, no blood in the urine. She is not having any chest pain, difficulty breathing, cough, dizziness, headache, numbness, tingling, or weakness. She has swelling in the feet and legs which she states they have been struggling with. She is wearing compression stockings. She reports she was admitted for a few days for similar problem. I reviewed records which demonstrate patient was receiving some IV fluids while hospitalized as well as oral rehydration. Patient does not know how much fluid she was being given/taking by mouth while hospitalized and does not know how much she was urinating but believes it was more than what she urinated in the last 24 hours. She reports in the previous 24 hours which was the first 24 hours after admission that she had more urine output. Patient reports no fevers, chills, or symptoms of being ill. No other complaints or concerns. Related Data Home Medications ?Medication ?Instructions ?Recorded ?Confirmed valacyclovir 500 mg tablet 500 mg PO DAILY 12/24/18 07/05/24 albuterol sulfate 90 mcg/actuation 1 inh inhalation QIDP PRN 02/22/22 07/05/24 aerosol inhaler shortness of breath or wheezing carvedilol 25 mg tablet 25 mg PO BID 02/22/22 07/05/24 adalimumab 20 mg/0.2 mL 50 mg SQ Q14D 04/29/22 07/05/24 subcutaneous syringe kit (Wilmanaples(CF)) amlodipine 10 mg tablet 10 mg PO DAILY 04/29/22 07/05/24 bumetanide 2 mg tablet 2 mg PO TID 04/29/22 07/06/24 apixaban 2.5 mg tablet (Eliquis) 2.5 mg PO BID 07/06/24 07/06/24 metolazone 2.5 mg tablet 2.5 mg PO DAILY 07/06/24 07/06/24 Previous Rx's ?Medication ?Instructions ?Recorded fluticasone fur. 100 mcg-umeclid 1 ea inhalation DAILY #90 ea 08/05/22 62.5 mcg-vilant 25 mcg inhalat.powder (Trelegy Ellipta) ipratropium 0.5 mg-albuterol 3 mg 3 ml inhalation Q6H PRN shortness 08/05/22 (2.5 mg base)/3 mL nebulization of breath or wheezing #180 mL soln ondansetron 4 mg disintegrating 4 mg PO Q8H PRN nausea and 07/08/24 tablet vomiting #20 tabs Allergies Allergy/AdvReac Type Severity Reaction Status Date / Time amoxicillin Allergy Other Verified 07/05/24 22:08 budesonide Allergy Other Verified 07/05/24 22:08 ciprofloxacin (From Cipro) Allergy Other Verified 07/05/24 22:08 clindamycin Allergy Other Verified 07/05/24 22:08 linezolid (From Zyvox) Allergy Other Verified 07/05/24 22:08 metoprolol Allergy Other Verified 07/05/24 22:08 morphine Allergy Other Verified 07/05/24 22:08 Penicillins Allergy Other Verified 07/05/24 22:08 sulfamethoxazole (From Allergy Other Verified 07/05/24 22:08 Bactrim) tobramycin Allergy Other Verified 07/05/24 22:08 trimethoprim (From Bactrim) Allergy Other Verified 07/05/24 22:08 PFS PFS Disclaimer: The information contained in this section may have been updated after the patient was seen, as this information can be updated by other users. Medical History Allergic rhinitis Deviated nasal septum Bronchiectasis without complication Myocardial infarct MRSA (methicillin resistant Staphylococcus aureus) Cornea transplant recipient Cornea transplant recipient Bronchiectasis Emphysema lung Acute bacterial sinusitis DNS (deviated nasal septum) Chronic recurrent sinusitis Sicca syndrome Rheumatoid arthritis Bronchiolitis obliterans Dyspnea on exertion Allergic rhinitis, unspecified Bronchiectasis Atrial flutter COPD (chronic obstructive pulmonary disease) Sinusitis Surgical History H/O heart artery stent Hx of cardiac cath History of hysterectomy Family History Other Cancer Coronary artery disease Heart attack Hyperlipidemia Hypertension Social History (Updated 07/05/24 @ 22:10 by Josefa Paniagua) Smoking Status: Never smoker alcohol intake: never current occupational status: retired Travel in the last 8 weeks?: None housing: house service: No usp: No caffeine: Yes Have you lived/traveled outside [place] in past 30 days?: No Contact w/someone who lives/traveled outside [place] past 30 days?: No Exposure to someone with infectious disease in past 14 days?: No Do you have a fever (greater than 100.4 F or 38 C)?: No Have you tested positive for COVID-19?: No Exposed to someone with COVID-19 in past 14 days?: No Do you have a sore throat?: No Do you have a cough?: No Do you have any weakness?: No Do you have any diarrhea?: No Are you experiencing any unusual bleeding?: No Do you have any muscle aches/pain?: No Do you have any abdominal pain?: No Are you experiencing loss of taste or smell?: No Other Medical History Have you received the Flu Vaccine for this season: No Have you received the Pneumonia Vaccine: No ROS Obtained: Yes Systems reviewed as appropriate & no additional complaints except as documented Per HPI Physical Exam General General appearance: alert and in no apparent distress Head Head exam: atraumatic and normocephalic Eye Eye exam: Present PERRL and EOMI ENT ENT exam: Present mucous membranes moist Neck Neck exam: Present normal inspection and full ROM Chest Chest inspection: Present symmetric chest wall rise Respiratory Respiratory exam: Present normal lung sounds bilaterally; Absent respiratory distress, wheezes or stridor Cardiovascular Cardiovascular exam: Present regular rate and normal rhythm Abdominal Exam Abdominal exam: Present soft; Absent distention or tenderness Extremities Exam Extremities exam: Present full ROM and edema (3+ pitting edema present all the way up to the mid thighs, compression stockings in place) Back Exam Back exam: Absent CVA tenderness (R) or CVA tenderness (L) Neurological Exam Neurological exam: Present alert and oriented X3; Absent motor sensory deficit Psychiatric Psychiatric exam: Present normal affect and normal mood Skin Skin exam: Present warm and dry Medical Decision Making Medical Records Medical records reviewed: Yes I reviewed the patient's medical records. Screening: Per USPSTF and CDC recommendations, given the prevalence of disease in our region, it is our hospital?s policy to screen for HIV and viral Hepatitis for all patients aged 18 and over and those with ongoing risk factors. MR Comment: See HPI. I reviewed patient's creatinine which was as high as 4.5 while hospitalized and down trended to 4.0 on the day of discharge. BUN on the day of admission 86, down trended to 62 on the day of discharge. Admission H&P from 07/05/2024 demonstrates the plan was for judicious IV fluid rehydration. Isidoro Inquiry Pt receiving controlled substance: No Vital Signs: 07/11/24 04:35 07/11/24 05:22 Temperature 97.6 F 98.6 F Temperature Source Oral Pulse Rate 56 L Pulse Rate [Left] 67 Respiratory Rate 18 20 Blood Pressure 143/72 H Blood Pressure [Right Arm] 159/75 H Blood Pressure Mean [Right Arm] 103 Blood Pressure Source [Right Arm] Automatic Cuff Blood Pressure Position Supine Blood Pressure Position [Right Arm] Sitting 02 Sat by Pulse Oximetry 95 95 Oxygen Delivery Method Room Air Room Air Lab Data Lab Results 07/11/24 04:41: WBC 4.0 L D, RBC 2.72 L, Hgb 8.4 L, Hct 24.0 L, MCV 88.2, MCH 30.9, MCHC 35.0, RDW 14.6, Plt Count 252 D, MPV 10.1, Neut % (Auto) 56.7, Lymph % (Auto) 20.9, Roosevelt % (Auto) 14.7 H, Eos % (Auto) 6.7, Baso % (Auto) 0.5, Neut # (Auto) 2.3, Lymph # (Auto) 0.8, Roosevelt # (Auto) 0.6, Eos # (Auto) 0.3, Baso # (Auto) 0.0, Sodium 121 L, Potassium 4.3, Chloride 93 L, Carbon Dioxide 24, Anion Gap 8.3, BUN 55 H, Creatinine 4.00 H, Estimated Creat Clear 10, Estimated GFR 11 L*, Est GFR ( Amer) 13 L*, Glucose 99, Calcium 7.7 L, Total Bilirubin 0.2, AST 28 D, ALT 13 D, Alkaline Phosphatase 90, NT-Pro-B Natriuret Pep 5790 H, Total Protein 6.2 L, Albumin 3.1 L, Globulin 3.1, Albumin/Globulin Ratio 1.0 L 07/11/24 04:41 07/11/24 04:41 Orders (Tests/Meds): ED MEDICATIONS Generic Name Dose Route Start Last Admin Trade Name Freq PRN Reason Stop Dose Admin Lactated Ringer's 250 mls @ 250 mls/hr 07/11/24 05:10 07/11/24 05:21 Lactated Ringer's 500ml IV 07/11/24 05:55 250 mls/hr .Q1H ONE Administration Discontinued Medications Generic Name Dose Route Start Last Admin Trade Name Rosalee PRN Reason Stop Dose Admin Lactated Ringer's 500 mls @ 999 mls/hr 07/11/24 04:56 07/11/24 04:59 Lactated Ringer's 500ml IV 07/11/24 05:26 999 mls/hr .Q31M ONE Administration ORDERS Category Date Time Status BNP [NT Pro Brain Natriuretic Pep.] Stat Lab 07/11/24 04:41 Completed CBC w/Auto Diff [Complete Blood Count Auto Diff] Stat Lab 07/11/24 04:41 Completed CMP [Comprehensive Metabolic Panel] Stat Lab 07/11/24 04:41 Completed Sodium,Urine Random Routine Lab 07/11/24 05:23 Ordered Urinalysis and Microscopic Stat Lab 07/11/24 04:33 Ordered Medical Decision Narrative: In summary, this 69-year-old female with a history of CKD,, hyponatremia, COPD, bronchiectasis, atrial flutter/atrial fibrillation which are comorbidities apparent condition may not be at goal therapy presents to the emergency department today with concerns of decreased urine output but no complaints of infectious type symptoms or pain. On initial evaluation patient is hemodynamically stable, afebrile, GCS 15, patient has benign cardiopulmonary and abdominal exams, no CVA tenderness, she does have pitting peripheral edema and is wearing compression stockings. Differential diagnosis includes but is not limited to kidney dysfunction, decreased urine output, urinary tract infection, inadequate oral hydration, electrolyte abnormalities, among others. Based on these concerns, I ordered serum labs, bladder scan, urinalysis. Looking back at the patient's hospitalist records I suspect that she was receiving significantly more than 60 ounces of fluids a day while admitted and I suspect that her first 24 hours after admission she was still urinating well from the adequate hydration she had received while hospitalized, but that she is now having inadequate oral intake and therefore is having decreased urine output. Records demonstrate patient got 1 L of IV fluids on 07/05/2024 administered at rate of 50 mL/h for 20 hours. This would have been administered all the way into the . Then on the she also received 500 mL of IV fluids. She was discharged the . They were monitoring her BNP as well as kidney funciton. Patient is receiving small fluid bolus. Initially 500 mL was ordered but I changed the order to only 250, 250 mL was administered. Labs personally reviewed demonstrate mild pain and WBC 4.0, hemoglobin 8.4 improved from 7.8 on the day of discharge. Lab called at 10 was patient's creatinine was 4.0, stable from the day of discharge as well as from the day after discharge. BUN also downtrending, now 55, it was 62 on the day of discharge and 58 the day after discharge. Her kidney function appears to be improving, however her sodium continues to drop. She had a sodium of 129 on 07/06/24 and slowly downtrended while admitted, today it is down to 121. BNP is significantly improved from the time of admission now 5790. Looking at the patient's labs I am reassured that her creatinine is stable and BUN continues to show signs of improvement. I am concerned about the downtrend of her sodium that she is getting close to the level where she could start having hyponatremia induced seizures. I discussed this case with the hospitalist, Paulino, and he agrees he is worried about the sodium downtrend. He graciously accepted the patient for admission for continued sodium monitoring. We discussed the fluids that the patient has received which is only 250 mL LR in the ER. The LR has a higher concentration of sodium on the patient's blood at this time so I do not believe this is detrimental. He is also reassured that the kidney function is slowly improving but thinks and is important to admit the patient for continued sodium monitoring and management. I agree with him. We discussed the possibility of abnormal thyroid, SIADH, or simply the patient's CKD contributing to the hyponatremia. He is planning to do urine sodium studies and further evaluate. Patient and family are agreeable to this plan. Patient's daughter at bedside was provided a hat for the toilet to take home so that whenever the patient does get discharged they have an accurate way to measure urine output. I also discussed close fluid intake and output measuring at home as an important part of their plan moving forward when the patient gets discharged after hospitalization. They are agreeable to this. Patient was admitted in stable condition. Critical Care Critical Care Time Critical Care Time: No
[2024-07-11 04:47] LABS: Basophils % 0.5 % (0.1-2.0); Eosinophils # 0.3 Kmm3 (0.0-0.4); Eosinophils % 6.7 % (0.1-12.0); Hemoglobin 8.4 g/dL (12.2-16.2); Immature Granulocytes # 0.02 10^3uL; Immature Granulocytes % 0.5 %; Lymphocytes # 0.8 K/mm3 (0.7-4.5); Lymphocytes % 20.9 % (10-50); Mean Corpuscular Hemoglobin 30.9 pg (27.0-31.2); Mean Corpuscular Volume 88.2 fl (81-99); Mean Platelet Volume 10.1 fl (7.4-10.4); Monocytes # 0.6 K/mm3 (0.1-1.0); Monocytes % 14.7 % (1.7-9.3); Neutrophils # 2.3 K/mm3 (1.8-7.8); Neutrophils % 56.7 % (37.0-80.0); Nucleated Red Blood Cells # 0 10^3/uL; Nucleated Red Blood Cells % 0 %; Platelet Count 252 K/mm3 (142-424); Red Blood Count 2.72 M/mm3 (4.20-5.40); Red Cell Distribution Width 14.6 % (11.5-17.5)
[2024-07-11 04:59] LABS: Albumin Level 3.1 g/dl (3.5-5.0); Chloride 93 mmol/L (98-107)
[2024-07-11] MEDS: RINGERS SOLUTION,LACTATED 500 ML 999 ML IV (04:59)
[2024-07-11 05:00] LABS: Potassium 4.3 mmoL/L (3.5-5.1); Sodium 121 mmol/L (136-145)
[2024-07-11 05:02] LABS: Alanine Aminotransferase 13 U/L (12-78); Anion Gap 8.3 mEq/L (5-15); Aspartate Amino Transferase 28 U/L (14-36); Blood Urea Nitrogen 55 mg/dl (7-17); Carbon Dioxide 24 mmol/L (22.0-30.0); Creatinine Clearance Estimated 10 mL/min (50-200); Estimated Glomerular Filt Rate 11 ml/min (>60); GFR (African American) 13 ML/MIN (>60)
[2024-07-11 05:03] LABS: Alkaline Phosphatase 90 U/L (38-126); Bilirubin,Total 0.2 mg/dl (0.2-1.3); Calcium 7.7 mg/dl (8.4-10.2); Globulin 3.1 g/dL (1.3-3.2); Glucose 99 mg/dl (74-100); Total Protein,Serum 6.2 g/dl (6.3-8.2)
[2024-07-11 05:11] LABS: NT Pro Brain Natriuretic Pep. 5790 pg/mL (0-125)
[2024-07-11] MEDS: RINGERS SOLUTION,LACTATED 250 ML IV (05:21)
--- NOTE | 2024-07-11 05:23 | PC.NURSE ---
pt accepted to [facility] floor at this time. ed provider at the bedside to update pt and family on POC
--- NOTE | 2024-07-11 05:47 | PC.NURSE ---
Report given to Christina BAR on the floor.
--- NOTE | 2024-07-11 05:48 | P.HP_ITS ---
<Statement entered by Jose Hair MD - 07/16/24 17:00> Personally evaluated the patient and agree with the plan of care as outlined by the NETWORK ENGINEERING ADVISOR. History of Present Illness *Admission Date: 07/11/24 *Reason for visit:: Decreased urinary output *History of present illness: This is a 69-year-old female who is known to our service line and has a past medical history significant for bronchiectasis, chronic kidney disease stage IV, myocardial infarction, rheumatoid arthritis, diastolic dysfunction congestive heart failure, atrial flutter, and COPD who presents with a chief complaint of decreased urinary output. As a result of her chief complaint, ar cadet presented to the emergency room for evaluation. While in the emergency room, patient had an incidental finding of a serum sodium 121. Due to these findings, patient has been admitted for further management. During my evaluation of the patient, patient states she was recently admitted to our facility for generalized weakness. Previously, she was admitted to [facility] in [place] and treated for generalized weakness and shortness of breath. Patient was noted to have an acute kidney injury, was hypervolemic, and had bronchiectasis. She was encouraged to hold off on her Bumex and metolazone. Patient diuresed approximately 16 pounds of fluid. She presented to [facility] with generalized weakness and fatigue where she was noted to have an acute kidney injury on top of her stage IV renal impairment. Patient was stabilized and discharged home. Patient reports adequate urinary output post discharge; however, over the last 24 hours she has consumed 316 ounce bottles of water and she reports her urinary output has been decreased. Patient is without any symptoms; however, her ER evaluation reveals a sodium of 121-previously 123. Patient is currently without any chest pain, lightheadedness, dizziness, diplopia, fever, chills, rigors, nausea, vomiting, diarrhea, shortness of breath, dyspnea, or headache. She does report that she is cold often. Noted hemoglobin hematocrit are stable to be more specific additional pertinent values obtained including white blood cell count of 4, red blood cell count of 2.72, hemoglobin 8.4, hematocrit 24, sodium 121, chloride of 93, BUN of 55, creatinine 4 (creatinine is still stable from prior admission), GFR of 11, calcium of 7.7, BNP of 5790, total protein is 6.2, and albumin 3.1. [facility] Disclaimer: The information contained in this section may have been updated after the patient was seen, as this information can be updated by other users. Medical History Allergic rhinitis Deviated nasal septum Bronchiectasis without complication Myocardial infarct MRSA (methicillin resistant Staphylococcus aureus) Cornea transplant recipient Cornea transplant recipient Bronchiectasis Emphysema lung Acute bacterial sinusitis DNS (deviated nasal septum) Chronic recurrent sinusitis Sicca syndrome Rheumatoid arthritis Bronchiolitis obliterans Dyspnea on exertion Allergic rhinitis, unspecified Bronchiectasis Atrial flutter COPD (chronic obstructive pulmonary disease) Sinusitis Surgical History H/O heart artery stent Hx of cardiac cath History of hysterectomy Family History Other Cancer Coronary artery disease Heart attack Hyperlipidemia Hypertension Social History (Updated 07/05/24 @ 22:10 by Josefa Paniagua) Smoking Status: Never smoker alcohol intake: never current occupational status: retired Travel in the last 8 weeks?: None housing: house service: No snf: No caffeine: Yes Other Medical History Have you received the Flu Vaccine for this season: No Have you received the Pneumonia Vaccine: No Review of Systems Review of Systems Review of systems:: pertinent systems reviewed and negative unless documented below Constitutional Constitutional: Reports system reviewed and no additional complaints, except as documented Eyes Eyes: Reports system reviewed and no additional complaints, except as documented ENT Ears, Nose, Mouth, and Throat: Reports system reviewed and no additional complaints, except as documented *Cardiovascular Cardiovascular: Reports edema *Respiratory Respiratory: Reports system reviewed and no additional complaints, except as documented *Gastrointestinal Gastrointestinal: Reports system reviewed and no additional complaints, except as documented *Genitourinary Genitourinary: Reports other Comments: Decreased urinary output *Musculoskeletal Musculoskeletal: Reports system reviewed and no additional complaints, except as documented Integumentary/Breasts Skin/Breast: Reports system reviewed and no additional complaints, except as documented *Neurologic Neurologic: Reports system reviewed and no additional complaints, except as documented Psychiatric Psychiatric: Reports system reviewed and no additional complaints, except as documented Endocrine Endocrine: Reports other Comments: Patient reports feeling cold Hematologic/Lymphatic Hematologic/Lymphatic: Reports system reviewed and no additional complaints, except as documented Allergic/Immunologic Allergic/Immunologic: Reports system reviewed and no additional complaints, except as documented Meds Home Medications and Allergies Home Medications ?Medication ?Instructions ?Recorded ?Confirmed ?Type valacyclovir 500 mg tablet 500 mg PO DAILY 12/24/18 07/05/24 History albuterol sulfate 90 mcg/actuation 1 inh inhalation QIDP PRN 02/22/22 07/05/24 History aerosol inhaler shortness of breath or wheezing carvedilol 25 mg tablet 25 mg PO BID 02/22/22 07/05/24 History adalimumab 20 mg/0.2 mL 50 mg SQ Q14D 04/29/22 07/05/24 History subcutaneous syringe kit (Humira(CF)) amlodipine 10 mg tablet 10 mg PO DAILY 04/29/22 07/05/24 History bumetanide 2 mg tablet 2 mg PO TID 04/29/22 07/06/24 History fluticasone fur. 100 mcg-umeclid 1 ea inhalation DAILY #90 ea 08/05/22 07/05/24 Rx 62.5 mcg-vilant 25 mcg inhalat.powder (Trelegy Ellipta) ipratropium 0.5 mg-albuterol 3 mg 3 ml inhalation Q6H PRN shortness 08/05/22 07/05/24 Rx (2.5 mg base)/3 mL nebulization of breath or wheezing #180 mL soln apixaban 2.5 mg tablet (Eliquis) 2.5 mg PO BID 07/06/24 07/06/24 History metolazone 2.5 mg tablet 2.5 mg PO DAILY 07/06/24 07/06/24 History ondansetron 4 mg disintegrating 4 mg PO Q8H PRN nausea and 07/08/24 Rx tablet vomiting #20 tabs New Prescriptions to Start Prescriptions: Allergies Allergy/AdvReac Type Severity Reaction Status Date / Time amoxicillin Allergy Other Verified 07/05/24 22:08 budesonide Allergy Other Verified 07/05/24 22:08 ciprofloxacin (From Cipro) Allergy Other Verified 07/05/24 22:08 clindamycin Allergy Other Verified 07/05/24 22:08 linezolid (From Zyvox) Allergy Other Verified 07/05/24 22:08 metoprolol Allergy Other Verified 07/05/24 22:08 morphine Allergy Other Verified 07/05/24 22:08 Penicillins Allergy Other Verified 07/05/24 22:08 sulfamethoxazole (From Allergy Other Verified 07/05/24 22:08 Bactrim) tobramycin Allergy Other Verified 07/05/24 22:08 trimethoprim (From Bactrim) Allergy Other Verified 07/05/24 22:08 Exam Data for Last 24 hours Vital signs and Labs for Last 24 Hours: Temp Pulse Resp BP Pulse Ox O2 Del Method 98.6 F 56 L 20 143/72 H 95 Room Air 07/11/24 05:22 07/11/24 05:22 07/11/24 05:22 07/11/24 05:22 07/11/24 05:22 07/11/24 05:22 Laboratory Results - last 24 hr 07/11/24 04:41: WBC 4.0 L D, RBC 2.72 L, Hgb 8.4 L, Hct 24.0 L, MCV 88.2, MCH 30.9, MCHC 35.0, RDW 14.6, Plt Count 252 D, MPV 10.1, Neut % (Auto) 56.7, Lymph % (Auto) 20.9, [place] % (Auto) 14.7 H, Eos % (Auto) 6.7, Baso % (Auto) 0.5, Neut # (Auto) 2.3, Lymph # (Auto) 0.8, [place] # (Auto) 0.6, Eos # (Auto) 0.3, Baso # (Auto) 0.0, Sodium 121 L, Potassium 4.3, Chloride 93 L, Carbon Dioxide 24, Anion Gap 8.3, BUN 55 H, Creatinine 4.00 H, Estimated Creat Clear 10, Estimated GFR 11 L*, Est GFR ( Amer) 13 L*, Glucose 99, Calcium 7.7 L, Total Bilirubin 0.2, AST 28 D, ALT 13 D, Alkaline Phosphatase 90, NT-Pro-B Natriuret Pep 5790 H, Total Protein 6.2 L, Albumin 3.1 L, Globulin 3.1, Albumin/Globulin Ratio 1.0 L I & O for Last 24 hours: Intake & Output 07/08/24 07/09/24 07/10/24 07/11/24 23:59 23:59 23:59 23:59 Weight 50.349 kg Constitutional Constitutional: no acute distress and cooperative *Routine HEENT Exam Head: Present normocephalic and atraumatic Eye: Present EOMI and PERRL ENT: Present mucous membranes moist *Routine Neck Exam Neck: Present supple, full ROM and trachea midline *Routine Respiratory Exam Respiratory: Present CTA bilaterally, normal respiratory effort, able to speak in complete sentences and symmetric chest movement *Routine Cardiovascular Exam Cardiovascular: Present Normal S1 and Normal S2 *Routine Abdominal Exam Abdominal: Present soft and normoactive bowel sounds *Routine Rectal Exam Rectal:: deferred *Routine Genitalia Exam Genitalia:: deferred *Routine Extremities Exam Extremities: Present edema, pulses intact and normal capillary refill Routine Back/Spine/Pelvis Exam Back/Spine: Present full ROM *Routine Skin Exam Skin: Present warm *Routine Neurological Exam Neurological: Present alert, oriented X3, moving all extremities and normal speech Routine Psychiatric Exam Psychiatric: Present normal affect, normal thought process, cooperative, good insight and good judgment H&P: Result Impressions 69-year-old female who who is known to our service line and has a past history significant for chronic kidney disease and heart failure with preserved ejection fracture presents with decreased urinary output and has a incidental finding of a worsening serum sodium Assessment and Plan *Assessment and plan (1) Hyponatremia: Status: Acute Category: Medical Code(s): E87.1 - Hypo-osmolality and hyponatremia (2) CKD (chronic kidney disease): Status: Acute Qualifiers: Chronic kidney disease stage: stage 4 (GFR 15-29) Qualified Code(s): N18.4 - Chronic kidney disease, stage 4 (severe) Category: Medical Code(s): N18.9 - Chronic kidney disease, unspecified (3) (HFpEF) heart failure with preserved ejection fraction: Status: Acute Qualifiers: Heart failure chronicity: chronic Qualified Code(s): I50.32 - Chronic diastolic (congestive) heart failure Category: Medical Code(s): I50.30 - Unspecified diastolic (congestive) heart failure (4) Anemia: Status: Acute Qualifiers: Anemia type: unspecified type Qualified Code(s): D64.9 - Anemia, unspecified Category: Medical Code(s): D64.9 - Anemia, unspecified (5) Hypocalcemia: Status: Acute Category: Medical Code(s): E83.51 - Hypocalcemia (6) Elevated brain natriuretic peptide (BNP) level: Status: Acute Category: Medical Code(s): R79.89 - Other specified abnormal findings of blood chemistry Plan Assessment: Hyponatremia - May be in the setting of hypervolemia from HFpEF -Will obtain urine sodium - Will start 1 g sodium p.o. twice daily - Will monitor serum sodium every 6 hours and not allow for sodium to increase more than 6 mEq-8 mEq to 24-hour time span - Once sodium is closer to baseline sodium (124-128) will be able to discharge patient home safely-close sodium 130 is optimal - Like to rule out any additional causes of decreased sodium Chronic kidney disease - Patient currently at baseline creatinine Diastolic dysfunction heart failure/elevated BNP: HFpEF -Will consider reinitiating diuretics - Patient does have 3+ pitting edema noted to bilateral lower extremities Hypocalcemia - Will continue to monitor - Close to baseline Normocytic normochromic anemia - Most likely in the setting of chronic illness - Hemoglobin is stable - No active bleeding is been identified -Will monitor daily Plan: Admit patient to the MedSurg unit Patient's sodium appears to be chronically low however she is extremely lower than her baseline Patient also mentions that she is persistently cold We will obtain TSH and reflex T4 4 mg Zofran IV push to 8 hours pain nausea vomit Saline lock Full code Seizure precautions I will discuss this case with attending physician Dr. Hair and I look forward to more input
--- NOTE | 2024-07-11 06:01 | PC.NURSE ---
Patient arrived to floor via wheelchair from ED at 06:00.
[2024-07-11 07:11] LABS: Thyroid Stimulating Hormone 8.57 uIU/mL (0.465-4.68)
--- NOTE | 2024-07-11 07:52 | HMH.PHAINT1 ---
Pharmacy Intervention Comments: HOME MEDICATION LIST VERIFIED USING LIST FROM MOST RECENT DISCHARGE ON 07/08/24
--- NOTE | 2024-07-11 08:32 | US_ITS ---
FINAL REPORT TECHNIQUE: Ultrasound images of the kidneys were obtained. CLINICAL HISTORY: GIULIANA COMPARISON: None FINDINGS: RENAL ULTRASOUND The right kidney measures 9.9 cm in length. The left kidney measures 9.6 cm in length. The renal parenchyma is hyperechoic diffusely. This may be seen with medical renal disease. Limited images of the liver parenchyma demonstrate normal echogenicity. IMPRESSION: No obstructive uropathy. Abnormal appearance of the renal parenchyma suggestive of medical renal disease. Reviewed, Interpreted and Dictated by Bernardo Dutton MD Transcribed by Shae Cotton Authenticated and [facility]
[2024-07-11] MEDS: SODIUM CHLORIDE 1,000MG TABLET 1000 MG PO ×2 (08:45→21:20)
[2024-07-11 09:05] LABS: Free T4 (Free Thyroxine) 1.64 ng/dl (0.78-2.19)
[2024-07-11 09:47] LABS: Anion Gap 10.1 mEq/L (5-15); Blood Urea Nitrogen 51 mg/dl (7-17); Calcium 7.7 mg/dl (8.4-10.2); Carbon Dioxide 21 mmol/L (22.0-30.0); Chloride 92 mmol/L (98-107); Creatinine Clearance Estimated 12 mL/min (50-200); Estimated Glomerular Filt Rate 12 ml/min (>60); GFR (African American) 14 ML/MIN (>60); Glucose 161 mg/dl (74-100); Potassium 4.1 mmoL/L (3.5-5.1); Sodium 119 mmol/L (136-145)
--- NOTE | 2024-07-11 10:08 | XR_ITS ---
FINAL REPORT TECHNIQUE: Single view chest CLINICAL HISTORY: f/u infiltrate on previous CXR COMPARISON: 07/05/2024 FINDINGS: A single view of the chest was obtained. The heart and mediastinum are within normal limits. Slight worsening patchy density is seen at the left lung base consistent with pneumonia. The right lung is clear. There is no pneumothorax. IMPRESSION: Persistent left basilar densities. Recommend continued imaging follow-up. Reviewed, Interpreted and Dictated by Bernardo Dutton MD Transcribed by Summer Layne Authenticated and [facility]
[2024-07-11] MEDS: ONDANSETRON 4MG/2ML VIAL 4 MG IV ×2 (10:55→21:25)
[2024-07-11] MEDS: SODIUM CHLORIDE 3 % 500 ML 50 ML IV (10:56)
[2024-07-11] MEDS: LEVOTHYROXINE 50MCG (0.05MG) TAB 50 MCG PO (10:56)
[2024-07-11] MEDS: SODIUM CHLORIDE 3% 15ML NEB 3 ML IH (11:12)
[2024-07-11 11:17] LABS: Microscopic, Urine URINE MICROSCOPIC (MICROSCOPIC)
[2024-07-11 11:23] LABS: Appearance,Urine CLEAR (Clear); Bilirubin,Urine Negative (Negative); Blood, Urine TRACE-L (Negative); Color,Urine YELLOW (Yellow); Glucose,Urine (UA) Negative (Negative); Ketones,Urine Negative (Negative); Leukocyte Esterase,Urine Negative (Negative); Nitrate,Urine Negative (Negative); Protein,Urine 3+ (Negative); Specific Gravity, Urine 1.015 (1.005-1.030); Urobilinogen,Urine 0.2 EU/dl (0.2)
[2024-07-11 11:31] LABS: Bacteria,Urine Trace /lpf
[2024-07-11 15:24] LABS: Chloride 97 mmol/L (98-107); Sodium 121 mmol/L (136-145)
[2024-07-11 15:25] LABS: Potassium 4.3 mmoL/L (3.5-5.1)
[2024-07-11 15:28] LABS: Anion Gap 6.3 mEq/L (5-15); Blood Urea Nitrogen 50 mg/dl (7-17); Calcium 7.5 mg/dl (8.4-10.2); Carbon Dioxide 22 mmol/L (22.0-30.0); Creatinine Clearance Estimated 12 mL/min (50-200); Estimated Glomerular Filt Rate 12 ml/min (>60); GFR (African American) 14 ML/MIN (>60); Glucose 92 mg/dl (74-100)
[2024-07-11] MEDS: OLANZapine 5 MG ODT TABLET SL (21:26)
[2024-07-11 21:45] LABS: Chloride 101 mmol/L (98-107); Potassium 4.2 mmoL/L (3.5-5.1); Sodium 123 mmol/L (136-145)
[2024-07-11 21:48] LABS: Anion Gap 4.2 mEq/L (5-15); Blood Urea Nitrogen 48 mg/dl (7-17); Calcium 7.3 mg/dl (8.4-10.2); Carbon Dioxide 22 mmol/L (22.0-30.0); Creatinine Clearance Estimated 12 mL/min (50-200); Estimated Glomerular Filt Rate 11 ml/min (>60); GFR (African American) 14 ML/MIN (>60); Glucose 82 mg/dl (74-100)
[2024-07-12] MEDS: ALBUTEROL 0.083% 2.5 MG/3 ML NEB IH ×2 (00:41→09:49)
[2024-07-12 00:42] VITALS: PULSE 70; PULSE 74
[2024-07-12 04:00] VITALS: BP 186/92; PULSE 73; RESP 18; TEMP 37.1; O2SAT 95; BMI 23.3
--- NOTE | 2024-07-12 05:17 | PC.NURSE ---
Contacted Ashley Stubbs d/t pt BP 186/92. No meds ordered this am for BP. Jerry to look at med rec.
--- NOTE | 2024-07-12 05:22 | PC.NURSE ---
New meds ordered this am for pt BP.
[2024-07-12] MEDS: LEVOTHYROXINE 50MCG (0.05MG) TAB 50 MCG PO (06:37)
[2024-07-12 06:53] LABS: Basophils % 0.7 % (0.1-2.0); Eosinophils # 0.3 Kmm3 (0.0-0.4); Eosinophils % 7.2 % (0.1-12.0); Hemoglobin 7.4 g/dL (12.2-16.2); Immature Granulocytes # 0.01 10^3uL; Immature Granulocytes % 0.2 %; Lymphocytes # 1.1 K/mm3 (0.7-4.5); Lymphocytes % 24.7 % (10-50); Mean Corpuscular HGB Conc 35.2 g/dL (31.8-35.4); Mean Corpuscular Volume 87.9 fl (81-99); Monocytes # 0.7 K/mm3 (0.1-1.0); Monocytes % 17.1 % (1.7-9.3); Neutrophils # 2.2 K/mm3 (1.8-7.8); Neutrophils % 50.1 % (37.0-80.0); Nucleated Red Blood Cells # 0 10^3/uL; Nucleated Red Blood Cells % 0 %; Platelet Count 259 K/mm3 (142-424); Red Blood Count 2.39 M/mm3 (4.20-5.40); Red Cell Distribution Width 14.6 % (11.5-17.5); White Blood Count 4.3 K/mm3 (4.8-10.8)
[2024-07-12 06:57] LABS: Anion Gap 6.9 mEq/L (5-15); Blood Urea Nitrogen 46 mg/dl (7-17); Calcium 7.5 mg/dl (8.4-10.2); Carbon Dioxide 21 mmol/L (22.0-30.0); Chloride 101 mmol/L (98-107); Creatinine Clearance Estimated 15 mL/min (50-200); Estimated Glomerular Filt Rate 13 ml/min (>60); GFR (African American) 16 ML/MIN (>60); Glucose 74 mg/dl (74-100); Potassium 3.9 mmoL/L (3.5-5.1); Sodium 125 mmol/L (136-145)
[2024-07-12 08:00] VITALS: BP 159/87; PULSE 81; RESP 16; TEMP 36.6; O2SAT 94; O2SAT 95
--- NOTE | 2024-07-12 08:43 | CT_ITS ---
FINAL REPORT CLINICAL HISTORY: hemoptysis COMPARISON: 04/23/2020 FINDINGS: CT CHEST without contrast COMPARISON: 04/23/2020. TECHNIQUE: Axial CT without contrast This study was performed with techniques to keep radiation doses as low as reasonably achievable, (ALARA). Individualized dose reduction techniques using automated exposure control or adjustment of mA and/or kV according to the patient's size were employed. FINDINGS: There is an ovoid nodule measuring up to 5 mm in size, best seen on image #65, similar to the prior exam. There are new areas of nodularity in the peripheral lower lobes, greater on the left than on the right, favor infectious etiology overt neoplasm. There is mild bronchial wall thickening in these regions. No cavitary regions are identified. Small bilateral pleural effusions are present. IMPRESSION: 1. Interval development of bronchial wall thickening with nodularity in the lower lobes bilaterally. Favor that this represents infection, including atypical infection in the differential diagnosis, such as tuberculosis or fungal disease. 2. Recommend short-term follow-up CT in 2 to 3 months for further evaluation. This study was performed using automated techniques to achieve radiation exposure as low as reasonably achievable Reviewed, Interpreted and Dictated by Bernardo Dutton MD Transcribed by Clara Mejia Authenticated and [facility]
[2024-07-12 08:57] LABS: Iron 49 ug/dL (37-170)
[2024-07-12 09:07] LABS: Total Iron Binding Capacity 213 ug/dL (265-497)
[2024-07-12] MEDS: CARVEDILOL 25MG TABLET 25 MG PO (09:32)
[2024-07-12] MEDS: SODIUM CHLORIDE 1,000MG TABLET 1000 MG PO (09:32)
[2024-07-12] MEDS: AMLODIPINE 10MG TABLET 10 MG PO (09:32)
[2024-07-12 09:33] LABS: Ferritin 30.5 ng/ml (11.1-264)
[2024-07-12 09:50] VITALS: PULSE 74; PULSE 79; O2SAT 95
[2024-07-12 10:25] LABS: Vitamin B12 910 pg/mL (239-931)
[2024-07-12] MEDS: FUROSEMIDE 40 MG TABLET PO (10:39)
--- NOTE | 2024-07-12 10:45 | EXP.PULM.CON ---
History of Present Illness History of present illness: Ms. Pan is a 69-year-old female? diagnosed rheumatoid arthritis, sicca syndrome, bronchiolitis obliterens, interstitial lung disease with PFTs and HRCT stable along with stable respiratory symptoms, MRSA coloniztion, bronchectasis last seen in pulmonary clinic July 2022 presented to the ER with decreasing urinary open found to be having hyponatremia. [facility] Disclaimer: The information contained in this section may have been updated after the patient was seen, as this information can be updated by other users. Medical History (Updated 07/12/24 @ 15:32 by Jt Sapp MD) Bronchiectasis with (acute) exacerbation Allergic rhinitis Deviated nasal septum Bronchiectasis without complication Myocardial infarct MRSA (methicillin resistant Staphylococcus aureus) Cornea transplant recipient Cornea transplant recipient Bronchiectasis Emphysema lung Acute bacterial sinusitis DNS (deviated nasal septum) Chronic recurrent sinusitis Sicca syndrome Rheumatoid arthritis Bronchiolitis obliterans Dyspnea on exertion Allergic rhinitis, unspecified Bronchiectasis Atrial flutter COPD (chronic obstructive pulmonary disease) Sinusitis Surgical History H/O heart artery stent Hx of cardiac cath History of hysterectomy Family History Other Cancer Coronary artery disease Heart attack Hyperlipidemia Hypertension Social History (Updated 07/11/24 @ 05:59 by Torri Jackson RN) Smoking Status: Never smoker alcohol intake: never current occupational status: retired Travel in the last 8 weeks?: None housing: house service: No group home: No caffeine: Yes Have you lived/traveled outside [place] in past 30 days?: No Contact w/someone who lives/traveled outside US past 30 days?: No Exposure to someone with infectious disease in past 14 days?: No Do you have a fever (greater than 100.4 F or 38 C)?: No Have you tested positive for COVID-19?: No Exposed to someone with COVID-19 in past 14 days?: No Do you have a sore throat?: No Do you have a cough?: No Do you have any weakness?: No Are you experiencing any nausea/vomitting?: No Do you have any diarrhea?: No Are you experiencing any unusual bleeding?: No Do you have any muscle aches/pain?: No Do you have any abdominal pain?: No Are you experiencing loss of taste or smell?: No Review of Systems Constitutional Constitutional: Reports anorexia, Reports body ache(s) and Reports fatigue Eyes Eyes: Denies eye discharge, Denies dry eyes, Denies irritation and Denies itchy eyes ENT Ears, Nose, Mouth, and Throat: Denies epistaxis, Denies facial pain, Denies lip swelling and Denies throat swelling *Cardiovascular Cardiovascular: Reports dyspnea, Reports dyspnea on exertion and Reports leg edema *Respiratory Respiratory: Denies change in phlegm color, Reports chest congestion, Reports cough, Reports dyspnea, Reports dyspnea on exertion, Reports excessive phlegm production and Reports wheezing *Gastrointestinal Gastrointestinal: Denies abdominal pain, Denies belching and Denies cramping *Musculoskeletal Musculoskeletal: Reports back pain, Reports myalgias and Reports other (No small joint swelling or Pain) *Neurologic Neurologic: Reports system reviewed and no additional complaints, except as documented Psychiatric Psychiatric: Denies homicidal ideation and Denies suicidal ideation Endocrine Endocrine: Reports fatigue and Denies heat intolerance Hematologic/Lymphatic Hematologic/Lymphatic: Denies easy bleeding and Denies lymphadenopathy Allergic/Immunologic Allergic/Immunologic: Denies itchy eyes, Denies lip swelling, Denies throat swelling and Reports wheezing Pulmonology Exam Inpatient Vital signs and Labs for Last 24 Hours: Temp Pulse Resp BP Pulse Ox O2 Del Method O2 Flow Rate 97.9 F 74 16 159/87 H 95 Nasal Cannula 2 07/12/24 08:00 07/12/24 09:50 07/12/24 08:00 07/12/24 08:00 07/12/24 09:50 07/12/24 09:50 07/12/24 09:50 Laboratory Results - last 24 hr 07/11/24 11:05: Urine Color Yellow, Urine Appearance Clear, Urine pH 7.0, Ur Specific [place] 1.015, Urine Protein 3+ A, Urine Glucose (UA) Negative, Urine Ketones Negative, Urine Blood Trace-l, Urine Nitrate Negative, Urine Bilirubin Negative, Urine Urobilinogen 0.2, Ur Leukocyte Esterase Negative, Urine RBC 3-5, Urine WBC 3-5, Ur Squamous Epith Cells 3-5, Urine Bacteria Trace, Urine Sodium 26.0 L 07/11/24 15:08: Sodium 121 L, Potassium 4.3, Chloride 97 L, Carbon Dioxide 22, Anion Gap 6.3, BUN 50 H, Creatinine 3.80 H, Estimated Creat Clear 12, Estimated GFR 12 L*, Est GFR ( Amer) 14 L*, Glucose 92 D, Calcium 7.5 L 07/11/24 21:25: Sodium 123 L, Potassium 4.2, Chloride 101, Carbon Dioxide 22, Anion Gap 4.2 L, BUN 48 H, Creatinine 3.90 H, Estimated Creat Clear 12, Estimated GFR 11 L*, Est GFR ( Amer) 14 L*, Glucose 82, Calcium 7.3 L 07/12/24 05:35: WBC 4.3 L, RBC 2.39 L, Hgb 7.4 L, Hct 21.0 L, MCV 87.9, MCH 31.0, MCHC 35.2, RDW 14.6, Plt Count 259, MPV 10.0, Neut % (Auto) 50.1, Lymph % (Auto) 24.7, [place] % (Auto) 17.1 H, Eos % (Auto) 7.2, Baso % (Auto) 0.7, Neut # (Auto) 2.2, Lymph # (Auto) 1.1, [place] # (Auto) 0.7, Eos # (Auto) 0.3, Baso # (Auto) 0.0, Sodium 125 L, Potassium 3.9, Chloride 101, Carbon Dioxide 21 L, Anion Gap 6.9, BUN 46 H, Creatinine 3.50 H, Estimated Creat Clear 15, Estimated GFR 13 L*, Est GFR ( Amer) 16 L*, Glucose 74, Calcium 7.5 L 07/12/24 05:37: Iron 49, TIBC 213 L, Iron Saturation 23.86975, Ferritin 30.5 D, Vitamin B12 910, Folate 11.90 I & O for Labs for Last 24 Hours: Intake & Output 07/09/24 07/10/24 07/11/24 07/12/24 23:59 23:59 23:59 23:59 Intake Total 934 / 1054 120 / 120 Output Total 1150 / 1150 1475 / 1475 Balance -216 / -96 -1355 / -1355 Weight 262 lb 9.129 oz 136 lb 6.4 oz Microbiology Reports for the Last 24 Hours: Microbiology 07/11/24 12:06 Sputum - Expectorated Sputum Gram Stain - Final Constitutional: Present moderate distress Head: Present normocephalic and atraumatic ENT: Present normal exam, normal oropharynx and mucous membranes moist Neck: Present normal inspection and full ROM Respiratory: Present rhonchi, diminished air movement and able to speak in complete sentences; Absent prolonged expiratory phase, respiratory distress, wheezes or crackles Cardiac: Present S1/S2, Tachycardia and radial pulses present GI: Present soft and distention; Absent tenderness or guarding Rectal (female): Present deferred (female): Present deferred Skin: Present intact; Absent cyanosis or jaundice Neuro: Present alert, awake and oriented x 3 Extremities: Present normal inspection; Absent clubbing or cyanosis Psychiatric: Present normal affect and cooperative Meds Home Medications and Allergies Home Medications ?Medication ?Instructions ?Recorded ?Confirmed ?Type valacyclovir 500 mg tablet 500 mg PO DAILY 12/24/18 07/11/24 History albuterol sulfate 90 mcg/actuation 1 inh inhalation QIDP PRN 02/22/22 07/11/24 History aerosol inhaler shortness of breath or wheezing carvedilol 25 mg tablet 25 mg PO BID 02/22/22 07/11/24 History adalimumab 20 mg/0.2 mL 50 mg SQ Q14D 04/29/22 07/11/24 History subcutaneous syringe kit (Humira(CF)) amlodipine 10 mg tablet 10 mg PO DAILY 04/29/22 07/11/24 History fluticasone fur. 100 mcg-umeclid 1 ea inhalation DAILY #90 ea 08/05/22 07/11/24 Rx 62.5 mcg-vilant 25 mcg inhalat.powder (Trelegy Ellipta) ipratropium 0.5 mg-albuterol 3 mg 3 ml inhalation Q6H PRN shortness 08/05/22 07/11/24 Rx (2.5 mg base)/3 mL nebulization of breath or wheezing #180 mL soln apixaban 2.5 mg tablet (Eliquis) 2.5 mg PO BID 07/06/24 07/11/24 History ondansetron 4 mg disintegrating 4 mg PO Q8H PRN nausea and 07/08/24 07/11/24 Rx tablet vomiting #20 tabs New Prescriptions to Start Prescriptions: Allergies Allergy/AdvReac Type Severity Reaction Status Date / Time amoxicillin Allergy Other Verified 07/05/24 22:08 budesonide Allergy Other Verified 07/05/24 22:08 ciprofloxacin (From Cipro) Allergy Other Verified 07/05/24 22:08 clindamycin Allergy Other Verified 07/05/24 22:08 linezolid (From Zyvox) Allergy Other Verified 07/05/24 22:08 metoprolol Allergy Other Verified 07/05/24 22:08 morphine Allergy Other Verified 07/05/24 22:08 Penicillins Allergy Other Verified 07/05/24 22:08 sulfamethoxazole (From Allergy Other Verified 07/05/24 22:08 Bactrim) tobramycin Allergy Other Verified 07/05/24 22:08 trimethoprim (From Bactrim) Allergy Other Verified 07/05/24 22:08 Results Laboratory Findings 07/12/24 05:35 07/12/24 05:35 Abnormal lab findings: Abnormal Labs 07/11/24 07/11/24 07/11/24 04:41 09:27 11:05 WBC 4.0 L D RBC 2.72 L Hgb 8.4 L Hct 24.0 L [place] % (Auto) 14.7 H Sodium 121 L 119 L Chloride 93 L 92 L Carbon Dioxide 21 L Anion Gap BUN 55 H 51 H Creatinine 4.00 H 3.80 H Estimated GFR 11 L* 12 L* Est GFR ( Amer) 13 L* 14 L* Glucose 161 H D Calcium 7.7 L 7.7 L TIBC NT-Pro-B Natriuret Pep 5790 H Total Protein 6.2 L Albumin 3.1 L Albumin/Globulin Ratio 1.0 L TSH 8.57 H Urine Protein 3+ A Urine Sodium 26.0 L 07/11/24 07/11/24 07/12/24 15:08 21:25 05:35 WBC 4.3 L RBC 2.39 L Hgb 7.4 L Hct 21.0 L [place] % (Auto) 17.1 H Sodium 121 L 123 L 125 L Chloride 97 L Carbon Dioxide 21 L Anion Gap 4.2 L BUN 50 H 48 H 46 H Creatinine 3.80 H 3.90 H 3.50 H Estimated GFR 12 L* 11 L* 13 L* Est GFR ( Amer) 14 L* 14 L* 16 L* Glucose Calcium 7.5 L 7.3 L 7.5 L TIBC NT-Pro-B Natriuret Pep Total Protein Albumin Albumin/Globulin Ratio TSH Urine Protein Urine Sodium 07/12/24 05:37 WBC RBC Hgb Hct [place] % (Auto) Sodium Chloride Carbon Dioxide Anion Gap BUN Creatinine Estimated GFR Est GFR ( Amer) Glucose Calcium TIBC 213 L NT-Pro-B Natriuret Pep Total Protein Albumin Albumin/Globulin Ratio TSH Urine Protein Urine Sodium Assessment and Plan *Assessment and plan (1) Bronchiectasis with (acute) exacerbation: Status: Acute Category: Medical Code(s): J47.1 - Bronchiectasis with (acute) exacerbation (2) Pneumonia: Status: Resolved Qualifiers: Pneumonia type: due to unspecified organism Category: Medical Code(s): J18.9 - Pneumonia, unspecified organism Plan Ms. Pan is a 69-year-old female? diagnosed rheumatoid arthritis, sicca syndrome, bronchiolitis obliterens, interstitial lung disease with PFTs and HRCT stable along with stable respiratory symptoms, MRSA coloniztion, bronchectasis last seen in pulmonary clinic July 2022 presented to the ER with decreasing urinary open found to be having hyponatremia. Patient also having recent episodes of worsening GIULIANA on CKD bronchiectasis exacerbation status post antibiotic completion currently June 2024 at [facility]. CT chest WO upon this admission compared from 2020, bilateral worsening bronchiectatic changes, mucous plugging and nodular opacities. Sputum cultures from 07/06/2024 growing Staph aureus along with stenotrophomonas. Admits worsening cough and productive phlegm. No increasing oxygen requirements Plan: Continue Trelegy 100 inhaler Albuterol hypertonic saline along with chest percussion therapy 3 times a day scheduled Recommend to initiate Bactrim renally dosed for a total of 14 days (Bactrim 1 tab SS / 24 hrs) Follow-up with repeat sputum culture results. # Thank you for involving pulmonary in this patient care. Will continue to follow.
[2024-07-12 12:00] VITALS: BP 152/79; PULSE 80; RESP 17; TEMP 36.6; O2SAT 96
[2024-07-12 16:00] VITALS: BP 148/75; PULSE 71; RESP 16; TEMP 36.6; O2SAT 95
--- NOTE | 2024-07-12 17:51 | EXP.DC.SUM ---
General Admission date:: 07/11/24 HPI HPI HPI: This is a 69-year-old female who is known to our service line and has a past medical history significant for bronchiectasis, chronic kidney disease stage IV, myocardial infarction, rheumatoid arthritis, diastolic dysfunction congestive heart failure, atrial flutter, and COPD who presents with a chief complaint of decreased urinary output. As a result of her chief complaint, patient presented to the emergency room for evaluation. While in the emergency room, patient had an incidental finding of a serum sodium 121. Due to these findings, patient has been admitted for further management. During my evaluation of the patient, patient states she was recently admitted to our facility for generalized weakness. Previously, she was admitted to [facility] in [place] and treated for generalized weakness and shortness of breath. Patient was noted to have an acute kidney injury, was hypervolemic, and had bronchiectasis. She was encouraged to hold off on her Bumex and metolazone. Patient diuresed approximately 16 pounds of fluid. She presented to [facility] with generalized weakness and fatigue where she was noted to have an acute kidney injury on top of her stage IV renal impairment. Patient was stabilized and discharged home. Patient reports adequate urinary output post discharge; however, over the last 24 hours she has consumed 316 ounce bottles of water and she reports her urinary output has been decreased. Patient is without any symptoms; however, her ER evaluation reveals a sodium of 121-previously 123. Patient is currently without any chest pain, lightheadedness, dizziness, diplopia, fever, chills, rigors, nausea, vomiting, diarrhea, shortness of breath, dyspnea, or headache. She does report that she is cold often. Noted hemoglobin hematocrit are stable to be more specific additional pertinent values obtained including white blood cell count of 4, red blood cell count of 2.72, hemoglobin 8.4, hematocrit 24, sodium 121, chloride of 93, BUN of 55, creatinine 4 (creatinine is still stable from prior admission), GFR of 11, calcium of 7.7, BNP of 5790, total protein is 6.2, and albumin 3.1. Hospital Course Hospital Course Hospital Course: Ms. Pan is a 69-year-old female who presented with decreased urinary output and was admitted for hyponatremia. #Hyponatremia #ESRD #Volume overload #HFpEF #Hypothyroidism ? Patient has end-stage renal disease, GFR around 12. Likely contributing to volume overload and then hyponatremia. ? Clinically improved with diuresis, will need close follow-up with nephrology on discharge and ultimately dialysis. ? Patient also has new found hypothyroidism which may be contributing to hyponatremia, TSH 8.57. Started levothyroxine 50 mcg. ? Continue home Lasix 40 mg. #Bronchiectasis #Community-acquired pneumonia #COPD ? Discharged with Bactrim for total of 14 days. ? Continue home Trelegy. Exam Data for Last 24 hours Vital signs and Labs for Last 24 Hours: Temp Pulse Resp BP Pulse Ox O2 Del Method O2 Flow Rate 98 F 71 16 148/75 H 95 Room Air 2 07/12/24 16:00 07/12/24 16:00 07/12/24 16:00 07/12/24 16:00 07/12/24 16:00 07/12/24 17:00 07/12/24 09:50 Laboratory Results - last 24 hr 07/11/24 21:25: Sodium 123 L, Potassium 4.2, Chloride 101, Carbon Dioxide 22, Anion Gap 4.2 L, BUN 48 H, Creatinine 3.90 H, Estimated Creat Clear 12, Estimated GFR 11 L*, Est GFR ( Amer) 14 L*, Glucose 82, Calcium 7.3 L 07/12/24 05:35: WBC 4.3 L, RBC 2.39 L, Hgb 7.4 L, Hct 21.0 L, MCV 87.9, MCH 31.0, MCHC 35.2, RDW 14.6, Plt Count 259, MPV 10.0, Neut % (Auto) 50.1, Lymph % (Auto) 24.7, [place] % (Auto) 17.1 H, Eos % (Auto) 7.2, Baso % (Auto) 0.7, Neut # (Auto) 2.2, Lymph # (Auto) 1.1, [place] # (Auto) 0.7, Eos # (Auto) 0.3, Baso # (Auto) 0.0, Sodium 125 L, Potassium 3.9, Chloride 101, Carbon Dioxide 21 L, Anion Gap 6.9, BUN 46 H, Creatinine 3.50 H, Estimated Creat Clear 15, Estimated GFR 13 L*, Est GFR ( Amer) 16 L*, Glucose 74, Calcium 7.5 L 07/12/24 05:37: Iron 49, TIBC 213 L, Iron Saturation 23.72518, Ferritin 30.5 D, Vitamin B12 910, Folate 11.90 I & O for Last 24 hours: Intake & Output 07/09/24 07/10/24 07/11/24 07/12/24 23:59 23:59 23:59 23:59 Intake Total 934 / 1054 840 / 840 Output Total 1150 / 1150 2275 / 2275 Balance -216 / -96 -1435 / -1435 Weight 119.1 kg 61.87 kg Microbiology Reports for the Last 24 Hours: Microbiology 07/11/24 12:06 Sputum - Expectorated Sputum Gram Stain - Final 07/11/24 12:06 Sputum - Expectorated Sputum Sputum Culture - Preliminary Constitutional Constitutional: no acute distress *Routine HEENT Exam Head: Present normocephalic Eye: Present EOMI and PERRL ENT: Present mucous membranes moist *Routine Neck Exam Neck: Present supple; Absent lymphadenopathy *Routine Respiratory Exam Respiratory: Present CTA bilaterally *Routine Cardiovascular Exam Cardiovascular: Present RRR *Routine Abdominal Exam Abdominal: Present soft and normoactive bowel sounds; Absent tenderness *Routine Extremities Exam Extremities: Present edema; Absent cyanosis or clubbing *Routine Skin Exam Skin: Present warm; Absent rash *Routine Neurological Exam Neurological: Present alert and oriented X3 Results Data Completed and Pending Labs on day of discharge: Labs from last 24 hours 07/12/24 07/12/24 07/11/24 05:37 05:35 21:25 WBC 4.3 L RBC 2.39 L Hgb 7.4 L Hct 21.0 L MCV 87.9 MCH 31.0 MCHC 35.2 RDW 14.6 Plt Count 259 MPV 10.0 Neut % (Auto) 50.1 Lymph % (Auto) 24.7 [place] % (Auto) 17.1 H Eos % (Auto) 7.2 Baso % (Auto) 0.7 Neut # (Auto) 2.2 Lymph # (Auto) 1.1 [place] # (Auto) 0.7 Eos # (Auto) 0.3 Baso # (Auto) 0.0 Sodium 125 L 123 L Potassium 3.9 4.2 Chloride 101 101 Carbon Dioxide 21 L 22 Anion Gap 6.9 4.2 L BUN 46 H 48 H Creatinine 3.50 H 3.90 H Estimated Creat Clear 15 12 Estimated GFR 13 L* 11 L* Est GFR ( Amer) 16 L* 14 L* Glucose 74 82 Calcium 7.5 L 7.3 L Iron 49 TIBC 213 L Iron Saturation 23.48332 Ferritin 30.5 D Vitamin B12 910 Folate 11.90 Preliminary micro results at discharge 07/11/24 12:06 Sputum Culture - Preliminary Sputum - Expectorated Sputum DS: Diagnosis Discharge Diagnosis (1) Bronchiectasis with (acute) exacerbation: Status: Acute Code(s): J47.1 - Bronchiectasis with (acute) exacerbation (2) Pneumonia: Status: Resolved Code(s): J18.9 - Pneumonia, unspecified organism Qualifiers: Pneumonia type: due to unspecified organism Meds Home Medications and Allergies Home Medications ?Medication ?Instructions ?Recorded ?Confirmed ?Type valacyclovir 500 mg tablet 500 mg PO DAILY 12/24/18 07/17/24 History albuterol sulfate 90 mcg/actuation 1 inh inhalation QIDP PRN 02/22/22 07/17/24 History aerosol inhaler shortness of breath or wheezing fluticasone fur. 100 mcg-umeclid 1 ea inhalation DAILY #90 ea 08/05/22 07/17/24 Rx 62.5 mcg-vilant 25 mcg inhalat.powder (Trelegy Ellipta) ipratropium 0.5 mg-albuterol 3 mg 3 ml inhalation Q6H PRN shortness 08/05/22 07/17/24 Rx (2.5 mg base)/3 mL nebulization of breath or wheezing #180 mL soln ondansetron 4 mg disintegrating 4 mg PO Q8H PRN nausea and 07/08/24 07/17/24 Rx tablet vomiting #20 tabs levothyroxine 50 mcg tablet 50 mcg PO DAILYDM 30 days #30 tabs 07/12/24 07/17/24 Rx (Synthroid) adalimumab 40 mg/0.4 mL 40 mg SQ WEEKLY 07/17/24 07/17/24 History subcutaneous syringe kit (Humira(CF)) carvedilol 25 mg tablet 25 mg PO BID #180 tabs 07/17/24 07/17/24 Rx furosemide 40 mg tablet (Lasix) 40 mg PO Q48H 90 days #45 tabs 07/17/24 07/17/24 Rx apixaban 2.5 mg tablet (Eliquis) 2.5 mg PO DAILY 07/24/24 History diphenhydramine HCl 12.5 mg/5 mL 12.5 mg (5 mL) PO Q8H PRN allergy 07/24/24 07/24/24 Rx oral liquid (Benadryl Allergy) symptoms #400 mL dronedarone 400 mg tablet (Multaq) 400 mg PO BID #60 tabs 07/24/24 Rx sulfamethoxazole 400 1 tab PO DAILY 14 days #14 tabs 07/24/24 07/24/24 Rx mg-trimethoprim 80 mg tablet (Bactrim) New Prescriptions to Start Prescriptions: levothyroxine [Synthroid] Jose Hair Allergies Allergy/AdvReac Type Severity Reaction Status Date / Time amoxicillin Allergy Other Verified 07/24/24 10:50 budesonide Allergy Other Verified 07/24/24 10:50 ciprofloxacin (From Cipro) Allergy Other Verified 07/24/24 10:50 clindamycin Allergy Other Verified 07/24/24 10:50 linezolid (From Zyvox) Allergy Other Verified 07/24/24 10:50 metoprolol Allergy Other Verified 07/24/24 10:50 morphine Allergy Other Verified 07/24/24 10:50 Penicillins Allergy Other Verified 07/24/24 10:50 sulfamethoxazole (From Allergy Other Verified 07/24/24 10:50 Bactrim) tobramycin Allergy Other Verified 07/24/24 10:50 trimethoprim (From Bactrim) Allergy Other Verified 07/24/24 10:50 Discharge Plan Disposition Patient Disposition: Home, Self-Care Condition: Fair Discharge Order Discharge Orders: Discharge Order (Routine); Ordered 07/12/24 Ordered By: Jose Hair Follow up Plan Follow up with: Amilcar Andre PA [Physician Sand Operator, Cardiology] - 07/16/24 Jt Sapp MD [Physician, Pulmonology] - 07/26/24 Prescriptions/Medication Reconciliation: New levothyroxine [Synthroid] 50 mcg Tablet 50 mcg PO DAILYDM 30 Days Qty: 30 0RF Continued Trelegy Ellipta 100-62.5-25 mcg blister with device 1 ea inhalation DAILY Qty: 90 3RF ipratropium-albuterol 0.5 mg-3 mg(2.5 mg base)/3 mL solution for nebulization 3 ml INHALATION Q6H PRN (Reason: shortness of breath or wheezing) Qty: 180 3RF ondansetron 4 mg tablet,disintegrating 4 mg PO Q8H PRN (Reason: nausea and vomiting) Qty: 20 0RF valacyclovir 500 MG tablet 500 mg PO DAILY albuterol sulfate 90 mcg/actuation HFA aerosol inhaler 1 inh INHALATION QIDP PRN (Reason: shortness of breath or wheezing) No Action Humira(CF) 40 mg/0.4 mL syringe kit 40 mg SQ WEEKLY carvedilol 25 mg tablet 25 mg PO BID Qty: 180 3RF furosemide [Lasix] 40 mg tablet 40 mg PO Q48H 90 Days Qty: 45 3RF Rx Instructions: Take every other day. Eliquis 2.5 mg tablet 2.5 mg PO DAILY diphenhydramine HCl [Benadryl Allergy] 12.5 mg/5 mL liquid 12.5 mg PO Q8H PRN (Reason: allergy symptoms) Qty: 400 0RF sulfamethoxazole-trimethoprim [Bactrim] 400-80 mg tablet 1 tab PO DAILY 14 Days Qty: 14 0RF Multaq 400 mg tablet 400 mg PO BID Qty: 60 5RF Rx Instructions: must administer with a meal/food Problem Reconciliation Problems Reviewed?: Yes Patient Discharge Instructions Patient Instructions: DI for Hyponatremia, Stop Light Heart Failure Print Language: Vietnamese Providers Primary Care Provider: Nehemiah Manning Admit Provider: Jose Hair Attending Provider: Jose Hair
--- NOTE | 2024-07-17 14:22 | CARE MANAGER ---
Attempted to contact patient related to hospital discharge. Left VM message.
== END 2024-07-12 19:50 | disposition home or self-care (01) | DRG 640 ==
LOC: ER 04:31 → 2ND 05:34
PROVIDERS: Nurse Practitioner Family; Admitting Provider Student in an Organized Health Care Education/Training Program; Emergency Provider Emergency Medicine; PCP Internal Medicine Adolescent Medicine; Visit Provider Student in an Organized Health Care Education/Training Program
DX: E87.1 Hypo-osmolality and hyponatremia (principal); J18.9 Pneumonia, unspecified organism; N18.6 End stage renal disease; I50.32 Chronic diastolic (congestive) heart failure; I48.92 Unspecified atrial flutter; J47.0 Bronchiectasis with acute lower respiratory infection; J47.1 Bronchiectasis with (acute) exacerbation; I25.2 Old myocardial infarction; M06.9 Rheumatoid arthritis, unspecified; M35.00 Sjogren syndrome, unspecified; D63.1 Anemia in chronic kidney disease; E83.51 Hypocalcemia; R79.89 Other specified abnormal findings of blood chemistry; E03.9 Hypothyroidism, unspecified; Z79.01 Long term (current) use of anticoagulants; Z79.899 Other long term (current) drug therapy; Z88.1 Allergy status to other antibiotic agents; Z88.0 Allergy status to penicillin; Z88.2 Allergy status to sulfonamides; Z88.8 Allergy status to other drugs, medicaments and biological substances; Z95.5 Presence of coronary angioplasty implant and graft
CPT/HCPCS: 36415; 51798; 71045; 71250; 76770; 80048; 80053; 81001; 82607; 82728; 82746; 83540; 83550; 83880; 84439; 84443; 84540; 85025; 87070; 87077; 87186; 87205; 94640; 99285; J2405; J7060; J7120; J7131

== ENCOUNTER 2024-07-17 14:06 | Outpatient (CLI) | payer MEDICARE, SELFPAY ==
[2024-07-17 14:31] LABS: Basophils # 0.1 K/mm3 (0-0.2); Basophils % 0.9 % (0.1-2.0); Eosinophils # 0.2 Kmm3 (0.0-0.4); Eosinophils % 3.4 % (0.1-12.0); Hemoglobin 8.7 g/dL (12.2-16.2); Immature Granulocytes # 0.01 10^3uL; Immature Granulocytes % 0.2 %; Lymphocytes # 1.3 K/mm3 (0.7-4.5); Mean Corpuscular HGB Conc 33.5 g/dL (31.8-35.4); Mean Corpuscular Hemoglobin 30.4 pg (27.0-31.2); Mean Corpuscular Volume 90.9 fl (81-99); Monocytes # 0.7 K/mm3 (0.1-1.0); Monocytes % 11.4 % (1.7-9.3); Neutrophils # 4.1 K/mm3 (1.8-7.8); Neutrophils % 64.1 % (37.0-80.0); Nucleated Red Blood Cells # 0 10^3/uL; Nucleated Red Blood Cells % 0 %; Platelet Count 311 K/mm3 (142-424); Red Blood Count 2.86 M/mm3 (4.20-5.40); Red Cell Distribution Width 15.8 % (11.5-17.5); White Blood Count 6.4 K/mm3 (4.8-10.8)
[2024-07-17 14:38] LABS: Creatinine,Urine Random 70 mg/dL (Not Estab.)
[2024-07-17 15:40] LABS: Albumin Level 3.1 g/dl (3.5-5.0); Anion Gap 11.9 mEq/L (5-15); Blood Urea Nitrogen 56 mg/dl (7-17); Calcium 8.1 mg/dl (8.4-10.2); Carbon Dioxide 23 mmol/L (22.0-30.0); Chloride 101 mmol/L (98-107); Estimated Glomerular Filt Rate 10 ml/min (>60); GFR (African American) 12 ML/MIN (>60); Glucose 100 mg/dl (74-100); Potassium 4.9 mmoL/L (3.5-5.1); Sodium 131 mmol/L (136-145)
== END 2024-07-17 23:59 | disposition home or self-care (01) ==
LOC: LAB 14:07
PROVIDERS: PCP Internal Medicine Adolescent Medicine; Visit Provider Internal Medicine Nephrology
DX: N18.30 Chronic kidney disease, stage 3 unspecified (principal)
CPT/HCPCS: 36415; 80069; 82570; 84156; 85025